=== PATIENT | male | born 1935 | race Caucasian/White ===

== ENCOUNTER → 2017-07-30 12:58 | Outpatient (CLI) | payer MEDICARE, SELFPAY ==
--- NOTE | 2017-07-30 13:00 | CT_ITS ---
STUDY: CT CHEST WITHOUT CONTRAST REASON FOR EXAM: Male, 81 years old. Exertional shortness of breath. RADIATION DOSAGE (If Supplied By Facility): CTDIvol = ( 9.56 ) mGy, DLP = ( 355.56 ) mGycm TECHNIQUE: Transaxial imaging was performed without the administration of intravenous contrast material. Multiplanar coronal and sagittal images were reformatted. Individualized dose optimization techniques were used for this CT. COMPARISON: Prior CT exam of June 19, 2017 FINDINGS: Stable apical pleural-parenchymal scarring of the right lung. Stable area of bronchial retraction and surrounding fibrotic change in the apical portion of the left upper lobe. Stable 5 mm noncalcified nodule of the left upper lobe abutting the oblique fissure, image 31 series 4. Stable flat nodule of the right minor fissure. Image 68 series 4 Calcified granuloma of the right lower lobe, image 69 series 4. Stable linear scarring at the left lung base posteriorly. Normal heart and pericardium. Coronary calcifications and stent artifact. Normal mediastinum. Normal hilar regions. Normal unenhanced pulmonary arteries. There is atherosclerotic calcification of the aortic arch with tortuosity and elongation of the aortic arch and descending thoracic aorta. There are multi-level degenerative changes of the thoracic spine. Status post cholecystectomy. CT/Chest without Contrast IMPRESSION: Stable bilateral apical chronic changes and stable pulmonary nodules. No additional acute findings or changes. Initial recommendation stands: Low risk patient 12 months follow-up. High risk patient 6-12 months then 18-24 months. Electronically Signed: Alicia Coyle MD at 18:14 EST , Service support ,
== END ==
PROVIDERS: Family Provider Family Medicine; PCP Family Medicine; Visit Provider Nurse Practitioner Acute Care
DX: R06.09 Other forms of dyspnea (principal)
CPT/HCPCS: 71250

== ENCOUNTER → 2017-08-15 13:41 | Outpatient (CLI) | payer MEDICARE, SELFPAY | PROVIDERS: Family Provider Family Medicine; PCP Family Medicine; Visit Provider Urology | DX: N39.0 Urinary tract infection, site not specified (principal); R31.0 Gross hematuria | CPT/HCPCS: 87086; 87088 ==

== ENCOUNTER → 2017-11-14 10:44 | Outpatient (CLI) | payer MEDICARE, SELFPAY ==
[2017-11-14 12:30] LABS: Absolute Lymphocyte Count 0.92 X10^3/ul (0.83-4.51); Absolute Neutrophil Count 5.8 X10^3/uL (2.0-7.7); Basophil# 0.02 X10^3/uL; Basophil% 0.2 % (0-1); Eosinophil# 0.27 X10^3/uL; Eosinophils% 3.3 % (0-5); Hematocrit 35.9 % (40-54); Lymphocyte # 0.92 X10^3/ul (4.0); Lymphocyte % 11.4 % (19-41); Mean Corp Hgb Conc 33.4 g/gl (32-36); Mean Corpuscular Hgb 33.9 pg (27.0-32.0); Mean Corpuscular Volume 101.4 fL (80-94); Mean Platelet Vol. 10.7 fl (6.2-12.0); Monocyte# 0.98 X10^3/uL; Monocyte% 12.2 % (0-10); Neutrophil # 5.83 X10^3/uL (2.7-7.7); Neutrophil % 72.4 % (47-70); Platelet Count 309 K/mm3 (150-450); RBC Distribution Width CV 13.1 % (11.6-14.6); RBC Distribution Width SD 48.5 fl (35.1-43.9); Red Blood Count 3.54 M/mm3 (4.6-6.2); White Blood Count 8.1 K/mm3 (4.4-11.0)
[2017-11-14 12:31] LABS: POSITIVE COUNT NO; POSITIVE DIFFERENTIAL NO; POSITIVE MORPHOLOGY NO
[2017-11-14 12:32] LABS: Erythrocyte Sedimentation Rate 9 mm/hr (0-20)
[2017-11-14 12:39] LABS: Anion Gap 9 (5-15); BUN 23 mg/dL (7-18); BUN/Creat Ratio 21.1 RATIO (10-20); CRP < 2.90 mg/L (0.0-3.0); Calcium,Total 8.5 mg/dL (8.5-10.1); Chloride 106 mmol/L (98-107); Creatinine, Serum 1.09 mg/dL (0.70-1.30); EST Glomerular Filtration Rate 69 mL/min (>60); Est Glom Filt Rate - Afr Amer 83 mL/min (>60); Glucose 321 mg/dL (74-106); Potassium 4.2 mmol/L (3.5-5.1); Sodium Level 139 mmol/L (136-145)
== END ==
PROVIDERS: Family Provider Family Medicine; PCP Family Medicine; Visit Provider Family Medicine
DX: R19.7 Diarrhea, unspecified (principal)
CPT/HCPCS: 36415; 80048; 83630; 85025; 85652; 86140; 87177; 87209; 87493; 87506

== ENCOUNTER → 2017-11-17 14:23 | Outpatient (CLI) | payer MEDICARE, SELFPAY | PROVIDERS: Family Provider Family Medicine; PCP Family Medicine; Visit Provider Family Medicine | DX: R19.7 Diarrhea, unspecified (principal) | CPT/HCPCS: 83630; 87177; 87209; 87493; 87506 ==

== ENCOUNTER → 2017-11-26 07:00 | Outpatient (CLI) | payer MEDICARE, SELFPAY ==
--- NOTE | 2017-11-26 09:08 | STRESSREP ---
Stress Test Report Pharmacologic myocardial perfusion stress test. 82-year-old man with a history of progressive shortness of breath. Medications : megestrol pantoprazole magnesium albuterol. Stress protocol: Resting EKG demonstrates normal sinus rhythm with a right bundle branch block rate of 70 bpm is noted resting blood pressure is 154/80 mmHg. 0.4 mg of regadenoson was infused per usual protocol followed by Intravenous saline flush injection continuous EKG monitoring was performed. At rest there were no ST or T-wave changes noted suggest abnormal flow reserve. The maximum heart rate attained was 88 bpm which was 63% maximum predicted heart rate resting blood pressure was 154/80 with a final blood pressure 148/76. Myocardial perfusion protocol. 11.2 mCi of technetium 99m sestamibi was injected at rest. 0.4 mg of regadenoson was infused per usual protocol. At peak infusion 33.6 mCi of technetium 99m sestamibi was injected stress images were obtained stress and rest images were reconstructed and compared in the short axis vertical long and horizontal long axis. Gated images were also obtained. Perfusion SPECT analysis: Review of the images demonstrate normal uptake of tracer noted in all areas of the myocardium. The inferior wall appears to have mildly reduced perfusion on the stress and rest images to a similar extent the above is not suggestive of ischemia and no previous infarct is noted. Gated SPECT analysis. The gated ejection fraction is noted to be 73%. Conclusion: Normal pharmacologic myocardial perfusion stress test. Preserved ejection fraction.
== END ==
PROVIDERS: Family Provider Family Medicine; PCP Family Medicine; Visit Provider Internal Medicine Cardiovascular Disease
DX: R07.9 Chest pain, unspecified (principal); R06.09 Other forms of dyspnea; I45.10 Unspecified right bundle-branch block; I25.10 Atherosclerotic heart disease of native coronary artery without angina pectoris
CPT/HCPCS: 78452; 93017; A9500; A4216; J2785

== ENCOUNTER → 2017-12-02 11:50 | Outpatient (CLI) | payer MEDICARE, SELFPAY ==
[2017-12-03 09:45] LABS: Vitamin B12 1559 pg/mL (211-911); Vitamin D,25 Hydroxy 31.9 ng/mL (29.95-100.01)
[2017-12-04 16:04] LABS: ANTINUCLEAR ANTIBODIES DIRECT Negative (Negative)
== END ==
PROVIDERS: Family Provider Family Medicine; PCP Family Medicine; Visit Provider Family Medicine
DX: R19.7 Diarrhea, unspecified (principal); E11.9 Type 2 diabetes mellitus without complications; E55.9 Vitamin D deficiency, unspecified; R53.83 Other fatigue
CPT/HCPCS: 36415; 82306; 82533; 82607; 86038; 86225; 86235

== ENCOUNTER → 2017-12-09 10:28 | Outpatient (CLI) | payer MEDICARE, SELFPAY ==
[2017-12-09 13:06] LABS: D-Dimer Quantitative (DVT/PE) 0.63 FEU/ug/m (0.27-0.49)
[2017-12-12 16:11] LABS: Testosterone, Free 3.45 ng/dL (5.00-21.00)
[2017-12-14 10:29] LABS: Testosterone, % Free 1.45 % (1.50-4.20); Testosterone, Total 238 ng/dL (264-916)
== END ==
PROVIDERS: Visit Provider Family Medicine
DX: J43.9 Emphysema, unspecified (principal); J45.909 Unspecified asthma, uncomplicated
CPT/HCPCS: 36415; 84402; 84403; 85379

== ENCOUNTER → 2017-12-09 16:58 | Outpatient (CLI) | payer MEDICARE, SELFPAY ==
--- NOTE | 2017-12-09 17:17 | CT_ITS ---
STUDY: CTA CHEST REASON FOR EXAM: Male, 82 years old. Elevated d-dimer RADIATION DOSAGE (If Supplied By Facility): CTDIvol = ( 9.46 ) mGy, DLP = ( 340.93 ) mGycm TECHNIQUE: The examination was performed with the intravenous administration of 100 ml of Isovue 370 contrast material. Post-processing of the angiographic images was performed, with multiplanar reformation and 3D reconstruction. Individualized dose optimization techniques were used for this CT. COMPARISON: None. FINDINGS: Grossly unremarkable thyroid. Normal enhancement of the main pulmonary artery and right and left pulmonary arteries. Normal enhancement of the bilateral peripheral pulmonary arteries. There is no demonstrated pulmonary embolism. There is atherosclerotic tortuosity of the aortic arch and descending thoracic aorta. There is no demonstrated aortic dissection. Normal heart and pericardium. Normal mediastinum. Normal hilar regions. Normal visualized trachea and bronchi. The lungs are hyper expanded, with flattening of the hemidiaphragms. Spiculated groundglass nodule in the left lung apex is noted measuring 2.3 x 1.8 cm. No other pulmonary masses or nodules are identified. Given patient's age, consideration for malignancy is high. No acute airspace disease. Normal pleura. Normal chest wall structures. There are degenerative changes of thoracic spine. Normal visualized upper abdomen. CT/CTA Chest W/WO Contrast IMPRESSION: Negative for pulmonary embolism or thoracic aortic dissection. COPD and lungs are clear. Spiculated left upper lobe pulmonary nodule; malignancy cannot be excluded Electronically Signed: Porfirio Gray DO at 18:04 EDT Tel , Service support ,
== END ==
PROVIDERS: Family Provider Family Medicine; PCP Family Medicine; Visit Provider Family Medicine
DX: R74.8 Abnormal levels of other serum enzymes (principal); J43.9 Emphysema, unspecified; J45.909 Unspecified asthma, uncomplicated
CPT/HCPCS: 36415; 71275; 84402; 84403; 85379; Q9967

== ENCOUNTER → 2017-12-17 11:50 | Outpatient (CLI) | payer MEDICARE, SELFPAY ==
[2017-12-17 16:45] LABS: Prolactin 23.6 ng/mL
[2017-12-24 16:12] LABS: Testosterone, % Free 1.58 % (1.50-4.20); Testosterone, Free 4.42 ng/dL (5.00-21.00)
[2017-12-25 17:12] LABS: Testosterone, Total 280 ng/dL (264-916); Transferrin 250 mg/dL (200-370)
== END ==
PROVIDERS: Family Provider Family Medicine; PCP Family Medicine; Visit Provider Family Medicine
DX: E29.1 Testicular hypofunction (principal)
CPT/HCPCS: 36415; 84146; 84402; 84403; 84443; 84466

== ENCOUNTER 2018-03-16 09:38 | Day surgery (SDC) | payer MEDICARE, SELFPAY ==
--- NOTE | 2018-03-16 | COLBX_PTH ---
PATIENT: ANNETTE VILLANUEVA LOC: EN U#:[id number] AGE/SX: 82/M ROOM: RE03/16/[address]: Dr. Andreas Prather MD : 1935 BED: DIS: 03/16/2018 SPEC #: [id number] RECD: 03/16/18 14:28 STATUS: TOMAS MORE #: [id number] JUSTINA: 03/16/18 00:[address]: Andreas Prather DEPT: SURGICAL PATHOLOGY RECD BY: Zeus Sanchez ENTERED: 03/16/18 14:28 SP TYPE: COLON BX OTHR DR: Dr. Lico Cameron DO Tissues: A - Cecum, NOS B - COLON BIOPSY Procedures: Surgery Specimen Level IV HEADER OPERATION: Colonoscopy (MAC) PRE-OP DIAGNOSIS: Diarrhea TISSUE SUBMITTED: A - Ileocecal valve polyp, B - Random colonic biopsies MICROSCOPIC DIAGNOSIS A. Ileocecal valve polyp, biopsy: Consistent with inflammatory polyp. B. Colon, random biopsy: No pathologic diagnosis. AM:brayden 03/17/18 MICROSCOPIC DESCRIPTION Slides are reviewed. GROSS DESCRIPTION A - Received in fixative is one container labeled with the patient's name and designated ileocecal valve polyp. The specimen consists of one irregular fragment of light musa soft tissue that measures 0.2 x 0.2 x 0.1 cm. The specimen is totally submitted in one cassette. B - Received in fixative is one container labeled with the patient's name and designated random colonic biopsy. The specimen consists of multiple irregular fragments of light musa soft tissue that in aggregate measure 2 x 0.8 x 0.1 cm. The specimen is totally submitted in one cassette. / SJ:brayden 03/16/18 TC:5 CPT: 72611 x2
[2018-03-16 10:20] VITALS: BP 151/68; PULSE 78; RESP 16; TEMP 36.7; O2SAT 100; BMI 22.7
[2018-03-16 10:46] LABS: Bedside Glucose 171 mg/dL (70-110)
[2018-03-16 11:05] VITALS: BP 142/77; BP 151/68; PULSE 70; RESP 16; TEMP 36.3; O2SAT 100
--- NOTE | 2018-03-16 11:05 | OP.ENDO_ITS ---
Patient Name: Jair Fletcher Procedure Date: 03/16/2018 10:35 AM Date of : 1935 Age: 82 Procedure: Colonoscopy Indications: Screening for colorectal malignant neoplasm Providers: Andreas Prather MD Referring MD: Andreas Prather MD Medicines: See the Anesthesia note for documentation of the administered medications Patient Profile: Last Colonoscopy: more than 10 years ago. Complications: No immediate complications. Procedure: Pre-Anesthesia Assessment: - Prior to the procedure, a History and Physical was performed, and patient medications and allergies were reviewed. The patient's tolerance of previous anesthesia was also reviewed. The risks and benefits of the procedure and the sedation options and risks were discussed with the patient. All questions were answered, and informed consent was obtained. Prior Anticoagulants: The patient has taken no previous anticoagulant or antiplatelet agents. ASA Grade Assessment: III - A patient with severe systemic disease. After reviewing the risks and benefits, the patient was deemed in satisfactory condition to undergo the procedure. After I obtained informed consent, the scope was passed under direct vision. Throughout the procedure, the patient's blood pressure, pulse, and oxygen saturations were monitored continuously. The colonoscope was introduced through the anus and advanced to the cecum, identified by appendiceal orifice and ileocecal valve. The colonoscopy was performed without difficulty. The patient tolerated the procedure well. The quality of the bowel preparation was good. Scope In: 10:46:25 AM Scope Withdrawal Time 0 hours 6 minutes 55 seconds Scope Out: 11:00:36 AM Total Procedure Duration Time 0 hours 14 minutes 11 seconds Findings: A 5 mm polyp was found in the ileocecal valve. The polyp was sessile. The polyp was removed with a hot snare. Resection and retrieval were complete. The colon (entire examined portion) appeared normal. Biopsies for histology were taken with a cold forceps from the entire colon for evaluation of microscopic colitis. The exam was otherwise without abnormality. Impression: - One 5 mm polyp at the ileocecal valve, removed with a hot snare. Resected and retrieved. - The entire examined colon is normal. Biopsied. - The examination was otherwise normal. Recommendation: - Discharge patient to home. - Resume previous diet. - Continue present medications. - Await pathology results. - Repeat colonoscopy in 3 years for surveillance. - Return to my office in 1 week. Procedure Code(s): --- Professional --- 84733, Colonoscopy, flexible; with removal of tumor(s), polyp(s), or other lesion(s) by snare technique [id number], 59, Colonoscopy, flexible; with biopsy, single or multiple Diagnosis Code(s): --- Professional --- Z12.11, Encounter for screening for malignant neoplasm of colon D12.0, Benign neoplasm of cecum CPT copyright 2017 [employer]. All rights reserved. The codes documented in this report are preliminary and upon groundwater consultant review may be revised to meet current compliance requirements. MD Andreas Cox MD 03/16/2018 11:04:25 AM This report has been signed electronically. Number of Addenda: 0 Note Initiated On: 03/16/2018 10:35 AM
[2018-03-16 11:10] VITALS: BP 110/83; BP 151/68; PULSE 67; RESP 16; O2SAT 99
[2018-03-16 11:15] VITALS: BP 131/63; BP 151/68; PULSE 72; RESP 16; O2SAT 99
[2018-03-16 11:21] VITALS: BP 136/62; BP 151/68; PULSE 72; RESP 16; TEMP 36.3; O2SAT 96
[2018-03-16 11:48] VITALS: BP 151/68
== END 2018-03-16 11:49 | disposition home or self-care (01) ==
LOC: EN 09:40 → AC 10:00
PROVIDERS: Family Provider Family Medicine; PCP Family Medicine; Referring Provider Surgery; Visit Provider Surgery
PROC: 0DJD8ZZ Inspection of Lower Intestinal Tract, Via Natural or Artificial Opening Endoscopic (ICD-10-PCS; CPT 45378; principal; 2018-03-16 10:40)
DX: Z12.11 Encounter for screening for malignant neoplasm of colon (principal); D12.0 Benign neoplasm of cecum; I45.10 Unspecified right bundle-branch block; E11.9 Type 2 diabetes mellitus without complications; C61 Malignant neoplasm of prostate; R33.9 Retention of urine, unspecified; M19.90 Unspecified osteoarthritis, unspecified site; J45.909 Unspecified asthma, uncomplicated; E55.9 Vitamin D deficiency, unspecified; K21.9 Gastro-esophageal reflux disease without esophagitis; F32.9 Major depressive disorder, single episode, unspecified; Z79.02 Long term (current) use of antithrombotics/antiplatelets; Z79.4 Long term (current) use of insulin; Z79.899 Other long term (current) drug therapy; Z87.891 Personal history of nicotine dependence
CPT/HCPCS: 45380; 45385; 82962; 88305; J7120; J1610

== ENCOUNTER → 2018-04-29 11:58 | Outpatient (CLI) | payer MEDICARE, SELFPAY ==
[2018-04-29 15:58] LABS: Absolute Lymphocyte Count 0.94 X10^3/ul (0.83-4.51); Absolute Neutrophil Count 4.8 X10^3/uL (2.0-7.7); Basophil# 0.01 X10^3/uL; Basophil% 0.1 % (0-1); Eosinophil# 0.22 X10^3/uL; Eosinophils% 3.2 % (0-5); Hematocrit 36.7 % (40-54); Hemoglobin 12.1 g/dl (13.0-16.5); Lymphocyte # 0.94 X10^3/ul (4.0); Lymphocyte % 13.7 % (19-41); Mean Corpuscular Hgb 34.3 pg (27.0-32.0); Mean Platelet Vol. 11.1 fl (6.2-12.0); Monocyte# 0.86 X10^3/uL; Monocyte% 12.5 % (0-10); Neutrophil % 69.8 % (47-70); Platelet Count 269 K/mm3 (150-450); RBC Distribution Width CV 13.4 % (11.6-14.6); RBC Distribution Width SD 49.6 fl (35.1-43.9); Red Blood Count 3.53 M/mm3 (4.6-6.2); White Blood Count 6.9 K/mm3 (4.4-11.0)
[2018-04-29 16:02] LABS: POSITIVE COUNT NO; POSITIVE DIFFERENTIAL NO; POSITIVE MORPHOLOGY NO
[2018-05-02 16:06] LABS: Alternaria tenuis <0.10 kU/L (Class 0); Ash, White <0.10 kU/L (Class 0); Aspergillus fumigatus <0.10 kU/L (Class 0); Bermuda Grass <0.10 kU/L (Class 0); Birch <0.10 kU/L (Class 0); Black Walnut <0.10 kU/L (Class 0); Cat Hair / Dander,Stand 1.04 kU/L (Class II); Cedar, Mountain <0.10 kU/L (Class 0); Cladosporium herbarum <0.10 kU/L (Class 0); Cockroach, American 0.25 kU/L (Class 0/I); Cottonwood <0.10 kU/L (Class 0); D farinae Mite 0.16 kU/L (Class 0/I); D pteronyssinus 0.21 kU/L (Class 0/I); Elm, American White <0.10 kU/L (Class 0); Immunoglobulin E 34 IU/mL (0-100); Maple/Box Elder <0.10 kU/L (Class 0); Mulberry, White <0.10 kU/L (Class 0); Oak, White <0.10 kU/L (Class 0); Pecan <0.10 kU/L (Class 0); Penicillium Notatum <0.10 kU/L (Class 0); Pigweed, Rough <0.10 kU/L (Class 0); Ragweed, Short/Common <0.10 kU/L (Class 0); Russian Thistle <0.10 kU/L (Class 0); Sheep Sorrel <0.10 kU/L (Class 0); Sycamore, American <0.10 kU/L (Class 0); Timothy Grass 7.34 kU/L (Class IV)
[2018-05-02 20:06] LABS: Banana <0.10 kU/L (Class 0); Celery <0.10 kU/L (Class 0); Cheddar Cheese <0.10 kU/L (Class 0); Lettuce <0.10 kU/L (Class 0); Peach <0.10 kU/L (Class 0)
[2018-05-03 08:33] LABS: Lactalbumin, Alpha <0.10 kU/L (Class 0); Turkey <0.10 kU/L (Class 0)
[2018-05-03 08:34] LABS: Mouse Urine <0.10 kU/L (Class 0)
[2018-05-09 03:08] LABS: Almond <0.10 kU/L (Class 0); Barley, Whole Grain <0.10 kU/L (Class 0); Beef <0.10 kU/L (Class 0); Carrot <0.10 kU/L (Class 0); Casein <0.10 kU/L (Class 0); Cashew <0.10 kU/L (Class 0); Chicken <0.10 kU/L (Class 0); Chocolate <0.10 kU/L (Class 0); Clam <0.10 kU/L (Class 0); Codfish <0.10 kU/L (Class 0); Corn <0.10 kU/L (Class 0); Crab 0.12 kU/L (Class 0/I); Egg, White <0.10 kU/L (Class 0); Egg, Whole <0.10 kU/L (Class 0); Egg, Yolk <0.10 kU/L (Class 0); Garlic <0.10 kU/L (Class 0); Gluten <0.10 kU/L (Class 0); Hazelnut/Filbert <0.10 kU/L (Class 0); Lobster 0.21 kU/L (Class 0/I); Milk (Cow) <0.10 kU/L (Class 0); Oat <0.10 kU/L (Class 0); Onion <0.10 kU/L (Class 0); Orange <0.10 kU/L (Class 0); Pea <0.10 kU/L (Class 0); Pecan <0.10 kU/L (Class 0); Pork <0.10 kU/L (Class 0); Potato, White <0.10 kU/L (Class 0); Rice <0.10 kU/L (Class 0); Rye <0.10 kU/L (Class 0); Salmon <0.10 kU/L (Class 0); Shrimp 0.47 kU/L (Class I); Soybean <0.10 kU/L (Class 0); Strawberry <0.10 kU/L (Class 0); Tomato <0.10 kU/L (Class 0); Tuna <0.10 kU/L (Class 0); Walnut, (Food) <0.10 kU/L (Class 0); Wheat <0.10 kU/L (Class 0); Yeast <0.10 kU/L (Class 0)
[2018-05-10 09:52] LABS: Apple <0.10 kU/L (Class 0); Peanut <0.10 kU/L (Class 0)
--- OUTSIDE RECORDS SUMMARY | 2018-06-24 21:21 | XMS RPT_ITS ---
:1935 Author Organization OHIP Support Name Relationship Address Phone VICKIE FLETCHER Unavailable [address] + [address] [place] [address] R Unavailable Unavailable Unavailable VICKIE FLETCHER Unavailable [address] + [address] [place] [address] R Unavailable Unavailable Unavailable VICKIE FLETCHER Unavailable [address] + [address] [place] [address] R Unavailable Unavailable Unavailable VICKIE FLETCHER Unavailable [address] + [address] [place] [address] R Unavailable Unavailable Unavailable VICKIE FLETCHER Unavailable [address] + [address] [place] [address] R Unavailable Unavailable Unavailable VICKIE FLETCHER Unavailable [address] + [address] [place] [address] R Unavailable Unavailable Unavailable VICKIE FLETCHER Unavailable [address] + [address] [place] [address] R Unavailable Unavailable Unavailable VICKIE FLETCHER Unavailable [address] [phone] [place] [address] R Unavailable Unavailable Unavailable VICKIE FLETCHER Unavailable [address] + [address] [place] [address] R Unavailable Unavailable Unavailable VICKIE FLETCHER Unavailable [address] + [address] [place] [address] R Unavailable Unavailable Unavailable VICKIE FLETCHER Unavailable [address] + [address] [place] [address] R Unavailable Unavailable Unavailable VICKIE FLETCHER Unavailable [address] + [address] [place] [address] R Unavailable Unavailable Unavailable VICKIE FLETCHER Unavailable [address] + [address] [place] [address] R Unavailable Unavailable Unavailable VICKIE FLETCHER Unavailable [address] + [address] [place] [address] R Unavailable Unavailable Unavailable VICKIE FLETCHER Unavailable [address] + [address] [place] [address] R Unavailable Unavailable Unavailable VICKIE FLETCHER Unavailable [address] + [address] [place] [address] R Unavailable Unavailable Unavailable VICKIE FLETCHER Unavailable [address] [phone]~330-2 [place] [address] R Unavailable Unavailable Unavailable VICKIE FLETCHER Unavailable [address] [phone]~330-2 [place] [address] R Unavailable Unavailable Unavailable VICKIE FLETCHER Unavailable [address] [phone]~330-2 [place] [address] R Unavailable Unavailable Unavailable VICKIE FLETCHER Unavailable [address] [phone]~330-2 [place] [address] R Unavailable Unavailable Unavailable VICKIE FLETCHER Unavailable [address] [phone]~330-2 [place] [address] R Unavailable Unavailable Unavailable VICKIE FLETCHER Unavailable [address] [phone]~330-2 [place] [address] R Unavailable Unavailable Unavailable VICKIE FLETCHER Unavailable [address] [phone]~330-2 [place] [address] R Unavailable Unavailable Unavailable VICKIE FLETCHER Unavailable [address] [phone]~330-2 [place] [address] R Unavailable Unavailable Unavailable VICKIE FLETCHER Unavailable [address] [phone]~330-2 [place] [address] R Unavailable Unavailable Unavailable VICKIE FLETCHER Unavailable [address] [phone]~330-2 [place] [address] R Unavailable Unavailable Unavailable VICKIE FLETCHER Unavailable [address] [phone]~330-2 [place] [address] R Unavailable Unavailable Unavailable VICKIE FLETCHER Unavailable [address] [phone]~330-2 [place] [address] R Unavailable Unavailable Unavailable VICKIE FLETCHER Unavailable [address] + [place] [address] R Unavailable Unavailable Unavailable VICKIE FLETCHER Unavailable [address] [phone]~330-2 [place] [address] R Unavailable Unavailable Unavailable Care Team Providers Name Role Phone Tina Ayala Attending Unavailable Nisha, Lico Referring Unavailable Nisha, Lico Primary Care Unavailable Mirian Fitzgerald Attending Unavailable Ayala, Tina Attending Unavailable Nisha, Ilco Primary Care Unavailable Ayala, Tina Referring Unavailable SeaSaleem Attending Unavailable Nisha, Lico Primary Care Unavailable Ayala, Tina Attending Unavailable Nisha, Lico Referring Unavailable Tina Ayala Attending Unavailable Ayala, Tina Referring Unavailable Nisha, Lico Primary Care Unavailable Whitney Gillette NP-C Attending Unavailable Nisha, Lico Referring Unavailable Nisha, Lico Primary Care Unavailable Alana Solis Attending Unavailable Tina Ayala Referring Unavailable Sanford Radford D.O. Attending Unavailable Nisha, Lico Referring Unavailable Whitney Gillette Attending Unavailable Nisha, Lico Referring Unavailable SeaSaleem Attending Unavailable Nisha, Lico Primary Care Unavailable Saleem Osei Referring Unavailable Stephy, Juan Antonio Attending Unavailable Nisha, Lico Referring Unavailable Nisha, Lico Primary Care Unavailable Stephy, [place] Attending Unavailable Stephy, Juan Antonio Referring Unavailable Nisha, Lico Primary Care Unavailable AyalaTina Attending Unavailable Nisha, Lico Referring Unavailable Stephy, Juan Antonio Attending Unavailable Nisha, Lico Referring Unavailable Nisha, Lico Attending Unavailable Nisha, Lico Referring Unavailable Nisha, Lico Primary Care Unavailable Nisha, Lico Attending Unavailable Nisha, Lico Referring Unavailable Nisha, Lico Primary Care Unavailable Stephy, [place] Attending Unavailable Stephy, [place] Referring Unavailable Nisha, Lico Primary Care Unavailable Nisha, Lico Attending Unavailable Nisha, Lico Primary Care Unavailable Nisha, Lico Attending Unavailable Nisha, Lico Attending Unavailable Nisha, Lico Referring Unavailable Nisha, Lico Primary Care Unavailable Nisha, Lico Attending Unavailable Nisha, Lico Primary Care Unavailable Stephy, Juan Antonio Attending Unavailable Yamilka, Andreas Attending Unavailable Nisha, Lico Referring Unavailable FitzgeraldMirian oakley Attending Unavailable Dalhart, Andreas Attending Unavailable Yamilka, Andreas Referring Unavailable Nisha, Lico Primary Care Unavailable Yamilka, Andreas Attending Unavailable Nisha, Lico Referring Unavailable Dalhart, Andreas Attending Unavailable Nisha, Lico Attending Unavailable Nisha, Lico Primary Care Unavailable Raymon Gilletteie Dave [employer]-C Attending Unavailable Nisha, Lico Referring Unavailable PROBLEMS PROBLEMS DATE TYPE CONDITION / CODE ATTENDING STATUS SOURCE 04/29/2018 Unknown Z51.81 - Encounter Lico Cameron Active [place] for therapeutic Community drug level Hospital monitoring / Repository Z51.81(ICD-10) 04/01/2018 Unknown Z12.11 - Encounter Andreas Prather Active [place] for screening for Community malignant neoplasm [facility] of colon / Repository Z12.11(ICD-10) 04/01/2018 Unknown 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 / Community D12.0(ICD-10) Hospital Repository 12/09/2017 Unknown J45.909 - Lico Cameron Active [place] Unspecified asthma, Community uncomplicated / Hospital J45.909(ICD-10) Repository 12/09/2017 Unknown J43.9 - Emphysema, Lico Cameron Active [facility] unspecified / Community J43.9(ICD-10) Hospital Repository 11/17/2017 Unknown R19.7 - Diarrhea, Lico Cameron Active [place] unspecified / Community R19.7(ICD-10) Hospital Repository 09/03/2017 Unknown R06.09 - Other Stephy, Juan Antonio Active [place] forms of dyspnea / Community R06.09(ICD-10) Hospital Repository 09/03/2017 Unknown R53.83 - Other Stephy, Juan Antonio Active [place] fatigue / Community R53.83(ICD-10) Hospital Repository 09/03/2017 Unknown R07.9 - Chest pain, Stephy, [place] Active [facility] unspecified / Community R07.9(ICD-10) Hospital Repository 09/03/2017 Unknown R91.1 - Solitary Stephy, [place] Active [place] pulmonary nodule / Community R91.1(ICD-10) Hospital Repository 09/03/2017 Unknown R93.8 - Abnormal Stephy, Juan Anotnio Active [facility] findings on Community diagnostic imaging Hospital of other specified Repository body structures / R93.8(ICD-10) 09/03/2017 Unknown E10.65 - Type 1 Stephy, Juan Antonio Active [facility] diabetes mellitus Community with hyperglycemia Hospital / E10.65(ICD-10) Repository 09/03/2017 Unknown J42 - Unspecified Stephy, [place] Active [facility] chronic bronchitis Community / J42(ICD-10) Hospital Repository 09/03/2017 Unknown I45.10 - Stephy, [place] Active [facility] Unspecified right Community bundle-branch block Hospital / I45.10(ICD-10) Repository 08/14/2017 Unknown E11.9 - Type 2 Whitney Gillette Active [facility] diabetes mellitus [facility] Community without Hospital complications / Repository E11.9(ICD-10) 06/19/2017 Unknown R06.00 - Dyspnea, Ayala, Active [facility] unspecified / Tina [facility] R06.00(ICD-10) Hospital Repository 09/25/2017 Unknown R06.02 - Shortness Will, Alana Active [place] of breath / Community R06.02(ICD-10) Hospital Repository 07/02/2017 Unknown J41.0 - Simple Ayala, Active [facility] chronic bronchitis Tina [facility] / J41.0(ICD-10) Hospital Repository PROCEDURES PROCEDURES No Procedure Records FoundRESULTS RESULTS ENDOCRINOLOGY VISIT Observed: 05/06/2018 Status: F Source: [facility] REPORT 3:27 PM [facility] REPOSITORY [facility] [address] [place] [address] [address] [place] [address] OFFICE VISIT Date of Service: 05/06/18 MR#: [id number] Acct: [id number] Name: ANNETTE FLETCHER Rep #: [id number] : 1935 Provider: Whitney Gillette NP Age/Sex: 82/M [place] [facility] [place]: Signed HPI History of present illness Annette Fletcehr is an 82 year old male who presents for follow up of diabetes type 2. Patient thinks his diabetes was changed to diagnosis of type 1 at some point. Currently he takes toujeo 21 units twice daily. . He also takes meal insulin base of 10 units and sliding scale of 1 per 25 points. Pt denies difficulty with injections or self monitoring of BG. Denies any signs of infection or irritation at site of injections. Reports taking insulin as directed A1c done at office of PCP. Patient not sure of his level. Reports he checks his BG after he pre meal andis taking insulin before he eats. At time of visit: -Pt denies symptoms of hypertensive emergency (CP,SOB,WAITE, or blurred vision) and hypotension(dizziness or lightheadedness) -Pt denies symptoms of hypoglycemia ( sweaty, confusion, anxiety, tremor, hunger, palpitations) and hyperglycemia ( polydipsia, polyuria) -Pt denies potential medication adverse effect. Hypoglycemia Aware of hypoglycemia: When awake Able to self treat low BG: Yes Frequent low Blood sugar: No Has supply of glucagon: Yes Diet Breakfast varies from eggs and hash browns to pancakes, to cereal, to only a glass of milk Lunch soup/sandwich Dinner meat and vegetables SMBG after breakfast 200-300 Lunch post meal 200-300's after dinner 300 range Exam Const General: comfortable, no acute distress Nutritional Appearance: well nourished Orientation: oriented x3 HENMT Head: normal to inspection, atraumatic Ears: other (sl hard of hearing) Nose: external nose normal Mouth: oral mucosae normal, moist mucous membranes abnormal Teeth and gingiva: dentition normal Eyes General: appearance normal, both eyes and all related structures Conjunctivae: conjunctivae normal Sclera: sclerae normal Pupils: PERRL Resp Effort AND Inspection: normal respiratory effort, able to speak in complete sentences, symmetric chest movement Auscultation: Bilateral: Clear to Auscultation Cardio Rate: regular rate Rhythm: regular rhythm Heart Sounds: S1 normal, S2 normal GI Inspection: normal to inspection Auscultation: normal bowel sounds Palpation: soft, no guarding Skin General: no rashes or lesions noted Wounds: no wounds Diabetic Foot Pulses: L dorsalis pedis pulse: normal, R dorsalis pedis pulse: diminished Monofilament test: Left foot: abnormal, Right foot: abnormal Neuro General: gait normal, moves all extremities Cognition: normal cognition Speech: speech normal Gait: normal gait Extrem General: normal to inspection, pedal edema Psych Appearance: well kempt Mental Status: mental status grossly normal Mood: congruent mood Affect: normal affect Speech and Movement: speech and movement normal Attitude: cooperative Thought Process: normal Thought Content: normal Judgment: judgment good Type: type 1, insulin-requiring Glucose control symptoms: Reports high fasting glucose, high post-meal glucose and nocturnal hypoglycemia Weight and fatigue symptoms: Denies snoring Cardiopulmonary symptoms: Reports lightheadedness; denies chest pain at rest, dyspnea on exertion or myalgias GI symptoms: Denies constipation, diarrhea, nausea/dyspepsia or vomiting Skin and extremity symptoms: Denies erectile dysfunction Other symptoms: Denies blurry vision or change in vision Pertinent visit history: Denies recent visit to ER or recent 911 calls Self monitoring: Yes Dietary compliance: Diabetes: other Diabetes education in past year: Yes Glucose testing: demonstrates correct use of meter, understands testing schedule Sick day education - understands ketone testing: Yes Physical activity: sedentary lifestyle Intake Vital Signs05/06/18 Body Mass Index (BMI) 22.7 Intake Visit Reasons: Diabetes follow-up Bag Hanger Required: No Accompanied by: Family / Other Allergies latex Allergy (Verified 05/06/18 13:16) Rash Medications megestrol 20 mg tablet 20 mg PO ONCE 06/05/17 [History Confirmed 05/06/18] blood sugar diagnostic strips See Dose Instructions .ROUTE .MEDSUPPLY #20 ea 07/28/17 [History Confirmed 05/06/18] pen needle, diabetic 32 gauge x 32 See Dose Instructions .ROUTE .MEDSUPPLY #10 ea 08/13/17 [History Confirmed 05/06/18] albuterol sulfate HFA 90 mcg/actuation aerosol inhaler 2 puff INHALATION Q4H PRN #18 g 08/21/17 [Rx Confirmed 05/06/18] pantoprazole 40 mg tablet,delayed release 40 mg PO QDAY 09/03/17 [History Confirmed 05/06/18] insulin lispro (U- 100) 100 unit/mL subcutaneous solution See Rx Instructions SC TID #20 ml 09/22/17 [Rx Confirmed 05/06/18] cholecalciferol (vitamin D3) 2,000 unit capsule 2,000 unit PO DAILY 03/05/18 [History Confirmed 05/06/18] dutasteride 0.5 mg capsule 0.5 mg PO DAILY 03/05/18 [History Confirmed 05/06/18] gabapentin 300 mg capsule 300 mg PO DAILY 03/05/18 [History Confirmed 05/06/18] insulin glargine (U-300) conc. 300 unit/mL (1.5 mL) subcutaneous pen 21 unit SC BID ml 03/05/18 [History Confirmed 05/06/18] polyethylene glycol 3350 17 gram/dose oral powder 17 g PO QDAY 03/05/18 [History Confirmed 05/06/18] testosterone cypionate 100 mg/mL intramuscular oil 300 mg IM ONCE ml 03/05/18 [History Confirmed 05/06/18] vitamin B complex tablet 1 tab PO DAILY 03/05/18 [History Confirmed 05/06/18] Blood Sugar Diagnostic [Easy Touch Test Strip] 0 ea .ROUTE .MEDSUPPLY 03/13/18 [History Confirmed 05/06/18] insulin syringe-needle U-100 0.5 mL 31 gauge x 10/15 See Dose Instructions .ROUTE .MEDSUPPLY #100 ea 05/04/18 [Rx Confirmed 05/06/18] Nurse's Note: blood sugars : low : 90 high :[facility] Medical History Right bundle branch block (Chronic) Chest pain (Resolved) Urinary retention (Resolved) Leg cramps (Acute) Lightheadedness (Acute) Vision problems (Acute) Arthritis (Chronic) CROW (dyspnea on exertion) (Chronic) GERD (gastroesophageal reflux disease) (Chronic) Hyperglycemia (Chronic) Prostate cancer (Chronic) Type 2 diabetes mellitus (Chronic) Vitamin D deficiency (Chronic) Anemia (Resolved) Bronchitis (Resolved) Shingles (Resolved) ulcers (Resolved) Surgical History History of prostate surgery (Acute) History of cholecystectomy (Resolved) History of pancreatic surgery (Resolved) Family History Mother Cancer Father Diabetes Social History Smoking Status: Former smoker quit date: 06/02/01 pack-years: 48 alcohol intake: current alcohol intake frequency: 0-2 drinks per day substance use type: does not use ROS Const Constitutional: No anorexia, body ache, chills, fatigue, fever(s), frequent falls, decreased energy, malaise, night sweats, weakness, weight change, sleep problems, abnormal sleep pattern, change in appetite, other, headache(s), snoring or excessive sweating Eyes Eyes: No blurry vision, change in vision, double vision, discharge, dry eyes, bulging eyes, floaters, visual disturbances, eye pain, light sensitivity, spots in vision, tunnel vision or other ENT ENT: No abnormal hearing, ear pain, ear discharge, ear pressure, hearing loss, tinnitus, dizziness/vertigo, balance problems, nosebleed/epistaxis, nasal congestion, nasal obstruction, nose pain, sinus pressure, sinus pain, nasal discharge, post nasal drip, headache(s), facial pain, dental pain, dry mouth, bad breath, hoarseness, lip swelling, mouth lesions, mouth pain, sore throat, tongue swelling, throat swelling, other, difficulty swallowing or neck pain Resp Respiratory: Positive for shortness of breath; no cough, change in phlegm color, chest congestion, excessive phlegm production, hemoptysis, pain on inspiration, pain with cough, snoring, stridor, wheezing or other Cardio Cardiology: Positive for generalized swelling and lightheadedness; no chest pain at rest, chest pain with exertion, leg pain with exertion, excessive sweating, shortness of breath, dyspnea on exertion, irregular heart rhythm, orthopnea, radiating jaw, neck or arm pain, fast heart rate, slow heart rate, palpitations or other Gastro GI: No abdominal pain, belching, bloating, change in bowel habits, change in stool character, coffee ground emesis, constipation, cramping, diarrhea, heartburn, difficulty swallowing, feeling full early, excessive flatus, incontinent of stools, Vomiting blood/hematemesis, blood in stool, loose stools, Black,tarry stools, nausea/dyspepsia, pain with swallowing, vomiting or other Genitourinary Male: Positive for urinary hesitancy; no difficulty urinating, burning urination, painful urination, urinary incontinence, urinary frequency, urinary urgency, urinary retention, blood in urine, Frequent nighttime urination/ nocturia, post void dribbling, suprapubic fullness, side pain, sexual problems, genital lesions, genital itching, erectile dysfunction, penile discharge, difficulty with ejaculations, blood in semen, scrotal swelling, testicle lump, testicle pain or other Musc Musculoskeletal: No abnormal walking, joint pain, back pain, deformity, joint swelling, limited range of motion, loss of height, muscle cramps, muscle weakness, decreased muscle mass, body aches, neck pain, numbness, radiating pain into limb, stiffness, tingling or other Skin Skin: No acne, hair loss, change in hair, nail changes, boil, change in skin color, dry skin, redness, excessive hair growth, yellowing of the skin, lesions, itching, rash, skin pain, skin ulcer, sores, skin swelling, wounds or other Breast Breast: No other Neuro Neurology: No frequent falls, weakness, visual disturbances, abnormal hearing, headache(s), abnormal walking, numbness or tingling Psych Psychiatric: No abnormal sleep pattern, No change in appetite Endo Endocrine: No fatigue, other or excessive sweating Aller/Imm Allergy/Immunologic: No lip swelling, tongue swelling, throat swelling, wheezing or itchy eyes Assessment AND Plan 1. Uncontrolled type 1 diabetes mellitus with hyperglycemia E10.65 Plan BG readings note pattern of becoming higher as day progresses. Will ask patient to increase his am long acting insulin by 1 unit increments (max of 4 additional units) to improve BG readings. Will then look at meal coverage and make some adjustment if indicated No recent labs sent from PCP. No statin or use makenzie inhibitor currently. No allergies noted. No recent labs for cmp or lipids noted. Orders Orders: Plan Detail Additional Comments 1. Please schedule follow up in 3 months. 2. Lab work one week before appointment. 3. Discussed importance of regular exercise and recommend starting or continuing a regular exercise program for good health. 4. The patient was encouraged to lose weight for good health 5. The importance of monitoring blood sugar regularly was reviewed. 6. The importance of monitoring the HBA1c level regularly was reviewed. 7. The importance of prper foot care and regularly checking feet to prevent sores and loss of limbs was reviewed. 8. The importance of keeping BP at or below 130/80 to prevent stroke, heart attacks, kidney failure, blindness was reviewed. Spent approximately 30 minutes with patient with over 50% of time spent in discussion and counseling regarding medication adjustment, symptoms and treatment of hypoglycemia, diet adherence, and checking BG before driving. Coding Level of Care Code Off vis,est,level 4 Diagnoses Uncontrolled type 1 diabetes mellitus with hyperglycemia E10.65 Glycemic state: with hyperglycemia 05/06/18 1527 <Electronically signed by Whitney LIGHT> Date Whitney Gillette [employer]-C Cosigner Signature: Date (if applicable) CC: CBC W/DIFF, AUTOMATED Collected: 04/29/2018 Status: F Source: [place] 12:[place] [facility] [place] CODE TESTS RESULT OUT OF RANGE REFERENCE UNITS LAB L100.1000 4.4-11.0 K/mm3 Normal WBC 6.9 LAB L100.1200 4.6-6.2 M/mm3 Low RBC 3.53 LAB L100.1300 13.0-16.5 g/dl Low HGB 12.1 LAB L100.1400 40-54 % Low HCT 36.7 LAB L100.1500 80-94 fL High MCV 104.0 LAB L100.1600 27.0-32.0 pg High MCH 34.3 LAB L100.1700 32-36 g/gl Normal MCHC 33.0 LAB L100.1810 11.6-14.6 % Normal RDW CV 13.4 LAB L100.1820 35.1-43.9 fl High RDW SD 49.6 LAB L100.1900 150-450 K/mm3 Normal PLT 269 LAB L100.2000 6.2-12.0 fl Normal MPV 11.1 LAB L100.2100 47-70 % Normal NEUT% 69.8 LAB L100.2200 19-41 % Low LY% 13.7 LAB L100.2300 0-10 % High MONO% 12.5 LAB L100.2400 0-5 % Normal EO% 3.2 LAB L100.2500 0-1 % Normal BASO% 0.1 LAB L100.2550 0.0-0.9 % Normal IM GRAN % 0.700 Result Comment: IG% - Immature Granulocytes (promyelocytes, myelocytes and metamyelocytes) > 1% indicates that a LEFT SHIFT is Present. LAB L100.2620 2.0-7.7 X10 3/uL Normal Absolute Neut 4.8 LAB L100.2720 0.83-4.51 X10 3/ul Normal Absolute Lymph 0.94 Performed By: #### L100.0100 #### [facility] [place], [address] BANANA Collected: 04/29/2018 Status: F Source: [place] 12:00 PM [facility] [place] TYPE CODE TESTS RESULT OUT OF RANGE REFERENCE UNITS LAB L5530.0090 Class 0 kU/L Normal BANANA <0.10 Performed By: #### L5530.0089 #### [facility] (refer to report for specific site) refer to report for address and phone number CELERY Collected: 04/29/2018 Status: F Source: [place] 12:00 PM [facility] [place] TYPE CODE TESTS RESULT OUT OF RANGE REFERENCE UNITS LAB L5530.0320 Class 0 kU/L Normal CELERY <0.10 Performed By: #### L5530.0319 #### [facility] (refer to report for specific site) refer to report for address and phone number CHEDDAR CHEESE Collected: 04/29/2018 Status: F Source: [facility] 12:00 [facility] REPOSITORY TYPE CODE TESTS RESULT OUT OF RANGE REFERENCE UNITS LAB L5530.0340 Class 0 kU/L Normal CHEDDAR <0.10 CHEESE Performed By: #### L5530.0339 #### [facility] (refer to report for specific site) refer to report for address and phone number LACTALBUMIN ALPHA Collected: 04/29/2018 Status: F Source: [facility] 12:00 [facility] REPOSITORY TYPE CODE TESTS RESULT OUT OF RANGE REFERENCE UNITS LAB L5530.0790 Class 0 kU/L Normal <0.10 LACTALBUMIN, ALP Result Comment: Levels of Specific IgE Class Description of Class ----- < 0.10 0 Negative 0.10 - 0.31 0/I Equivocal/Low 0.32 - 0.55 I Low 0.56 - 1.40 II Moderate 1.41 - 3.90 III High 3.91 - 19.00 IV Very High 19.01 - 100.00 V Very High >100.00 Very High Performed By: #### L5530.0789 #### [facility] (refer to report for specific site) refer to report for address and phone number LETTUCE Collected: 04/29/2018 Status: F Source: [place] 12:00 PM [facility] [place] TYPE CODE TESTS RESULT OUT OF RANGE REFERENCE UNITS LAB L5530.0840 Class 0 kU/L Normal LETTUCE <0.10 Performed By: #### L5530.0839 #### [facility] (refer to report for specific site) refer to report for address and phone number PEACH Collected: 04/29/2018 Status: F Source: [place] 12:00 PM [facility] [place] TYPE CODE TESTS RESULT OUT OF RANGE REFERENCE UNITS LAB L5530.1160 Class 0 kU/L Normal PEACH <0.10 Performed By: #### L5530.1159 #### [facility] (refer to report for specific site) refer to report for address and phone number TURKEY Collected: 04/29/2018 Status: F Source: [place] 12:00 PM [facility] [place] CODE TESTS RESULT OUT OF RANGE REFERENCE UNITS LAB L5530.1620 Class 0 kU/L Normal TURKEY 20610 <0.10 Result Comment: Performed at: - [facility] [id number] Software Configuration Manager: Sima Dick MD, Phone: [phone] Performed By: #### L5530.1619 #### [facility] (refer to report for specific site) refer to report for address and phone number ALLERGEN RESP. AREA 5 Collected: 04/29/2018 Status: F Source: [place]LL[place] 12:00 PM [facility] [place] CODE TESTS RESULT OUT OF RANGE REFERENCE UNITS LAB L5500.8000 0-100 IU/mL Normal TOTAL igE 34 LAB L5500.9900 . Normal RAST COMMENT Comment Result Comment: Levels of Specific IgE Class Description of Class ----- < 0.10 0 Negative 0.10 - 0.31 0/I Equivocal/Low 0.32 - 0.55 I Low 0.56 - 1.40 II Moderate 1.41 - 3.90 III High 3.91 - 19.00 IV Very High 19.01 - 100.00 V Very High >100.00 Very High LAB L5510.0040 Class II kU/L High CAT HAIR/DANDER 1.04 LAB L5510.0070 Class 0/I kU/L High DOG EPITHELIA 0.10 LAB L5520.0020 Class 0/I kU/L High D FARINAE MITE 0.16 LAB L5520.0030 Class 0/I kU/L High D PTERONYSSINUS 0.21 LAB L5540.0020 Class 0 kU/L BERMUDA GRASS Normal <0.10 LAB L5540.0190 Class IV kU/L High NOEMY GRASS 7.34 LAB L5550.0020 Class 0 kU/L ALTERNARIA TEN Normal <0.10 LAB L5550.0040 Class 0 kU/L ASPERGILLUS FUM Normal <0.10 LAB L5550.0140 Class 0 kU/L CLADOSPOR HERB Normal <0.10 LAB L5550.0340 Class 0 kU/L PEN Notatum Normal <0.10 LAB L5555.0380 Class 0/I kU/L High COCKROACH,AMER 0.25 LAB L5555.0410 Class 0 kU/L Mouse Urine Normal <0.10 Result Comment: Performed at: [address] [id number] Software Configuration Manager: Sima Dick MD, Phone: [phone] LAB L5560.0050 Class 0 kU/L BOYD, Normal WHITE <0.10 LAB L5560.0100 Class 0 kU/L BIRCH Normal <0.10 LAB L5560.0110 Class 0 kU/L CEDAR, Normal MOUNTAIN <0.10 LAB L5560.0140 Class 0 kU/L Normal COTTONWOOD <0.10 LAB L5560.0170 Class 0 kU/L ELM,AMER Normal WHITE <0.10 LAB L5560.0310 Class 0 kU/L Normal MAPLE/BOX ELDER <0.10 LAB L5560.0371 Class 0 kU/L Normal MULBERRY, WHITE <0.10 LAB L5560.0400 Class 0 kU/L OAK, Normal WHITE <0.10 LAB L5560.0440 Class 0 kU/L PECAN Normal <0.10 LAB L5560.0550 Class 0 kU/L Normal SYCAMORE, AMER <0.10 LAB L5560.0570 Class 0 kU/L BLACK Normal WALNUT <0.10 LAB L5580.0210 Class 0 kU/L PIGWEED, Normal ROUGH <0.10 LAB L5580.0260 Class 0 kU/L RAGWEED Normal SH/COM <0.10 LAB L5580.0320 Class 0 kU/L SHEEP Normal SORREL <0.10 LAB L5580.0360 Class 0 kU/L KUWAITI Normal THISTLE <0.10 Performed By: #### L5500.0700 #### [facility] (refer to report for specific site) refer to report for address and phone number ALMOND Collected: 04/29/2018 Status: F Source: [place]LLIN 12:00 PM [facility] [place] CODE TESTS RESULT OUT OF RANGE REFERENCE UNITS LAB L5530.0010 Class 0 kU/L Normal ALMOND <0.10 Performed By: #### L5530.0009 #### [facility] (refer to report for specific site) refer to report for address and phone number APPLE Collected: 04/29/2018 Status: F Source: [place] 12:00 PM [facility] [place] CODE TESTS RESULT OUT OF RANGE REFERENCE UNITS LAB L5530.0040 Class 0 kU/L Normal APPLE <0.10 Result Comment: Performed at: - [facility] [id number] Software Configuration Manager: Sima Dick MD, Phone: [phone] Performed By: #### L5530.0039 #### [facility] (refer to report for specific site) refer to report for address and phone number BARLEY, WHOLE GRAIN Collected: 04/29/2018 Status: F Source: [place] 12:00 PM [facility] [place] CODE TESTS RESULT OUT OF RANGE REFERENCE UNITS LAB L5530.0100 Class 0 kU/L Normal <0.10 BARLEY,WHOLE GR Performed By: #### L5530.0099 #### [facility] (refer to report for specific site) refer to report for address and phone number BEEF Collected: 04/29/2018 Status: F Source: [place] 12:00 PM [facility] [place] CODE TESTS RESULT OUT OF RANGE REFERENCE UNITS LAB L5530.0170 Class 0 kU/L Normal BEEF <0.10 Performed By: #### L5530.0169 #### [facility] (refer to report for specific site) refer to report for address and phone number CARROT Collected: 04/29/2018 Status: F Source: [place] 12:00 PM [facility] [place] CODE TESTS RESULT OUT OF RANGE REFERENCE UNITS LAB L5530.0280 Class 0 kU/L Normal CARROT <0.10 Performed By: #### L5530.0279 #### [facility] (refer to report for specific site) refer to report for address and phone number CASEIN Collected: 04/29/2018 Status: F Source: [place] 12:00 PM [facility] [place] CODE TESTS RESULT OUT OF RANGE REFERENCE UNITS LAB L5530.0290 Class 0 kU/L Normal CASEIN <0.10 Performed By: #### L5530.0289 #### [facility] (refer to report for specific site) refer to report for address and phone number CASHEW Collected: 04/29/2018 Status: F Source: [place] 12:00 PM [facility] [place] CODE TESTS RESULT OUT OF RANGE REFERENCE UNITS LAB L5530.0300 Class 0 kU/L Normal CASHEW <0.10 Performed By: #### L5530.0299 #### [facility] (refer to report for specific site) refer to report for address and phone number CHICKEN Collected: 04/29/2018 Status: F Source: [place] 12:00 PM [facility] [place] CODE TESTS RESULT OUT OF RANGE REFERENCE UNITS LAB L5530.0400 Class 0 kU/L Normal CHICKEN <0.10 Performed By: #### L5530.0399 #### [facility] (refer to report for specific site) refer to report for address and phone number CHOCOLATE Collected: 04/29/2018 Status: F Source: [place] 12:00 PM [facility] [place] CODE TESTS RESULT OUT OF RANGE REFERENCE UNITS LAB L5530.0410 Class 0 kU/L Normal CHOCOLATE <0.10 Performed By: #### L5530.0409 #### [facility] (refer to report for specific site) refer to report for address and phone number CLAM Collected: 04/29/2018 Status: F Source: [place] 12:00 PM [facility] [place] CODE TESTS RESULT OUT OF RANGE REFERENCE UNITS LAB L5530.0430 Class 0 kU/L Normal CLAM <0.10 Performed By: #### L5530.0429 #### [facility] (refer to report for specific site) refer to report for address and phone number CODFISH Collected: 04/29/2018 Status: F Source: [place] 12:00 PM [facility] [place] CODE TESTS RESULT OUT OF RANGE REFERENCE UNITS LAB L5530.0460 Class 0 kU/L Normal CODFISH <0.10 Performed By: #### L5530.0459 #### [facility] (refer to report for specific site) refer to report for address and phone number CORN Collected: 04/29/2018 Status: F Source: [place] 12:00 PM [facility] [place] CODE TESTS RESULT OUT OF RANGE REFERENCE UNITS LAB L5530.0480 Class 0 kU/L Normal CORN <0.10 Performed By: #### L5530.0479 #### [facility] (refer to report for specific site) refer to report for address and phone number CRAB Collected: 04/29/2018 Status: F Source: [place] 12:00 PM [facility] [place] CODE TESTS RESULT OUT OF RANGE REFERENCE UNITS LAB L5530.0500 Class 0/I kU/L High CRAB 0.12 Performed By: #### L5530.0499 #### [facility] (refer to report for specific site) refer to report for address and phone number EGG, WHITE Collected: 04/29/2018 Status: F Source: [place]LL[place] 12:00 PM [facility] [place] CODE TESTS RESULT OUT OF RANGE REFERENCE UNITS LAB L5530.0570 Class 0 kU/L Normal EGG,WHITE <0.10 Performed By: #### L5530.0569 #### [facility] (refer to report for specific site) refer to report for address and phone number EGG, YOLK Collected: 04/29/2018 Status: F Source: [place]LL[place] 12:00 PM [facility] [place] CODE TESTS RESULT OUT OF RANGE REFERENCE UNITS LAB L5530.0580 Class 0 kU/L Normal EGG, YOLK <0.10 Performed By: #### L5530.0579 #### [facility] (refer to report for specific site) refer to report for address and phone number EGG, WHOLE Collected: 04/29/2018 Status: F Source: [place]LLIN 12:00 PM [facility] [place] TYPE CODE TESTS RESULT OUT OF RANGE REFERENCE UNITS LAB L5530.0590 Class 0 kU/L Normal EGG,WHOLE <0.10 Performed By: #### L5530.0589 #### [facility] (refer to report for specific site) refer to report for address and phone number GARLIC Collected: 04/29/2018 Status: F Source: [place]LL[place] 12:00 PM [facility] [place] TYPE CODE TESTS RESULT OUT OF RANGE REFERENCE UNITS LAB L5530.0630 Class 0 kU/L Normal GARLIC <0.10 Performed By: #### L5530.0629 #### [facility] (refer to report for specific site) refer to report for address and phone number GLUTEN Collected: 04/29/2018 Status: F Source: [place]LL[place] 12:00 PM [facility] [place] TYPE CODE TESTS RESULT OUT OF RANGE REFERENCE UNITS LAB L5530.0650 Class 0 kU/L Normal GLUTEN <0.10 Performed By: #### L5530.0649 #### [facility] (refer to report for specific site) refer to report for address and phone number HAZELNUT/FILBERT Collected: 04/29/2018 Status: F Source: [place]LL[place] 12:00 PM [facility] [place] CODE TESTS RESULT OUT OF RANGE REFERENCE UNITS LAB L5530.0730 Class 0 kU/L Normal <0.10 Hazelnut/Carl tova Performed By: #### L5530.0729 #### [facility] (refer to report for specific site) refer to report for address and phone number LOBSTER Collected: 04/29/2018 Status: F Source: [place]LL[place] 12:00 PM [facility] [place] CODE TESTS RESULT OUT OF REFERENCE UNITS RANGE LAB L5530.0880 Class 0/I kU/L High LOBSTER 0.21 Performed By: #### L5530.0879 #### [facility] (refer to report for specific site) refer to report for address and phone number MILK, (COW) Collected: 04/29/2018 Status: F Source: [place]LL[place] 12:00 PM [facility] [place] CODE TESTS RESULT OUT OF RANGE REFERENCE UNITS LAB L5530.0930 Class 0 kU/L Normal MILK <0.10 (COW) Performed By: #### L5530.0929 #### [facility] (refer to report for specific site) refer to report for address and phone number OAT Collected: 04/29/2018 Status: F Source: [place]LL[place] 12:00 PM [facility] [place] TYPE CODE TESTS RESULT OUT OF RANGE REFERENCE UNITS LAB L5530.1010 Class 0 kU/L Normal OAT <0.10 Performed By: #### L5530.1009 #### [facility] (refer to report for specific site) refer to report for address and phone number ONION Collected: 04/29/2018 Status: F Source: [place] 12:00 PM [facility] [place] TYPE CODE TESTS RESULT OUT OF RANGE REFERENCE UNITS LAB L5530.1040 Class 0 kU/L Normal ONION <0.10 Performed By: #### L5530.1039 #### [facility] (refer to report for specific site) refer to report for address and phone number ORANGE Collected: 04/29/2018 Status: F Source: [place]LL[place] 12:00 PM [facility] [place] TYPE CODE TESTS RESULT OUT OF RANGE REFERENCE UNITS LAB L5530.1050 Class 0 kU/L Normal ORANGE <0.10 Performed By: #### L5530.1049 #### [facility] (refer to report for specific site) refer to report for address and phone number PEA Collected: 04/29/2018 Status: F Source: [place]LL[place] 12:00 PM [facility] [place] TYPE CODE TESTS RESULT OUT OF RANGE REFERENCE UNITS LAB L5530.1150 Class 0 kU/L Normal PEA <0.10 Performed By: #### L5530.1149 #### [facility] (refer to report for specific site) refer to report for address and phone number PEANUT Collected: 04/29/2018 Status: F Source: [place]LL[place] 12:00 PM [facility] [place] TYPE CODE TESTS RESULT OUT OF RANGE REFERENCE UNITS LAB L5530.1170 Class 0 kU/L Normal PEANUT <0.10 Result Comment: Levels of Specific IgE Class Description of Class ----- < 0.10 0 Negative 0.10 - 0.31 0/I Equivocal/Low 0.32 - 0.55 I Low 0.56 - 1.40 II Moderate 1.41 - 3.90 III High 3.91 - 19.00 IV Very High 19.01 - 100.00 V Very High >100.00 Very High Performed By: #### L5530.1169 #### [facility] (refer to report for specific site) refer to report for address and phone number PECAN Collected: 04/29/2018 Status: F Source: [place]LL[place] 12:00 PM [facility] [place] CODE TESTS RESULT OUT OF RANGE REFERENCE UNITS LAB L5530.1190 Class 0 kU/L Normal PECAN <0.10 Performed By: #### L5530.1189 #### [facility] (refer to report for specific site) refer to report for address and phone number PORK Collected: 04/29/2018 Status: F Source: [place]LL[place] 12:00 PM [facility] [place] CODE TESTS RESULT OUT OF RANGE REFERENCE UNITS LAB L5530.1320 Class 0 kU/L Normal PORK <0.10 Performed By: #### L5530.1319 #### [facility] (refer to report for specific site) refer to report for address and phone number POTATO, WHITE Collected: 04/29/2018 Status: F Source: [place]LLIN 12:00 PM [facility] [place] CODE TESTS RESULT OUT OF RANGE REFERENCE UNITS LAB L5530.1340 Class 0 kU/L Normal <0.10 POTATO,WHITE Performed By: #### L5530.1339 #### [facility] (refer to report for specific site) refer to report for address and phone number RICE Collected: 04/29/2018 Status: F Source: COLLIN 12:00 PM [facility] [place] TYPE CODE TESTS RESULT OUT OF RANGE REFERENCE UNITS LAB L5530.1390 Class 0 kU/L Normal RICE <0.10 Performed By: #### L5530.1389 #### [facility] (refer to report for specific site) refer to report for address and phone number RYE Collected: 04/29/2018 Status: F Source: [place]LLIN 12:00 PM [facility] [place] TYPE CODE TESTS RESULT OUT OF RANGE REFERENCE UNITS LAB L5530.1400 Class 0 kU/L Normal RYE <0.10 Performed By: #### L5530.1399 #### [facility] (refer to report for specific site) refer to report for address and phone number SALMON Collected: 04/29/2018 Status: F Source: [place]LL[place] 12:00 PM [facility] [place] TYPE CODE TESTS RESULT OUT OF RANGE REFERENCE UNITS LAB L5530.1420 Class 0 kU/L Normal SALMON <0.10 Performed By: #### L5530.1419 #### [facility] (refer to report for specific site) refer to report for address and phone number SHRIMP Collected: 04/29/2018 Status: F Source: [place]LL[place] 12:00 PM [facility] [place] TYPE CODE TESTS RESULT OUT OF REFERENCE UNITS RANGE LAB L5530.1450 Class I kU/L High SHRIMP 0.47 Performed By: #### L5530.1449 #### [facility] (refer to report for specific site) refer to report for address and phone number SOYBEAN Collected: 04/29/2018 Status: F Source: [place]LL[place] 12:00 PM [facility] [place] TYPE CODE TESTS RESULT OUT OF RANGE REFERENCE UNITS LAB L5530.1480 Class 0 kU/L Normal SOYBEAN <0.10 Performed By: #### L5530.1479 #### [facility] (refer to report for specific site) refer to report for address and phone number STRAWBERRY Collected: 04/29/2018 Status: F Source: [place] 12:00 PM [facility] [place] TYPE CODE TESTS RESULT OUT OF RANGE REFERENCE UNITS LAB L5530.1510 Class 0 kU/L Normal STRAWBERRY <0.10 Performed By: #### L5530.1509 #### [facility] (refer to report for specific site) refer to report for address and phone number TOMATO Collected: 04/29/2018 Status: F Source: [place]LL[place] 12:00 PM [facility] [place] TYPE CODE TESTS RESULT OUT OF RANGE REFERENCE UNITS LAB L5530.1590 Class 0 kU/L Normal TOMATO <0.10 Performed By: #### L5530.1589 #### [facility] (refer to report for specific site) refer to report for address and phone number TUNA Collected: 04/29/2018 Status: F Source: [place] 12:00 PM [facility] [place] TYPE CODE TESTS RESULT OUT OF RANGE REFERENCE UNITS LAB L5530.1610 Class 0 kU/L Normal TUNA <0.10 Performed By: #### L5530.1609 #### [facility] (refer to report for specific site) refer to report for address and phone number WALNUT, (FOOD) Collected: 04/29/2018 Status: F Source: [place] 12:00 PM [facility] [place] TYPE CODE TESTS RESULT OUT OF RANGE REFERENCE UNITS LAB L5530.1650 Class 0 kU/L Normal WALNUT <0.10 Performed By: #### L5530.1649 #### [facility] (refer to report for specific site) refer to report for address and phone number WHEAT Collected: 04/29/2018 Status: F Source: [place]LL[place] 12:00 PM [facility] [place] TYPE CODE TESTS RESULT OUT OF RANGE REFERENCE UNITS LAB L5530.1670 Class 0 kU/L Normal WHEAT <0.10 [id number] Performed By: #### L5530.1669 #### [facility] (refer to report for specific site) refer to report for address and phone number YEAST Collected: 04/29/2018 Status: F Source: [place] 12:00 PM [facility] [place] TYPE CODE TESTS RESULT OUT OF RANGE REFERENCE UNITS LAB L5530.1720 Class 0 kU/L Normal YEAST <0.10 Performed By: #### L5530.1719 #### [facility] (refer to report for specific site) refer to report for address and phone number SURGERY VISIT REPORT Observed: 03/24/2018 Status: F Source: COLLIN 8:33 AM [facility] [place] [facility] [address] [place], [place] [address] OFFICE VISIT Date of Service: 03/23/18 MR#: [id number] Acct: [id number] Name: ANNETTE FLETCHER Rep #: [id number] : 1935 Provider: Andreas Prather MD Age/Sex: 82/M Location: [facility] Status: Signed Intake Intake Visit Reasons: C-Scope 03/16 Chief Complaint: Initial visit. Bag Hanger Required: No Is patient in pain?: No Allergies latex Allergy (Verified 03/23/18 14:05) Rash Medications megestrol 20 mg tablet 20 mg PO ONCE 06/05/17 [History Confirmed 03/23/18] blood sugar diagnostic strips See Dose Instructions .ROUTE .MEDSUPPLY #20 ea 07/28/17 [History Confirmed 03/23/18] pen needle, diabetic 32 gauge x See Dose Instructions .ROUTE .MEDSUPPLY #10 ea 08/13/17 [History Confirmed 03/23/18] albuterol sulfate HFA 90 mcg/actuation aerosol inhaler 2 puff INHALATION Q4H PRN #18 g 08/21/17 [Rx Confirmed 03/23/18] pantoprazole 40 mg tablet,delayed release 40 mg PO QDAY 09/03/17 [History Confirmed 03/23/18] insulin lispro (U- 100) 100 unit/mL subcutaneous solution See Rx Instructions SC TID #20 ml 09/22/17 [Rx Confirmed 03/23/18] insulin syringe-needle U-100 0.5 mL 31 gauge x 10/15 See Dose Instructions .ROUTE .MEDSUPPLY #100 ea 12/17/17 [Rx Confirmed 03/23/18] cholecalciferol (vitamin D3) 2,000 unit capsule 2,000 unit PO DAILY 03/05/18 [History Confirmed 03/23/18] dutasteride 0.5 mg capsule 0.5 mg PO DAILY 03/05/18 [History Confirmed 03/23/18] gabapentin 300 mg capsule 300 mg PO DAILY 03/05/18 [History Confirmed 03/23/18] insulin glargine (U-300) conc. 300 unit/mL (1.5 mL) subcutaneous pen 21 unit SC BID ml 03/05/18 [History Confirmed 03/23/18] polyethylene glycol 3350 17 gram/dose oral powder 17 g PO QDAY 03/05/18 [History Confirmed 03/23/18] testosterone cypionate 100 mg/mL intramuscular oil 300 mg IM ONCE ml 03/05/18 [History Confirmed 03/23/18] vitamin B complex tablet 1 tab PO DAILY 03/05/18 [History Confirmed 03/23/18] Blood Sugar Diagnostic [Easy Touch Test Strip] 0 ea .ROUTE .MEDSUPPLY 03/13/18 [History Confirmed 03/23/18] Subjective Details: Patient is status post a colonoscopy completed on 03/16/2018. Patient was noted to have an inflammatory polyp at the ileocecal valve. In addition he also underwent random colon biopsies which were all negative. The mucosa throughout his colon looked all normal and there was no signs of any abnormalities. Objective Details: Abdomen is soft and nontender Assessment AND Plan Problems 1. Diarrhea R19.7 Plan The patient does not microscopic colitis. I have encouraged him to get back to his patient assistant to see if he can get his sugars under better control. In addition I have instructed him that he is going to have to get back to his primary care physician's see if there are any other medications that he can eliminate from his diet. Finally the patient assistant may need to make recommendations with regards to him taking pancreatic enzymes given the fact that he has had previous pancreatic surgery in the past. Coding Level of Care Code Off vis,est,level 2 Diagnoses Diarrhea R19.7 03/24/18 0833 <Electronically signed by Andreas Prather MD> Date Andreas Prather MD Cosigner Signature: Date (if applicable) CC: Whitney Gillette CORRECTION WARDEN; Lico Cameron DO OPERATIVE REPORT - Observed: 03/16/2018 Status: F Source: [facility] ENDOSCOPY 11:05 AM [facility] [place] [facility] Medical Records Department [address] [place] [address] Operative Report - Endoscopy MR#: [id number] Acct: [id number] Name: ANNETTE FLETCHER Rep #: [id number] : 1935 82 From: Andreas Prather MD PCP: Lico Cameron DO Status: [place] [facility] [place] Patient Name: Annette Fletcher Procedure Date: 03/16/2018 10:35 AM Date of : 1935 Age: 82 Procedure: Colonoscopy Indications: Screening for colorectal malignant neoplasm Providers: Andreas Prather MD Referring MD: Andreas Prather MD Medicines: See the Anesthesia note for documentation of the administered medications Patient Profile: Last Colonoscopy: more than 10 years ago. Complications: No immediate complications. Procedure: Pre-Anesthesia Assessment: - Prior to the procedure, a History and Physical was performed, and patient medications and allergies were reviewed. The patient's tolerance of previous anesthesia was also reviewed. The risks and benefits of the procedure and the sedation options and risks were discussed with the patient. All questions were answered, and informed consent was obtained. Prior Anticoagulants: The patient has taken no previous anticoagulant or antiplatelet agents. ASA Grade Assessment: III - A patient with severe systemic disease. After reviewing the risks and benefits, the patient was deemed in satisfactory condition to undergo the procedure. After I obtained informed consent, the scope was passed under direct vision. Throughout the procedure, the patient's blood pressure, pulse, and oxygen saturations were monitored continuously. The colonoscope was introduced through the anus and advanced to the cecum, identified by appendiceal orifice and ileocecal valve. The colonoscopy was performed without difficulty. The patient tolerated the procedure well. The quality of the bowel preparation was good. Scope In: 10:46:25 AM Scope Withdrawal Time 0 hours 6 minutes 55 seconds Scope Out: 11:00:36 AM Total Procedure Duration Time 0 hours 14 minutes 11 seconds Findings: A 5 mm polyp was found in the ileocecal valve. The polyp was sessile. The polyp was removed with a hot snare. Resection and retrieval were complete. The colon (entire examined portion) appeared normal. Biopsies for histology were taken with a cold forceps from the entire colon for evaluation of microscopic colitis. The exam was otherwise without abnormality. Impression: - One 5 mm polyp at the ileocecal valve, removed with a hot snare. Resected and retrieved. - The entire examined colon is normal. Biopsied. - The examination was otherwise normal. Recommendation: - Discharge patient to home. - Resume previous diet. - Continue present medications. - Await pathology results. - Repeat colonoscopy in 3 years for surveillance. - Return to my office in 1 week. Procedure Code(s): --- Professional --- 71506, Colonoscopy, flexible; with removal of tumor(s), polyp(s), or other lesion(s) by snare technique 96493, 59, Colonoscopy, flexible; with biopsy, single or multiple Diagnosis Code(s): --- Professional --- Z12.11, Encounter for screening for malignant neoplasm of colon D12.0, Benign neoplasm of cecum CPT copyright 2017 [employer]. All rights reserved. The codes documented in this report are preliminary and upon coal sampler review may be revised to meet current compliance requirements. MD Andreas Cox MD 03/16/2018 11:04:25 AM This report has been signed electronically. Number of Addenda: 0 Note Initiated On: 03/16/2018 10:35 AM 03/16/18 1104 Date [facility] Signature: Date (if indicated) CC: Andreas Prather MD; Lico Cameron DO Date Dictated: 03/16/18 1035 Date Transcribed: Outside Energy Sales Representatives: DP Signed BEDSIDE GLUCOSE Collected: 03/16/2018 Status: F Source: [facility] 10:25 AM [facility] [place] TYPE CODE TESTS RESULT OUT OF REFERENCE UNITS RANGE LAB L501.080 70-110 mg/dL High BEDSIDE GLU 171 Result Comment: MANAGEMENT OF PATIENT CARE PER NURSING PROTOCOL Performed By: #### L501.080 #### [facility] Point of Care [address] [place] [address] COLON BIOPSY (CHOOSE Observed: 03/16/2018 Status: F Source: CEMENT SITE) 12:00 AM [facility] [place] Patient: ANNETTE FLETCHER : 1935 (82/M) Acct Num: [id number] Phys: Andreas Prather MD Unit Num: [id number] Loc: EN Specimen: [id number] Received: 03/16/18 - 1428 Spec Type: COLON BX TISSUES 1 TISSUES: A. Cecum, NOS B. COLON BIOPSY GROSS DESCRIPTION A - Received in fixative is one container labeled with the patient's name and designated ileocecal valve polyp. The specimen consists of one irregular fragment of light musa soft tissue that measures 0.2 x 0.2 x 0.1 cm. The specimen is totally submitted in one cassette. B - Received in fixative is one container labeled with the patient's name and designated random colonic biopsy. The specimen consists of multiple irregular fragments of light musa soft tissue that in aggregate measure 2 x 0.8 x 0.1 cm. The specimen is totally submitted in one cassette. / SJ:brayden 03/16/18 TC:5 CPT: 31495 x2 HEADER OPERATION: Colonoscopy (MAC) PRE-OP DIAGNOSIS: Diarrhea TISSUE SUBMITTED: A - Ileocecal valve polyp, B - Random colonic biopsies MICROSCOPIC DESCRIPTION Slides are reviewed. MICROSCOPIC DIAGNOSIS A. Ileocecal valve polyp, biopsy: Consistent with inflammatory polyp. B. Colon, random biopsy: No pathologic diagnosis. AM:rg 03/17/18 Signed Zeke Georgette 03/17/18 <signature on file> Performed By: #### PCOLBX #### [facility] [address] [place], [place], [address] SURGERY VISIT REPORT Observed: 03/12/2018 Status: F Source: CEMENT 11:30 AM [facility] [place] [facility] [address] [place] [address] OFFICE VISIT Date of Service: 03/04/18 MR#: [id number] Acct: [id number] Name: ANNETTE FLETCHER Rep #: [id number] : 1935 Provider: Andreas Prather MD Age/Sex: 82/M Location: [facility] Status: Signed Intake Vital Signs03/04/18 Height 6 ft 1 in 03/04/18 Weight: 180 lb 03/04/18 Body Mass Index (BMI) 23.7 Intake Visit Reasons: diarrhea, requesting cscope, Chief Complaint: Initial visit. Bag Hanger Required: No Is patient in pain?: No Allergies latex Allergy (Verified 03/04/18 15:01) Rash Medications megestrol 20 mg tablet 20 mg PO ONCE 06/05/17 [History Confirmed 03/05/18] blood sugar diagnostic strips See Dose Instructions .ROUTE .MEDSUPPLY #20 ea 07/28/17 [History Confirmed 03/05/18] pen needle, diabetic 32 gauge x See Dose Instructions .ROUTE .MEDSUPPLY #10 ea 08/13/17 [History Confirmed 03/05/18] albuterol sulfate HFA 90 mcg/actuation aerosol inhaler 2 puff INHALATION Q4H PRN #18 g 08/21/17 [Rx Confirmed 03/05/18] pantoprazole 40 mg tablet,delayed release 40 mg PO QDAY 09/03/17 [History Confirmed 03/05/18] insulin lispro (U- 100) 100 unit/mL subcutaneous solution See Rx Instructions SC TID #20 ml 09/22/17 [Rx Confirmed 03/05/18] insulin syringe-needle U-100 0.5 mL 31 gauge x 10/15 See Dose Instructions .ROUTE .MEDSUPPLY #100 ea 12/17/17 [Rx Confirmed 03/05/18] Easy Touch Test Strip See Dose Instructions .ROUTE .MEDSUPPLY #150 ea NS 01/07/18 [Rx Confirmed 03/05/18] cholecalciferol (vitamin D3) 2,000 unit capsule 2,000 unit PO DAILY 03/05/18 [History Confirmed 03/05/18] dutasteride 0.5 mg capsule 0.5 mg PO DAILY 03/05/18 [History Confirmed 03/05/18] gabapentin 300 mg capsule 300 mg PO DAILY 03/05/18 [History Confirmed 03/05/18] insulin glargine (U-300) conc. 300 unit/mL (1.5 mL) subcutaneous pen 21 unit SC BID ml 03/05/18 [History Confirmed 03/05/18] polyethylene glycol 3350 17 gram/dose oral powder 17 g PO QDAY 03/05/18 [History Confirmed 03/05/18] testosterone cypionate 100 mg/mL intramuscular oil 300 mg IM ONCE ml 03/05/18 [History Confirmed 03/05/18] vitamin B complex tablet 1 tab PO DAILY 03/05/18 [History Confirmed 03/05/18] [facility] Medical History Right bundle branch block (Chronic) Chest pain (Resolved) Urinary retention (Resolved) Leg cramps (Acute) Lightheadedness (Acute) Vision problems (Acute) Arthritis (Chronic) CROW (dyspnea on exertion) (Chronic) GERD (gastroesophageal reflux disease) (Chronic) Hyperglycemia (Chronic) Prostate cancer (Chronic) Type 2 diabetes mellitus (Chronic) Vitamin D deficiency (Chronic) Anemia (Resolved) Bronchitis (Resolved) Shingles (Resolved) ulcers (Resolved) Surgical History History of cholecystectomy (Resolved) History of pancreatic surgery (Resolved) Family History Mother Cancer Father Diabetes Social History Smoking Status: Former smoker quit date: 06/02/01 pack-years: 48 alcohol intake: current alcohol intake frequency: 0-2 drinks per day substance use type: does not use HPI HPI HPI: ANNETTE FLETCHER, is a 82 M who presents to the office today for evaluation of diarrhea. Patient states that he has had diarrhea over the last 2-3 months. He has not no any obvious rectal bleeding. And is been at least 20 years since his last colonoscopy. Sees Dr. Keyes for right bundle branch blocks. Patient states he will have between 6 and 7 bowel movements a day ROS General General: Yes weight change and fatigue; no appetite, colon cancer, breast cancer or weakness HEENT HEENT: No difficulty swallowing, eye injury, eye surgery, swollen glands or hoarseness Endo Endocrine: Yes diabetes mellitus; no thyroid disease, thyroid cancer, Hair loss, heat intolerance or cold intolerance Skin Skin: No rash or changing moles Breast Breast: No left breast lump, right breast lump, nipple discharge, breast pain, abnormal mammogram, abnormal US or breast enlargement Musc Musculoskeletal: No back problems, arthritis, rheumatoid arthritis, gout or joint pain Cardio Cardiovascular: No murmur, pacemaker, heart disease, atrial fibrillation, high blood pressure, heart attack, heart stent, palpitations, shortness of breat with exertion or chest pain Psych Psychiatric: No depression, anxiety or hearing voices Resp Respiratory: Yes shortness of breath, No sleep apnea, No cough, No COPD, No asthma, No emphysema, No wheezing Gastro Gastrointestinal: Yes diarrhea, Yes acid reflux, No abdominal pain, No nausea or vomiting, No constipation, No blood in stool, No hemorrhoids, No ulcers, No gallbladder problem, No black,tarry stools Rah Hematologic: No blood thinners, No blood disorders, No bleeding, No anemia, No blood clots Neuro Neurologic: No system reviewed and no additional complaints, except as docu, No as per HPI, No abnormal walking, No abnormal hearing, No abnormal movements, No abnormal speech, No behavioral changes, No burning sensations, No confusion, No seizure-like activity, No unsteadiness, No dizziness, No localized weakness, No frequent falls, No headache(s), No lack of coordination, No loss of vision, No memory loss, No numbness, No other visual disturbances, No radiating pain, No restless legs, No sensory deficit, No fainting, No tingling, No tremor(s), No weakness, No other Exam Const General: well developed, no acute distress, well hydrated Orientation: oriented to person, oriented to place, oriented to time [facility] Head: normocephalic, atraumatic Ears: external ears normal Mouth: moist mucous membranes Eyes Sclera: sclerae normal Pupils: normal by confrontation Neck Neck: no lymphadenopathy noted Neck mass: No Thyroid: symmetrical, thyroid normal Chest Chest palpation AND inspection: normal inspection of the chest Breast Palpation: No nipple discharge Resp Effort AND Inspection: normal respiratory effort Auscultation: clear to auscultation bilaterally Percussion: percussion normal Cardio Rate: regular rate Rhythm: regular rhythm Heart Sounds: no murmurs GI Palpation: soft, no masses, no hepatosplenomegaly, nontender Rectal Exam: other Other: Rectal exam deferred. Extrem General: no clubbing, cyanosis or edema, normal to inspection Assessment AND Plan Problems 1. Encounter for screening colonoscopy Z12.11 Plan I have discussed the above with the patient. I have offered the patient colonoscopy for evaluation. I have explained the risks/benefits of the procedure and described the procedure. I have discussed the risks with the patient, including but not limited to: infection, bleeding, perforation of the GI tract requiring emergency surgery, inability to complete the procedure, injury to any internal organs, complications of anesthesia, etc. - the patient understands and agrees to proceed. I have answered all the patient's questions to the patient's satisfaction and the patient has no further questions. The patient has been given instructions for the colon cleansing preparation. Coding Level of Care Code Off vis,new,level 3 Diagnoses Encounter for screening colonoscopy Z12.11 03/12/18 1130 <Electronically signed by Andreas Prather MD> Date Andreas Prather MD Cosigner Signature: Date (if applicable) CC: Lico Cameron DO CARDIOLOGY VISIT Observed: 01/02/2018 Status: F Source: [place] REPORT 6:41 AM [facility] [place] [facility] [address] [place] [address] OFFICE VISIT Date of Service: 01/01/18 MR#: [id number] Acct: [id number] Name: ANNETTE FLETCHER Rep #: [id number] : 1935 Provider: Juan Antonio Keyes MD Age/Sex: 82/M Location: [facility] Status: Signed HPI HPI Details: ANNETTE FLETCHER, is a 82 M who presents to the office today for Intake Intake Visit Reasons: 4 M FU Allergies doxazosin Allergy (Unknown, Verified 09/03/17 13:45) Unknown enalapril Allergy (Unknown, Verified 09/03/17 13:45) Unknown propranolol Allergy (Unknown, Verified 09/03/17 13:45) Unknown tamsulosin [From Flomax] Allergy (Unknown, Verified 09/03/17 13:45) Unknown latex Allergy (Verified 09/03/17 13:45) Rash Medications megestrol 20 mg tablet 20 mg PO ONCE 06/05/17 [History Confirmed 09/03/17] blood sugar diagnostic strips See Dose Instructions .ROUTE .MEDSUPPLY #20 ea 07/28/17 [History Confirmed 09/03/17] insulin glargine See Label Instructions SC .q hs 07/28/17 [History Confirmed 09/03/17] magnesium oxide 250 mg tablet 250 mg PO QDAY tab 07/28/17 [History Confirmed 09/03/17] pen needle, diabetic 32 gauge x See Dose Instructions .ROUTE .MEDSUPPLY #10 ea 08/13/17 [History Confirmed 08/13/17] polyethylene glycol 3350 17 gram/dose oral powder 17 g PO QDAY PRN 08/13/17 [History Confirmed 08/13/17] promethazine 6.25 mg-codeine 10 mg/5 mL syrup 5 ml PO Q6H 08/13/17 [History Confirmed 09/03/17] propylhexedrine nasal inhaler 2 inh INTRANASAL QHS ea 08/13/17 [History Confirmed 08/13/17] albuterol sulfate HFA 90 mcg/actuation aerosol inhaler 2 puff INHALATION Q4H PRN #18 g 08/21/17 [Rx Confirmed 09/03/17] cyanocobalamin (vit B-12) ER 1,000 mcg tablet,extended release 1,000 mcg PO QDAY 09/03/17 [History Confirmed 09/03/17] pantoprazole 40 mg tablet,delayed release 40 mg PO QDAY 09/03/17 [History Confirmed 09/03/17] insulin lispro (U-100) 100 unit/mL subcutaneous solution See Label Instructions SC TID #20 ml 09/22/17 [Rx] insulin syringe-needle U-100 0.5 mL 31 gauge x 10/15 See Dose Instructions .ROUTE .MEDSUPPLY #100 ea 12/17/17 [Rx] PFSH Medical History Right bundle branch block (Chronic) Chest pain (Resolved) Urinary retention (Resolved) Leg cramps (Acute) Lightheadedness (Acute) Shingles (Acute) Vision problems (Acute) ulcers (Acute) Anemia (Chronic) Arthritis (Chronic) Bronchitis (Chronic) COPD (chronic obstructive pulmonary disease) (Chronic) CROW (dyspnea on exertion) (Chronic) GERD (gastroesophageal reflux disease) (Chronic) Hyperglycemia (Chronic) Prostate cancer (Chronic) Type 2 diabetes mellitus (Chronic) Vitamin D deficiency (Chronic) Surgical History History of cholecystectomy (Resolved) Family History Mother Cancer Father Diabetes Social History Smoking Status: Former smoker quit date: 06/02/01 pack-years: 48 alcohol intake: never substance use type: does not use ROS Const Const: Negative for fatigue, weakness, night sweats, excessive sweating, frequent falls, headache(s) or daytime sleepiness Eyes Eyes: Negative for loss of peripheral vision, transient loss of vision, blind spots, double vision or blurry vision ENT ENT: Negative for headache(s), dizziness, balance problems, Nosebleed/epistaxis, tongue swelling or lip swelling Cardio Chest Pain: No Palpitations: No Edema: None Muscle aches with walking: None Resp Respiratory: Negative for SOB at rest, SOB orthopnea\SOB lying down, Cough, paroxysmal nocturnal dyspnea or SOB with activity GI GI: Negative nausea, vomiting, heartburn, black,tarry stools or bright, red blood in stools : Negative for hematuria Musc Musc: Negative for balance problems, muscle aches/ myalgia, muscle weakness or joint pain Skin Skin: Negative non-healing lesions, unusual bruising or rash Neuro Neuro: Negative for weakness, frequent falls, headache(s), double vision, dizziness, lightheadedness, orthostatic symptoms, blurry vision or lack of coordination Rah Hematologic/Lymphatic: Negative for easy bruising or easy bleeding Endo Endo: Negative for fatigue, excessive sweating, cold intolerance, heat intolerance, increased thirst/drinking or hair loss Psych Psych: Negative for anxiety or depression Allergy Allergy/Immunology: Negative for throat swelling, Negative for tongue swelling, Negative for hives, Negative for rash, Negative for lip swelling Assessment AND Plan Medications Discontinued: albuterol sulfate HFA 90 mcg/actuatio2 puffs Inhalation Q4H PRN espinoza bradford administer with spacer Discon of breath or wheezing tinued Reason: Order Changed Coding Level of Care Code No Charge Coding Level of Care Code No Charge 01/02/18 0641 <Electronically signed by Juan Antonio Keyes MD> Date Juan Antonio Keyes MD Cosigner Signature: Date (if applicable) CC: Lico Cameron DO THYROID STIM HORMONE Collected: 12/17/2017 Status: F Source: [place] (TSH) 11:52 AM [facility] [place] TYPE CODE TESTS RESULT OUT OF RANGE REFERENCE UNITS LAB L501.9520 0.358-3.74 uIU/mL Normal TSH 2.00 Performed By: #### L501.9520, L3100.5420 #### [facility] [address] [place], [address] PROLACTIN Collected: 12/17/2017 Status: F Source: [place] 11:52 AM [facility] [place] [facility] TYPE CODE TESTS RESULT OUT OF RANGE REFERENCE UNITS LAB L3100.5420 ng/mL Normal PROLACTIN 23.6 Result Comment: NORMAL REFERENCE RANGES FEMALE NON- 2.2 - 30.3 ng/mL 8.1 - 347.6 ng/mL POST-MENOPAUSAL 0.7 - 31.5 ng/mL MALE 2.5 - 17.4 ng/mL NEW TEST METHOD AND REFERENCE RANGES OCTOBER 21, 2011 Performed By: #### L501.9520, L3100.5420 #### [facility] [address] [place], [address] TESTOSTERONE, TOTAL / Collected: 12/17/2017 Status: F Source: [place]LL[place] FREE 11:52 AM [facility] [place] [facility] Order Comment: Has Patient had X-rays with Contrast this admission? N TYPE CODE TESTS RESULT OUT OF RANGE REFERENCE UNITS LAB L3100.5320 264-916 ng/dL Normal 280 TESTOSTER,TO ADONAY Result Comment: Adult male reference interval is based on a population of healthy nonobese males (BMI <30) between 19 and 39 years old. Cheryl et.al. JCEM 2017,102;0957-0310. PMID: [id number]. LAB L3100.5340 5.00-21.00 ng/dL Low TESTOSTER,FREE 4.42 LAB L3100.5360 1.50-4.20 % TESTOSTER %FREE Normal 1.58 Performed By: #### L3100.5310, L3400.3800 #### [facility] (refer to report for specific site) refer to report for address and phone number TRANSFERRIN Collected: 12/17/2017 Status: F Source: [place] 11:52 AM [facility] [place] [facility] Order Comment: Has Patient had X-rays with Contrast this admission? N TYPE CODE TESTS RESULT OUT OF RANGE REFERENCE UNITS LAB L3400.3800 200-370 mg/dL Normal TRANSFERRN 2012 250 Result Comment: Performed at: - [facility] [id number] Software Configuration Manager: Sabas Cheatham PhD, Phone: [phone] Performed at: - [facility] [address] [id number] Software Configuration Manager: Anirudh Rodas MD, Phone: [phone] Performed By: #### L3100.5310, L3400.3800 #### [facility] (refer to report for specific site) refer to report for address and phone number CTA CHEST W/WO Observed: 12/09/2017 Status: F Source: [place]LL[place] CONTRAST 5:18 PM [facility] [place] [facility] [address] [place] [address] CTA Chest W/WO Contrast MR#: [id number] Acct: [id number] Name: ANNETTE FLETCHER Rep #: [id number] : 1935 M 82 From: Porfirio Gray DO PCP: Lico Cameron DO Status: REG CLI Study: CTA Chest W/WO Contrast Date of Exam: 12/09/17 Exam# [id number] Ordering Dr: Lico Cameron DO STUDY: CTA CHEST REASON FOR EXAM: Male, 82 years old. Elevated d-dimer RADIATION DOSAGE (If Supplied By Facility): CTDIvol = ( 9.46 ) mGy, DLP = ( 340.93 ) mGycm TECHNIQUE: The examination was performed with the intravenous administration of 100 ml of Isovue 370 contrast material. Post-processing of the angiographic images was performed, with multiplanar reformation and 3D reconstruction. Individualized dose optimization techniques were used for this CT. COMPARISON: None. FINDINGS: Grossly unremarkable thyroid. Normal enhancement of the main pulmonary artery and right and left pulmonary arteries. Normal enhancement of the bilateral peripheral pulmonary arteries. There is no demonstrated pulmonary embolism. There is atherosclerotic tortuosity of the aortic arch and descending thoracic aorta. There is no demonstrated aortic dissection. Normal heart and pericardium. Normal mediastinum. Normal hilar regions. Normal visualized trachea and bronchi. The lungs are hyper expanded, with flattening of the hemidiaphragms. Spiculated groundglass nodule in the left lung apex is noted measuring 2.3 x 1.8 cm. No other pulmonary masses or nodules are identified. Given patient's age, consideration for malignancy is high. No acute airspace disease. Normal pleura. Normal chest wall structures. There are degenerative changes of thoracic spine. Normal visualized upper abdomen. CT/CTA Chest W/WO Contrast IMPRESSION: Negative for pulmonary embolism or thoracic aortic dissection. COPD and lungs are clear. Spiculated left upper lobe pulmonary nodule; malignancy cannot be excluded Electronically Signed: Porfirio Gray DO at 18:04 EDT Tel , Service support , CC: Lico Cameron DO [employer] Sales Representatives: Signed D-DIMER QUANTITATIVE Collected: 12/09/2017 Status: F Source: [place]LL[place] (DVT/PE) 10:36 AM [facility] [place] [facility] Order Comment: CRITICAL VALUE VERIFIED. CALLED TO JABIER 12/09/17 1306 Latrice Moran. RESULTS READ BACK BY NORBERTO . TYPE CODE TESTS RESULT OUT OF RANGE REFERENCE UNITS LAB L300.8000 0.27-0.49 FEU/ug/m High alert D-DIMER 0.63 QUANT Result Comment: D-Dimer ELEVATED (>0.49): Additional studies and clinical assessments are indicated to conclude diagnosis of: Deep Vein Thrombosis (DVT) or Pulmonary Embolism (PE) Performed By: #### L300.8000 #### [facility] [address] [place], [address] TESTOSTERONE, TOTAL / Collected: 12/09/2017 Status: F Source: [place]LL[place] FREE 10:36 AM [facility] [place] [facility] Order Comment: Has Patient had X-rays with Contrast this admission? N TYPE CODE TESTS RESULT OUT OF RANGE REFERENCE UNITS LAB L3100.5320 264-916 ng/dL Low 238 TESTOSTER,TO ADONAY Result Comment: Adult male reference interval is based on a population of healthy nonobese males (BMI <30) between 19 and 39 years old. Cheryl, et.al. JCEM 2017,102;6378-6750. PMID: [id number]. LAB L3100.5340 5.00-21.00 ng/dL TESTOSTER,FREE Low 3.45 LAB L3100.5360 1.50-4.20 % TESTOSTER %FREE Low 1.45 Result Comment: Performed at: [facility] [id number] Software Configuration Manager: Sabas Cheatham PhD, Phone: [phone] Performed at: - [facility] [address] [id number] Software Configuration Manager: Anirudh Rodas MD, Phone: [phone] Performed By: #### L3100.5310 #### [facility] (refer to report for specific site) refer to report for address and phone number VITAMIN B12 Collected: 12/02/2017 Status: F Source: [place] 11:52 AM [facility] [place] [facility] TYPE CODE TESTS RESULT OUT OF REFERENCE UNITS RANGE LAB L503.0105 211-911 pg/mL High Vitamin B12 1559 Performed By: #### L503.0105, L506.1000, L509.6000 #### [facility] [address] [place], [place], [address] VITAMIN D,25 HYDROXY Collected: 12/02/2017 Status: F Source: [place]LLIN 11:52 AM [facility] [place] [facility] TYPE CODE TESTS RESULT OUT OF RANGE REFERENCE UNITS LAB L506.1000 29.95-100.01 ng/mL Normal Vitamin D 31.9 25-OH Result Comment: Vitamin D 25(OH) Status Range Deficiency <20 ng/mL (50nmol/L) Insuffciency 20 - 30 ng/mL (50 - 75 nmol/L) Sufficiency 30 - 100 ng/mL (75 - 250 nmol/L) Toxicity >100 ng/mL (>250 nmol/L) Performed By: #### L503.0105, L506.1000, L509.6000 #### [facility] [address] [place], [place], [address] CORTISOL SERUM Collected: 12/02/2017 Status: F Source: [place] 11:52 AM [facility] [place] [facility] TYPE CODE TESTS RESULT OUT OF RANGE REFERENCE UNITS LAB L509.6000 3.09-22.40 ug/dL Normal CORTISOL 12.60 Result Comment: Adult (AM) 4.30 - 22.40 ug/dL Adult (PM) 3.09 - 16.66 ug/dL Performed By: #### L503.0105, L506.1000, L509.6000 #### [facility] [address] [place], [address] SAMI W/ REFLEX MULT Collected: 12/02/2017 Status: F Source: [place] CONFIRM 11:52 AM [facility] [place] [facility] TYPE CODE TESTS RESULT OUT OF RANGE REFERENCE UNITS LAB L3100.5475 Negative Normal Negative SAMI-DIRECT Result Comment: Performed at: - [facility] [address] [id number] Software Configuration Manager: Sabas Cheatham PhD, Phone: [phone] Performed By: #### L3100.5450 #### [facility] (refer to report for specific site) refer to report for address and phone number STRESS REPORT Observed: 11/28/2017 Status: F Source: [place] 4:13 PM [facility] [facility] [address] [place] [address] MR#: [id number] Acct: [id number] Name: ANNETTE FLETCHER Rep #: [id number] : 1935 82 From: Juan Antonio Keyes MD Primary Care: Lico Cameron DO Status: REG CLI Ordering Dr: Lawson: Jayden Spence Stress Test Report Pharmacologic myocardial perfusion stress test. 82-year-old man with a history of progressive shortness of breath. Medications : megestrol pantoprazole magnesium albuterol. Stress protocol: Resting EKG demonstrates normal sinus rhythm with a right bundle branch block rate of 70 bpm is noted resting blood pressure is 154/80 mmHg. 0.4 mg of regadenoson was infused per usual protocol followed by Intravenous saline flush injection continuous EKG monitoring was performed. At rest there were no ST or T-wave changes noted suggest abnormal flow reserve. The maximum heart rate attained was 88 bpm which was 63% maximum predicted heart rate resting blood pressure was 154/80 with a final blood pressure 148/76. Myocardial perfusion protocol. 11.2 mCi of technetium 99m sestamibi was injected at rest. 0.4 mg of regadenoson was infused per usual protocol. At peak infusion 33.6 mCi of technetium 99m sestamibi was injected stress images were obtained stress and rest images were reconstructed and compared in the short axis vertical long and horizontal long axis. Gated images were also obtained. Perfusion SPECT analysis: Review of the images demonstrate normal uptake of tracer noted in all areas of the myocardium. The inferior wall appears to have mildly reduced perfusion on the stress and rest images to a similar extent the above is not suggestive of ischemia and no previous infarct is noted. Gated SPECT analysis. The gated ejection fraction is noted to be 73%. Conclusion: Normal pharmacologic myocardial perfusion stress test. Preserved ejection fraction. 11/28/17 1613 <Electronically signed by Juan Antonio Keyes MD> Date Juan Antonio Keyes MD CC: Juan Antonio Keyes MD; Lico Cameron DO Date Dictated: 11/26/17907 Date Transcribed: 11/26/17907 [employer] Representatives: [place] Signed STOOL Observed: 11/17/2017 Status: F Source: COLLIN LACTOFERRIN/WBC 12:00 [facility] REPOSITORY Stool Lacto/WBC Normal Reference Range = Negative Fecal WBC Lactoferrin Negative: No Fecal WBC Lactoferrin present Performed By: #### M100.0605, M100.6796, M100.637 #### [facility] [address], [place], [address] Observed: 11/17/2017 Status: F Source: COLLIN CDIFF (MOLECULAR) 12:00 [facility] REPOSITORY Cdiff-Molecular Normal Reference Range = Negative C. Diff DNA Negative- No toxigenic C. Diff DNA Detected NAAT METHOD Testing was performed using nucleic acid amplification Performed By: #### M100.0605, M100.6796, M100.637 #### [facility] [address] [place], [address] Observed: 11/17/2017 Status: F Source: CEMENT ENTERIC PATHOGEN 12:00 PM [facility] [place] [facility] PANEL STOOL Normal Reference Range = Not Detected Not detected for Campylobacter group, Salmonella species, Shigella species, Vibrio Group, Yersinia enterocolitica, EHEC (Shiga Toxin 1, Shiga Toxin 2), Norovirus Gl/Gll, and Rotavirus A. Other common stool pathogens are not detected on this panel include: Aeromonas/Plesiomonas or parasites. Order testing for these organisms separately if suspected. This is an amplified DNA test which makes it both specific and sensitive. CAMPYLOBACTER Not Detected Salmonella Not Detected Shigella sp. Not Detected Shiga Toxin Not Detected Yersinia Not Detected VIBRIO Not Detected Norovirus Not Detected Rotavirus Not Detected Performed By: #### M100.0605, M100.6796, M100.637 #### [facility] [address] [place], [address] Observed: 11/17/2017 Status: F Source: CEMENT OVA AND PARASITES 12:00 PM [facility] [place] O + P OVA AND PARASITES EXAM, ROUTINE These results were obtained using wet preparation(s) and trichrome stained smear. This test does not include testing for Crytosporidium parvum, Cyclospora, or Microsporidia. TESTING PERFORMED AT [facility]. ORIGINAL REPORT ON FILE IN LAB CONTAINS ADDITIONAL TEST SITE INFORMATION. Ova/Parasite Exam NO OVA, CYSTS, OR PARASITES FOUND. Performed By: #### M600.5000 #### [facility] [address] [facility] [place], [address] CBC W/DIFF, AUTOMATED Collected: 11/14/2017 Status: F Source: COLLIN 10:49 AM [facility] [place] TYPE CODE TESTS RESULT OUT OF RANGE REFERENCE UNITS LAB L100.1000 4.4-11.0 K/mm3 Normal WBC 8.1 LAB L100.1200 4.6-6.2 M/mm3 Low RBC 3.54 LAB L100.1300 13.0-16.5 g/dl Low HGB 12.0 LAB L100.1400 40-54 % Low HCT 35.9 LAB L100.1500 80-94 fL High MCV 101.4 LAB L100.1600 27.0-32.0 pg High MCH 33.9 LAB L100.1700 32-36 g/gl Normal MCHC 33.4 LAB L100.1810 11.6-14.6 % Normal RDW CV 13.1 LAB L100.1820 35.1-43.9 fl High RDW SD 48.5 LAB L100.1900 150-450 K/mm3 Normal PLT 309 LAB L100.2000 6.2-12.0 fl Normal MPV 10.7 LAB L100.2100 47-70 % High NEUT% 72.4 LAB L100.2200 19-41 % Low LY% 11.4 LAB L100.2300 0-10 % High MONO% 12.2 LAB L100.2400 0-5 % Normal EO% 3.3 LAB L100.2500 0-1 % Normal BASO% 0.2 LAB L100.2550 0.0-0.9 % Normal IM GRAN % 0.500 Result Comment: IG% - Immature Granulocytes (promyelocytes, myelocytes and metamyelocytes) > 1% indicates that a LEFT SHIFT is Present. LAB L100.2620 2.0-7.7 X10 3/uL Normal Absolute Neut 5.8 LAB L100.2720 0.83-4.51 X10 3/ul Normal Absolute Lymph 0.92 Performed By: #### L100.0100, L101.9900 #### [facility] [address] [place], [place], [address] ERYTHROCYTE SED RATE Collected: 11/14/2017 Status: F Source: CEMENT 10:49 AM [facility] [place] TYPE CODE TESTS RESULT OUT OF RANGE REFERENCE UNITS LAB L102.0000 0-20 mm/hr Normal SED RATE 9 Performed By: #### L100.0100, L101.9900 #### [facility] [address], [place], [address] BASIC METABOLIC Collected: 11/14/2017 Status: F Source: COLLIN PROFILE (BMP) 10:49 AM [facility] [place] TYPE CODE TESTS RESULT OUT OF RANGE REFERENCE UNITS LAB L501.0100 74-106 mg/dL High GLU 321 Result Comment: Glucose result greater than or equal to 200 mg/dL suggests DIABETES MELLITUS per A.D.A. criteria. Please note revised GLUCOSE reference range effective 2017. LAB L501.1000 7-18 mg/dL High BUN 23 LAB L501.1100 0.70-1.30 mg/dL Normal CREAT,SERUM 1.09 Result Comment: The validity of the calculated GFR AND GFRAA in patients over 70 years has not been determined. Clinical correlation is essential. LAB L501.1110 >60 mL/min Normal EST GFR 69 Result Comment: Non- GFR Calc LAB L501.1115 >60 mL/min Normal EST GFR - AA 83 Result Comment: GFR Calc LAB L501.1300 10-20 RATIO High BUN/CRE 21.1 LAB L501.2200 8.5-10.1 mg/dL CA Normal 8.5 LAB L501.5300 136-145 mmol/L NA Normal 139 LAB L501.5600 3.5-5.1 mmol/L K Normal 4.2 LAB L501.5900 98-107 mmol/L CL Normal 106 LAB L501.6100 21.0-32.0 mmol/L Normal CO2 24.0 LAB L501.6200 5-15 Normal GAP 9 Performed By: #### L500.2500, L501.6710 #### [facility] [address] [place], [address] CRP Collected: 11/14/2017 Status: F Source: COLLIN 10:49 AM [facility] [place] TYPE CODE TESTS RESULT OUT OF RANGE REFERENCE UNITS LAB L501.6710 0.0-3.0 mg/L Normal < 2.90 C-REACTIVE PROT Result Comment: C-Reactive Protein (CRP) provides useful information for the diagnosis, therapy and monitoring of inflammatory processes and associated diseases. For the evaluation of Relative Risk for Cardiovascular Disease, a High Sensitivity CRP (HSCRP) should be ordered. Performed By: #### L500.2500, L501.6710 #### [facility] [address] [place], [address] CARDIOLOGY VISIT Observed: 09/03/2017 Status: F Source: COLLIN REPORT 2:28 PM [facility] [place] [facility] [address] [place] [address] OFFICE VISIT Date of Service: 09/03/17 MR#: [id number] Acct: [id number] Name: ANNETTE FLETCHER Rep #: [id number] : 1935 Provider: Juan Antonio Keyes MD Age/Sex: 82/M Location: [facility] Status: Signed HPI HPI Chief Complaint: Initial visit. Details: ANNETTE FLETCHER, is a 82 M who presents to the office today for an initial visit for shortness of breath. He says that this has been going on for a few years it does not appear to be getting any worse however he has not been given any definitive diagnosis for the above. He once had a stress test approximately 2 years ago but it was suboptimal at 3.1 metabolic equivalents. He also had an EKG done which demonstrated right bundle branch block. An echocardiogram performed in June of this year demonstrated preserved ejection fraction of 65% with stage I diastolic dysfunction. He has had no neck arm or jaw discomfort suggest angina no dizziness or diaphoresis no near syncope or syncope. He has been compliant with his medications but he has not been on any cardiac medications. His physical exam today demonstrates clear lung rosa regular rate and rhythm no pedal edema his electrocardiogram demonstrates sinus rhythm with rate of 92 bpm and incomplete right bundle branch block and rightward axis. Intake Vital Signs09/03/17 Height 6 ft 1 in 09/03/17 Weight: 180 lb 09/03/17 Body Mass Index (BMI) 23.7 09/03/17 Blood Pressure 112/62 09/03/17 Respiratory Rate 18 09/03/17 Pulse Rate 80 Intake Visit Reasons: Ref'd by Dr Radford pulmonary Allergies doxazosin Allergy (Unknown, Verified 09/03/17 13:45) Unknown enalapril Allergy (Unknown, Verified 09/03/17 13:45) Unknown propranolol Allergy (Unknown, Verified 09/03/17 13:45) Unknown tamsulosin [From Flomax] Allergy (Unknown, Verified 09/03/17 13:45) Unknown latex Allergy (Verified 09/03/17 13:45) Rash Medications megestrol 20 mg tablet 20 mg PO ONCE 06/05/17 [History Confirmed 09/03/17] blood sugar diagnostic strips See Dose Instructions .ROUTE .MEDSUPPLY #20 ea 07/28/17 [History Confirmed 09/03/17] insulin glargine See Label Instructions SC .q hs 07/28/17 [History Confirmed 09/03/17] magnesium oxide 250 mg tablet 250 mg PO QDAY tab 07/28/17 [History Confirmed 09/03/17] insulin lispro (U-100) 100 unit/mL subcutaneous solution See Label Instructions SC TID ml 08/13/17 [History Confirmed 09/03/17] pen needle, diabetic 32 gauge x See Dose Instructions .ROUTE .MEDSUPPLY #10 ea 08/13/17 [History Confirmed 08/13/17] polyethylene glycol 3350 17 gram/dose oral powder 17 g PO QDAY PRN 08/13/17 [History Confirmed 08/13/17] promethazine 6.25 mg-codeine 10 mg/5 mL syrup 5 ml PO Q6H 08/13/17 [History Confirmed 09/03/17] propylhexedrine nasal inhaler 2 inh INTRANASAL QHS ea 08/13/17 [History Confirmed 08/13/17] insulin syringe-needle U-100 0.5 mL 31 gauge x 10/15 See Dose Instructions .ROUTE .MEDSUPPLY #90 ea 08/14/17 [Rx Confirmed 09/03/17] albuterol sulfate HFA 90 mcg/actuation aerosol inhaler 2 puff INHALATION Q4H PRN #18 g 08/21/17 [Rx Confirmed 09/03/17] cyanocobalamin (vit B-12) ER 1,000 mcg tablet,extended release 1,000 mcg PO QDAY 09/03/17 [History Confirmed 09/03/17] pantoprazole 40 mg tablet,delayed release 40 mg PO QDAY 09/03/17 [History Confirmed 09/03/17] PFSH Medical History Right bundle branch block (Chronic) Urinary retention (Acute) Leg cramps (Acute) Lightheadedness (Acute) Shingles (Acute) Vision problems (Acute) ulcers (Acute) Anemia (Chronic) Arthritis (Chronic) Bronchitis (Chronic) COPD (chronic obstructive pulmonary disease) (Chronic) CROW (dyspnea on exertion) (Chronic) GERD (gastroesophageal reflux disease) (Chronic) Hyperglycemia (Chronic) Prostate cancer (Chronic) Type 2 diabetes mellitus (Chronic) Vitamin D deficiency (Chronic) Surgical History History of cholecystectomy (Resolved) Family History Mother Cancer Father Diabetes Social History Smoking Status: Former smoker quit date: 06/02/01 pack-years: 48 alcohol intake: never substance use type: does not use ROS Const Const: Positive for fatigue and weakness; negative for difficulty sleeping, frequent falls, headache(s) or excessive sweating Eyes Eyes: Negative for loss of peripheral vision, transient loss of vision, blurry vision or double vision ENT ENT: Negative for headache(s), dizziness, Nosebleed/epistaxis or balance problems Cardio Chest Pain: Yes Edema: None Muscle aches with walking: None Resp Respiratory: Positive for SOB with activity (Increase in episodes of CROW. Has SOB with ADL's); negative for SOB at rest, SOB orthopnea\SOB lying down or paroxysmal nocturnal dyspnea Additional Details: Patient has been fatigued and SOB for several years. Now has SOB with little activity. C/O SOB when showering along with bilateral shoulder pain and some lightheadedness GI GI: Negative nausea or heartburn : Negative for hematuria Musc Musc: Negative for muscle aches/ myalgia, muscle weakness, joint pain or balance problems Skin Skin: Negative non-healing lesions, unusual bruising or rash Neuro Neuro: Positive for weakness and lightheadedness; negative for frequent falls, blurry vision, headache(s), dizziness, orthostatic symptoms or double vision Rah Hematologic/Lymphatic: Negative for easy bruising Endo Endo: Positive for fatigue; negative for excessive sweating or increased thirst/drinking Psych Psych: Negative for anxiety or depression Allergy Allergy/Immunology: Negative for hives, Negative for rash Cardiology Exam Const Appearance: cooperative, healthy appearing, well developed, well groomed and no acute distress Nutritional Appearance: well nourished and average body habitus Orientation: alert, awake and oriented x3 Head Head: normal to inspection, normocephalic and atraumatic Ears: hearing grossly normal bilaterally and external ears normal Nose: external nose normal, nasal mucous membranes and turbinates normal, nares normal, septum normal, no nasal discharge Face and Sinus: face symmetric Mouth: oral mucosae normal, tongue normal, oropharynx normal and moist mucous membranes Teeth and gingiva: dentition normal Throat: posterior oropharynx normal, tonsils normal and uvula midline Eyes General: appearance normal, both eyes and all related structures Eyelids: eyelids normal Conjunctivae: conjunctivae normal Pupils: PERRL, normal by confrontation and accommodation normal EOM: EOM intact bilaterally Neck Neck: normal visual inspection, trachea midline and no JVD JVD: +5 Carotids: normal carotid upstroke and bounding pulses Chest Chest inspection: normal inspection of the chest, symmetric chest movement and normal respiratory effort Auscultation: Bilateral: Clear to Auscultation Cardio Palpation: normal PMI Rate: regular rate Rhythm: regular rhythm Heart sounds: S1 normal, S2 normal and normal, physiologic split S2; negative rub, gallop or murmur GI GI: normal to inspection, soft, no hepatosplenomegaly and bowel sounds present Neuro General: alert, awake, oriented x3, no focal sensory deficit, gait normal and moves all extremities Skin Skin: no rashes or lesions noted Extremities Pulses: Normal: Right Femoral Pulse, Left Femoral Pulse, Right Dorsalis Pedis Pulse, Left Dorsalis Pedis Pulse, Right Posterior Tibial Pulse, Left Posterior Tibial Pulse, Right Radial Pulse, Left Radial Pulse Lower Extremity Edema: None: Bilateral Musculoskel Musculoskeletal: No joint tenderness Psych Psychological: normal affect Assessment AND Plan 1. CROW (dyspnea on exertion) R06.09 Plan Shortness of breath appears to be worse with exertion. There is a possibility that they could be an anginal equivalent and I will like us to obtain a pharmacologic myocardial perfusion stress test to investigate this. In addition I will like to suggest that we obtain a natruretic peptide level as well depending on the findings further recommendations will then be made. His echocardiogram is reassuring and his blood pressure appears to be normal. Orders Orders: 2. Right bundle branch block I45.10 Plan He does have a history of right bundle branch block which does not appear to be new. His echocardiogram demonstrated preserved ejection fraction. This will be monitored at his next visit. Thank you for allowing me to participate in the care of your patient. Please don't hesitate to call if any issues arise Orders Orders: Plan Detail Other Orders Orders: Follow Up 4 Months (research subject) Coding Level of Care Code Off vis,new,level 4 Diagnoses CROW (dyspnea on exertion) R06.09 Right bundle branch block I45.10 Coding Level of Care Code Off vis,new,level 4 Diagnoses CROW (dyspnea on exertion) R06.09 Right bundle branch block I45.10 09/03/17 1428 <Electronically signed by Juan Antonio Keyes MD> Date Juan Antonio Keyes MD Cosigner Signature: Date (if applicable) CC: Lico Cameron DO 12 LEAD EKG PERFORMED Observed: 09/03/2017 Status: F Source: COLLIN BY [facility] 2:07 PM [facility] [place] [place] [facility] [address] [place] [address] 12 Lead EKG performed by [facility] 09/03/171405 MR#: [id number] Acct: [id number] Name: ANNETTE FLETCHER Rep #: [id number] : 1935 82 From: Juan Antonio Keyes MD Attending Dr: Juan Antonio Keyes MD Status: DEP AMB Ordering Dr: Juan Antonio Keyes MD Date: 09/03/17 [place] [facility] [place]: M C Admitted: BMS/12 Lead EKG performed by [facility] ECG Report Interpretation Sinus Rhythm -Incomplete right bundle branch block and right axis -possible right ventricular hypertrophy. ABNORMAL Electronically signed on 09/06/2017 at 18:38 by Juan Antonio Keyes 09/06/17 1840 Date Juan Antonio Keyes MD CC: Lico Cameron DO Date Dictated: 09/03/171405 Date Transcribed: 09/03/171405 [employer] Representatives: [place] Signed ENDOCRINOLOGY VISIT Observed: 08/18/2017 Status: F Source: COLLIN REPORT 8:35 AM [facility] [place] [facility] [address] [place] [address] OFFICE VISIT Date of Service: 08/13/17 MR#: [id number] Acct: [id number] Name: ANNETTE FLETCHER Rep #: [id number] : 1935 Provider: Whitney Gillette NP Age/Sex: 82/M Location: [facility] Status: Signed HPI History of present illness Annette Fletcher is an 81 year old male who presents for follow up of diabetes type 2. Patient thinks his diabetes was changed to diagnosis of type 1 at some point. Currently he takes toujeo U-300 42 units daily. He also takes meal insulin base of 10 units and sliding scale of 1 per 25 points. Pt denies difficulty with injections or self monitoring of BG. Denies any signs of infection or irritation at site of injections. Reports taking insulin as directed Reports most recent A1c 9.6 Historically was 7-8 range Reports he checks his BG after he eats meals and takes correction. Does not take insulin premeal At time of visit: -Pt denies symptoms of hypertensive emergency (CP,SOB,WAITE, or blurred vision) and hypotension(dizziness or lightheadedness) -Pt denies symptoms of hypoglycemia ( sweaty, confusion, anxiety, tremor, hunger, palpitations) and hyperglycemia ( polydipsia, polyuria) -Pt denies potential medication adverse effect. Hypoglycemia Aware of hypoglycemia: When awake Able to self treat low BG: Yes Frequent low Blood sugar: No Has supply of glucagon: Yes Diet Breakfast varies from eggs and hash browns to pancakes, to cereal, to only a glass of milk Lunch soup/sandwich Dinner meat and vegetables SMBG after breakfast 200-300 Lunch post meal 200-300's after dinner 300 range Type: type 1 Glucose control symptoms: Reports high post-meal glucose and high fasting glucose Weight and fatigue symptoms: Denies snoring Cardiopulmonary symptoms: Reports chest pain at rest and lightheadedness; denies dyspnea on exertion or myalgias GI symptoms: Denies constipation, diarrhea, nausea/dyspepsia or vomiting Skin and extremity symptoms: Denies erectile dysfunction Other symptoms: Denies blurry vision or change in vision Self monitoring: Yes Diabetes education in past year: Yes Glucose testing: demonstrates correct use of meter, understands testing schedule Sick day education - understands ketone testing: Yes Physical activity: regular Exam Const General: comfortable, no acute distress Nutritional Appearance: well nourished Orientation: oriented x3 HENMT Head: normal to inspection, atraumatic Ears: other (sl hard of hearing) Nose: external nose normal Mouth: oral mucosae normal, moist mucous membranes abnormal Teeth and gingiva: dentition normal Eyes General: appearance normal, both eyes and all related structures Conjunctivae: conjunctivae normal Sclera: sclerae normal Pupils: PERRL Resp Effort AND Inspection: normal respiratory effort, able to speak in complete sentences, symmetric chest movement Auscultation: Bilateral: Clear to Auscultation Cardio Rate: regular rate Rhythm: regular rhythm Heart Sounds: S1 normal, S2 normal GI Inspection: normal to inspection Auscultation: normal bowel sounds Palpation: soft, no guarding Skin General: no rashes or lesions noted Wounds: no wounds Diabetic Foot Pulses: L dorsalis pedis pulse: normal, R dorsalis pedis pulse: diminished Monofilament test: Left foot: abnormal, Right foot: abnormal Neuro General: gait normal, moves all extremities Cognition: normal cognition Speech: speech normal Gait: normal gait Extrem General: normal to inspection, pedal edema Psych Appearance: well kempt Mental Status: mental status grossly normal Mood: congruent mood Affect: normal affect Speech and Movement: speech and movement normal Attitude: cooperative Thought Process: normal Thought Content: normal Judgment: judgment good Intake Vital Signs08/13/17 Height 6 ft 1 in 08/13/17 Weight: 178 lb 08/13/17 Body Mass Index (BMI) 23.5 08/13/17 Blood Pressure 117/76 08/13/17 Blood Pressure Location Lt popliteal 08/13/17 Blood Pressure Position Sitting Intake Visit Reasons: follow up Bag Hanger Required: No Accompanied by: Self Is patient in pain?: No Allergies doxazosin Allergy (Unknown, Verified 08/13/17 16:34) Unknown enalapril Allergy (Unknown, Verified 08/13/17 16:34) Unknown propranolol Allergy (Unknown, Verified 08/13/17 16:34) Unknown tamsulosin [From Flomax] Allergy (Unknown, Verified 08/13/17 16:34) Unknown latex Allergy (Verified 08/13/17 16:34) Rash Medications megestrol 20 mg tablet 20 mg PO ONCE 06/05/17 [History Confirmed 08/13/17] blood sugar diagnostic strips See Dose Instructions .ROUTE .MEDSUPPLY #20 ea 07/28/17 [History Confirmed 08/13/17] insulin glargine See Label Instructions SC .q hs 07/28/17 [History Confirmed 08/13/17] magnesium oxide 250 mg tablet 250 mg PO QDAY tab 07/28/17 [History Confirmed 08/13/17] albuterol sulfate HFA 90 mcg/actuation aerosol inhaler 2 puff INHALATION Q4H PRN #1 device 08/06/17 [Rx Confirmed 08/13/17] insulin lispro (U-100) 100 unit/mL subcutaneous solution See Label Instructions SC TID ml 08/13/17 [History Confirmed 08/13/17] mecobalamin (vitamin B12) 1,000 mcg disintegrating tablet,sublingual 1,000 mcg SUBLINGUAL QDAY 08/13/17 [History Confirmed 08/13/17] pen needle, diabetic 32 gauge x See Dose Instructions .ROUTE .MEDSUPPLY #10 ea 08/13/17 [History Confirmed 08/13/17] polyethylene glycol 3350 17 gram/dose oral powder 17 g PO QDAY PRN 08/13/17 [History Confirmed 08/13/17] promethazine 6.25 mg-codeine 10 mg/5 mL syrup 5 ml PO Q6H 08/13/17 [History Confirmed 08/13/17] propylhexedrine nasal inhaler 2 inh INTRANASAL QHS ea 08/13/17 [History Confirmed 08/13/17] insulin syringe-needle U-100 0.5 mL 31 gauge x 10/15 See Dose Instructions .ROUTE .MEDSUPPLY #90 ea 08/14/17 [Rx] Nurse's Note: blood sugars : low : 216 high : 424 PFSH Medical History Urinary retention (Acute) Leg cramps (Acute) Lightheadedness (Acute) Shingles (Acute) Vision problems (Acute) ulcers (Acute) Anemia (Chronic) Arthritis (Chronic) Bronchitis (Chronic) COPD (chronic obstructive pulmonary disease) (Chronic) CROW (dyspnea on exertion) (Chronic) GERD (gastroesophageal reflux disease) (Chronic) Hyperglycemia (Chronic) Prostate cancer (Chronic) Type 2 diabetes mellitus (Chronic) Vitamin D deficiency (Chronic) Surgical History History of cholecystectomy (Resolved) Family History Mother Cancer Father Diabetes Social History Smoking Status: Former smoker quit date: 06/02/01 pack-years: 48 alcohol intake: never substance use type: does not use ROS Const Constitutional: No anorexia, body ache, chills, fatigue, fever(s), frequent falls, decreased energy, malaise, night sweats, weakness, weight change, sleep problems, abnormal sleep pattern, change in appetite, other, headache(s), snoring or excessive sweating Eyes Eyes: No blurry vision, change in vision, double vision, discharge, dry eyes, bulging eyes, floaters, visual disturbances, eye pain, light sensitivity, spots in vision, tunnel vision or other ENT ENT: No abnormal hearing, ear pain, ear discharge, ear pressure, hearing loss, tinnitus, dizziness/vertigo, balance problems, nosebleed/epistaxis, nasal congestion, nasal obstruction, nose pain, sinus pressure, sinus pain, nasal discharge, post nasal drip, headache(s), facial pain, dental pain, dry mouth, bad breath, hoarseness, lip swelling, mouth lesions, mouth pain, sore throat, tongue swelling, throat swelling, other, difficulty swallowing or neck pain Resp Respiratory: Positive for shortness of breath; no cough, change in phlegm color, chest congestion, excessive phlegm production, hemoptysis, pain on inspiration, pain with cough, snoring, stridor, wheezing or other Cardio Cardiology: Positive for chest pain at rest, chest pain with exertion and lightheadedness; no leg pain with exertion, excessive sweating, shortness of breath, dyspnea on exertion, generalized swelling, irregular heart rhythm, orthopnea, radiating jaw, neck or arm pain, fast heart rate, slow heart rate, palpitations or other Gastro GI: No abdominal pain, belching, bloating, change in bowel habits, change in stool character, coffee ground emesis, constipation, cramping, diarrhea, heartburn, difficulty swallowing, feeling full early, excessive flatus, incontinent of stools, Vomiting blood/hematemesis, blood in stool, loose stools, Black,tarry stools, nausea/dyspepsia, pain with swallowing, vomiting or other Genitourinary Male: No difficulty urinating, burning urination, painful urination, urinary incontinence, urinary frequency, urinary urgency, urinary hesitancy, urinary retention, blood in urine, Frequent nighttime urination/ nocturia, post void dribbling, suprapubic fullness, side pain, sexual problems, genital lesions, genital itching, erectile dysfunction, penile discharge, difficulty with ejaculations, blood in semen, scrotal swelling, testicle lump, testicle pain or other Musc Musculoskeletal: No abnormal walking, joint pain, back pain, deformity, joint swelling, limited range of motion, loss of height, muscle cramps, muscle weakness, decreased muscle mass, body aches, neck pain, numbness, radiating pain into limb, stiffness, tingling or other Neuro Neurology: No frequent falls, weakness, visual disturbances, abnormal hearing, headache(s), abnormal walking, numbness or tingling Psych Psychiatric: No abnormal sleep pattern, No change in appetite Endo Endocrine: No fatigue, other or excessive sweating Aller/Imm Allergy/Immunologic: No lip swelling, tongue swelling, throat swelling or wheezing Assessment AND Plan Problems 1. 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 Discussed ind etail, insulin is to be given before his meal and based on the BG taken before eating. He states he has been checking 20 minutes after eating and giving insulin for quite awhile as he is worried about low BG. Did have 911 calls in past due to being hypoglycemic unaware. Enc to begin taking insulin before meals. Is counting his carb content of meal and trying for consistentcy. On makenzie inhibitor. BP in range. Labs up to date. Reviewed with patient Eye exam up to date. Medications Discontinued: pen needle, diabetic (BD Insulin Pen Needle UF Short) DiscontinuAs directed E10.65 ed Reason: Order Changed Plan Detail Additional Comments 1. Please schedule follow up in 1 month 2. Lab work one week before appointment. 3. Discussed importance of regular exercise and recommend starting or continuing a regular exercise program for good health. 4. The patient was encouraged to lose weight for good health 5. The importance of monitoring blood sugar regularly was reviewed. 6. The importance of monitoring the HBA1c level regularly was reviewed. 7. The importance of prper foot care and regularly checking feet to prevent sores and loss of limbs was reviewed. 8. The importance of keeping BP at or below 130/80 to prevent stroke, heart attacks, kidney failure, blindness was reviewed. Spent approximately 30 minutes with patient with over 50% of time spent in discussion and counseling regarding medication adjustment, symptoms and treatment of hypoglycemia, diet adherence, and checking BG before driving. 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 Submit a new specimen if indicated. Performed By: #### M100.0650 #### [facility] [place], [place], [address] PULMONARY VISIT REPORT Observed: 08/07/2017 Status: F Source: COLLIN 6:16 AM [facility] [place] [facility] [address] [place] [address] OFFICE VISIT Date of Service: 08/06/17 MR#: [id number] Acct: [id number] Name: ANNETTE FLETCHER Rep #: [id number] : 1935 Provider: Sanford Radford D.O. Age/Sex: 82/M Location: [facility].PMW Status: Signed Assessment AND Plan 1. CROW (dyspnea on exertion) R06.09 Plan The patient's exertional dyspnea may be multifactorial in etiology. He does have a known mild underlying obstructive ventilatory impairment with overlapping symptoms of asthma. In addition, generalized deconditioning and possible underlying cardiac manifestations may be contributing. Despite the patient being on combined maintenance inhalers previously and noting little to no response to their use, he does report subjective improvement with the use of albuterol MDI. However, he has not been utilizing his albuterol for his shortness of breath complaints. He stated that he only utilize the medication for asthma symptoms. He has been instructed to begin utilizing albuterol every 4 hours as needed for shortness of breath. A new prescription has been prescribed, as his current inhaler is approximately 4 years old. He will follow-up in short time. With her nurse practitioner to assess his symptom response to the use of the short acting beta agonist and to determine how frequently he is having to rely on it. Initiation of a maintenance inhaler regimen may be indicated upon follow-up. In addition, I did ask the patient to give consideration to evaluation by cardiology, given his previous stress test results in 2016. 2. Pulmonary nodule R91.1 Plan Patient does have a subcentimeter pulmonary nodule noted on his most recent CT chest. Based upon recommendations from the Fleischner Society, I would recommend repeating a noncontrasted chest CT in 12 months. Fleishner society recommendations: *nonsolid, ground glass, or partially solid nodules may require longer follow up to exclude indolent adenocarcinoma. Low Risk: (minimal or absent smoking): < 4 mm: No follow up needed >4-6 mm: CT at 12 months, if no change then no further follow up needed >6-8 mm: Initial CT at 6-12 months, then 18-24 months if no change >8 mm: CT at 3, 9, and 24 months, consider dynamic contrast CT, PET, or bx High Risk: < 4 mm: CT at 12 months, if no change then no follow up needed >4-6 mm: initial CT at 6-12 months, then 18-24 months if no change >6-8 mm: CT at 3-6 months, then at 9-12 months, then at 24 months if no change >8 mm: CT at 3, 9, and 24 months, consider dynamic contrast CT, PET, or bx Plan Detail Other Medications New: albuterol sulfate HFA 90 mcg/actuation adm2 puffs Inhalation Q4H PRN shortness of margarita inister with spacer th or wheezing Follow Up 1 Month ([facility]) HPI HPI Comments Details: The patient is an 82-year-old male who presents to the clinic today for a routine scheduled follow-up office visit due to underlying shortness of breath. His is present at today's office visit. If you recall, the patient was initially referred to me for evaluation of COPD. He has a smoking history of 1 pack per day from 1952 through approximately 2004. The patient did serve previously in the [employer]. He was previously employed in private [employer] work. The patient previously admitted to having been diagnosed with asthma in childhood. Pulmonary function testing completed in May 2017 revealed evidence of a mild reversible obstructive ventilatory impairment. The patient also completed a 6 minute walk test at that time which did not reveal any exertional hypoxemia. However, it did reveal significant tachycardia, concerning for a cardiac limitation to exercise tolerance. Additionally, the patient underwent a cardiac stress test through [facility] in 2015 which was terminated due to general fatigue. There was an abnormal chronotropic response index, poor functional capacity for age and gender, but a normal blood pressure response to stress and normal ST segment response to stress. 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 CT chest dated July 2017 revealed bilateral upper lobe scarring and a 5 mm noncalcified nodule of the left upper lobe. There was also a calcified granuloma noted in the right lower lobe. Surface echocardiogram completed in June 2017 revealed evidence of diastolic dysfunction with preserved ejection fraction. Today, the patient reports continued exertional shortness of breath and fatigue. He notes that he is unable to get through his daily shower without becoming short of breath. The patient has been previously prescribed both Symbicort and Anoro. Despite this, the patient reports no symptom response to the aforementioned medications. Nevertheless, he does report subjective improvement in his shortness of breath with the use of albuterol. Intake Vital Signs08/06/17 Height 6 ft 1 in 08/06/17 Weight: 181 lb 6 oz Intake Visit Reasons: 2 M FU Accompanied by: Allergies doxazosin Allergy (Unknown, Verified 08/06/17 12:45) Unknown enalapril Allergy (Unknown, Verified 08/06/17 12:45) Unknown propranolol Allergy (Unknown, Verified 08/06/17 12:45) Unknown tamsulosin [From Flomax] Allergy (Unknown, Verified 08/06/17 12:45) Unknown latex Allergy (Verified 08/06/17 12:45) Rash Medications Glucosamine HCl/Chondr Manriquez A Na [Sv Glucosamine-Chondroitin Tab] 1 ea PO DAILY 11/21/14 [History Confirmed 08/06/17] Pantoprazole Sodium [Protonix] 40 mg PO QHS 11/21/14 [History Confirmed 08/06/17] Dutasteride [Avodart] 0.5 mg PO DAILY #30 cap 11/28/14 [Rx Confirmed 08/06/17] albuterol sulfate HFA 90 mcg/actuation aerosol inhaler 2 puff INHALATION Q4H PRN g 06/05/17 [History Confirmed 08/06/17] budesonide-formoterol HFA 160 mcg-4.5 mcg/actuation aerosol inhaler 2 inh INHALATION Q12H 06/05/17 [History Confirmed 08/06/17] megestrol 20 mg tablet 20 mg PO ONCE 06/05/17 [History Confirmed 08/06/17] trospium 20 mg tablet 20 mg PO QDAY 06/05/17 [History Confirmed 08/06/17] blood sugar diagnostic strips See Dose Instructions .ROUTE .MEDSUPPLY #20 ea 07/28/17 [History Confirmed 08/06/17] ceramides 1,3,6-11 topical cream applic TOPICAL 07/28/17 [History Confirmed 08/06/17] gabapentin 100 mg capsule 100 mg PO QHS 07/28/17 [History Confirmed 08/06/17] insulin aspart See Label Instructions SC .COMPLEX 07/28/17 [History Confirmed 08/06/17] insulin glargine See Label Instructions SC .q hs 07/28/17 [History Confirmed 08/06/17] magnesium oxide 250 mg tablet 250 mg PO QDAY tab 07/28/17 [History Confirmed 08/06/17] multivitamin tablet 1 tab PO QDAY 07/28/17 [History Confirmed 08/06/17] pen needle, diabetic 31 gauge x 5/16 See Dose Instructions .ROUTE .MEDSUPPLY #30 ea 07/28/17 [History Confirmed 08/06/17] potassium chloride ER 20 mEq tablet,extended release 20 meq PO QDAY 07/28/17 [History Confirmed 08/06/17] triamcinolone acetonide 0.147 mg/gram topical aerosol 1 spray TOPICAL QDAY 07/28/17 [History Confirmed 08/06/17] albuterol sulfate HFA 90 mcg/actuation aerosol inhaler 2 puff INHALATION Q4H PRN #1 device 08/06/17 [Rx Confirmed 08/06/17] PFS Medical History Urinary retention (Acute) Leg cramps (Acute) Lightheadedness (Acute) Shingles (Acute) Vision problems (Acute) ulcers (Acute) Anemia (Chronic) Arthritis (Chronic) Bronchitis (Chronic) COPD (chronic obstructive pulmonary disease) (Chronic) CROW (dyspnea on exertion) (Chronic) GERD (gastroesophageal reflux disease) (Chronic) Hyperglycemia (Chronic) Prostate cancer (Chronic) Type 2 diabetes mellitus (Chronic) Vitamin D deficiency (Chronic) Surgical History History of cholecystectomy (Resolved) Family History Mother Cancer Father Diabetes Social History Smoking Status: Former smoker quit date: 06/02/01 pack-years: 48 alcohol intake: never substance use type: does not use Review of Systems Const CONSTITUTIONAL: Positive fatigue; negative anorexia, body ache, chills, daytime sleepiness, fever(s), night sweats, oral thrush, stops breathing during sleep, weight loss, sleeping in chair, weight loss, weight gain, frequent colds, seasonal allergies, other, headache(s) or orthopnea EETM Ear Nose Throat Mouth: Positive hard of hearing; negative hearing normal, hoarseness, dry mouth in morning, change in vision, itchy eyes, eye pain, swallowing Difficulty, ear pain, nose bleed, headache(s), mouth pain, nasal congestion, nasal discharge, post nasal drip, sinus pain, sinus pressure, sore throat or other Cardio Cardiovascular: Negative chest pain, chest pain at rest, chest pain with activity, irregular heart rhythm, edema, shortness of breath when lying down, palpitations, murmur or other Resp Respiratory: Positive as per HPI, shortness of breath shortness of breath: Positive with activity and worsening and cough cough: Positive non-productive; negative pain with cough, wheezing, chest congestion, chest tightness, pain on inspiration, inhalers, increase use of rescue inhalers, snoring, apnea or other Gastro Gastrointestional: Negative bloody stools, change in appetite, difficulty swallowing, reflux, hematemesis, melena stool, loose stool, constipation or other Genitourinary: Negative blood in urine, nocturia, pain with urination or other Musc Musculoskeletal: Negative body pain, back pain, neck pain or other Skin/Breast Skin/Breast: Negative dry skin, itching, rash, unusual bruising, breast lump or other Neuro Neurological: Negative restless legs, confusion, weakness or other Psych Psychocological: Negative abnormal sleep pattern, anxiety, thoughts of hurting self/others, hopelessness or other Lymph Lymphatic: Negative easy bleeding, easy bruising, swollen lymph nodes or other Exam Const Constitutional: Positive conversant, cooperative, in no acute respiratory distress, well developed, well nourished and good hygiene Head Head: Positive normocephalic and atraumatic; negative cyanosis of lips/distal nose Eyes Eye: Positive clear conjunctiva; negative nystagmus or scleral abnormality Ears Ear: Positive hard of hearing and external ears normal; negative hearing normal Nose Nose: Positive external nose normal; negative epistaxis Mouth Mouth: Positive oral mucosae normal, no lesions and posterior oropharynx is adequate; negative post nasal drip Mallampati Score: II: Mallampati Score Neck Neck: Positive normal visual inspection and trachea midline; negative lymphadenopathy Chest Wall Chest: Positive symmetric chest movement Normal AP diameter. Resp lung sounds: Positive clear to auscultation and good air exchange; negative wheezes, rhonchi or rales Cardio Cardiac: Positive regular rate, regular rhythm, S1 normal and S2 normal; negative murmur, rub or gallop GI GI: Positive normal bowel sounds Soft without distention Genitourinary: Positive deferred Musc Musculoskeletal: Positive steady gait Skin Pulmonary Skin Exam: Positive intact; negative rash, lesion or ulcers Pulses Pulse: Yes Pedal pulses present: Extremities Extremities: No clubbing, No cyanosis, No edema Neuro Neurologic: Yes conversant, Yes no focal neuro deficits, Yes cooperative, Yes understands questions Lymph Lymphatic: No lymphadenopathy Psych Appearance: Positive grossly normal Mental Status: Positive mental status grossly normal Mood: Positive congruent mood Affect: Positive normal affect Coding Level of Care Code Off vis,est,level 3 Diagnoses CROW (dyspnea on exertion) R06.09 Pulmonary nodule R91.1 08/07/17 0616 <Electronically signed by Sanford Radford DO> Date Sanford Radford DO Cosigner Signature: Date (if applicable) CC: Lico Cameron DO CHEST WITHOUT Observed: 07/30/2017 Status: F Source: CEMENT CONTRAST 12:00 AM [facility] [place] [address] [place] [address] Chest without Contrast MR#: [id number] Acct: [id number] Name: ANNETTE FLETCHER Rep #: [id number] : 1935 M 81 From: Alicia Coyle MD PCP: Lico Cameron DO Status: REG CLI Study: Chest without Contrast Date of Exam: 07/30/17 Exam# [id number] Ordering Dr: Tina Ayala CORRECTION WARDEN-C STUDY: CT CHEST WITHOUT CONTRAST REASON FOR EXAM: Male, 81 years old. Exertional shortness of breath. RADIATION DOSAGE (If Supplied By Facility): CTDIvol = ( 9.56 ) mGy, DLP = ( 355.56 ) mGycm TECHNIQUE: Transaxial imaging was performed without the administration of intravenous contrast material. Multiplanar coronal and sagittal images were reformatted. Individualized dose optimization techniques were used for this CT. COMPARISON: Prior CT exam of June 19, 2017 FINDINGS: Stable apical pleural-parenchymal scarring of the right lung. Stable area of bronchial retraction and surrounding fibrotic change in the apical portion of the left upper lobe. Stable 5 mm noncalcified nodule of the left upper lobe abutting the oblique fissure, image 31 series 4. Stable flat nodule of the right minor fissure. Image 68 series 4 Calcified granuloma of the right lower lobe, image 69 series 4. Stable linear scarring at the left lung base posteriorly. Normal heart and pericardium. Coronary calcifications and stent artifact. Normal mediastinum. Normal hilar regions. Normal unenhanced pulmonary arteries. There is atherosclerotic calcification of the aortic arch with tortuosity and elongation of the aortic arch and descending thoracic aorta. There are multi-level degenerative changes of the thoracic spine. Status post cholecystectomy. CT/Chest without Contrast IMPRESSION: Stable bilateral apical chronic changes and stable pulmonary nodules. No additional acute findings or changes. Initial recommendation stands: Low risk patient 12 months follow-up. High risk patient 6- 12 months then 18-24 months. Electronically Signed: Alicia Coyle MD at 18:14 EST , Service support , CC: Tina Ayala; Lico Cameron DO [employer]: Signed ENDOCRINOLOGY VISIT Observed: 07/28/2017 Status: F Source: CEMENT REPORT 8:40 PM [facility] [address] [place] [address]. [address] [place] [address] OFFICE VISIT Date of Service: 07/28/17 MR#: [id number] Acct: [id number] Name: ANNETTE FLETCHER Rep #: [id number] : 1935 Provider: Whitney Gillette NP Age/Sex: 81/M [place] [facility] [place]: Signed HPI History of present illness Annette Fletcher is an 81 year old male who presents for follow up of diabetes type 2. Patient thinks his diabetes was changed to diagnosis of type 1 at some point. Currently he takes toujeo U-300 42 units daily. He also takes meal insulin base of 10 units and sliding scale of 1 per 25 points. Pt denies difficulty with injections or self monitoring of BG. Denies any signs of infection or irritation at site of injections. Reports taking insulin as directed Reports most recent A1c 9.6 Historically was 7-8 range Reports he checks his BG after he eats meals and takes correction. Does not take insulin premeal At time of visit: -Pt denies symptoms of hypertensive emergency (CP,SOB,WAITE, or blurred vision) and hypotension(dizziness or lightheadedness) -Pt denies symptoms of hypoglycemia ( sweaty, confusion, anxiety, tremor, hunger, palpitations) and hyperglycemia ( polydipsia, polyuria) -Pt denies potential medication adverse effect. Hypoglycemia Aware of hypoglycemia: When awake Able to self treat low BG: Yes Frequent low Blood sugar: No Has supply of glucagon: Yes Diet Breakfast varies from eggs and hash browns to pancakes, to cereal, to only a glass of milk Lunch soup/sandwich Dinner meat and vegetables SMBG after breakfast 200-300 Lunch post meal 200-300's after dinner 300 range Glucose control symptoms: Reports high fasting glucose and high post-meal glucose Weight and fatigue symptoms: Reports weight loss; denies snoring Cardiopulmonary symptoms: Reports lightheadedness; denies chest pain at rest, dyspnea on exertion or myalgias GI symptoms: Denies constipation, diarrhea, nausea/dyspepsia or vomiting Skin and extremity symptoms: Reports tingling/numbness/burning; denies erectile dysfunction Other symptoms: Denies blurry vision or change in vision Self monitoring: Yes Glucometer type: generic meter Dietary compliance: Diabetes: good Diabetes education in past year: Yes Glucose testing: demonstrates correct use of meter Sick day education - understands ketone testing: Yes Exam Const General: comfortable, well groomed Nutritional Appearance: average body habitus Orientation: oriented x3 HENMT Head: normal to inspection, normocephalic Ears: hearing grossly normal bilaterally Mouth: oral mucosae normal, moist mucous membranes Teeth and gingiva: dentition normal Eyes General: appearance normal, both eyes and all related structures Eyelids: eyelids normal Conjunctivae: conjunctivae normal Sclera: sclerae normal Pupils: PERRL Neck Neck: normal visual inspection Neck mass: No Chest Chest palpation AND inspection: deferred Resp Effort AND Inspection: able to speak in complete sentences, symmetric chest movement, other (pursed lips expiratory phase) Cardio Rate: regular rate Rhythm: regular rhythm Heart Sounds: S1 normal, S2 normal GI Inspection: normal to inspection Auscultation: normal bowel sounds Palpation: soft General: deferred Skin General: no rashes or lesions noted Wounds: no wounds Diabetic Foot Pulses: L dorsalis pedis pulse: normal, R dorsalis pedis pulse: normal Monofilament test: Left foot: abnormal, Right foot: abnormal Neuro General: moves all extremities Cognition: normal cognition Speech: speech normal Gait: normal gait Extrem General: no pedal edema, normal to inspection Psych Appearance: well kempt Mental Status: mental status grossly normal Mood: congruent mood Affect: normal affect Speech and Movement: speech and movement normal Attitude: cooperative Thought Process: normal Thought Content: normal Judgment: judgment good Intake Vital Signs07/28/17 Height 6 ft 1 in 07/28/17 Weight: 180 lb 8 oz 07/28/17 Body Mass Index (BMI) 23.8 07/28/17 Blood Pressure 156/73 07/28/17 Blood Pressure Location Lt popliteal 07/28/17 Blood Pressure Position Sitting Intake Visit Reasons: diabetes Bag Hanger Required: No Accompanied by: Self Is patient in pain?: No Allergies doxazosin Allergy (Unknown, Verified 07/28/17 14:29) Unknown enalapril Allergy (Unknown, Verified 07/28/17 14:29) Unknown propranolol Allergy (Unknown, Verified 07/28/17 14:29) Unknown tamsulosin [From Flomax] Allergy (Unknown, Verified 07/28/17 14:29) Unknown latex Allergy (Verified 07/28/17 14:29) Rash Medications Glucosamine HCl/Chondr Manriquez A Na [Sv Glucosamine-Chondroitin Tab] 1 ea PO DAILY 11/21/14 [History Confirmed 07/28/17] Pantoprazole Sodium [Protonix] 40 mg PO QHS 11/21/14 [History Confirmed 07/28/17] Dutasteride [Avodart] 0.5 mg PO DAILY #30 cap 11/28/14 [Rx Confirmed 07/28/17] albuterol sulfate HFA 90 mcg/actuation aerosol inhaler 2 puff INHALATION Q4H PRN g 06/05/17 [History Confirmed 07/28/17] budesonide-formoterol HFA 160 mcg-4.5 mcg/actuation aerosol inhaler 2 inh INHALATION Q12H 06/05/17 [History Confirmed 07/28/17] megestrol 20 mg tablet 20 mg PO ONCE 06/05/17 [History Confirmed 07/28/17] trospium 20 mg tablet 20 mg PO QDAY 06/05/17 [History Confirmed 07/28/17] blood sugar diagnostic strips See Dose Instructions .ROUTE .MEDSUPPLY #20 ea 07/28/17 [History Confirmed 07/28/17] ceramides 1,3,6-11 topical cream applic TOPICAL 07/28/17 [History Confirmed 07/28/17] gabapentin 100 mg capsule 100 mg PO QHS 07/28/17 [History Confirmed 07/28/17] insulin aspart See Label Instructions SC .COMPLEX 07/28/17 [History Confirmed 07/28/17] insulin glargine See Label Instructions SC .q hs 07/28/17 [History Confirmed 07/28/17] magnesium oxide 250 mg tablet 250 mg PO QDAY tab 07/28/17 [History Confirmed 07/28/17] multivitamin tablet 1 tab PO QDAY 07/28/17 [History Confirmed 07/28/17] pen needle, diabetic 31 gauge x 10/15 See Dose Instructions .ROUTE .MEDSUPPLY #30 ea 07/28/17 [History Confirmed 07/28/17] potassium chloride ER 20 mEq tablet,extended release 20 meq PO QDAY 07/28/17 [History Confirmed 07/28/17] triamcinolone acetonide 0.147 mg/gram topical aerosol 1 spray TOPICAL QDAY 07/28/17 [History Confirmed 07/28/17] PFSH Medical History Urinary retention (Acute) Leg cramps (Acute) Lightheadedness (Acute) Shingles (Acute) Vision problems (Acute) ulcers (Acute) Anemia (Chronic) Arthritis (Chronic) Bronchitis (Chronic) COPD (chronic obstructive pulmonary disease) (Chronic) CROW (dyspnea on exertion) (Chronic) GERD (gastroesophageal reflux disease) (Chronic) Hyperglycemia (Chronic) Prostate cancer (Chronic) Type 2 diabetes mellitus (Chronic) Vitamin D deficiency (Chronic) Surgical History History of cholecystectomy (Resolved) Family History Mother Cancer Father Diabetes Social History Smoking Status: Former smoker quit date: 06/02/01 pack-years: 48 alcohol intake: never substance use type: does not use ROS Const Constitutional: No anorexia, body ache, chills, fatigue, fever(s), frequent falls, decreased energy, malaise, night sweats, weakness, weight change, sleep problems, abnormal sleep pattern, change in appetite, other, headache(s), snoring or excessive sweating Eyes Eyes: No blurry vision, change in vision, double vision, discharge, dry eyes, bulging eyes, floaters, visual disturbances, eye pain, light sensitivity, spots in vision, tunnel vision or other ENT ENT: No abnormal hearing, ear pain, ear discharge, ear pressure, hearing loss, tinnitus, dizziness/vertigo, balance problems, nosebleed/epistaxis, nasal congestion, nasal obstruction, nose pain, sinus pressure, sinus pain, nasal discharge, post nasal drip, headache(s), facial pain, dental pain, dry mouth, bad breath, hoarseness, lip swelling, mouth lesions, mouth pain, sore throat, tongue swelling, throat swelling, other, difficulty swallowing or neck pain Resp Respiratory: Positive for shortness of breath; no cough, change in phlegm color, chest congestion, excessive phlegm production, hemoptysis, pain on inspiration, pain with cough, snoring, stridor, wheezing or other Cardio Cardiology: Positive for lightheadedness; no chest pain at rest, chest pain with exertion, leg pain with exertion, excessive sweating, shortness of breath, dyspnea on exertion, generalized swelling, irregular heart rhythm, orthopnea, radiating jaw, neck or arm pain, fast heart rate, slow heart rate, palpitations or other Gastro GI: No abdominal pain, belching, bloating, change in bowel habits, change in stool character, coffee ground emesis, constipation, cramping, diarrhea, heartburn, difficulty swallowing, feeling full early, excessive flatus, incontinent of stools, Vomiting blood/hematemesis, blood in stool, loose stools, Black,tarry stools, nausea/dyspepsia, pain with swallowing, vomiting or other Genitourinary Male: No difficulty urinating, burning urination, painful urination, urinary incontinence, urinary frequency, urinary urgency, urinary hesitancy, urinary retention, blood in urine, Frequent nighttime urination/ nocturia, post void dribbling, suprapubic fullness, side pain, sexual problems, genital lesions, genital itching, erectile dysfunction, penile discharge, difficulty with ejaculations, blood in semen, scrotal swelling, testicle lump, testicle pain or other Musc Musculoskeletal: Positive for other (no eye exam x 2 years); no abnormal walking, joint pain, back pain, deformity, joint swelling, limited range of motion, loss of height, muscle cramps, muscle weakness, decreased muscle mass, body aches, neck pain, numbness, radiating pain into limb, stiffness or tingling Neuro Neurology: No frequent falls, weakness, visual disturbances, abnormal hearing, headache(s), abnormal walking, numbness or tingling Psych Psychiatric: No abnormal sleep pattern, No change in appetite Endo Endocrine: No fatigue, other or excessive sweating Aller/Imm Allergy/Immunologic: No lip swelling, tongue swelling, throat swelling or wheezing Assessment AND Plan Problems 1. 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 He believes he is a type 1 diabetic. Will send for records. Patient is taking his insulin 2 hours post meal. Not appropriate if type 1 and not ideal regardless. He is ask to check BG in pairs with diet log over the next two weeks at which time I can evaluate the status of his control. He agrees to plan. Check Bg in pairs, before you eat and 2 hours after you eat Will obtain your medical records to determine if type 1 or type 2. Enc diet monitoring as well as activity as tolerated. Is not on statin nor is he taking ARB. BP elevated at todays visit. He is worried regarding results of lung studies. Reports eye exam up to date. Reports labs up to date. Plan Detail Additional Comments 1. Please schedule follow up in 2 weeks 2. Lab work one week before appointment. 3. Discussed importance of regular exercise and recommend starting or continuing a regular exercise program for good health. 4. The patient was encouraged to lose weight for good health 5. The importance of monitoring blood sugar regularly was reviewed. 6. The importance of monitoring the HBA1c level regularly was reviewed. 7. The importance of prper foot care and regularly checking feet to prevent sores and loss of limbs was reviewed. 8. The importance of keeping BP at or below 130/80 to prevent stroke, heart attacks, kidney failure, blindness was reviewed. Spent approximately 45 minutes with patient with over 50% of time spent in discussion and counseling regarding medication adjustment, symptoms and treatment of hypoglycemia, diet adherence, and checking BG before driving. 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 [place] [address] OFFICE VISIT Date of Service: 06/23/17 MR#: [id number] Acct: [id number] Name: ANNETTE FLETCHER Rep #: [id number] : 1935 Provider: Tina Ayala Age/Sex: 81/M Location: [facility] Status: Signed Assessment AND Plan 1. Dyspnea on exertion R06.09 Status Chronic Plan Lengthy discussion with the patient regarding plan at this time. I would like to refer the patient to cardiology for further workup, he has declined at this time. He reports that he is something I can live with. Discussed with the patient that he may be at risk for coronary artery disease and potentially a myocardial infarction. He continues to decline the cardiology referral at this time. He has been advised that if he should change his mind at any point I will refer him to cardiology with just a phone call. Workup for a pulmonary etiology as the source of his dyspnea has been nondiagnostic. It is possible that the stage I diastolic dysfunction could be causing his shortness of breath, he has had a pulmonary stress test which shows that he does not require supplemental oxygen at this time. Continue to monitor a pulmonary stress test at least annually. Follow-up with Dr. Radford in 2 months after a repeat CT of the chest. The patient can further discuss the possibility of a cardiology referral at that time. Patient has been advised to report to the emergency department if he develops any sudden onset of crushing chest pain or other symptoms of a heart attack. Orders Orders: 2. Simple chronic bronchitis J41.0 Plan Patient has been doing well with simply using albuterol rescue inhaler as needed. Plan on annual pulmonary function testing. Follow-up with Dr. Radford in 2 months after obtaining repeat CT of the chest. No additional testing at this time. He does not appear to be in exacerbation of his COPD, does not require antibiotics or prednisone at this time. 3. Abnormal CT scan, chest R93.8 Status Acute Plan Patient's recent CT shows groundglass opacities. The patient has never had a CT of the chest previously, unable to compare. Plan to follow-up with a CT of the chest [address] Discussed the case with Dr. Radford, who also agrees that we should repeat the CT imaging and have a follow-up appointment. Impression of the CT suggested possible pneumonia, the patient has not displayed any symptoms of pneumonia in the past several months. He reports the last time he had pneumonia was 40 years ago. He has not had any illnesses, has not been treated with antibiotics. Follow-up with Dr. Radford in [address] to discuss results and develop a plan. Plan Detail Follow Up 2 Months (DMB) HPI 1 M FU: Chief Complaint: shortness of breath HPI Comments Details: This is a 81 year old pleasant m, currently under the care of Lico Cameron DO, here today to review test results. I personally reviewed the tests/images/tracings which showed: I personally reviewed the images of the CT of the chest completed on June 19, 2017 and showed a 2.6 cm area of scarring in the left upper lobe with surrounding groundglass type infiltration. According to the impression this might represent active pneumonia or, less likely, neoplasm. There was also noted a 5 mm noncalcified left upper lobe lung nodule. The patient was also shown images of the CT scan. Echocardiogram completed on June 19, 2017 shows an EF of 65% and also documented stage I diastolic dysfunction. The patient continues to experience shortness of breath on exertion. He reports that his ability to get things done prior to coming short of breath has decreased significantly over the past 18 months. For example, he tells me of the situation in which to 1 years ago he was able to use the snowblower in his entire driveway, and just recently he was only able to do less than 25% of the driveway before requiring a 30 minute rest break. He also has occasional chest tightness discomfort with the shortness of breath. 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 He denies any cough, wheezing, fever or chills. He denies any palpitations. He denies any difficulty with lower extremity edema. He has not tried any medications to relieve the shortness of breath, reports that the albuterol is sometimes helpful but that it does not last very long. He denies any unintentional weight loss. He denies easy bruising. He denies any bleeding problems. See complete review of systems. He is not currently on any maintenance medications. He did not tolerate Symbicort. He has not been on any antibiotics or prednisone since his last office visit. He has not been seen in the ED urgent care for any respiratory illnesses since his last office visit. The patient does report that he was exposed to asbestos when he was in the [employer]. 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 Intake Vital Signs06/23/17 Height 6 ft 1 in 06/23/17 Weight: 181 lb Intake Visit Reasons: 1 M FU Bag Hanger Required: No Accompanied by: Self Is patient in pain?: No Allergies doxazosin Allergy (Unknown, Verified 06/23/17 09:29) Unknown enalapril Allergy (Unknown, Verified 06/23/17 09:29) Unknown propranolol Allergy (Unknown, Verified 06/23/17 09:29) Unknown tamsulosin [From Flomax] Allergy (Unknown, Verified 06/23/17 09:29) Unknown latex Allergy (Verified 06/23/17 09:29) Rash Medications Cholecalciferol (VIT D3) [Vitamin D] 2,000 unit PO DAILY 11/21/14 [History Confirmed 06/23/17] Glucosamine HCl/Chondr Manriquez A Na [Sv Glucosamine-Chondroitin Tab] 1 ea PO DAILY 11/21/14 [History Confirmed 06/23/17] Pantoprazole Sodium [Protonix] 40 mg PO QHS 11/21/14 [History Confirmed 06/23/17] Polyethylene Glycol 3350 [Miralax] 17 gm PO DAILY PRN PRN 11/21/14 [History Confirmed 06/23/17] Trazodone HCl [Desyrel] 100 mg PO QHS 11/21/14 [History Confirmed 06/23/17] Dutasteride [Avodart] 0.5 mg PO DAILY #30 cap 11/28/14 [Rx Confirmed 06/23/17] albuterol sulfate HFA 90 mcg/actuation aerosol inhaler 2 puff INHALATION Q4H PRN g 06/05/17 [History Confirmed 06/23/17] budesonide-formoterol HFA 160 mcg-4.5 mcg/actuation aerosol inhaler 2 inh INHALATION Q12H 06/05/17 [History Confirmed 06/23/17] insulin aspart SC 06/05/17 [History Confirmed 06/23/17] insulin glargine SC 06/05/17 [History Confirmed 06/23/17] megestrol 20 mg tablet 20 mg PO ONCE 06/05/17 [History Confirmed 06/23/17] trospium 20 mg tablet 20 mg PO QDAY 06/05/17 [History Confirmed 06/23/17] [facility] Medical History Urinary retention (Acute) Leg cramps (Acute) Lightheadedness (Acute) Shingles (Acute) Vision problems (Acute) ulcers (Acute) Anemia (Chronic) Arthritis (Chronic) Bronchitis (Chronic) COPD (chronic obstructive pulmonary disease) (Chronic) CROW (dyspnea on exertion) (Chronic) GERD (gastroesophageal reflux disease) (Chronic) Hyperglycemia (Chronic) Prostate cancer (Chronic) Type 2 diabetes mellitus (Chronic) Vitamin D deficiency (Chronic) Surgical History History of cholecystectomy (Resolved) Social History Smoking Status: Former smoker quit date: 06/02/01 pack-years: 48 alcohol intake: never substance use type: does not use Review of Systems Const CONSTITUTIONAL: Positive daytime sleepiness; negative anorexia, body ache, chills, fever(s), night sweats, oral thrush, stops breathing during sleep, weight loss, sleeping in chair, fatigue, weight loss, weight gain, frequent colds, seasonal allergies, other, headache(s) or orthopnea EETM Ear Nose Throat Mouth: Positive hearing normal; negative hard of hearing, hoarseness, dry mouth in morning, change in vision, itchy eyes, eye pain, swallowing Difficulty, ear pain, nose bleed, headache(s), mouth pain, nasal congestion, nasal discharge, post nasal drip, sinus pain, sinus pressure, sore throat or other Cardio Cardiovascular: Negative chest pain, chest pain at rest, chest pain with activity, irregular heart rhythm, edema, shortness of breath when lying down, palpitations, murmur or other Resp Respiratory: Positive as per HPI, shortness of breath and inhalers; negative pain with cough, wheezing, chest congestion, cough, chest tightness, pain on inspiration, increase use of rescue inhalers, snoring, apnea or other Gastro Gastrointestional: Negative bloody stools, change in appetite, difficulty swallowing, reflux, hematemesis, melena stool, loose stool, constipation or other Genitourinary: Negative blood in urine, nocturia, pain with urination or other Musc Musculoskeletal: Negative body pain, back pain, neck pain or other Skin/Breast Skin/Breast: Positive dry skin and rash; negative itching, unusual bruising, breast lump or other Neuro Neurological: Positive weakness; negative restless legs, confusion or other Psych Psychocological: Negative abnormal sleep pattern, anxiety, thoughts of hurting self/others, hopelessness or other Lymph Lymphatic: Negative easy bleeding, easy bruising, swollen lymph nodes or other Exam Const Constitutional: Positive conversant, cooperative, in no acute respiratory distress, healthy appearing, well developed, well nourished and good hygiene; negative obese Head Head: Positive normocephalic and atraumatic; negative cyanosis of lips/distal nose Eyes Eye: Positive clear conjunctiva and nystagmus; negative scleral abnormality Ears Ear: Positive hearing normal and external ears normal; negative hard of hearing Nose Nose: Positive external nose normal; negative epistaxis, nasal polyp, septum normal or no nasal discharge Mouth Mouth: Positive oral mucosae normal, no lesions, good dentition and posterior oropharynx is adequate; negative post nasal drip, malodorous breath or oral thrush present Mallampati Score: I: Mallampati Score Neck Neck: Positive normal visual inspection, full ROM and trachea midline; negative lymphadenopathy, JVD or tender Chest Wall Chest: Positive normal inspection of the chest and symmetric chest movement; negative increased A/P diameter Resp lung sounds: Positive clear to auscultation, good air exchange, normal expiratory time and normal respiratory effort; negative diminished, wheezes, rhonchi, rales, dullness to percussion or wheeze present on forced exhalation Cardio Cardiac: Positive regular rate, regular rhythm, S1 normal and S2 normal; negative murmur GI GI: Positive normal to inspection and normal bowel sounds; negative distended or obese Genitourinary: Positive deferred Musc Musculoskeletal: Positive steady gait and ROM normal; negative kyphosis or scoliosis Skin Pulmonary Skin Exam: Positive rash, intact and Eczema; negative lesion, ulcers, erythema, scaly or dermal atrophy Pulses Pulse: Yes pulses normal x4 extremities Extremities Extremities: Yes capillary refill normal, No clubbing, No cyanosis, No edema, No stasis dermatitis Neuro Neurologic: Yes conversant, Yes no focal neuro deficits, Yes cooperative, Yes normal cognition, Yes normal coordination, Yes understands questions, Yes normal concentration Lymph Lymphatic: No lymphadenopathy, No tenderness, No cervical adenopathy, No axillary adenopathy Psych Appearance: Positive grossly normal, eye contact and well kempt Mental Status: Positive mental status grossly normal Mood: Positive congruent mood Affect: Positive normal affect Coding Level of Care Code Off vis,est,level 4 Diagnoses Dyspnea on exertion R06.09 Simple chronic bronchitis J41.0 Chronic bronchitis type: simple Abnormal CT scan, chest R93.8 06/25/17 0846 <Electronically signed by Tina ORTIZC> Date Tina LIGHT Cosigner Signature: Date (if applicable) CC: Lico Cameron DO ECHO, COMPLETE W/ Observed: 06/19/2017 Status: F Source: [place] CONTRAST 3:15 PM [facility] [address] [place] [address] Echo Complete W/ Contrast 06/19/17 1404 MR#: [id number] Acct: [id number] Name: ANNETTE FLETCHER Rep #: [id number] : 1935 81 From: Alana Solis MD Attending Dr: Tina Ayala CORRECTION WARDEN Status: REG CLI Ordering Dr: Tina Ayala Date: 06/19/17 Location: [facility] Sex: M C Admitted: Reason For Study: Dyspnea/SOB Procedure This was a 2D Doppler, Color Flow transthoracic echocardiogram. The study was technically difficult. Exam performed in department. Left Ventricle Normal size and thickness. The estimated ejection fraction is 65 %. Stage I diastolic dysfunction. Right Ventricle Normal right ventricle. Atria Normal left atrium. Normal right atrium. Mitral Valve The mitral valve is structurally normal. No prolapse or stenosis seen. Tricuspid Valve The tricuspid valve is not well visualized. Aortic Valve Normal aortic valve. Pulmonic Valve The pulmonic valve is not well visualized. Great Vessels Normal aortic root. Pericardium/Pleural No pericardial effusion. Medication 22 gauge I.V. with prn adaptor inserted into right arm. Diluted definity 2ml given slow IV push to enhance endocardial definition. MMode/2D Measurements AND Calculations LVIDd: 3.6 cm IVSd: 1.4 cm Ao root diam: 3.5 cm LVIDs: 2.4 cm LVPWd: 1.5 cm FS: 34.7 % LAV(MOD-sp2): 46.8 ml Time Measurements MV dec time: 0.35 sec Doppler Measurements AND Calculations MV E max mark: 71.9 cm/sec Lat Peak E' Mark: 6.7 cm/sec Med Peak E' Mark: 10.1 cm/sec MV A max mark: 101.5 cm/sec E/E' lat: 10.8 E/E' med: 7.1 MV E/A: 0.71 MV V2 max: 120.0 cm/sec MV P1/2t max mark: 85.3 cm/sec Ao V2 max: 135.6 cm/sec MV max P.8 mmHg MV P1/2t: 96.3 msec Ao max P.4 mmHg MV V2 mean: 62.2 cm/sec MV dec slope: 259.5 cm/sec2 Ao V2 mean: 94.3 cm/sec MV mean P.8 mmHg MVA(P1/2t): 2.3 cm2 Ao mean P.0 mmHg MV V2 VTI: 32.6 cm Ao V2 VTI: 26.8 cm LV V1 max: 106.3 cm/sec PA V2 max: 137.7 cm/sec LV V1 max P.5 mmHg LV V1 mean P.1 mmHg LV V1 mean: 65.5 cm/sec LV V1 VTI: 22.3 cm Interpretation Summary The estimated ejection fraction is 65 %. Stage I diastolic dysfunction. Ordering Physician: Tina Ayala Referring Physician: Tina Ayala Performed By: Justen Matias RCS 06/19/17 6254 Date Alana Solis MD CC: Tina Ayala; Lico Cameron DO Date Dictated: 06/19/17 1404 Date Transcribed: 06/19/17 1514 [employer] Representatives: Signed CHEST WITHOUT Observed: 06/19/2017 Status: F Source: [place] CONTRAST 2:02 PM [facility] Imaging Services [address] [place] [address] Chest without Contrast MR#: [id number] Acct: [id number] Name: ANNETTE FLETCHER Rep #: [id number] : 1935 M 81 From: Greg Gonzalez MD PCP: Lico Cameron DO Status: REG CLI Study: Chest without Contrast Date of Exam: 06/19/17 Exam# [id number] Ordering Dr: Tina Ayala CORRECTION WARDEN-Jordy STUDY: CT CHEST WITHOUT CONTRAST REASON FOR EXAM: Male, 81 years old. Cough. COPD. Chronic bronchitis. Former smoker. History of prostate cancer and diabetes. RADIATION DOSAGE (If Supplied By Facility): CTDIvol = ( 12.07 ) mGy, DLP = ( 509.71 ) mGycm TECHNIQUE: Transaxial imaging was performed without the administration of intravenous contrast material. Individualized dose optimization techniques were used for this CT. COMPARISON: None. FINDINGS: There is an area of groundglass type infiltration in the left upper lobe, surrounding an irregular 2.6 x 2.5 x 1.3 cm density. This density contains air bronchograms, including foci of bronchiectasis and probably represents an area of fibrosis. Active pneumonia or scar neoplasm cannot be excluded entirely. As seen on axial images 30-31, there is a 5.5 x 4.4 mm noncalcified left upper lobe lung nodule (average diameter 5 mm) densities. There is mild fibrosis or atelectasis in the posterior lower lung rosa, left greater than right. There is a calcified pulmonary granuloma in the right lower lobe. As seen on axial image 68, there is a 5.1 x 2.7 mm nodular density in the right horizontal fissure, which probably represents a pleural nodule rather than a lung nodule. There is no demonstrated pleural effusion. Normal heart and pericardium. There are coronary artery calcifications. Normal mediastinum. Normal hilar regions. Normal unenhanced pulmonary arteries. There are atherosclerotic calcifications of the thoracic aorta and great vessels. There are multi-level degenerative changes of the thoracic spine. The patient is status post cholecystectomy. CT/Chest without Contrast IMPRESSION: 2.6 cm area of scarring in the left upper lobe with surrounding groundglass type infiltration. The finding might represent active pneumonia or, less likely, neoplasm. Would suggest 3 month follow-up evaluation. 5 mm noncalcified left upper lobe lung nodule. Based on Fleischner Society Guidelines, suggested follow-up for a 4-6 mm lung nodule is as follows: Low risk patients: Follow-up CT Chest at 12 months. If no change, no further imaging needed. High risk patients: Initial follow-up CT Chest at 6 -12 months and then at 18 - 24 months if no change. Atherosclerosis. Additional findings, as above. Electronically Signed: Greg Gonzalez MD at 5:39 EST , Service support , CC: Tina Ayala; Lico Cameron DO [employer] Representatives: Signed BASIC METABOLIC Collected: 06/16/2017 Status: F Source: [place] PROFILE (BMP) 1:39 PM [facility] TYPE CODE TESTS RESULT OUT OF RANGE REFERENCE UNITS LAB L501.0100 70-110 mg/dL High GLU 337 Result Comment: Glucose result greater than or equal to 200 mg/dL suggests DIABETES MELLITUS per A.D.A. criteria. LAB L501.1000 7-18 mg/dL High BUN 27 LAB L501.1100 0.70-1.30 mg/dL Normal CREAT,SERUM 1.13 Result Comment: The validity of the calculated GFR AND GFRAA in patients over 70 years has not been determined. Clinical correlation is essential. LAB L501.1110 >60 mL/min Normal EST GFR 66 Result Comment: Non- GFR Calc LAB L501.1115 >60 mL/min Normal EST GFR - AA 80 Result Comment: GFR Calc LAB L501.1300 10-20 RATIO High BUN/CRE 23.9 LAB L501.2200 8.5-10.1 mg/dL CA Normal 8.7 LAB L501.5300 136-145 mmol/L NA Normal 137 LAB L501.5600 3.5-5.1 mmol/L K Normal 4.1 LAB L501.5900 98-107 mmol/L CL Normal 103 LAB L501.6100 21.0-32.0 mmol/L Normal CO2 21.0 LAB L501.6200 5-15 Normal GAP 13 Performed By: #### L500.2500 #### [facility] [address] [place], [address] PULMONARY VISIT REPORT Observed: 06/10/2017 Status: F Source: CEMENT 3:18 PM [facility] [address] [place] [address] OFFICE VISIT Date of Service: 06/05/17 MR#: [id number] Acct: [id number] Name: ANNETTE FLETCHER Rep #: [id number] : 1935 Provider: Tina Ayala Age/Sex: 81/M Location: [facility] Status: Signed Assessment AND Plan Problems 1. CROW (dyspnea on exertion) R06.09 Status Chronic 2. Simple chronic bronchitis J41.0; J41.0; J41.0; J41.0 Status Chronic Plan - NADEGE Martinez Dyspnea on exertion: This patient describes dyspnea that had a very sudden onset and was also accompanied by sharp shoulder blade pain. He has not been evaluated for possible blood clot, which at this point would not be acute. Am sending him for CTA of the chest to evaluate for a blood clot, he is not currently on oral anticoagulation. Considered ordering a perfusion scan. A VQ scan may be helpful as well. Will obtain an echocardiogram, the patient believes he has never had an echocardiogram, to evaluate for possible diastolic dysfunction and or right-sided elevated heart pressures consistent with possible pulmonary hypertension. Possible pulmonary hypertension may or may not be related to potential pulmonary embolism. The patient is agreeable to this line of testing, we will follow-up in 1 month to discuss test results and continue to develop our plan. BMP is to be obtained to assure adequate kidney function prior to the CT of the chest, given that it requires IV contrast. Previous BMP showed normal kidney function. Chronic bronchitis: Recent pulmonary function tests show that the patient has chronic bronchitis, not COPD. The Anoro will be stopped. The patient does not need Symbicort. No indication for antibiotics or prednisone today. Continue to monitor with annual PFTs. Follow-up with myself in 1 month, plan for follow-up with Dr. Radford thereafter. Medications Discontinued: HPI 6 wk FU: Chief Complaint: Shortness of breath HPI Comments Details: Patient presents to the office today to review recent test results and to discuss his ongoing dyspnea. The patient is ambulatory, currently on room air and accompanied by his . He completed a complete pulmonary function test on May 16, 2017 which was interpreted as showing mild large airway obstruction that is consistent with chronic bronchitis, given that it had a preserved diffusing capacity. FVC was 113, FEV1 82, FEV1/FVC ratio 52, TLC 108, RV 85 and DLCO 82. The patient reports that he is concerned about this ongoing shortness of breath. He states that it came on very suddenly 1-1/2 years ago. He can remember very specifically that he had sudden onset of shortness of breath accompanied with sharp pain to his shoulder blades. He reports that using the Anoro he believes slightly decreased to shortness of breath on exertion. He notices that his shortness of breath is more persistent when he is under stress. The only way that the shortness of breath is alleviated is after 30 minutes of rest. He also feels as though he had side effects from the Anoro and the Symbicort which include a rash on his back and an elevation in his blood glucose levels. He was stopped on the Symbicort when he was transitioned to the Anoro. He has currently been compliant with Anoro once daily. He also had a pulmonary stress test on May 14, 2017 in which he was able to ambulate 973 feet over the course of 6 minutes. He did not become hypoxic, however he did have tachycardia with a noted high heart rate of 126 bpm. Currently, he denies any cough, wheezing, hemoptysis. He denies any fever or chills. He denies any lower extremity edema. See complete review of systems. Intake Vital Signs06/05/17 Height 6 ft 1 in 06/05/17 Weight: 174 lb 06/05/17 Body Mass Index (BMI) 22.9 Intake Visit Reasons: 6 wk FU Accompanied by: Spouse Allergies doxazosin Allergy (Unknown, Verified 06/05/17 09:47) Unknown enalapril Allergy (Unknown, Verified 06/05/17 09:47) Unknown propranolol Allergy (Unknown, Verified 06/05/17 09:47) Unknown tamsulosin [From Flomax] Allergy (Unknown, Verified 06/05/17 09:47) Unknown latex Allergy (Verified 06/05/17 09:41) Rash Medications Cholecalciferol (VIT D3) [Vitamin D] 2,000 unit PO DAILY 11/21/14 [History Confirmed 06/05/17] Glucosamine HCl/Chondr Manriquez A Na [Sv Glucosamine-Chondroitin Tab] 1 ea PO DAILY 11/21/14 [History Confirmed 06/05/17] Pantoprazole Sodium [Protonix] 40 mg PO QHS 11/21/14 [History Confirmed 06/05/17] Polyethylene Glycol 3350 [Miralax] 17 gm PO DAILY PRN PRN 11/21/14 [History Confirmed 06/05/17] Trazodone HCl [Desyrel] 100 mg PO QHS 11/21/14 [History Confirmed 06/05/17] Dutasteride [Avodart] 0.5 mg PO DAILY #30 cap 11/28/14 [Rx Confirmed 06/05/17] albuterol sulfate HFA 90 mcg/actuation aerosol inhaler 2 puff INHALATION Q4H PRN g 06/05/17 [History Confirmed 06/05/17] budesonide-formoterol HFA 160 mcg-4.5 mcg/actuation aerosol inhaler 2 inh INHALATION Q12H 06/05/17 [History Confirmed 06/05/17] insulin aspart SC 06/05/17 [History Confirmed 06/05/17] insulin glargine SC 06/05/17 [History Confirmed 06/05/17] megestrol 20 mg tablet 20 mg PO ONCE 06/05/17 [History Confirmed 06/05/17] trospium 20 mg tablet 20 mg PO QDAY 06/05/17 [History Confirmed 06/05/17] Review of Systems Const CONSTITUTIONAL: Negative anorexia, body ache, chills, daytime sleepiness, fever(s), night sweats, oral thrush, stops breathing during sleep, weight loss, sleeping in chair, fatigue, weight loss, weight gain, frequent colds, seasonal allergies, other, headache(s) or orthopnea EETM Ear Nose Throat Mouth: Positive hearing normal and dry mouth in morning (at all times); negative hard of hearing, hoarseness, change in vision, itchy eyes, eye pain, swallowing Difficulty, ear pain, nose bleed, headache(s), mouth pain, nasal congestion, nasal discharge, post nasal drip, sinus pain, sinus pressure, sore throat or other Cardio Cardiovascular: Negative chest pain, chest pain at rest, chest pain with activity, irregular heart rhythm, edema, shortness of breath when lying down, palpitations, murmur or other Resp Respiratory: Positive as per HPI, shortness of breath shortness of breath: Positive with activity and cough cough: Positive non-productive; negative pain with cough, wheezing, chest congestion, chest tightness, pain on inspiration, inhalers, increase use of rescue inhalers, snoring, apnea or other Gastro Gastrointestional: Negative bloody stools, change in appetite, difficulty swallowing, reflux, hematemesis, melena stool, loose stool, constipation or other Genitourinary: Negative blood in urine, nocturia, pain with urination or other Musc Musculoskeletal: Negative body pain, back pain, neck pain or other Skin/Breast Skin/Breast: Negative dry skin, itching, rash, unusual bruising, breast lump or other Neuro Neurological: Negative restless legs, confusion, weakness or other Psych Psychocological: Negative abnormal sleep pattern, anxiety, thoughts of hurting self/others, hopelessness or other Lymph Lymphatic: Negative easy bleeding, easy bruising, swollen lymph nodes or other Exam Const Constitutional: Positive conversant, cooperative, in no acute respiratory distress, healthy appearing, well developed, well nourished and good hygiene Head Head: Positive normocephalic and atraumatic; negative cyanosis of lips/distal nose Eyes Eye: Positive clear conjunctiva and nystagmus; negative scleral abnormality Ears Ear: Positive hearing normal and external ears normal; negative hard of hearing Nose Nose: Positive external nose normal and no nasal discharge; negative epistaxis Mouth Mouth: Positive oral mucosae normal, no lesions, good dentition and posterior oropharynx is adequate; negative post nasal drip, malodorous breath or oral thrush present Mallampati Score: II: Mallampati Score Neck Neck: Positive normal visual inspection, full ROM and trachea midline; negative lymphadenopathy, JVD or tender Chest Wall Chest: Positive normal inspection of the chest and symmetric chest movement; negative increased A/P diameter Resp lung sounds: Positive diminished, clear to auscultation, wheeze present on forced exhalation, normal expiratory time and normal respiratory effort; negative rhonchi, rales, wheezes, dullness to percussion or use of accessory muscles Cardio Cardiac: Positive regular rate, regular rhythm, S1 normal and S2 normal; negative murmur GI GI: Positive normal to inspection and normal bowel sounds; negative distended Genitourinary: Positive deferred Musc Musculoskeletal: Positive steady gait and ROM normal; negative kyphosis or scoliosis Skin Pulmonary Skin Exam: Positive intact; negative rash, lesion, ulcers or erythema Pulses Pulse: Positive pulses normal x4 extremities Extremities Extremities: Negative edema Neuro Neurologic: Positive conversant, no focal neuro deficits, cooperative, normal cognition, normal coordination, normal concentration and understands questions; negative tremor Lymph Lymphatic: Negative lymphadenopathy, tenderness, cervical adenopathy or axillary adenopathy Psych Appearance: Positive grossly normal, eye contact and well kempt Mental Status: Positive mental status grossly normal Mood: Positive congruent mood Affect: Positive normal affect [facility] Medical History (Reviewed 06/05/17 @ 4:44 pm by NADEGE Martinez) Urinary retention (Acute) Leg cramps (Acute) Lightheadedness (Acute) Shingles (Acute) Vision problems (Acute) ulcers (Acute) Anemia (Chronic) Arthritis (Chronic) Bronchitis (Chronic) COPD (chronic obstructive pulmonary disease) (Chronic) CROW (dyspnea on exertion) (Chronic) GERD (gastroesophageal reflux disease) (Chronic) Hyperglycemia (Chronic) Prostate cancer (Chronic) Type 2 diabetes mellitus (Chronic) Vitamin D deficiency (Chronic) UTI (lower urinary tract infection) (Inactive) Surgical History (Reviewed 06/05/17 @ 4:44 pm by NADEGE Martinez) History of cholecystectomy (Resolved) Social History Smoking Status: Former smoker quit date: 06/02/01 pack-years: 48 alcohol intake: never substance use type: does not use 06/05/17 399 <Electronically signed by Tina LIGHT> Date Tina Ayala CORRECTION WARDEN-C 06/10/17 1518<Electronically signed by Zohreh Falcon > Cosigner Signature: Date (if applicable) Zohreh Falcon CC: Lico Cameron DO ALLERGIES ALLERGIES DATE TYPE / CODE NAME / CODE REACTION SEVERITY SOURCE 05/06/2018 Drug latex/U93038 Rash Unknown [facility] Allergy/4160 8921(RXNORM) Hospital 29362(SNOMED Repository CT) 03/04/2018 Drug doxazosin/F0 Unknown Unknown [facility] Allergy/4160 44022183(RX Hospital 57276(SNOMED ORM) Repository CT) 03/04/2018 Drug enalapril/F0 Unknown Unknown [facility] Allergy/4160 50972361(RX Hospital 05063(SNOMED ORM) Repository CT) 03/04/2018 Drug propranolol/ Unknown Unknown [facility] Allergy/4160 [id number](R Hospital 08006(SNOMED XNORM) Repository CT) 03/04/2018 Drug tamsulosin/F Unknown Unknown [facility] Allergy/4160 242645504(RX Hospital 82953(SNOMED NORM) Repository CT) ENCOUNTERS ENCOUNTERS ADMIT/DISCHARGE ACCOUNT ADMITTING ENCOUNTER LOCATION SOURCE NUMBER CLASS 05/06/2018/ [id number] Ambulatory BMSBuilding:B [facility] 8 0 [place] Repository 04/29/2018 [id number] Ambulatory [place] 3 [facility] ing:BFHLAB Repository 03/23/2018/ [id number] Ambulatory BMSBuilding:B [place] 8 3 [place] Repository 03/16/2018/ [id number] Ambulatory [place] 8 2 [facility] ing:ENRoom: Repository AC14 03/16/2018/ [id number] Ambulatory BMSBuilding:B [place] 8 2 [place].[facility] Repository 03/05/2018 [id number] Ambulatory BMSBuilding:B [place] 5 [place] Repository 03/04/2018/ [id number] Ambulatory BMSBuilding:B [place] 8 3 [facility] Hospital Repository 01/01/2018 [id number] Ambulatory BMSBuilding:B [place] 5 [facility] Repository 12/17/2017 [id number] Ambulatory [place] 4 [facility] Hospital ing:LAB.FUTUR Repository E 12/09/2017 [id number] Ambulatory [place] 0 [facility] HospitalBuild Hospital ing:CT Repository 12/09/2017 [id number] Ambulatory [place] 7 [facility] Hospital ing:BFHLAB Repository 12/02/2017 [id number] Ambulatory [place] 5 [facility] Hospital ing:LAB.FUTUR Repository E 11/26/2017 [id number] Ambulatory [place] 2 [facility] Hospital ing:CVS Repository 11/26/2017 [id number] Ambulatory BMSBuilding:W [place] 9 [facility] Repository 11/17/2017 [id number] Ambulatory [place] 0 [facility] HospitalBuild Hospital ing:LABSPEC Repository 11/14/2017 [id number] Ambulatory [place] 2 [facility] Hospital ing:MTLAB Repository 10/02/2017 [id number] Ambulatory BMSBuilding:B [place] 2 [place] Repository 09/29/2017 [id number] Ambulatory [place] 6 [facility] Hospital ing:CVS Repository 09/03/2017/ [id number] Ambulatory BMSBuilding:B [place] 8 5 [place].[facility] Repository 08/15/2017 [id number] Ambulatory [place] 9 [facility] Hospital[facility] Hospital ing:LAB.FUTUR Repository E 08/13/2017/ [id number] Ambulatory BMSBuilding:B [place] 8 2 [facility] Repository 08/06/2017/ [id number] Ambulatory BMSBuilding:B [place] 8 2 [facility] Repository 07/30/2017 [id number] Ambulatory [place] 3 [facility] Hospital ing:CT Repository 07/28/2017/ [id number] Ambulatory BMSBuilding:B [place] 8 6 [place] Repository 06/25/2017 [id number] Ambulatory [place] 9 [facility] Hospital ing:SDC Repository 06/23/2017/ [id number] Ambulatory BMSBuilding:B [place] 8 [address] [facility] Repository 06/19/2017 [id number] Ambulatory [place] 2 [facility] ing:CVS Repository 06/19/2017 [id number] Ambulatory BMSBuilding:W [place] 6 [facility] Repository 06/05/2017 [id number] Ambulatory BMSBuilding:B [place] 4 [facility] Repository 06/05/2017/ [id number] Ambulatory BMSBuilding:B [place] 8 [address] [facility] Repository PAYERS PAYERS ENCOUNTER GUARANTOR PAYER SUBSCRIBER SOURCE 05/06/2018 ANNETTE [place] Primary Insurance:MMO ANNETTE [place]ence [place] [id number] MEDICAREPolicy MOOREDOB: [facility] RDAPT Number: [id number] [id number] Repository 12971Xmn: (330) Date:4875-00-80AF [phone] () [address] [address]CB: 05/06/2018 Secondary NOT GIVENUNK [place] Insurance:SELF PAY [facility] Number: Effective Repository Date:2018-05-06 04/29/2018 ANNETTE Spence Primary Insurance:MMO ANNETTE Spence [place] [id number] MEDICAREPolicy MOOREDOB: [facility] RDAPT Number: [id number] [id number] Repository 887[address]Sxi: (330) Date:5687-63-05YS [phone] () [address] [address]DV: 04/29/2018 Secondary NOT GIVENUNK [place] Insurance:SELF PAY [facility] Number: Effective Repository Date:2018-04-29 03/23/2018 ANNETTE Spence Primary Insurance:MMO ANNETTE Spence [place] [id number] MEDICAREPolicy MOOREDOB: [facility] RDAPT Number: [id number] [id number] Repository 345[address]Nsb: (330) Date:2428-05-13AF [phone] (HP) [address] [address]KR: 03/23/2018 Secondary NOT GIVENUNK [place] Insurance:SELF PAY [facility] Number: Effective Repository Date:2018-03-23 03/16/2018 ANNETTE C Primary Insurance:MMO ANNETTE Spence [place] [id number] MEDICAREPolicy MOOREDOB: [facility] RDAPT Number: [id number] [id number] Repository 65[address]Vef: (330) Date:6561-19-74QT [phone] (HP) [address] [address]MC: 03/16/2018 Secondary NOT GIVENUNK [place] Insurance:SELF PAY [facility] Number: Effective Repository Date:2018-03-04 03/16/2018 ANNETTE C Primary Insurance:MMO ANNETTE Spence [place] [id number] MEDICAREPolicy MOOREDOB: [facility] RDAPT Number: [id number] [id number] Repository [address]Vxs: (330) Date:1575-33-83VX [phone] (HP) [address] [address]BT: 03/16/2018 Secondary NOT GIVENUNK [place] Insurance:SELF PAY [facility] Number: Effective Repository Date:2018-03-16 03/05/2018 ANNETTE C Primary Insurance:MMO ANNETTE Spence [place] [id number] MEDICAREPolicy MOOREDOB: [facility] RDAPT Number: [id number] [id number] Repository 15406Ygo: (330) Date:7522-77-01MS [address] (HP) [address] [address]LD: 03/05/2018 Secondary NOT GIVENUNK [place] Insurance:SELF PAY [facility] Number: Effective Repository Date:2018-03-05 03/04/2018 ANNETTE C Primary Insurance:MMO ANNETTE Spence [place] [id number] MEDICAREPolicy MOOREDOB: [facility] RDAPT Number: [id number] [id number] Repository 527[address]Fxt: (330) Date:1716-18-70EH [phone] (HP) [address] [address]EW: 03/04/2018 Secondary NOT GIVENUNK [place] Insurance:SELF PAY [facility] Number: Effective Repository Date:2018-03-04 01/01/2018 ANNETTE C Primary Insurance:MMO ANNETTE Spence [place] [id number] MEDICAREPolicy MOOREDOB: [facility] Number: [id number] [id number] Repository 380[address]Tin: (330) Date:2464-03-31XV [phone] () [address] [address]VT: 01/01/2018 Secondary NOT GIVENUNK [place] Insurance:SELF PAY [facility] Number: Effective Repository Date:2017-09-04 12/17/2017 ANNETTE Spence Primary Insurance:MMO ANNETTE Spence [place] [id number] MEDICAREPolicy MOOREDOB: [facility] RDUNIT Number: [id number] [id number] Repository [address]Pep: (330) Date:1633-56-38CF [phone] (HP) [address] [address]JJ: 12/17/2017 Secondary NOT GIVENUNK [place] Insurance:SELF PAY [facility] Number: Effective Repository Date:2017-12-15 12/09/2017 ANNETTE C Primary Insurance:MMO ANNETTE Spence [place] [id number] MEDICAREPolicy MOOREDOB: [facility] RDUNIT Number: [id number] [id number] Repository 265[address]Cbb: (330) Date:4623-30-31JV [phone] (HP) [address] [address]AU: 12/09/2017 Secondary NOT GIVENUNK [place] Insurance:SELF PAY [facility] Number: Effective Repository Date:2017-12-09 12/09/2017 ANNETTE C Primary Insurance:MMO ANNETTE Spence [place] [id number] MEDICAREPolicy MOOREDOB: [facility] RDUNIT Number: [id number] [id number] Repository 15371Uta: (330) Date:1275-28-02MV [phone] (HP) [address] [address]BY: 12/09/2017 Secondary NOT GIVENUNK [place] Insurance:SELF PAY [facility] Number: Effective Repository Date:2017-12-09 12/02/2017 ANNETTE C Primary Insurance:MMO ANNETTE C [place] [id number] MEDICAREPolicy MOOREDOB: [facility] RDUNIT Number: [id number] [id number] Repository 17659Nan: (330) Date:2123-83-35GS [phone] () [address] [address]TA: 12/02/2017 Secondary NOT GIVENUNK [place] Insurance:SELF PAY [facility] Number: Effective Repository Date:2017-12-02 11/26/2017 ANNETTE C Primary Insurance:MMO ANNETTE C [place] [id number] MEDICAREPolicy MOOREDOB: [facility] RDUNIT Number: [id number] [id number] Repository 72442Zvt: (330) Date:1133-10-98AU [phone] () [address] [address]JD: 11/26/2017 Secondary NOT GIVENUNK [place] Insurance:SELF PAY [facility] Number: Effective Repository Date:2017-10-20 11/26/2017 ANNETTE C Primary Insurance:MMO ANNETTE C [place] [id number] MEDICAREPolicy MOOREDOB: [facility] RDUNIT Number: [id number] [id number] Repository 627[address]Prv: (330) Date:6194-11-50FB [phone] (HP) [address] [place] [address]QJ: 11/26/2017 Secondary NOT GIVENUNK [place] Insurance:SELF PAY [facility] Number: Effective Repository Date:2017-11-26 11/17/2017 ANNETTE C Primary Insurance:MMO ANNETTE Spence [place] [id number] MEDICAREPolicy MOOREDOB: [facility] RDAPT Number: [id number] [id number] Repository [address]Tfq: (330) Date:5102-75-65TE [phone] (HP) [address] [place] [address]RX: 11/17/2017 Secondary NOT GIVENUNK [place] Insurance:SELF PAY [facility] Number: Effective Repository Date:2017-11-17 11/14/2017 ANNETTE C Primary Insurance:MMO ANNETTE Spence [place] [id number] MEDICAREPolicy MOOREDOB: [facility] RDAPT Number: [id number] [id number] Repository 87738Keg: (330) Date:4475-42-41SJ [phone] (HP) [address] [place] [address]HD: 11/14/2017 Secondary NOT GIVENUNK [place] Insurance:SELF PAY [facility] Number: Effective Repository Date:2017-11-14 10/02/2017 ANNETTE C Primary Insurance:MMO ANNETTE Spence [place] [id number] HMO NOT MOOREDOB: [facility] CONTRACTEDPolicy [id number] Number: Repository [id number]: 330 [id number] [phone] (HP) Date:4729-88-00BJ [address] [place] [address]TQ: 10/02/2017 Secondary NOT GIVENUNK [place] Insurance:SELF PAY [facility] Number: Effective Repository Date:2017-08-06 09/29/2017 ANNETTE C Primary Insurance:MMO ANNETTE C [place] [id number] MEDICAREPolicy MOOREDOB: [facility] [place] Number: [id number], [place] [id number] Repository [address]Rkj: (330) Date:5331-02-80KQ [phone] () [address] [address]FU: 09/29/2017 Secondary NOT GIVENUNK [place] Insurance:SELF PAY [facility] Number: Effective Repository Date:2017-09-24 09/03/2017 ANNETTE C Primary Insurance:MMO ANNETTE C [place] [id number] MEDICAREPolicy MOOREDOB: [facility] [place] Number: [id number], [place] [id number] Repository [address]Ikh: (330) Date:3579-47-43CF [phone] () [address] [address]NP: 09/03/2017 Secondary NOT GIVENUNK [place] Insurance:SELF PAY [facility] Number: Effective Repository Date:2017-09-03 08/15/2017 ANNETTE C Primary Insurance:MMO ANNETTE Spence [place] [id number] MEDICAREPolicy MOOREDOB: [facility] [place] Number: [id number], [place] [id number] Repository [address]Dvm: (330) Date:9043-88-03SZ [phone] () [address] [address]HZ: 08/15/2017 Secondary NOT GIVENUNK [place] Insurance:SELF PAY [facility] Number: Effective Repository Date:2017-08-15 08/13/2017 ANNETTE C Primary Insurance:MMO ANNETTE Spence [place] [id number] HMO NOT MOOREDOB: [facility] [place] CONTRACTEDPolicy [id number], [place] Number: Repository [address]Dmz: ([phone] [phone] (HP) Date:6399-05-67MP [address] [place] [address]TY: 08/13/2017 Secondary NOT GIVENUNK [place] Insurance:SELF PAY [facility] Number: Effective Repository Date:2017-07-28 08/06/2017 ANNETTE C Primary Insurance:MMO ANNETTE C [place] [id number] HMO NOT MOOREDOB: [facility] [place] CONTRACTEDPolicy [id number], [place] Number: Repository [address]Mam: [phone] [phone] (HP) Date:3506-84-69AL [address] [place] [phone]: 08/06/2017 Secondary NOT GIVENUNK [place] Insurance:SELF PAY [facility] Number: Effective Repository Date:2017-06-23 07/30/2017 ANNETTE C Primary Insurance:MMO ANNETTE C [place] [id number] MEDICAREPolicy MOOREDOB: [place] Number: [id number], [place] [id number] Repository 19842Kax: [phone]) Date:5186-08-31HH [phone] () [address] [place] [phone]: 07/30/2017 Secondary NOT GIVENUNK [place] Insurance:SELF PAY [facility] Number: Effective Repository Date:2017-06-23 07/28/2017 ANNETTE C Primary Insurance:MMO ANNETTE C [place] [id number] MEDICAREPolicy MOOREDOB: [place] Number: [id number], [place] [id number] Repository [address]Ofu: [phone]) Date:2755-78-45PJ [phone] () [address] [place] [phone]: 07/28/2017 Secondary NOT GIVENUNK [place] Insurance:SELF PAY [facility] Number: Effective Repository Date:2017-06-23 06/25/2017 ANNETTE C Primary Insurance:MMO ANNETTE Sp[place] [id number] MEDICAREPolicy [place]OREDOB: [place] Number: [id number], [place] [id number] Repository 10[address]Lhl: ([phone]) Date:1911-53-83GI [phone] (HP) [address] [phone]: 06/25/2017 Secondary NOT GIVENUNK [place] Insurance:SELF PAY [facility] Number: Effective Repository Date:2017-05-19 06/23/2017 ANNETTE C Primary Insurance:MMO ANNETTE C [place] [id number] HMO NOT MOOREDOB: [place] CONTRACTEDPolicy [id number] Number: Repository [id number]: [phone] [phone] () Date:5709-37-15GY [address] [place] [phone]: 06/23/2017 Secondary NOT GIVENUNK [place] Insurance:SELF PAY [facility] Number: Effective Repository Date:2017-06-18 06/19/2017 ANNETTE C Primary Insurance:MMO ANNETTE Spence [place] [id number] HMO NOT MOOREDOB: [place] CONTRACTEDPolicy [id number] Number: Repository [id number]: 330 [id number] [phone] () Date:6816-06-50DH [address] [place] [phone]: 06/19/2017 Secondary NOT GIVENUNK [place] Insurance:SELF PAY [facility] Number: Effective Repository Date:2017-06-05 06/19/2017 ANNETTE C Primary Insurance:MMO ANNETTE Spence [place] [id number] HMO NOT MOOREDOB: [place] CONTRACTEDPolicy [id number] Number: Repository [id number]: [phone] [phone] (HP) Date:3694-54-38VZ [address] [address]VD: 06/19/2017 Secondary NOT GIVENUNK [place] Insurance:SELF PAY [facility] Number: Effective Repository Date:2017-06-19 06/05/2017 ANNETTE [place] Primary NOT GIVENUNK [place] [id number] Insurance:SELF [place]Y [place] Number: Effective Repository [id number]: 330) Date:2017-06-05 [phone] () 06/05/2017 ANNETTE [place]ence Primary Insurance:MMO ANNETTE Spence [place] [id number] MEDICAREPoly MOOREDOB: [facility] Number: Effective [id number] Date:5664-69-66FW BOX Repository [address]Qux: [phone], [place] [phone] () [phone]: 06/05/2017 Secondary NOT GIVENUNK [place] Insurance:SELF PAY [facility] Number: Effective Repository Date:2017-06-05
== END ==
PROVIDERS: Family Provider Family Medicine; PCP Family Medicine; Visit Provider Family Medicine
DX: J45.909 Unspecified asthma, uncomplicated (principal); Z51.81 Encounter for therapeutic drug level monitoring
CPT/HCPCS: 36415; 82785; 85025; 86003

== ENCOUNTER → 2018-07-21 13:04 | Outpatient (CLI) | payer MEDICARE, SELFPAY ==
[2018-05-06 13:21] VITALS: BMI 22.7
== END ==
PROVIDERS: Family Provider Family Medicine; PCP Family Medicine; Visit Provider Family Medicine
DX: Z12.5 Encounter for screening for malignant neoplasm of prostate (principal)
CPT/HCPCS: 36415; 84153; G0103

== ENCOUNTER → 2018-08-11 11:56 | Outpatient (CLI) | payer MEDICARE, SELFPAY ==
[2018-08-03 13:42] VITALS: BMI 22.7
[2018-08-11 14:08] LABS: Hemoglobin A1c 8.5 % (4.2-6.3)
[2018-08-11 14:16] LABS: AST(SGOT) 13 U/L (15-37); Alanine Aminotransfer ALT/SGPT 21 U/L (16-61); Albumin, Serum 3.4 g/dL (3.2-5.0); Alkaline Phosphatase 82 U/L (45-117); Anion Gap 8 (5-15); BUN 23 mg/dL (7-18); BUN/Creat Ratio 27.5 RATIO (10-20); Calcium,Total 8.3 mg/dL (8.5-10.1); Chloride 107 mmol/L (98-107); Cholesterol 113 mg/dL (200); Creatinine, Serum 0.84 mg/dL (0.70-1.30); EST Glomerular Filtration Rate 93 mL/min (>60); Est Glom Filt Rate - Afr Amer 113 mL/min (>60); Globulin 3.4 g/dL (2.2-4.2); Glucose 148 mg/dL (74-106); High Density Lipoprotein 54 mg/dL; Potassium 4.1 mmol/L (3.5-5.1); Protein, Total 6.8 g/dL (6.4-8.2); Sodium Level 143 mmol/L (136-145); Triglycerides 70 mg/dL; Very Low Density Lipoprotein 14 mg/dL (5-40)
[2018-08-11 17:59] LABS: Microalbumin,Random Urine 46.9 mg/L (NO RANGE EST.); Microalbumin:Creatinine Ratio 32.1 mg/g CRE (<30 mg/g CRE)
== END ==
PROVIDERS: Family Provider Family Medicine; PCP Family Medicine; Referring Provider Nurse Practitioner; Visit Provider Nurse Practitioner
DX: E10.65 Type 1 diabetes mellitus with hyperglycemia (principal)
CPT/HCPCS: 36415; 80053; 80061; 82043; 82570; 83036

== ENCOUNTER → 2018-08-26 09:18 | Outpatient (CLI) | payer MEDICARE, SELFPAY ==
[2018-08-03 13:42] VITALS: BMI 22.7
[2018-08-26 12:44] LABS: Absolute Neutrophil Count 3.1 X10^3/uL (2.0-7.7); Basophil# 0.01 X10^3/uL; Basophil% 0.2 % (0-1); Eosinophil# 0.32 X10^3/uL; Eosinophils% 6.2 % (0-5); Hematocrit 41.8 % (40-54); Hemoglobin 13.2 g/dl (13.0-16.5); Lymphocyte % 19.4 % (19-41); Mean Corp Hgb Conc 31.6 g/gl (32-36); Mean Corpuscular Hgb 32.8 pg (27.0-32.0); Mean Corpuscular Volume 103.7 fL (80-94); Mean Platelet Vol. 11.8 fl (6.2-12.0); Monocyte# 0.71 X10^3/uL; Monocyte% 13.8 % (0-10); Neutrophil # 3.06 X10^3/uL (2.7-7.7); Neutrophil % 59.2 % (47-70); Platelet Count 212 K/mm3 (150-450); RBC Distribution Width CV 13.1 % (11.6-14.6); RBC Distribution Width SD 48.4 fl (35.1-43.9); Red Blood Count 4.03 M/mm3 (4.6-6.2); White Blood Count 5.2 K/mm3 (4.4-11.0)
[2018-08-26 12:46] LABS: POSITIVE COUNT NO; POSITIVE DIFFERENTIAL NO; POSITIVE MORPHOLOGY NO
[2018-08-26 13:44] LABS: AST(SGOT) 21 U/L (15-37); Alanine Aminotransfer ALT/SGPT 29 U/L (16-61); Albumin, Serum 3.4 g/dL (3.2-5.0); Alkaline Phosphatase 79 U/L (45-117); Anion Gap 9 (5-15); BUN 24 mg/dL (7-18); BUN/Creat Ratio 26.6 RATIO (10-20); CRP < 2.90 mg/L (0.0-3.0); Calcium,Total 8.2 mg/dL (8.5-10.1); Chloride 104 mmol/L (98-107); EST Glomerular Filtration Rate 86 mL/min (>60); Est Glom Filt Rate - Afr Amer 104 mL/min (>60); Globulin 3.3 g/dL (2.2-4.2); Glucose 210 mg/dL (74-106); Lipase 91 U/L (73-393); Protein, Total 6.7 g/dL (6.4-8.2); Sodium Level 141 mmol/L (136-145)
== END ==
PROVIDERS: Family Provider Family Medicine; PCP Family Medicine; Visit Provider Family Medicine
DX: R63.4 Abnormal weight loss (principal); I10 Essential (primary) hypertension
CPT/HCPCS: 36415; 80053; 83690; 85025; 86140

== ENCOUNTER → 2018-10-14 12:53 | Outpatient (CLI) | payer MEDICARE, SELFPAY ==
[2018-08-03 13:42] VITALS: BMI 22.7
--- NOTE | 2018-10-14 12:55 | VDLE_ITS ---
Reason For Study: R/O Underlying DVT RIGHT LEFT CFV is compressible, spontaneous, phasic, GSV is normal. competent and demonstrates normal CFV is compressible, spontaneous, phasic, augmentation. competent, and demonstrates normal Procedure augmentation. Exam performed in department. FV is compressible, spontaneous, phasic, A preliminary report was called and/or faxed competent and demonstrates normal to Nisha. augmentation. POP V is compressible, spontaneous, phasic, competent and demonstrates normal augmentation. T/P Trunk is compressible. PTV is compressible. LT PerV is compressible. Interpretation Summary Deep veins of the left lower extremity are patent and compressible segmentally. There is no evidence of left lower extremity deep vein thrombosis. Valvular competence appears intact within the proximal deep venous system on the left . The left greater saphenous vein appears patent and compressible segmentally. Ordering Physician: Lico Cameron Referring Physician: Lico Cameron Performed By: Sol Crow RVT
== END ==
PROVIDERS: Family Provider Family Medicine; PCP Family Medicine; Referring Provider Family Medicine; Visit Provider Family Medicine
DX: M79.662 Pain in left lower leg (principal)
CPT/HCPCS: 93971

== ENCOUNTER → 2019-02-04 11:28 | Outpatient (CLI) | payer MEDICARE, SELFPAY ==
[2018-08-03 13:42] VITALS: BMI 22.7
[2019-02-04 15:50] LABS: Absolute Lymphocyte Count 0.94 X10^3/uL (0.83-4.51); Absolute Neutrophil Count 5.8 X10^3/uL (2.0-7.7); Basophil# 0.05 X10^3/uL; Basophil% 0.6 % (0-1); Eosinophil# 0.25 X10^3/uL; Eosinophils% 3.1 % (0-5); Hematocrit 39.8 % (40-54); Hemoglobin 12.7 g/dL (13.0-16.5); Lymphocyte # 0.94 X10^3/ul (4.0); Lymphocyte % 11.7 % (19-41); Mean Corp Hgb Conc 31.9 g/dL (32-36); Mean Corpuscular Hgb 33.2 pg (27.0-32.0); Mean Corpuscular Volume 103.9 fL (80-94); Mean Platelet Vol. 11.1 fl (6.2-12.0); Monocyte# 0.89 X10^3/uL; Monocyte% 11.1 % (0-10); NRBC Flagged by Analyzer 0.2 % (0-5); Neutrophil # 5.81 X10^3/uL (2.7-7.7); Neutrophil % 72.5 % (47-70); Platelet Count 241 K/mm3 (150-450); RBC Distribution Width CV 13.9 % (11.6-14.6); RBC Distribution Width SD 52.8 fl (35.1-43.9); Red Blood Count 3.83 M/mm3 (4.6-6.2)
[2019-02-04 16:09] LABS: ALB/GLOB Ratio 1.1 RATIO (0.9-2.4); AST(SGOT) 18 U/L (15-37); Alanine Aminotransfer ALT/SGPT 24 U/L (16-61); Albumin, Serum 3.8 g/dL (3.2-5.0); Alkaline Phosphatase 72 U/L (45-117); Anion Gap 8 (5-15); BUN 22 mg/dL (7-18); BUN/Creat Ratio 22.2 RATIO (10-20); Calcium,Total 8.5 mg/dL (8.5-10.1); Chloride 105 mmol/L (98-107); Cholesterol 126 mg/dL (200); Creatinine, Serum 0.99 mg/dL (0.70-1.30); EST Glomerular Filtration Rate 77 mL/min (>60); Est Glom Filt Rate - Afr Amer 93 mL/min (>60); Globulin 3.4 g/dL (2.2-4.2); Glucose 244 mg/dL (74-106); High Density Lipoprotein 62 mg/dL; Potassium 4.5 mmol/L (3.5-5.1); Protein, Total 7.2 g/dL (6.4-8.2); Sodium Level 140 mmol/L (136-145); Triglycerides 82 mg/dL; Very Low Density Lipoprotein 16 mg/dL (5-40)
[2019-02-04 17:16] LABS: Hemoglobin A1c 8.4 % (4.2-6.3)
[2019-02-05 16:14] LABS: Microalbumin,Random Urine 62.1 mg/L (NO RANGE EST.); Microalbumin:Creatinine Ratio 54.5 mg/g CRE (<30 mg/g CRE)
[2019-02-08 09:07] LABS: Testosterone, Free 13.88 ng/dL (5.00-21.00)
[2019-02-08 11:35] LABS: Testosterone, % Free 1.86 % (1.50-4.20); Testosterone, Total 746 ng/dL (264-916)
== END ==
PROVIDERS: Family Provider Family Medicine; PCP Family Medicine; Visit Provider Family Medicine
DX: E11.9 Type 2 diabetes mellitus without complications (principal); E29.1 Testicular hypofunction; D64.9 Anemia, unspecified; Z51.81 Encounter for therapeutic drug level monitoring
CPT/HCPCS: 36415; 80053; 80061; 82043; 82570; 83036; 84402; 84403; 85025

== ENCOUNTER → 2019-08-12 15:22 | Outpatient (CLI) | payer MEDICARE, SELFPAY ==
[2019-06-18 16:11] VITALS: BMI 24.5
[2019-08-12 17:52] LABS: ALB/GLOB Ratio 1.2 RATIO (0.9-2.4); AST(SGOT) 15 U/L (15-37); Alanine Aminotransfer ALT/SGPT 26 U/L (16-61); Albumin, Serum 3.8 g/dL (3.2-5.0); Alkaline Phosphatase 66 U/L (45-117); Anion Gap 5 (5-15); BUN 26 mg/dL (7-18); BUN/Creat Ratio 21.1 RATIO (10-20); Chloride 106 mmol/L (98-107); Creatinine, Serum 1.23 mg/dL (0.70-1.30); EST Glomerular Filtration Rate 60 mL/min (>60); Est Glom Filt Rate - Afr Amer 72 mL/min (>60); Globulin 3.3 g/dL (2.2-4.2); Glucose 256 mg/dL (74-106); PSA,Total - Annual Screen 0.61 ng/mL (0.00-4.00); Potassium 4.4 mmol/L (3.5-5.1); Protein, Total 7.1 g/dL (6.4-8.2); Sodium Level 139 mmol/L (136-145); Thyroid Stim Hormone (TSH) 2.33 uIU/mL (0.358-3.74)
[2019-08-12 17:53] LABS: Vitamin B12 1648 pg/mL (211-911)
== END ==
PROVIDERS: PCP Family Medicine; Visit Provider Family Medicine
DX: Z12.5 Encounter for screening for malignant neoplasm of prostate (principal); G62.9 Polyneuropathy, unspecified; E11.40 Type 2 diabetes mellitus with diabetic neuropathy, unspecified
CPT/HCPCS: 36415; 80053; 82607; 84153; 84443; G0103

== ENCOUNTER → 2019-11-12 14:59 | Outpatient (CLI) | payer MEDICARE, SELFPAY ==
[2019-11-04 17:29] VITALS: BMI 24.5
[2019-11-12 15:55] LABS: Absolute Neutrophil Count 6.8 X10^3/uL (2.0-7.7); Basophil# 0.08 X10^3/uL; Basophil% 0.8 % (0-1); Eosinophil# 0.37 X10^3/uL; Eosinophils% 3.8 % (0-5); Hematocrit 40.6 % (40-54); Hemoglobin 13.1 g/dL (13.0-16.5); Lymphocyte % 13.5 % (19-41); Mean Corp Hgb Conc 32.3 g/dL (32-36); Mean Corpuscular Hgb 33.7 pg (27.0-32.0); Mean Corpuscular Volume 104.4 fL (80-94); Mean Platelet Vol. 11.6 fl (6.2-12.0); Monocyte# 1.05 X10^3/uL; Monocyte% 10.9 % (0-10); NRBC Flagged by Analyzer 0 % (0-5); Neutrophil # 6.75 X10^3/uL (2.7-7.7); Neutrophil % 70.2 % (47-70); Platelet Count 299 K/mm3 (150-450); RBC Distribution Width CV 13.4 % (11.6-14.6); RBC Distribution Width SD 51.1 fl (35.1-43.9); Red Blood Count 3.89 M/mm3 (4.6-6.2); White Blood Count 9.6 K/mm3 (4.4-11.0)
[2019-11-12 16:49] LABS: Vitamin B12 1605 pg/mL (211-911); Vitamin D,25 Hydroxy 50.7 ng/mL
[2019-11-12 16:58] LABS: ALB/GLOB Ratio 1.1 RATIO (0.9-2.4); AST(SGOT) 17 U/L (15-37); Alanine Aminotransfer ALT/SGPT 25 U/L (16-61); Albumin, Serum 3.9 g/dL (3.2-5.0); Alkaline Phosphatase 72 U/L (45-117); Anion Gap 6 (5-15); BUN 23 mg/dL (7-18); BUN/Creat Ratio 21.1 RATIO (10-20); Calcium,Total 9.1 mg/dL (8.5-10.1); Chloride 101 mmol/L (98-107); Creatinine, Serum 1.09 mg/dL (0.70-1.30); EST Glomerular Filtration Rate 69 mL/min (>60); Est Glom Filt Rate - Afr Amer 83 mL/min (>60); Globulin 3.7 g/dL (2.2-4.2); Glucose 353 mg/dL (74-106); Potassium 4.2 mmol/L (3.5-5.1); Protein, Total 7.6 g/dL (6.4-8.2); Sodium Level 136 mmol/L (136-145); Thyroid Stim Hormone (TSH) 2.16 uIU/mL (0.358-3.74)
[2019-11-12 17:17] LABS: D-Dimer Quantitative (DVT/PE) 0.86 FEU/ug/m (0.27-0.49)
== END ==
PROVIDERS: PCP Family Medicine; Visit Provider Family Medicine
DX: R53.83 Other fatigue (principal); E55.9 Vitamin D deficiency, unspecified; R06.00 Dyspnea, unspecified
CPT/HCPCS: 36415; 80053; 82306; 82607; 84443; 85025; 85379

== ENCOUNTER → 2019-11-24 16:02 | Outpatient (CLI) | payer MEDICARE, SELFPAY ==
[2019-11-04 17:29] VITALS: BMI 24.5
--- NOTE | 2019-11-24 16:05 | CT_ITS ---
We are attempting to reach an attending provider to discuss findings. An addendum with communication details will be sent when the communication is complete. STUDY: CTA CHEST REASON FOR EXAM: Male, 84 years old. DYSPNEA X 5 YRS. WORSE IN LAST 4 MONTHS, ELEVATED D-DIMER RADIATION DOSAGE (If Supplied By Facility): CTDIvol = ( 8.11 ) mGy, DLP = ( 339.70 ) mGycm TECHNIQUE: The examination was performed with the intravenous administration of 100 CC ISOVUE 370. Post-processing of the angiographic images was performed, with multiplanar reformation and 3D reconstruction. Individualized dose optimization techniques were used for this CT. COMPARISON: December 09, 2017. FINDINGS: Normal enhancement of the main pulmonary artery and right and left pulmonary arteries. Normal enhancement of the bilateral peripheral pulmonary arteries. There are intraluminal filling defects within 2 subsegmental branches to the right lower lobe consistent with pulmonary embolus Normal thoracic aorta and visualized great vessels. There is no demonstrated aortic dissection. The heart is normal size. There is minor coronary artery calcification Normal mediastinum. Normal hilar regions. Normal visualized trachea and bronchi. The lungs are well expanded. There is very mild interstitial thickening and thickening of the liu of the bronchi. There is tiny calcified granuloma in the right lower lobe There is a soft tissue spiculated nodule in the left apex pleural extension possibly neoplastic. There is pleural parenchymal scarring in both pulmonary apices. Normal chest wall structures. Dorsal spine demonstrates degenerative change. Normal visualized upper abdomen. CT/CTA Chest W/WO Contrast IMPRESSION: Chronic interstitial changes and ASHD. Pulmonary emboli in the subsegmental branches of the right lower lobe Electronically Signed: Andreas Iverson MD at 17:36 EDT , Service support ,
== END ==
PROVIDERS: PCP Family Medicine; Referring Provider Family Medicine; Visit Provider Family Medicine
DX: R06.00 Dyspnea, unspecified (principal); Z78.9 Other specified health status
CPT/HCPCS: 71275; Q9967

== ENCOUNTER → 2020-02-02 10:54 | Outpatient (CLI) | payer MEDICARE, SELFPAY ==
[2019-12-03 14:15] VITALS: BMI 24.5
== END ==
PROVIDERS: PCP Family Medicine; Referring Provider Family Medicine; Visit Provider Family Medicine
DX: R42 Dizziness and giddiness (principal); R53.83 Other fatigue
CPT/HCPCS: 93225; 93226

== ENCOUNTER 2020-05-08 13:59 | Outpatient (RCR) | payer MEDICARE, SELFPAY ==
[2020-03-17 11:19] VITALS: BMI 24.3
== END 2020-06-01 23:59 ==
LOC: DC 13:59
PROVIDERS: PCP Family Medicine; Visit Provider Family Medicine
DX: Z71.3 Dietary counseling and surveillance (principal); E11.40 Type 2 diabetes mellitus with diabetic neuropathy, unspecified; E11.21 Type 2 diabetes mellitus with diabetic nephropathy; E11.3299 Type 2 diabetes mellitus with mild nonproliferative diabetic retinopathy without macular edema, unspecified eye
CPT/HCPCS: 97802

== ENCOUNTER 2020-06-29 09:35 | Outpatient (RCR) | payer MEDICARE, SELFPAY ==
[2020-03-17 11:19] VITALS: BMI 24.3
== END 2020-06-29 23:59 ==
LOC: IMMUN 09:35
PROVIDERS: PCP Family Medicine; Visit Provider Family Medicine
DX: Z23 Encounter for immunization (principal)
CPT/HCPCS: 0011A; 0012A; 91301

== ENCOUNTER → 2020-08-03 11:10 | Outpatient (CLI) | payer MEDICARE, SELFPAY ==
[2020-03-17 11:19] VITALS: BMI 24.3
[2020-08-03 12:25] LABS: PSA,Total- Diagnostic 1.45 ng/mL (0.0-4.0)
== END ==
PROVIDERS: PCP Family Medicine; Referring Provider Radiology Radiation Oncology; Visit Provider Radiology Radiation Oncology
DX: Z85.46 Personal history of malignant neoplasm of prostate (principal)
CPT/HCPCS: 36415; 84153

== ENCOUNTER → 2020-08-29 10:53 | Outpatient (CLI) | payer MEDICARE, SELFPAY ==
[2020-03-17 11:19] VITALS: BMI 24.3
[2020-08-29 12:25] LABS: Anion Gap 4 (5-15); BUN 24 mg/dL (7-18); BUN/Creat Ratio 26.3 RATIO (10-20); Calcium,Total 8.5 mg/dL (8.5-10.1); Chloride 108 mmol/L (98-107); Creatinine, Serum 0.91 mg/dL (0.70-1.30); EST Glomerular Filtration Rate 84 mL/min (>60); Est Glom Filt Rate - Afr Amer 101 mL/min (>60); Glucose 179 mg/dL (74-106); Potassium 4.1 mmol/L (3.5-5.1); Sodium Level 139 mmol/L (136-145)
[2020-08-29 15:38] LABS: Color, Urine Yellow (Yellow); Glucose, Dipstick 250 mg/dl (Normal); Ketone-Dipstick Negative (Negative); Leukocyte Esterase-Dipstick 500 /ul (Negative); Nitrite-Dipstick Negative (Negative); Occult Blood-Urine 10 /ul (Negative); Protein-Dipstick 15 mg/dl (Negative); Specific Gravity, Urine 1.025 (1.002-1.030); Urine Bilirubin Dipstick Negative (Negative); Urine Clarity Sl. Cloudy (Clear); Urine Urobilinogen Normal (Normal)
[2020-08-29 15:57] LABS: Microalbumin:Creatinine Ratio 60.9 mg/g CRE (<30 mg/g CRE)
== END ==
PROVIDERS: PCP Family Medicine; Referring Provider Family Medicine; Visit Provider Family Medicine
DX: I10 Essential (primary) hypertension (principal)
CPT/HCPCS: 36415; 80048; 81002; 82043; 82570

== ENCOUNTER → 2021-02-27 | Outpatient (CLI) | payer MEDICARE, SELFPAY | END | disposition home or self-care (01) | LOC: LABSPEC 10:42 | PROVIDERS: PCP Family Medicine; Referring Provider Family Medicine; Visit Provider Family Medicine | DX: U07.1 COVID-19 (principal) | CPT/HCPCS: 87635; U0005; U0003 ==

== ENCOUNTER 2021-03-03 11:58 | Outpatient (CLI) | payer MEDICARE, SELFPAY ==
[2021-03-03] MEDS: 0.9% Saline Lock 10 ML Syringe IV (12:31)
[2021-03-03 12:33] VITALS: BP 135/49; PULSE 83; RESP 18; TEMP 36.9; O2SAT 97; BMI 25.0
[2021-03-03 13:11] VITALS: BP 141/48; PULSE 61; RESP 16; TEMP 36.5; O2SAT 100
[2021-03-03 14:11] VITALS: BP 143/55; PULSE 69; RESP 18; TEMP 36.7; O2SAT 100
== END 2021-03-03 14:15 | disposition home or self-care (01) ==
LOC: MS2OUT 11:59 → MS3 12:00
PROVIDERS: PCP Family Medicine; Visit Provider Nurse Practitioner Adult Health
DX: Z23 Encounter for immunization (principal); U07.1 COVID-19
CPT/HCPCS: J7050; M0243; A4216; Q0244

== ENCOUNTER → 2021-04-11 15:59 | Outpatient (CLI) | payer MEDICARE, SELFPAY ==
--- NOTE | 2021-04-11 16:25 | MRI_ITS ---
STUDY: MRA NECK WITHOUT CONTRAST REASON FOR EXAM: Male, 85 years old. TIA, BALANCE PROBLEM TECHNIQUE: Source images were obtained, MIPs were performed. The study was performed unenhanced. COMPARISON: MRA head and MRI brain 04/11/2021 FINDINGS: There is motion artifact at the level of the carotid bulbs. Aortic arch and origin of the carotid and vertebral arteries are not included in [id number]. RIGHT CAROTID ARTERIES: Normal right common carotid artery (CCA). Right carotid bulb very limited assessment due to motion artifact. Normal visualized cervical portion of the right internal carotid artery. Normal origin of the right external carotid artery (ECA). LEFT CAROTID ARTERIES: Normal left common carotid artery (CCA). Left carotid bulb region with very limited assessment due to motion artifact. Normal visualized cervical portion of the left internal carotid artery. Normal origin of the left external carotid artery (ECA). VERTEBRAL ARTERIES: Normal smooth luminal contour is without stenosis bilateral vertebral arteries. MRI/MRA Neck without Contrast IMPRESSION: No abnormality within limits of the exam. Electronically Signed: Chele Julian DO at 23:10 EST Tel , Service support ,
--- NOTE | 2021-04-11 16:25 | MRI_ITS ---
STUDY: MRA OF THE HEAD WITHOUT CONTRAST REASON FOR EXAM: Male, 85 years old. TIA TECHNIQUE: 3-D jufb-[id number] (TOF) imaging was performed with MIPs. The study was performed unenhanced. COMPARISON: None. FINDINGS: Normal bilateral petrous carotid arteries. Normal right cavernous carotid artery with a normal supraclinoid bifurcation. Normal left cavernous carotid artery with a normal supraclinoid bifurcation. Diffusely narrowed right A1 segments of the anterior cerebral artery possibly due to normal variant. Normal left A1 segments of the anterior cerebral artery. Normal intact anterior communicating artery (ACOM). Normal bilateral A2 segments of the anterior cerebral arteries. Normal right M1 and M2 segments of the middle cerebral arteries, with a normal M1 bifurcation. Normal left M1 and M2 segments of the middle cerebral arteries, with a normal M1 bifurcation. Posterior communicating arteries not visualized consistent with normal variant. Normal bilateral vertebral arteries. Normal basilar artery with a normal basilar bifurcation. The visualized bilateral superior cerebellar (SCA) arteries are normal. Normal bilateral P1, P2 and visualized P3 segments of the posterior cerebral arteries. There is no demonstrated aneurysm of the stebbins of Panda. There is no major vessel occlusion or hemodynamically significant stenosis. . MRI/MRA Head ONLY without Contrast IMPRESSION: Normal MRA of the head Electronically Signed: Andreas Iverson MD at 18:07 EST , Service support ,
--- NOTE | 2021-04-11 16:25 | MRI_ITS ---
STUDY: MRI BRAIN WITHOUT CONTRAST REASON FOR EXAM: Male, 85 years old. TIA TECHNIQUE: Standardized multiplanar fat and water weighted pulse sequences were obtained. COMPARISON: None FINDINGS: Moderate atrophy and mild periventricular white matter ischemic changes without mass effect or restricted diffusion.. Normal bilateral basal ganglia. Normal thalami. There is no extra-axial fluid accumulation. Normal flow voids within the major intracranial circulation suggesting patency by spin echo criteria. Normal sella turcica, pituitary gland, infundibular stalk, optic chiasm and hypothalamus. Normal tectal plate and pineal gland. Normal midbrain, katalina and medulla. Normal cerebellum. Normal basal cisterns. Normal bilateral temporal bones. Normal bilateral internal auditory canals. Postsurgical changes of the orbits.. There is mucosal thickening of left maxillary sinus and minor mucosal thickening of the ethmoid air cells. Normal calvarium and skull base. Normal visualized soft tissue structures. Normal visualized upper cervical spine. MRI/Brain without Contrast IMPRESSION: Atrophy and minor periventricular white matter ischemic changes without evidence for acute infarct Electronically Signed: Andreas Iverson MD at 18:05 EST , Service support ,
== END ==
PROVIDERS: PCP Family Medicine
DX: G45.9 Transient cerebral ischemic attack, unspecified (principal)
CPT/HCPCS: 70544; 70547; 70551

== ENCOUNTER 2021-06-13 15:37 | Observation (INO) | payer MEDICARE, SELFPAY ==
[2021-06-13] VITALS (11 sets, daily range): BP systolic 108–177; BP diastolic 3–108; PULSE 52–72; RESP 15–20; TEMP 36.2–37.2; O2SAT 95–99; BMI 23.3; BMI 23.0
--- NOTE | 2021-06-13 15:57 | RAD_ITS ---
STUDY: X-RAY CHEST REASON FOR EXAM: Male, 85 years old. chest pain TECHNIQUE: AP COMPARISON: None. FINDINGS: EKG leads project over the chest. The lungs are clear and expanded. There is no demonstrated pleural abnormality. Normal size heart. Normal mediastinum and ti. Normal visualized pulmonary arteries. There is atherosclerotic calcification of the aortic arch with tortuosity. Normal visualized thoracic spine. Normal visualized ribs, clavicles, and shoulders. There is no demonstrated abnormality of the visualized soft tissue structures of the upper abdomen. RAD/Chest 1 View (Portable) IMPRESSION: Nonacute portable x-ray examination of the chest. Electronically Signed: Shai Keenan MD ([place]) at 16:22 EST , Service support ,
--- NOTE | 2021-06-13 15:57 | EKG12_ITS ---
Test Reason : CP Blood Pressure : / mmHG Vent. Rate : 056 BPM Atrial Rate : 056 BPM P-R Int : 192 ms QRS Dur : 136 ms QT Int : 454 ms P-R-T Axes : 080 036 060 degrees QTc Int : 438 ms Wandering Atrial Pacemaker Right bundle branch block Abnormal ECG Confirmed by JOAQUIM GILLIS, DEISI ([id number]), school photograph editor LORIE BECKWITH ([id number]) on 06/14/2021 1:28:16 PM Referred By: PL Confirmed By:ANN MARCH MD
--- NOTE | 2021-06-13 15:58 | ED.VIS.CHEST ---
HPI History of Present Illness Chief Complaint: Chest Pain Narrative Narrative: Patient with past medical history of diabetes, diabetic neuropathy presents with chest pain and tightness, and left arm pain that began at 230, approximately an hour and a half ago. He denies any nausea or vomiting. No shortness of breath or diaphoresis. He states that he has a heart like a horse. He denies any exacerbating or alleviating factors. No exertional component to his chest tightness and left arm pain. [facility] Medical History (Updated 06/13/21 @ 19:[address] Sher Trent MD) Anemia Arthritis Bronchitis Chest pain Diabetes Diabetic polyneuropathy associated with type 1 diabetes mellitus CROW (dyspnea on exertion) GERD (gastroesophageal reflux disease) HTN (hypertension) Hyperglycemia Leg cramps Lightheadedness Long-term insulin use Macrocytic anemia Prostate cancer Right bundle branch block Shingles Type 2 diabetes mellitus ulcers Unstable angina pectoris Urinary retention Vision problems Vitamin D deficiency Home Medications pen needle, diabetic 32 gauge x #10 ea 08/13/17 [History Last Taken Unknown] pantoprazole 40 mg tablet,delayed release 40 mg PO BID 09/03/17 [History Last Taken 06/13/21] cholecalciferol (vitamin D3) 50 mcg (2,000 unit) capsule 2,000 unit PO DAILY 03/05/18 [History Last Taken 06/13/21] blood sugar diagnostic #100 ea 03/20/20 [Rx Last Taken Unknown] blood-glucose meter #1 ea 03/23/20 [Rx Last Taken Unknown] insulin syringe-needle U-100 0.5 mL 31 gauge x 10/15 #100 ea 08/15/20 [Rx Last Taken Unknown] insulin glargine U-300 conc [Toujeo SoloStar U-300 Insulin] 28 unit SC QHS 03/03/21 [History Last Taken 06/12/21] blood sugar diagnostic #100 ea 05/10/21 [Rx Last Taken Unknown] cyanocobalamin (vitamin B-12) 1,000 mcg PO DAILY 06/13/21 [History Last Taken 06/13/21] gabapentin 400 mg PO QHS 06/13/21 [History Last Taken 06/12/21] hydrochlorothiazide 12.5 mg PO DAILY 06/13/21 [History Last Taken 06/13/21] ibuprofen 400 mg PO QHS 06/13/21 [History Last Taken 06/12/21] insulin aspart U-100 [Novolog U-100 Insulin aspart] 11 unit SC TIDCM 06/13/21 [History Last Taken 06/13/21] losartan 50 mg PO DAILY 06/13/21 [History Last Taken 06/13/21] oxybutynin chloride 5 mg PO DAILY 06/13/21 [History Last Taken Unknown] Allergy/AdvReac Type Severity Reaction Status Date / Time No Known Allergies Allergy Verified 06/13/21 15:39 Family History Mother Cancer Father Diabetes Other Heart disease Hypertension Surgical History History of cholecystectomy History of pancreatic surgery History of prostate surgery Social History Smoking Status: Former smoker quit date: 06/02/01 pack-years: 48 Tobacco: How many years used: 48 alcohol intake: current alcohol intake frequency: 0-2 drinks per day substance use type: does not use ROS ROS ED ROS Narrative Constitutional: No fever, no chills. HEENT: No sore throat. No neck pain. No loss of vision. No rhinorrhea. Cardiovascular: Midsternal chest tightness/chest pain. No palpitations. Minimal pedal edema. Respiratory: No cough, no shortness of breath. Abdominal: No abdominal pain. No nausea. No vomiting. Genitourinary: No dysuria. No hematuria. Musculoskeletal: No myalgias. No arthralgias. Neurologic: No headaches. No dizziness. Mild lightheadedness. Skin: No rash. No change in color. Psychiatric: No depression. No anxiety. EXAM Physical Exam Narrative Exam Narrative: Afebrile. Vital signs noted. HEENT: Normocephalic. Atraumatic. PERRL, EOMI. Neck soft and supple. No point tenderness or step off. Cardiovascular: Regular rate and rhythm with intermittent bradycardia. No murmurs, rubs, or gallops appreciated. Respiratory: No tachypnea. Lungs clear to auscultation bilaterally. Gastrointestinal: Abdomen soft, nontender, with normoactive bowel sounds. No rebound or guarding. Neurological: Awake. Alert. Nonfocal, nonlateralizing. Skin: No rash. Normal color. No pallor. Musculoskeletal: No pedal edema. Full range of motion extremities. Const Vital Signs: 06/13/21 15:38 06/13/21 15:56 06/13/21 15:58 Temperature 97.6 F L Temperature Source Temporal Pulse Rate 72 58 L Respiratory Rate 18 16 Blood Pressure 157/108 H 175/71 H Blood Pressure Mean 124 105 Pulse Ox 97 99 Oxygen Delivery Method Room Air Room Air Room Air 06/13/21 16:09 06/13/21 16:28 06/13/21 17:04 Temperature Temperature Source Pulse Rate 66 59 L 52 L Respiratory Rate 18 20 H Blood Pressure 143/54 H 108/48 L 110/3 L Blood Pressure Mean 68 38 Pulse Ox 97 98 Oxygen Delivery Method Room Air Room Air Heart Score History: Highly Suspicious ECG: Normal Age: >/= 65 years Risk Factors: 1 or 2 Risk Factors Troponin: </= Normal Limit Score: 5 MDM MDM MDM Narrative Medical decision making narrative: Chest pain work-up was pursued. His blood pressure is elevated at 175/71. He will be given nitroglycerin. He was also administered aspirin. His EKG demonstrates sinus bradycardia with P ACEs and right bundle branch block, but no significant change from previous. Chest x-ray shows no acute process. CBC is grossly normal with a stable hemoglobin of 12.2, normal platelet count. His electrolyte panel is grossly unremarkable except for glucose elevated at 208 consistent with his diabetes. Creatinine 1.05. High-sensitivity troponin is less than 15. Patient states that he has being worked up for his dizziness by neurology. He states he supposed to wear a heart monitor. Of note, he had bradycardia into the 40s even at rest for a brief period while I was speaking with him. I do feel that given his heart score of 5 for highly suspicious chest pain with his bradycardia and initially elevated blood pressure that improved after nitroglycerin that he should be observed. Patient will be discussed with the hospitalist for observation. He is in stable condition. He was discussed with Dr. Nissa Muir who will admit the patient I will also mention that the patient states that he has a glass of bourbon, 1-1/2 ounces nightly. Disposition is observation in the PCU. He is in stable condition. Lab Data Labs: Laboratory Results - last 24 hr 06/13/21 06/13/21 15:50 15:50 WBC 7.6 RBC 3.59 L Hgb 12.2 L Hct 36.8 L MCV 102.5 H MCH 34.0 H MCHC 33.2 RDW Std Deviation 48.5 H RDW Coeff of Abdullahi 12.9 Plt Count 304 MPV 10.8 Immature Gran % (Auto) 0.400 Neut % (Auto) 66.7 Lymph % (Auto) 17.7 L [place] % (Auto) 11.1 H Eos % (Auto) 3.2 Baso % (Auto) 0.9 Absolute Neuts (auto) 5.1 Absolute Lymphs (auto) 1.34 Nucleated RBC % 0 Sodium 136 Potassium 3.9 Chloride 102 Carbon Dioxide 29.0 Anion Gap 5 BUN 28 H Creatinine 1.05 Estim Creat Clear Calc 56.46 Est GFR (MDRD) Af Amer 86 Est GFR (MDRD) Non-Af 71 BUN/Creatinine Ratio 26.7 H Glucose 208 H Calcium 9.5 Troponin I High Sens 15 Radiography Diagnostic Testing: Clinical Impression(s) from Imaging Studies Chest X-Ray 06/13/21 15:57 IMPRESSION: Nonacute portable x-ray examination of the chest. Electronically Signed: Shai Keenan MD ([place]) at 16:22 EST , Service support , Discharge Plan Dx/Rx/DC Orders Clinical Impression: Chest pain, Bradycardia Disposition Disposition: Acute Care Hospital [facility] Discharge Date/Time: 06/13/21 18:10
--- NOTE | 2021-06-13 16:00 | EKG12_ITS ---
Test Reason : AM EKG Blood Pressure : / mmHG Vent. Rate : 074 BPM Atrial Rate : 074 BPM P-R Int : 188 ms QRS Dur : 130 ms QT Int : 424 ms P-R-T Axes : 071 -81 067 degrees QTc Int : 470 ms Normal sinus rhythm Right bundle branch block Left anterior fascicular block Bifascicular block Abnormal ECG Confirmed by SYLVESTER GILLIS, LEONOR ([id number]), web editor LORIE BECKWITH ([id number]) on 06/18/2021 11:34:19 AM Referred By: DR RODRIGUEZ Confirmed By:LEONOR PHAN MD
[2021-06-13] MEDS: Aspirin 81 MG TAB.CHEW 324 MG PO (16:03)
[2021-06-13] MEDS: Nitroglycerin SL (ED/IMG/CATH) 0.4 MG TABLET SL (16:09)
[2021-06-13 16:48] LABS: Absolute Lymphocyte Count 1.34 X10^3/uL (0.83-4.51); Absolute Neutrophil Count 5.1 X10^3/uL (2.0-7.7); Basophil# 0.07 X10^3/uL; Basophil% 0.9 % (0-1); Eosinophil# 0.24 X10^3/uL; Eosinophils% 3.2 % (0-5); Hematocrit 36.8 % (40-54); Hemoglobin 12.2 g/dL (13.0-16.5); Lymphocyte # 1.34 X10^3/ul (0.83-4.51); Lymphocyte % 17.7 % (19-41); Mean Corp Hgb Conc 33.2 g/dL (32-36); Mean Corpuscular Volume 102.5 fL (80-94); Mean Platelet Vol. 10.8 fl (6.2-12.0); Monocyte# 0.84 X10^3/uL; Monocyte% 11.1 % (0-10); NRBC Flagged by Analyzer 0 % (0-5); Neutrophil # 5.05 X10^3/uL (2.7-7.7); Neutrophil % 66.7 % (47-70); Platelet Count 304 K/mm3 (150-450); RBC Distribution Width CV 12.9 % (11.6-14.6); RBC Distribution Width SD 48.5 fl (35.1-43.9); Red Blood Count 3.59 M/mm3 (4.6-6.2); White Blood Count 7.6 K/mm3 (4.4-11.0)
[2021-06-13 16:55] LABS: Anion Gap 5 (5-15); BUN 28 mg/dL (7-18); BUN/Creat Ratio 26.7 RATIO (10-20); Calcium,Total 9.5 mg/dL (8.5-10.1); Chloride 102 mmol/L (98-107); Creatinine, Serum 1.05 mg/dL (0.70-1.30); EST Glomerular Filtration Rate 71 mL/min (>60); Est Glom Filt Rate - Afr Amer 86 mL/min (>60); Estimated Creatinine Clearance 56.46 ml/min; Glucose 208 mg/dL (74-106); Potassium 3.9 mmol/L (3.5-5.1); Sodium Level 136 mmol/L (136-145); Troponin-I HS 15 pg/mL (3.0-78.0)
--- NOTE | 2021-06-13 17:25 | NURSING ---
DR JENNIFER NUNEZ
--- NOTE | 2021-06-13 17:33 | PCM.HP.STD ---
HPI - General General Date of Admission: 06/13/21 Date of Service: 06/13/21 Chief Complaint: Chest pain HPI Narrative ANNETTE VILLANUEVA, is a 85 M who presented to the emergency department at [facility] on 06/13/2021 complaining of chest pain that started approximately 230 this afternoon. He states that it started in his right jaw and central chest area and eventually radiated to his left arm. He states there was some associated shortness of breath but no diaphoresis or nausea vomiting. He was given nitroglycerin in the emergency department as symptoms did subside. He states he also has been being seen by a neurologist for what he describes as dizziness but it sounds more like lightheadedness without vertiginous symptoms and that they have recently ordered a heart monitor. He states he is currently fairly symptom-free at this time. He states the pain was predominantly pressure related and squeezing in nature. He states he has noted some increased fatigue over the last 1 to 2 months and had some intermittent shortness of breath but felt that this was likely related to his recent COVID infection. He has never had chest pain previously. His vital signs on presentation were overall unremarkable however he was fairly consistently bradycardic with heart rates in the upper 40s to the 50s. His blood pressure was stable and his oxygen saturation was 95 to 98% on room air. His CBC is overall unremarkable other than a very mild anemia with a hemoglobin of 12.2. This appears to be a chronic macrocytic anemia. His BMP is unremarkable other than a mildly elevated glucose at 208. His initial troponin was 15. Chest x-ray was performed and is unremarkable for any acute pathological findings. His EKG shows right bundle branch block which appears to be chronic. His EKG shows a chronic right bundle branch block with no change from previous EKG reviewed from 2018 and no changes consistent with acute ischemia. In the emergency department he was treated with a full dose aspirin and given 1 dose of sublingual nitroglycerin. As noted above his chest pain did resolve with nitroglycerin dosing. Request for admission was made given his markedly elevated heart score at 6-7, his symptom resolution with nitroglycerin and his presenting story I will have cardiology see him and decide whether or not to take him to the [facility] versus doing on stress test. [facility] Medical History Anemia Arthritis Bronchitis Chest pain Diabetes Diabetic polyneuropathy associated with type 1 diabetes mellitus CROW (dyspnea on exertion) GERD (gastroesophageal reflux disease) Hyperglycemia Leg cramps Lightheadedness Long-term insulin use Macrocytic anemia Prostate cancer Right bundle branch block Shingles Type 2 diabetes mellitus ulcers Urinary retention Vision problems Vitamin D deficiency Home Medications pen needle, diabetic 32 gauge x 5/32 #10 ea 08/13/17 [History Last Taken Unknown] pantoprazole 40 mg tablet,delayed release 40 mg PO BID 09/03/17 [History Last Taken Unknown] cholecalciferol (vitamin D3) 50 mcg (2,000 unit) capsule 2,000 unit PO DAILY 03/05/18 [History Last Taken Unknown] blood sugar diagnostic #100 ea 03/20/20 [Rx Last Taken Unknown] blood-glucose meter #1 ea 03/23/20 [Rx Last Taken Unknown] insulin syringe-needle U-100 0.5 mL 31 gauge x 516 #100 ea 08/15/20 [Rx Last Taken Unknown] insulin glargine U-300 conc [Toujeo SoloStar U-300 Insulin] 28 unit SC QHS 03/03/21 [History Last Taken Unknown] blood sugar diagnostic #100 ea 05/10/21 [Rx Last Taken Unknown] cyanocobalamin (vitamin B-12) 1,000 mcg PO DAILY 06/13/21 [History Last Taken 06/13/21] gabapentin 400 mg PO QHS 06/13/21 [History Last Taken 06/12/21] hydrochlorothiazide 12.5 mg PO DAILY 06/13/21 [History Last Taken Unknown] ibuprofen 400 mg PO QHS 06/13/21 [History Last Taken 06/12/21] insulin aspart U-100 [Novolog U-100 Insulin aspart] 11 unit SC TIDCM 06/13/21 [History Last Taken 06/13/21] losartan 50 mg PO DAILY 06/13/21 [History Last Taken 06/13/21] oxybutynin chloride 5 mg PO DAILY 06/13/21 [History Last Taken Unknown] Allergy/AdvReac Type Severity Reaction Status Date / Time No Known Allergies Allergy Verified 06/13/21 15:39 Family History Mother Cancer Father Diabetes Other Heart disease Hypertension Surgical History History of cholecystectomy History of pancreatic surgery History of prostate surgery Social History Smoking Status: Former smoker quit date: 06/02/01 pack-years: 48 Tobacco: How many years used: 48 alcohol intake: current alcohol intake frequency: 0-2 drinks per day substance use type: does not use ROS Constitutional Constitutional: Reports fatigue; Denies anorexia, change in weight, chills, fever(s), malaise, night sweats, weakness or other Eyes Eyes: Denies blurry vision, change in eye color, change in vision, discharge from eye(s), double vision, erythema, eye pain, loss of vision or other ENT HEENT: Denies abnormal hearing, dysphagia, ear pain, epistaxis, headache(s), hearing loss, nasal congestion, nasal discharge, post nasal drip, sinus pressure, sore throat or other Cardiovascular Cardiovascular: Reports chest pain Respiratory/Chest Respiratory/Chest: Reports shortness of breath with exertion; Denies cough, dyspnea, excessive phlegm production, hemoptysis, productive cough, shortness of breath at rest, wheezing or other Gastrointestinal Gastrointestinal: Denies abdominal pain, coffee ground emesis, constipation, diarrhea, dyspepsia, hematemesis, hematochezia, loose stools, melena, nausea, vomiting or other Genitourinary Genitourinary: Denies burning urination, difficulty urinating, dysuria, hematuria, nocturia, urinary frequency, urinary hesitancy, urinary incontinence, urinary urgency or other Musculoskeletal Musculoskeletal: Denies arthralgias, back pain, joint pain, joint stiffness, joint swelling, myalgias, neck pain or other Neurologic Neurologic: Denies abnormal gait, abnormal speech, confusion, disequilibrium, dizziness, focal weakness, headache(s), numbness, paresthesias, seizure-like activity, seizures, syncope, tingling, tremor(s) or other Psychiatric Psychiatric: Denies anxiety, depression, homicidal ideation, suicidal ideation or other Endocrine Endocrinology: Denies change in body appearance, cold intolerance, excessive sweating, heat intolerance, polydipsia, polyuria or other Hematologic/Lymphatic Hematologic/Lymphatic: Denies anemia, easy bleeding, easy bruising, lymphadenopathy or other Allergic/Immunologic Allergic/Immunologic: Denies rhinitis, hives, eczemia, asthma or other Vital Signs Vital Signs Vital Signs: 06/13/21 15:38 06/13/21 15:56 06/13/21 15:58 Temperature 97.6 F L Temperature Source Temporal Pulse Rate 72 58 L Respiratory Rate 18 16 Blood Pressure 157/108 H 175/71 H Blood Pressure Mean 124 105 Pulse Ox 97 99 Oxygen Delivery Method Room Air Room Air Room Air 06/13/21 16:09 06/13/21 16:28 06/13/21 17:04 Temperature Temperature Source Pulse Rate 66 59 L 52 L Respiratory Rate 18 20 H Blood Pressure 143/54 H 108/48 L 110/3 L Blood Pressure Mean 68 38 Pulse Ox 97 98 Oxygen Delivery Method Room Air Room Air 06/13/21 17:32 Temperature 98 F Temperature Source Temporal Pulse Rate 55 L Respiratory Rate 19 H Blood Pressure 140/65 H Blood Pressure Mean 90 Pulse Ox 98 Oxygen Delivery Method Room Air Weight Weight: 78.018 kg Body Mass Index (BMI) 23.3 Physical Exam Const alert, oriented x3, no apparent distress, average body habitus, healthy appearing and well nourished Constitutional Narrative: Very pleasant elderly white male sitting up in bed, appears comfortable, nontoxic General Appearance: cooperative HEENT normocephalic, head/scalp atraumatic, hearing grossly normal bilaterally and moist oral mucous membranes HEENT Narrative: Mallampati 2, no thrush Eyes PERRL, EOMs intact bilaterally and conjunctivae normal Eyes Narrative: No scleral icterus Neck no lymphadenopathy, supple, no JVD and no carotid bruits Neck Narrative: Trachea midline, no signs of thyroid enlargement or nodules on palpation Resp normal respiratory effort, no retractions, no use of accessory muscles and clear to auscultation bilaterally Resp Narrative: Diffusely diminished but clear Auscultation: Negative for crackles, rales, rhonchi or wheezes Cardio regular rhythm, S1 normal heart sound, S2 normal heart sound, no murmurs, no rub, no gallops, no clicks and no JVD Cardio Narrative: Bradycardic with few ectopic beats GI normal to inspection, nondistended, normoactive bowel sounds, soft to palpation, non-tender and non-distended; Negative for hepatosplenomegaly Extremity no clubbing, cyanosis or edema Extremity Narrative: Arthritic changes Peripheral Pulses: Yes pulses 2+ throughout Skin no wounds, skin turgor normal, no jaundice, no petechiae and no mottling Skin Narrative: Skin changes consistent with previous sun exposure, scattered seborrheic keratoses Neuro oriented x3, CN's II-XII intact bilaterally, moves all extremities and no focal motor deficits Sensorium / Orientation: awake and alert Speech: speech normal Motor Exam: strength 5/5 throughout Psych affect normal Results Lab / Micro Data Attestation: I reviewed the patient's lab results. Result Diagrams: 06/13/21 15:50 06/13/21 15:50 Labs: Laboratory Results - last 24 hr 06/13/21 15:50: WBC 7.6, RBC 3.59 L, Hgb 12.2 L, Hct 36.8 L, MCV 102.5 H, MCH 34.0 H, MCHC 33.2, RDW Std Deviation 48.5 H, RDW Coeff of Abdullahi 12.9, Plt Count 304, MPV 10.8, Immature Gran % (Auto) 0.400, Neut % (Auto) 66.7, Lymph % (Auto) 17.7 L, Mcduffie % (Auto) 11.1 H, Eos % (Auto) 3.2, Baso % (Auto) 0.9, Absolute Neuts (auto) 5.1, Absolute Lymphs (auto) 1.34, Nucleated RBC % 0 06/13/21 15:50: Sodium 136, Potassium 3.9, Chloride 102, Carbon Dioxide 29.0, Anion Gap 5, BUN 28 H, Creatinine 1.05, Estim Creat Clear Calc 56.46, Est GFR (MDRD) Af Amer 86, Est GFR (MDRD) Non-Af 71, BUN/Creatinine Ratio 26.7 H, Glucose 208 H, Calcium 9.5, Troponin I High Sens 15 Radiology Impression Chest X-Ray 06/13/21 15:57 IMPRESSION: Nonacute portable x-ray examination of the chest. Electronically Signed: Shai Keenan MD ([place]) at 16:22 EST , Service support , Assessment & Plan Assessment/Plan (1) Chest pain: (2) Bradycardia: (3) Lightheadedness: PLAN: Chest pain -Heart score 6 -Personal history of tobacco abuse until he was 60 years old which gives him a [id number] history, DM-2, hypertension, significant family history of coronary disease -No EKG changes consistent with acute ischemia -His initial troponin was negative at 15 -Given his impressive story and other comorbidities I am inclined at this time to cycle his cardiac enzymes and consult cardiology to elect whether or not to take him to the lab or to obtain a stress test -Cardiology consult was placed -Start Lipitor 80 daily -High-dose aspirin given the emergency department and will then dose 81 mg daily -Hold on beta-ebony at this time as patient is bradycardic -Cycle cardiac enzymes -As needed nitroglycerin -Continue home antihypertensives -Check lipids/hemoglobin A1c Bradycardia -Patient has been undergoing work-up by neurology for ongoing lightheadedness -He complains of dizziness however he states that this is not vertiginous in sounds more like lightheadedness last presyncope -This most often occurs with positional changes and he states if he gets up slow its not a problem -I am concerned that his symptoms are most likely related to his intermittent bradycardia as he did have heart rates in the upper 40s at times but was predominantly in the 50s does explain why he might be worse with exertion but not have symptoms at rest -We will monitor on telemetry -Check TSH -Cardiology is consulted [id number] -Most recent hemoglobin A1c was 8.4 on 02/04/2019 -Check A1c -Continue home basal insulin dose -Continue prandial dosing -SSI -Accu-Cheks Hypertension -Continue hydrochlorothiazide 12.5 mg daily -Continue losartan 50 mg daily GERD -Continue Protonix 40 mg p.o. Neuropathy -Continue home gabapentin nightly Vitamin D deficiency -Hold cholecalciferol until discharged Overactive bladder -Continue oxybutynin DVT prophylaxis -Lovenox 40 mg daily CODE STATUS -DNR CCA okay for short-term intubation per discussion with the patient in the emergency department on admission Charges/Coding Visit Charges Inpatient E&M: 45898 Init Hosp L3
--- NOTE | 2021-06-13 17:34 | NURSING ---
PCU OBS JENNIFER HOLLIS
[2021-06-13 18:01] LABS: Bedside Glucose 204 mg/dL (70-110)
[2021-06-13 18:28] LABS: Troponin-I HS 16 pg/mL (3.0-78.0)
--- NOTE | 2021-06-13 18:55 | NURSING ---
pandemic protocol charting
--- NOTE | 2021-06-13 19:26 | PCM.CONS.C ---
Assessment & Plan Assessment/Plan (1) Unstable angina pectoris: PLAN: The patient presents with symptoms concerning for unstable angina pectoris. He states his symptoms are different from his gastrointestinal related symptoms. He did appear to respond to nitroglycerin sublingual with respect to improvement/resolution of his symptoms. His initial troponin I levels were negative. He does have an abnormal ECG demonstrating a right bundle branch block pattern. He has undergone previous noninvasive studies in the past as noted. Based upon his nonexertional symptoms being different from his previous gastrointestinal related symptoms, his abnormal ECG, and what was reported as a HEART Score of 6, superimposed upon cardiovascular risk factors such as hypertension and diabetes mellitus, there is concern of underlying CAD and myocardial ischemia. Thus, it may not be unreasonable to consider further definitive evaluation with diagnostic cardiac catheterization. The procedure and risk were discussed with him. He was agreeable to this approach. In the interim he will continue to be monitored and he will continue medical therapy as deemed appropriate. (2) Bradycardia: PLAN: It appears he has a longstanding history of sinus bradycardia. It is unclear at this time as to whether this is truly related to his longstanding history of dizziness/lightheadedness especially without ongoing hypotension. At the moment he will continue to be monitored. Rate limiting medications will be avoided if possible. 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 (3) Right bundle branch block: PLAN: He does have an abnormal ECG with a right bundle branch block pattern. He will continue evaluation care as noted above. (4) HTN (hypertension): PLAN: His blood pressure was elevated. It is unclear whether this is a contributing factor to his symptoms or being brought out by an underlying condition such as CAD and myocardial ischemia. At the moment his blood pressure will be followed and his medications can be adjusted accordingly taking into consideration his heart rate. (5) Diabetes: QUALIFIERS: Diabetes mellitus complication status: with hyperglycemia Diabetes mellitus type: type 1 Qualified Code(s): E10.65 - Type 1 diabetes mellitus with hyperglycemia PLAN: He will continue evaluation care per internal medicine. Addt'l Comments The patient's case was discussed and reviewed with Dr. Muir This note was generated using a voice recognition system and there may be incorrect words, spelling or punctuation that were not noted when reviewing the office note prior to saving. HPI Consult Data Date of Consult: 06/13/21 HPI Narrative HPI Narrative: ANNETTE VILLANUEVA, is a 85 year old white male who presents for cardiovascular consultation based upon concerns of symptoms compatible with unstable angina pectoris, and abnormal ECG, and abnormal HEART Score, sinus bradycardia, superimposed upon a history of hypertension, diabetes mellitus, remote thromboembolic event with pulmonary emboli, and remote COVID-19. He states at home today, in a nonexertional state, he developed right jaw discomfort followed by centralized chest discomfort which radiated to both the right and left precordial area, followed by left upper extremity numbness . He does not recall any acute nausea, emesis, or diaphoresis. He does not recall any acute dyspnea. He was subsequently brought to the emergency department for evaluation. There he was noted to have evidence of his sinus bradycardia as well as hypertension. He was treated with nitroglycerin sublingual and noted improvement and resolution of his symptoms. He underwent cardiac enzyme analysis which was negative. His ECG demonstrated sinus bradycardia with a right bundle branch block pattern. A portable chest x-ray which was performed which demonstrated no acute findings per radiology. He has denied any orthopnea or PND or ongoing peripheral pitting edema. There is been no near-syncope or syncope. Of note, he states he has had indigestion in the past. He states the symptoms he had today were different from his indigestion symptoms. He also notes that he did experience COVID-19 in the past. He states since that time he has noted feeling somewhat more tired and fatigued. He has undergone previous transthoracic echocardiogram and stress testing in 2018. The results of those studies are noted below. He states he is being evaluated by [facility] neurology for concerns of chronic lightheadedness and dizziness which have been in place for approximately 7 years. He states he was asked by neurology to wear an outpatient heart monitor . He states he has yet to receive this. He was subsequently transferred to the PCU for further evaluation and care. A cardiovascular consultation was placed based upon the patient's clinical scenario and objective findings for consideration for diagnostic cardiac catheterization. [facility] Medical History (Updated 06/13/21 @ 19:[address] Sher Trent MD) Anemia Arthritis Bronchitis Chest pain Diabetes Diabetic polyneuropathy associated with type 1 diabetes mellitus CROW (dyspnea on exertion) GERD (gastroesophageal reflux disease) HTN (hypertension) Hyperglycemia Leg cramps Lightheadedness Long-term insulin use Macrocytic anemia Prostate cancer Right bundle branch block Shingles Type 2 diabetes mellitus ulcers Unstable angina pectoris Urinary retention Vision problems Vitamin D deficiency Home Medications pen needle, diabetic 32 gauge x 5 #10 ea 08/13/17 [History Last Taken Unknown] pantoprazole 40 mg tablet,delayed release 40 mg PO BID 09/03/17 [History Last Taken 06/13/21] cholecalciferol (vitamin D3) 50 mcg (2,000 unit) capsule 2,000 unit PO DAILY 03/05/18 [History Last Taken 06/13/21] blood sugar diagnostic #100 ea 03/20/20 [Rx Last Taken Unknown] blood-glucose meter #1 ea 03/23/20 [Rx Last Taken Unknown] insulin syringe-needle U-100 0.5 mL 31 gauge x 10/15 #100 ea 08/15/20 [Rx Last Taken Unknown] insulin glargine U-300 conc [Toujeo SoloStar U-300 Insulin] 28 unit SC QHS 03/03/21 [History Last Taken 06/12/21] blood sugar diagnostic #100 ea 05/10/21 [Rx Last Taken Unknown] cyanocobalamin (vitamin B-12) 1,000 mcg PO DAILY 06/13/21 [History Last Taken 06/13/21] gabapentin 400 mg PO QHS 06/13/21 [History Last Taken 06/12/21] hydrochlorothiazide 12.5 mg PO DAILY 06/13/21 [History Last Taken 06/13/21] ibuprofen 400 mg PO QHS 06/13/21 [History Last Taken 06/12/21] insulin aspart U-100 [Novolog U-100 Insulin aspart] 11 unit SC TIDCM 06/13/21 [History Last Taken 06/13/21] losartan 50 mg PO DAILY 06/13/21 [History Last Taken 06/13/21] oxybutynin chloride 5 mg PO DAILY 06/13/21 [History Last Taken Unknown] Allergy/AdvReac Type Severity Reaction Status Date / Time No Known Allergies Allergy Verified 06/13/21 15:39 Family History Mother Cancer Father Diabetes Other Heart disease Hypertension Surgical History History of cholecystectomy History of pancreatic surgery History of prostate surgery Social History Smoking Status: Former smoker quit date: 06/02/01 pack-years: 48 Tobacco: How many years used: 48 alcohol intake: current alcohol intake frequency: 0-2 drinks per day substance use type: does not use ROS Constitutional Constitutional: Reports as per HPI and fatigue Eyes Eyes: Reports as per HPI ENT HEENT: Reports as per HPI Cardiovascular Cardiovascular: Reports chest pain at rest, dizziness, fatigue and lightheadedness Respiratory/Chest Respiratory/Chest: Reports as per HPI Gastrointestinal Gastrointestinal: Reports as per HPI Genitourinary Genitourinary: Reports as per HPI Musculoskeletal Musculoskeletal: Reports as per HPI Integumentary Integumentary: Reports as per HPI Neurologic Neurologic: Reports disequilibrium Physical Exam Const alert, oriented x3, no apparent distress and healthy appearing Orientation / Consciousness: awake HEENT normocephalic, head/scalp atraumatic and hearing grossly normal bilaterally Eyes PERRL, EOMs intact bilaterally and conjunctivae normal Neck full ROM, supple and no JVD Resp clear to auscultation bilaterally Cardio regular rate, regular rhythm, S1 normal heart sound and S2 normal heart sound GI normal to inspection, nondistended, normoactive bowel sounds Extremity no pedal edema Neuro oriented x3, moves all extremities, no focal motor deficits and no sensory deficits noted Psych mental status grossly normal Risk Stratification Risk Stratification Applicable: Yes Age >/= 65: Yes >/= 3 CAD Risk Factors (HTN, HLD, DM, family hx of CAD, or current smoker): Yes Aspirin Use in the Past 7 Days: No Severe Angina (>/= episodes in 24 hours): Yes EKG ST Changes >/= 0.5mm: No Positive Cardiac Marker: No KATYA Risk Stratification Score: 3 KATYA % Risk: 13% Risk Procedure Criteria Type of Procedure Procedure Type: Elective Elective Risks - COVID COVID Risk Discussion: The surgeon/proceduralist and patient have discussed in detail the risk of exposure to and/or potential harm posed by the COVID-19 virus with having a surgery/procedure at this time versus the risk of delaying the surgery/procedure. It is not possible to know either the risk of delaying the surgery or procedure or chance of getting an infection with perfect accuracy, but a joint decision was made between the patient and the surgeon/proceduralist to proceed at this time with the scheduled surgery/procedure as indicated on the consent form. Objective Data Vital Signs: Vital Signs Temp Pulse Resp BP Pulse Ox 98.9 F 65 16 177/62 H 99 06/13/21 18:41 06/13/21 18:55 06/13/21 18:41 06/13/21 18:41 06/13/21 18:41 Oxygen Delivery Method Room Air Weight: 169 lb 12.095 oz Body Mass Index (BMI) 23.0 Lab / Micro Data Result Diagrams: 06/13/21 15:50 06/13/21 15:50 Labs: Laboratory Results - last 24 hr 06/13/21 15:50: WBC 7.6, RBC 3.59 L, Hgb 12.2 L, Hct 36.8 L, MCV 102.5 H, MCH 34.0 H, MCHC 33.2, RDW Std Deviation 48.5 H, RDW Coeff of Abdullahi 12.9, Plt Count 304, MPV 10.8, Immature Gran % (Auto) 0.400, Neut % (Auto) 66.7, Lymph % (Auto) 17.7 L, Park % (Auto) 11.1 H, Eos % (Auto) 3.2, Baso % (Auto) 0.9, Absolute Neuts (auto) 5.1, Absolute Lymphs (auto) 1.34, Nucleated RBC % 0 06/13/21 15:50: Sodium 136, Potassium 3.9, Chloride 102, Carbon Dioxide 29.0, Anion Gap 5, BUN 28 H, Creatinine 1.05, Estim Creat Clear Calc 56.46, Est GFR (MDRD) Af Amer 86, Est GFR (MDRD) Non-Af 71, BUN/Creatinine Ratio 26.7 H, Glucose 208 H, Calcium 9.5, Troponin I High Sens 15 06/13/21 17:53: Troponin I High Sens 16 06/13/21 17:56: POC Glucose 204 H Micro: Microbiology 06/13/21 17:35 Nasal Secretion SARS-CoV-2 Antigen (Rapid) - Final Cardiology Labs/Tests 06/13/21 15:50: WBC 7.6, RBC 3.59 L, Hgb 12.2 L, Hct 36.8 L, MCV 102.5 H, MCH 34.0 H, MCHC 33.2, Plt Count 304, MPV 10.8, Immature Gran % (Auto) 0.400, Neut % (Auto) 66.7, Lymph % (Auto) 17.7 L, Park % (Auto) 11.1 H, Eos % (Auto) 3.2, Baso % (Auto) 0.9, Absolute Neuts (auto) 5.1, Nucleated RBC % 0 06/13/21 15:50: Sodium 136, Potassium 3.9, Chloride 102, Carbon Dioxide 29.0, Anion Gap 5, BUN 28 H, Creatinine 1.05, Est GFR (MDRD) Af Amer 86, Est GFR (MDRD) Non-Af 71, BUN/Creatinine Ratio 26.7 H, Glucose 208 H, Calcium 9.5 Rhythm: Sinus rhythm EKG: Sinus bradycardia; right bundle branch block ECHO: 06-19-2017 Interpretation Summary The estimated ejection fraction is 65 %. Stage I diastolic dysfunction. Stress Test: 11-26-2017 Stress Test Report Pharmacologic myocardial perfusion stress test. 82-year-old man with a history of progressive shortness of breath. Medications : megestrol pantoprazole magnesium albuterol. Stress protocol: Resting EKG demonstrates normal sinus rhythm with a right bundle branch block rate of 70 bpm is noted resting blood pressure is 154/80 mmHg. 0.4 mg of regadenoson was infused per usual protocol followed by Intravenous saline flush injection continuous EKG monitoring was performed. At rest there were no ST or T-wave changes noted suggest abnormal flow reserve. The maximum heart rate attained was 88 bpm which was 63% maximum predicted heart rate resting blood pressure was 154/80 with a final blood pressure 148/76. Myocardial perfusion protocol. 11.2 mCi of technetium 99m sestamibi was injected at rest. 0.4 mg of regadenoson was infused per usual protocol. At peak infusion 33.6 mCi of technetium 99m sestamibi was injected stress images were obtained stress and rest images were reconstructed and compared in the short axis vertical long and horizontal long axis. Gated images were also obtained. Perfusion SPECT analysis: Review of the images demonstrate normal uptake of tracer noted in all areas of the myocardium. The inferior wall appears to have mildly reduced perfusion on the stress and rest images to a similar extent the above is not suggestive of ischemia and no previous infarct is noted. Gated SPECT analysis. The gated ejection fraction is noted to be 73%. Conclusion: Normal pharmacologic myocardial perfusion stress test. Preserved ejection fraction. Chest CT Scan: 11-24-2019 FINDINGS: Normal enhancement of the main pulmonary artery and right and left pulmonary arteries. Normal enhancement of the bilateral peripheral pulmonary arteries. There are intraluminal filling defects within 2 subsegmental branches to the right lower lobe consistent with pulmonary embolus Normal thoracic aorta and visualized great vessels. There is no demonstrated aortic dissection. The heart is normal size. There is minor coronary artery calcification Normal mediastinum. Normal hilar regions. Normal visualized trachea and bronchi. The lungs are well expanded. There is very mild interstitial thickening and thickening of the liu of the bronchi. There is tiny calcified granuloma in the right lower lobe There is a soft tissue spiculated nodule in the left apex pleural extension possibly neoplastic. There is pleural parenchymal scarring in both pulmonary apices. Normal chest wall structures. Dorsal spine demonstrates degenerative change. Normal visualized upper abdomen. Radiography Diagnostic Testing: Radiology Impression Chest X-Ray 06/13/21 15:57 IMPRESSION: Nonacute portable x-ray examination of the chest. Electronically Signed: Shai Keenan MD (Brooks) at 16:22 EST , Service support ,
[2021-06-13] MEDS: Atorvastatin Calcium 80 MG Tablet PO (20:28)
[2021-06-13] MEDS: Gabapentin 400 MG Capsule PO (20:28)
[2021-06-13] MEDS: Pantoprazole Sodium 40 MG Tablet PO (20:29)
[2021-06-13 23:27] LABS: Troponin-I HS 16 pg/mL (3.0-78.0)
[2021-06-14] VITALS (10 sets, daily range): BP systolic 115–149; BP diastolic 56–82; PULSE 55–76; RESP 16; TEMP 36.4–37.1; O2SAT 96–100
--- NOTE | 2021-06-14 00:02 | EKG12_ITS ---
Test Reason : CP Blood Pressure : / mmHG Vent. Rate : 051 BPM Atrial Rate : 051 BPM P-R Int : 206 ms QRS Dur : 132 ms QT Int : 468 ms P-R-T Axes : 073 059 048 degrees QTc Int : 431 ms Sinus bradycardia with marked sinus arrhythmia Right bundle branch block Abnormal ECG Confirmed by SYLVESTER GILLIS, LEONOR ([id number]), assignment editor LORIE BECKWITH ([id number]) on 06/18/2021 11:35:56 AM Referred By: JENNIFER Confirmed By:LEONOR PHAN MD
[2021-06-14 01:56] LABS: Bedside Glucose 286 mg/dL (70-110)
--- NOTE | 2021-06-14 05:30 | EKG12_ITS ---
Test Reason : PCI Blood Pressure : / mmHG Vent. Rate : 060 BPM Atrial Rate : 060 BPM P-R Int : 206 ms QRS Dur : 140 ms QT Int : 468 ms P-R-T Axes : 078 047 058 degrees QTc Int : 468 ms Sinus rhythm with Premature atrial complexes in a pattern of bigeminy Right bundle branch block Abnormal ECG Confirmed by SYLVESTER GILLIS, LEONOR ([id number]), legal editor LORIE BECKWITH ([id number]) on 06/18/2021 11:36:08 AM Referred By: Confirmed By:LEONOR PHAN MD
[2021-06-14] MEDS: Losartan Potassium 50 MG Tablet PO (06:04)
[2021-06-14] MEDS: Aspirin E.C. 81 MG Tablet PO (06:04)
[2021-06-14 06:05] LABS: Absolute Lymphocyte Count 1.02 X10^3/uL (0.83-4.51); Absolute Neutrophil Count 3.6 X10^3/uL (2.0-7.7); Basophil# 0.05 X10^3/uL; Basophil% 0.9 % (0-1); Eosinophil# 0.28 X10^3/uL; Hematocrit 34.5 % (40-54); Hemoglobin 11.4 g/dL (13.0-16.5); Lymphocyte # 1.02 X10^3/ul (0.83-4.51); Lymphocyte % 18.3 % (19-41); Mean Corpuscular Hgb 33.3 pg (27.0-32.0); Mean Corpuscular Volume 100.9 fL (80-94); Mean Platelet Vol. 10.8 fl (6.2-12.0); Monocyte# 0.65 X10^3/uL; Monocyte% 11.6 % (0-10); NRBC Flagged by Analyzer 0 % (0-5); Neutrophil # 3.55 X10^3/uL (2.7-7.7); Neutrophil % 63.7 % (47-70); Platelet Count 265 K/mm3 (150-450); RBC Distribution Width CV 12.8 % (11.6-14.6); RBC Distribution Width SD 47.7 fl (35.1-43.9); Red Blood Count 3.42 M/mm3 (4.6-6.2); White Blood Count 5.6 K/mm3 (4.4-11.0)
[2021-06-14 06:46] LABS: Bedside Glucose 240 mg/dL (70-110)
[2021-06-14] MEDS: Nitroglycerin (INPATIENT USE) 0.4 MG TAB.SUBL SL (06:50)
[2021-06-14 06:55] LABS: AST(SGOT) 13 U/L (15-37); Alanine Aminotransfer ALT/SGPT 21 U/L (16-61); Albumin, Serum 3.2 g/dL (3.2-5.0); Alkaline Phosphatase 59 U/L (45-117); Anion Gap 5 (5-15); BUN 24 mg/dL (7-18); BUN/Creat Ratio 26.7 RATIO (10-20); Calcium,Total 8.9 mg/dL (8.5-10.1); Chloride 105 mmol/L (98-107); Cholesterol 121 mg/dL (200); EST Glomerular Filtration Rate 85 mL/min (>60); Est Glom Filt Rate - Afr Amer 103 mL/min (>60); Estimated Creatinine Clearance 65.35 ml/min; Globulin 3.2 g/dL (2.2-4.2); Glucose 227 mg/dL (74-106); High Density Lipoprotein 64 mg/dL; Phosphorus 3.8 mg/dL (2.5-4.9); Potassium 3.7 mmol/L (3.5-5.1); Protein, Total 6.4 g/dL (6.4-8.2); Sodium Level 137 mmol/L (136-145); Thyroid Stim Hormone (TSH) 3.77 uIU/mL (0.358-3.74); Triglycerides 73 mg/dL; Very Low Density Lipoprotein 15 mg/dL (5-40)
--- NOTE | 2021-06-14 07:36 | NURSING ---
Report called to Chuck in Guest Service Supervisor at 1643.
[2021-06-14 08:23] LABS: Hemoglobin A1c 8.7 % (3.8-5.6)
--- NOTE | 2021-06-14 08:44 | CL.D_ITS ---
Patient Name: ANNETTE VILLANUEVA Study Date: 06/14/2021 Performing: Sher Trent MD Ht: 72.04 inches 183 cm : 1935 Wt: 169.76 lbs 77 kg Age: 85 Gender: male BSA: 1.99 PROCEDURE(S) PERFORMED DC01-(00776)LHC/COR/LV CLINICAL PROFILE AND INDICATIONS Indications: Worsening Angina Heart Failure: None Stress/Imaging Stress/Image Study Performed: No Angina Classification Anginal Classification w/in 2 Weeks: CCS IV CAD Presentations: Unstable angina. CONCLUSIONS Elevated Left Ventricular End Diastolic Pressure Normal LV size, wall motion,and systolic function LVEF: by LV gram 65 % [place] Multivessel CAD RECOMMENDATIONS Risk factor modification Medical therapy Referred for immediate PCI DESCRIPTION OF PROCEDURE The patient arrived to the procedure lab. The risks and benefits of the procedure as well as a full d escription of our services here and current unavailability of surgical backup were fully explained to the patient and/or their significant other prior to the catheterization. The Timeout was completed, verifying the correct patient and procedure. The patient's procedural site was prepped and draped in the usual fashion. Local anesthetic was given subcutaneously to right radial region with Lidocaine 2% . Using a modified Seldinger technique, arterial access was obtained via the right radial artery, a 6 Fr sheath was inserted. Left Coronary Artery selective angiography was performed in multiple views u sing a 5 Fr. 4.0 [place] catheter. Right Coronary Artery selective angiography was then performed in mu ltiple views using a 5 Fr. 4.0 [place] catheter. Left Ventriculography was performed in TRACY projection using a 5 Fr. Pigtail catheter. LV to AO pullback pressures were then recorded. CORONARY ANGIOGRAPHY DOMINANCE: Right Dominant LEFT HEART ASSESSMENT Left Ventricular Ejection Fraction: by LV Gram 65 % Normal LV wall motion Elevated Left Ventricular End Diastolic Pressure LVEDP: 21 mmHg LEFT MAIN: Angiographically normal LEFT ANTERIOR DESCENDING ARTERY: PROX LAD: Mild calcification, Mild luminal irregularities MID LAD: Mild calcification CIRCUMFLEX ARTERY: MID CIRC: eccentric: 95 % Stenosis DISTAL CIRC: eccentric: 95 % Stenosis RAMUS: Angiographically normal RIGHT CORONARY ARTERY: PROX RCA: Mild calcification, Mild luminal irregularities MID RCA: Mild calcification, Mild luminal irregularities AORTIC ROOT: Angiographically normal COMPLICATIONS PROCEDURE MEDICATIONS Versed 1 mg IV Fentanyl 50 mcg IV Oxygen: 2 L/min via nasal cannula Brilinta 180 mg PO @ 06/14/2021 08:29:37 Heparin given IA 06/14/2021 08:09:41 Verapamil 2.5mg, Ntg 100mcgs, 3000 units of Heparin given IA 06/14/2021 08:09:41 SUMMARY OF HEMODYNAMIC DATA Time AIR REST ECG 07:53:56 AO 126/46 (79) SA 08:12:21 LV 153/-11, 22 08:20:57 LV 156/-13, 21 08:21:03 LV 144/-7, 20 08:21:51 LV 143/-8, 20 08:21:57 LVp 148/-12, 21 08:22:02 AOp 142/43 (80) 08:22:08 Signed By Sher Trent MD On 06/14/2021 08:42:49 Sher Trent MD
--- NOTE | 2021-06-14 08:53 | CASEMGMT ---
PIA RINCON NOTE: Insurance review for hospitals In-network with [facility] Insurance if transfer is recommended is as follows: [facility], [place], [facility], [facility], [facility] ([facility]), and . Prashant HERNÁNDEZ RN CM
--- NOTE | 2021-06-14 10:32 | CL.I_ITS ---
Patient Name: ANNETTE VILLANUEVA Study Date: 06/14/2021 Performing: Neeru Gonzalez MD Ht: 72.04 inches 183 cm : 1935 Wt: 169.76 lbs 77 kg Age: 85 Gender: male BSA: 1.99 PROCEDURE(S) PERFORMED IC01-([id number])PTCA, SINGLE CORONARY ARTERY CLINICAL PROFILE AND CO-MORBIDITIES Indications: Worsening Angina Heart Failure: None Stress/Imaging Stress/Image Study Performed: No Angina Classification Anginal Classification w/in 2 Weeks: CCS IV CAD Presentations: Unstable angina. CONCLUSIONS Successful PTCA alone to mid circumflex. RECOMMENDATIONS DESCRIPTION OF PROCEDURE The patient arrived to the procedure lab. The risks and benefits of the procedure as well as a full d escription of our services here and current unavailability of surgical backup were fully explained to the patient and/or their significant other prior to the catheterization. The Timeout was completed, verifying the correct patient and procedure. The patient's procedural site was prepped and draped in the usual fashion. Local anesthetic was given subcutaneously to right radial region with Lidocaine 2% Using a modified Seldinger technique,arterial access was obtained via the right radial artery, a 6Fr sheath was inserted. Left Coronary Artery selective angiography was performed in multiple views usin g a 5 Fr. 4.0 [place] catheter. Right Coronary Artery selective angiography was then performed in multi ple views using a 5 Fr. 4.0 [place] catheter. Left Ventriculography was performed in TRACY projection usi ng a 5 Fr. Pigtail catheter. LV to AO pullback pressures were then recorded.The images were reviewed and options discussed. A decision was then made to proceed with an Intervention, IVUS o r other adjunct procedure. XB 3.0 Guide catheter was inserted and engaged into the LCA. BMW Guide wire was advanced to the C ircumflex. Emerge 2.00x20 Balloon catheter was inserted. PTCA balloon inflated at 8 atms for 12 secs. PTCA balloon inflated at 8 atms for 18 secs. PTCA balloon inflated at 8 atms for 11 secs. PTCA ballo on inflated at 8 atms for 20 secs. Angiogram performed post balloon dilatation. Emerge 2.00x20 Balloo n catheter was inserted. PTCA balloon inflated at 6 atms for 30 secs. PTCA balloon inflated at 8 atms for 34 secs. PTCA balloon inflated at 6 atms for 9 secs. PTCA balloon inflated at 8 atms for 10 secs . Angiogram performed post balloon dilatation. The arterial sheath was pulled and a TR Band was alex lied for hemostasis w/12ml air INTERVENTION INFORMATION LESION SITE: Circumflex (Mid) Lesion Complexity: High/C, chronic total occlusion: No, lesion at bifurcation: No, thrombus present: No, lesion length: 28 mm, culprit lesion: Yes, Previously treated lesion: No Pre Stenosis: 95 % Pre intervention KATYA flow: 3 PROCEDURE: Balloon Angioplasty The vessel was about 1.75 - 2mm in diameter in the distal part of the lesion. We felt that a 2.25 mm stent would be too big for this vessel and would risk perforation. We had a very good balloon angio plasty result and felt that it would be reasonable to do PTCA alone at this location. Post Stenosis: 25 % Post intervention KATYA flow: 3 Lesion Devices: Dempsey .014 BMW [place] Straight 190cm Cardinal 6 Fr XB3.0 100cm Guide Catheter Mark Sci EMERGE MR 2.00x20 BALLOON COMPLICATIONS No Complications PROCEDURE MEDICATIONS Versed 1 mg IV Fentanyl 50 mcg IV Oxygen: 2 L/min via nasal cannula Brilinta 180 mg PO @ 06/14/2021 08:29:37 Heparin given IA 06/14/2021 08:09:41 Heparin 4000 unit(s) IV 06/14/2021 08:56:08 Nitro 200 mcg IC 06/14/2021 09:11:11 Nitro 200 mcg IC 06/14/2021 09:11:11 Verapamil 2.5mg, Ntg 100mcgs, 3000 units of Heparin given IA 06/14/2021 08:09:41 SUMMARY OF HEMODYNAMIC DATA Time AIR REST ECG 07:53:56 AO 126/46 (79) SA 08:12:21 LV 153/-11, 22 08:20:57 LV 156/-13, 21 08:21:03 LV 144/-7, 20 08:21:51 LV 143/-8, 20 08:21:57 LVp 148/-12, 21 08:22:02 AOp 142/43 (80) 08:22:08 RM AIR REST 08:43:01 Signed By Neeru Gonzalez MD On 06/14/2021 10:32:22 AM Neeru Gonzalez MD
--- NOTE | 2021-06-14 10:52 | CRPHASE1_ITS ---
Patient Communication PHII Cardiac Rehab Discussed with Patient:: Yes Guide to Cardiac Rehab Given to Patient:: Yes Cardiac Rehab Facility Choice List Given to Patient:: Yes Choice Program [facility] CR PHII:: Communication Given to CR Choice Program Other:: Communication Given to CR Housing Development Specialist:: Olaf Gonzalez Refer Phase II Cardiac Rehab:: Yes Sessions:: 36 sessions - 3 days/wk, 12 weeks Cardiac Rehabilitation Info Cardiac Rehabilitation Program Information: Cardiac Rehabilitation is important for patients like you who are recovering from a heart problem. Cardiac rehabilitation programs are recognized as integral to the continued care of the patient with coronary heart disease. The cardiac rehabilitation program is designed to optimize a patient's physical, psychological, and social functioning. Health healthcare consultant work in cardiac rehabilitation programs and assist you with getting the treatments you need to get stronger and healthier - like exercise, healthy eating habits, and medications. Cardiac rehabilitation has been show to help people with heart problems live longer and have better life enjoyment than people who do not go to cardiac rehabilitation. Please contact the Cardiac Rehabilitation Program at [facility] at in two weeks if you have not heard from them.
--- NOTE | 2021-06-14 10:53 | CRPH1.INSTRU ---
General Education CAD and cardiac anatomy and function:: Patient communicates acknowledgment Explanation of diagnoses and procedures:: Patient communicates acknowledgment Sign/Symptoms of [place]:: Patient communicates acknowledgment Antiplatelet therapy: Patient communicates acknowledgment Smoking Patient Nicotine/Smoking Risk Factors Are:: Non-smoker Recommendations Include:: Previous smoker; encourage continued cessation Nicotine/Smoking Response Code:: Patient communicates acknowledgment Dyslipidemia Patient Dyslipidemia Risk Factors Are:: Total Cholesterol, Triglycerides, HDL, LDL Recommendations Include:: Lipid profile provided, Reviewed NCEP/ATP guidelines, Therapeutic Lifestyle Change dietary guidelines Dyslipidemia Response Code:: Patient communicates acknowledgment Overweight/Obesity Patient Overweight/Obesity Risk Factors Are:: BMI Normal [24-29 & > 65 years old] Recommendations Include:: Weight loss of 5-10%, Reduced calorie diet, Exercise 5-7 times/week Overweight/Obesity:: Patient communicates acknowledgment Hypertension Patient Hypertension Risk Factors Are:: No documented hx of HTN Diabetes Patient Diabetes Risk Factors Are:: Elevated blood sugars Recommendations Include:: Maintain fasting blood sugars 70-110 md/dL, Maintain HgbA1c of 6% or less, Monitor blood sugar as prescribed, Diabetic dietary guidelines, Decrease/maintain body weight Diabetes:: Patient communicates acknowledgment Sedentary Patient Sedentary Risk Factors Are:: Lack of regular exercise Recommendations Include:: Aerobic exercise 5-7 times/week for 20-30 minutes continuously, Benefits of regular exercise, Discussed home walking program, Monitored Outpatient Cardiac Rehab Sedentary Response Code:: Patient communicates acknowledgment Stress Patient Stress Risk Factors Are:: Patient denies stress as a risk factor
--- NOTE | 2021-06-14 12:06 | PN.HOSP_ITS ---
Documented by User: NADEGE Lujan 06/14/21 12:22 Subjective Subjective Patient seen and examined. Patient lying in bed no distress noted. Patient seen postcardiac catheterization. Objective Data Objective Data Vital Signs: Vital Signs Temp Pulse Resp BP Pulse Ox 97.5 F L 58 L 16 141/59 H 97 06/14/21 06:17 06/14/21 07:23 06/14/21 06:17 06/14/21 06:50 06/14/21 06:17 Oxygen Delivery Method Room Air Weight: 169 lb 12.095 oz Body Mass Index (BMI) 23.0 Lab / Micro Data Result Diagrams: 06/14/21 05:28 06/14/21 05:28 Labs: Laboratory Results - last 24 hr 06/13/21 15:50: WBC 7.6, RBC 3.59 L, Hgb 12.2 L, Hct 36.8 L, MCV 102.5 H, MCH 34.0 H, MCHC 33.2, RDW Std Deviation 48.5 H, RDW Coeff of Abdullahi 12.9, Plt Count 304, MPV 10.8, Immature Gran % (Auto) 0.400, Neut % (Auto) 66.7, Lymph % (Auto) 17.7 L, Patrick % (Auto) 11.1 H, Eos % (Auto) 3.2, Baso % (Auto) 0.9, Absolute Neuts (auto) 5.1, Absolute Lymphs (auto) 1.34, Nucleated RBC % 0 06/13/21 15:50: Sodium 136, Potassium 3.9, Chloride 102, Carbon Dioxide 29.0, Anion Gap 5, BUN 28 H, Creatinine 1.05, Estim Creat Clear Calc 56.46, Est GFR (MDRD) Af Amer 86, Est GFR (MDRD) Non-Af 71, BUN/Creatinine Ratio 26.7 H, Glucose 208 H, Calcium 9.5, Troponin I High Sens 15 06/13/21 17:53: Troponin I High Sens 06/13/21 17:56: POC Glucose 204 H 06/13/21 20:08: POC Glucose 286 H 06/13/21 22:30: Troponin I High Sens 16 06/14/21 05:28: Hemoglobin A1c 8.7 H 06/14/21 05:28: WBC 5.6, RBC 3.42 L, Hgb 11.4 L, Hct 34.5 L, MCV 100.9 H, MCH 33.3 H, MCHC 33.0, RDW Std Deviation 47.7 H, RDW Coeff of Abdullahi 12.8, Plt Count 265, MPV 10.8, Immature Gran % (Auto) 0.500, Neut % (Auto) 63.7, Lymph % (Auto) 18.3 L, Patrick % (Auto) 11.6 H, Eos % (Auto) 5.0, Baso % (Auto) 0.9, Absolute Neuts (auto) 3.6, Absolute Lymphs (auto) 1.02, Nucleated RBC % 0 06/14/21 05:28: Sodium 137, Potassium 3.7, Chloride 105, Carbon Dioxide 27.0, Anion Gap 5, BUN 24 H, Creatinine 0.90, Estim Creat Clear Calc 65.35, Est GFR (MDRD) Af Amer 103, Est GFR (MDRD) Non-Af 85, BUN/Creatinine Ratio 26.7 H, Glucose 227 H, Calcium 8.9, Phosphorus 3.8, Magnesium 2.0, Total Bilirubin 0.40, AST 13 L, ALT 21, Alkaline Phosphatase 59, Total Protein 6.4, Albumin 3.2, Globulin 3.2, Albumin/Globulin Ratio 1.0, Triglycerides 73, Cholesterol 121, LDL Cholesterol 42, VLDL Cholesterol 15, HDL Cholesterol 64, TSH 3.77 H 06/14/21 06:07: POC Glucose 240 H Micro: Microbiology 06/13/21 17:35 Nasal Secretion SARS-CoV-2 Antigen (Rapid) - Final Radiography Diagnostic Testing: Radiology Impression Chest X-Ray 06/13/21 15:57 IMPRESSION: Nonacute portable x-ray examination of the chest. Electronically Signed: Shai Keenan MD (Brooks) at 16:22 EST , Service support , Physical Exam Const alert, oriented x3 and no apparent distress HEENT head/scalp atraumatic and moist oral mucous membranes Head and Scalp: normocephalic Eyes conjunctivae normal and no scleral icterus Neck supple General: normal visual inspection and trachea midline Resp normal respiratory effort, normal air movement and clear to auscultation bilaterally Effort and Inspection: able to speak in complete sentences and symmetric chest movement Cardio regular rate, regular rhythm, S1 normal heart sound and S2 normal heart sound GI normal to inspection, nondistended, normoactive bowel sounds, soft to palpation and non-tender Extremity normal to inspection, full ROM and no clubbing, cyanosis or edema Peripheral Pulses: Yes pulses 2+ throughout Skin no rashes or lesions noted and skin turgor normal Neuro oriented x3, moves all extremities, no focal motor deficits and no sensory deficits noted Sensorium / Orientation: awake and alert Psych affect normal Assessment & Plan Assessment/Plan (1) Chest pain: QUALIFIERS: Chest pain type: unspecified Qualified Code(s): R07.9 - Chest pain, unspecified (2) HTN (hypertension): QUALIFIERS: Hypertension type: primary hypertension Qualified Code(s): I10 - Essential (primary) hypertension PLAN: 1. Chest pain -Patient underwent cardiac catheterization today, balloon angioplasty completed to circumflex -Continue aspirin, atorvastatin, losartan, Brilinta -Vital signs stable -Cardiology following 2. Bradycardia -Will avoid rate control medications at this time -Sinus bradycardia on telemetry -Patient following with neurology outpatient as to correlation with lightheadedness and heart rate 3. Diabetes mellitus type 2 -Continue ACHS blood sugars with sliding scale insulin -Hemoglobin A1c 8.7 slightly up from previous of 8.4 DVT prophylaxis-subcu Lovenox This patient was seen by DIANA LujanC under the supervision of Dr. Barry. 8 minutes spent in clinical coordination of patient's plan of care. Documented by User: Dr. Guevara Barry MD 06/14/21 13:18 Objective Data Lab / Micro Data Result Diagrams: 06/14/21 05:28 06/14/21 05:28 Assessment & Plan Assessment/Plan (1) Unstable angina: Addt'l Comments This patient was seen in conjunction with NADEGE Lujan . I have independently interviewed and examined the patient and reviewed pertinent historical, laboratory, and other data. Please refer to NADEGE Lujan note for details of this patient's presentation, findings, and recommendations. I have reviewed NADEGE Lujan note and concur with documented findings. In brief, patient is a 85-year-old gentleman who presented with chest pain. An assessment of unstable angina made admitted to monitored bed with consultation placed to cardiology. Patient underwent left heart catheterization found to hill ve a 95% mid circumflex and 95% distal circumflex lesions for which patient underwent PCI Physical Examination: GENERAL: cooperative HEENT: Atraumatic; EYES; Anicteric, Normal Conjunctiva NECK; supple, normal thyroid, RESPIRATORY: Diminished to auscultation CARDIOVASCULAR: Regular S1 S2, GI: soft, normoactive bowel sounds, : No Renal angle tenderness; EXTREMITIES: No edema, no clubbing, MUSCULOSKELETAL: no muscle waisting NEURO: Awake; no lateralizing signs. SKIN: No Rash PSYCH; Flat affect Assessment: 1. Unstable angina 2. Coronary artery disease status post PCI to mid and distal circumflex lesions 3. Essential hypertension 4. Diabetes mellitus type 2 5. GERD 6. DVT prophylaxis Recommendations: 1. I have discussed the results of my overview and impressions with the patient 2. Options for management were reviewed Total time spent with patient's evaluation assessment and discussion with other providers involved in patient's care 25 minutes Charges/Coding Visit Charges OBSV E&M: 98191 Subsequent observation care L3 Hospital Course Consultations Consultations: Consultations 06/13/21 19:11 Consult: Cardiology Routine Consulting Provider: Sher Trent Reason for Consult: Chest Pain EMERGENT Consult: No MD Notified: Yes Date Notified: 06/13/21 Time Notified: 18:17 Method of Notification: Verbal
[2021-06-14] MEDS: Insulin Lispro 100 UNIT/ML INSULN.PEN SC ×2 (12:46→16:55)
[2021-06-14] MEDS: Insulin Lispro 100 UNIT/ML INSULN.PEN 11 UNIT SC ×2 (12:47→16:55)
[2021-06-14] MEDS: Tolterodine Tartrate 2 MG CAP.SA PO (12:48)
[2021-06-14] MEDS: Pantoprazole Sodium 40 MG Tablet PO ×2 (12:48→21:00)
[2021-06-14] MEDS: hydroCHLOROthiazide 12.5mg 12.5 MG PO (12:48)
[2021-06-14 12:51] LABS: Bedside Glucose 304 mg/dL (70-110)
[2021-06-14] MEDS: 0.9% Normal Saline 1,000 ML 60 ML IV (13:00)
--- NOTE | 2021-06-14 13:24 | PN.CARD_ITS ---
Subjective Subjective The patient underwent evaluation earlier this day with diagnostic cardiac catheterization. This led to the diagnosis of LCx disease. He subsequently underwent LCx PTCA (no stent). Since that time there is been no acute cardiovascular symptoms reported. Objective Data Vital Signs: Vital Signs Temp Pulse Resp BP Pulse Ox 97.9 F 55 L 16 148/82 H 100 06/14/21 12:38 06/14/21 12:38 06/14/21 12:38 06/14/21 12:38 06/14/21 12:38 Oxygen Delivery Method Room Air Weight: 169 lb 12.095 oz Body Mass Index (BMI) 23.0 Lab / Micro Data Result Diagrams: 06/14/21 05:28 06/14/21 05:28 Labs: Laboratory Results - last 24 hr 06/13/21 15:50: WBC 7.6, RBC 3.59 L, Hgb 12.2 L, Hct 36.8 L, MCV 102.5 H, MCH 34.0 H, MCHC 33.2, RDW Std Deviation 48.5 H, RDW Coeff of Abdullahi 12.9, Plt Count 304, MPV 10.8, Immature Gran % (Auto) 0.400, Neut % (Auto) 66.7, Lymph % (Auto) 17.7 L, [place] % (Auto) 11.1 H, Eos % (Auto) 3.2, Baso % (Auto) 0.9, Absolute Neuts (auto) 5.1, Absolute Lymphs (auto) 1.34, Nucleated RBC % 0 06/13/21 15:50: Sodium 136, Potassium 3.9, Chloride 102, Carbon Dioxide 29.0, Anion Gap 5, BUN 28 H, Creatinine 1.05, Estim Creat Clear Calc 56.46, Est GFR (MDRD) Af Amer 86, Est GFR (MDRD) Non-Af 71, BUN/Creatinine Ratio 26.7 H, Glucose 208 H, Calcium 9.5, Troponin I High Sens 06/13/21 17:53: Troponin I High Sens 06/13/21 17:56: POC Glucose 204 H 06/13/21 20:08: POC Glucose 286 H 06/13/21 22:30: Troponin I High Sens 06/14/21 05:28: Hemoglobin A1c 8.7 H 06/14/21 05:28: WBC 5.6, RBC 3.42 L, Hgb 11.4 L, Hct 34.5 L, MCV 100.9 H, MCH 33.3 H, MCHC 33.0, RDW Std Deviation 47.7 H, RDW Coeff of Abdullahi 12.8, Plt Count 265, MPV 10.8, Immature Gran % (Auto) 0.500, Neut % (Auto) 63.7, Lymph % (Auto) 18.3 L, [place] % (Auto) 11.6 H, Eos % (Auto) 5.0, Baso % (Auto) 0.9, Absolute Neuts (auto) 3.6, Absolute Lymphs (auto) 1.02, Nucleated RBC % 0 06/14/21 05:28: Sodium 137, Potassium 3.7, Chloride 105, Carbon Dioxide 27.0, Anion Gap 5, BUN 24 H, Creatinine 0.90, Estim Creat Clear Calc 65.35, Est GFR (MDRD) Af Amer 103, Est GFR (MDRD) Non-Af 85, BUN/Creatinine Ratio 26.7 H, Glucose 227 H, Calcium 8.9, Phosphorus 3.8, Magnesium 2.0, Total Bilirubin 0.40, AST 13 L, ALT 21, Alkaline Phosphatase 59, Total Protein 6.4, Albumin 3.2, Globulin 3.2, Albumin/Globulin Ratio 1.0, Triglycerides 73, Cholesterol 121, LDL Cholesterol 42, VLDL Cholesterol 15, HDL Cholesterol 64, TSH 3.77 H 06/14/21 06:07: POC Glucose 240 H 06/14/21 12:43: POC Glucose 304 H Micro: Microbiology 06/13/21 17:35 Nasal Secretion SARS-CoV-2 Antigen (Rapid) - Final Cardiology Labs/Tests 06/13/21 15:50: WBC 7.6, RBC 3.59 L, Hgb 12.2 L, Hct 36.8 L, MCV 102.5 H, MCH 34.0 H, MCHC 33.2, Plt Count 304, MPV 10.8, Immature Gran % (Auto) 0.400, Neut % (Auto) 66.7, Lymph % (Auto) 17.7 L, [place] % (Auto) 11.1 H, Eos % (Auto) 3.2, Baso % (Auto) 0.9, Absolute Neuts (auto) 5.1, Nucleated RBC % 0 06/13/21 15:50: Sodium 136, Potassium 3.9, Chloride 102, Carbon Dioxide 29.0, Anion Gap 5, BUN 28 H, Creatinine 1.05, Est GFR (MDRD) Af Amer 86, Est GFR (MDRD) Non-Af 71, BUN/Creatinine Ratio 26.7 H, Glucose 208 H, Calcium 9.5 06/14/21 05:28: Hemoglobin A1c 8.7 H 06/14/21 05:28: WBC 5.6, RBC 3.42 L, Hgb 11.4 L, Hct 34.5 L, MCV 100.9 H, MCH 33.3 H, MCHC 33.0, Plt Count 265, MPV 10.8, Immature Gran % (Auto) 0.500, Neut % (Auto) 63.7, Lymph % (Auto) 18.3 L, [place] % (Auto) 11.6 H, Eos % (Auto) 5.0, Baso % (Auto) 0.9, Absolute Neuts (auto) 3.6, Nucleated RBC % 0 06/14/21 05:28: Sodium 137, Potassium 3.7, Chloride 105, Carbon Dioxide 27.0, Anion Gap 5, BUN 24 H, Creatinine 0.90, Est GFR (MDRD) Af Amer 103, Est GFR (MDRD) Non-Af 85, BUN/Creatinine Ratio 26.7 H, Glucose 227 H, Calcium 8.9, Phosphorus 3.8, Magnesium 2.0, Total Bilirubin 0.40, Triglycerides 73, Cholesterol 121, LDL Cholesterol 42, VLDL Cholesterol 15, HDL Cholesterol 64 Rhythm: Sinus rhythm EKG: Sinus rhythm; right bundle branch block Cardiac Cath: CONCLUSIONS Elevated Left Ventricular End Diastolic Pressure Normal LV size, wall motion,and systolic function LVEF: by LV gram 65 % [place] Multivessel CAD RECOMMENDATIONS Risk factor modification Medical therapy Referred for immediate PCI DESCRIPTION OF PROCEDURE The patient arrived to the procedure lab. The risks and benefits of the procedure as well as a full description of our services here and current unavailability of surgical backup were fully explained to the patient and/or their significant other prior to the catheterization. The Timeout was completed, verifying the correct patient and procedure. The patient's procedural site was prepped and draped in the usual fashion. Local anesthetic was given subcutaneously to right radial region with Lidocaine 2%. Using a modified Seldinger technique, arterial access was obtained via the right radial artery, a 6Fr sheath was inserted. Left Coronary Artery selective angiography was performed in multiple views using a 5 Fr. 4.0 [place] catheter. Right Coronary Artery selective angiography was then performed in multiple views using a 5 Fr. 4.0 [place] catheter. Left Ventriculography was performed in TRACY projection using a 5 Fr. Pigtail catheter. LV to AO pullback pressures were then recorded. CORONARY ANGIOGRAPHY DOMINANCE: Right Dominant LEFT HEART ASSESSMENT Left Ventricular Ejection Fraction: by LV Gram 65 % Normal LV wall motion Elevated Left Ventricular End Diastolic Pressure LVEDP: 21 mmHg LEFT MAIN: Angiographically normal LEFT ANTERIOR DESCENDING ARTERY: PROX LAD: Mild calcification, Mild luminal irregularities MID LAD: Mild calcification CIRCUMFLEX ARTERY: MID CIRC: eccentric: 95 % Stenosis DISTAL CIRC: eccentric: 95 % Stenosis RAMUS: Angiographically normal RIGHT CORONARY ARTERY: PROX RCA: Mild calcification, Mild luminal irregularities MID RCA: Mild calcification, Mild luminal irregularities AORTIC ROOT: Angiographically normal PCI: LCx PTCA (no stent) Radiography Diagnostic Testing: Radiology Impression Chest X-Ray 06/13/21 15:57 IMPRESSION: Nonacute portable x-ray examination of the chest. Electronically Signed: Shai Keenan MD (Brooks) at 16:22 EST , Service support , Physical Exam Const alert, oriented x3, no apparent distress and healthy appearing Orientation / Consciousness: awake HEENT normocephalic, head/scalp atraumatic and hearing grossly normal bilaterally Eyes PERRL, EOMs intact bilaterally and conjunctivae normal Neck full ROM, supple and no JVD Resp clear to auscultation bilaterally Cardio regular rate, regular rhythm, S1 normal heart sound and S2 normal heart sound GI normal to inspection, nondistended, normoactive bowel sounds Extremity no pedal edema Peripheral Pulses: Yes radial pulses present right (No bruit: No hematoma) 2+ Skin no rashes or lesions noted Neuro oriented x3, moves all extremities, no focal motor deficits and no sensory deficits noted Psych mental status grossly normal Assessment & Plan Assessment/Plan (1) Unstable angina pectoris: PLAN: The patient presents with symptoms concerning for unstable angina pectoris. He has undergone further evaluation with diagnostic cardiac catheterization. He was found to have LCx disease. He subsequently underwent LCx PTCA (no stent). He will continue medical therapy as deemed appropriate. (2) CAD (coronary artery disease): PLAN: The patient has been diagnosed with CAD. He will need to continue risk factor modification and medical therapy as deemed appropriate. (3) S/P PTCA (percutaneous transluminal coronary angioplasty): PLAN: The patient underwent LCx PTCA (no stent). He will need to continue aspirin/antiplatelet therapy along with his other medical therapy. (4) Right bundle branch block: PLAN: He does have an abnormal ECG with a right bundle branch block pattern. He will continue evaluation care as noted above. (5) Bradycardia: PLAN: It appears he has a longstanding history of sinus bradycardia. It is unclear at this time as to whether this is truly related to his longstanding history of dizziness/lightheadedness especially without ongoing hypotension. At the moment he will continue to be monitored. Rate limiting medications will be avoided if possible. It appears he is being evaluated by [facility] neurology who requested an outpatient ambulatory clinical research monitor which he states he has yet to receive to try and correlate his symptoms with his underlying rate and rhythm. (6) HTN (hypertension): QUALIFIERS: Hypertension type: primary hypertension Qualified Code(s): I10 - Essential (primary) hypertension PLAN: His blood pressure was elevated. It is unclear whether this is a c ontributing factor to his symptoms or being brought out by an underlying condition such as CAD and myocardial ischemia. At the moment his blood pressure will be followed and his medications can be ad justed accordingly taking into consideration his heart rate. (7) Diabetes: QUALIFIERS: Diabetes mellitus complication status: with hyperglycemia Diabetes mellitus type: type 1 Qualified Code(s): E10.65 - Type 1 diabetes mellitus with hyperglycemia PLAN: He will continue evaluation care per internal medicine. Addt'l Comments The patient's case has been previously discussed and reviewed with Dr. Barry and Dr. Gonzalez. This note was generated using a voice recognition system and there may be incorrect words, spelling or punctuation that were not noted when reviewing the office note prior to saving.
--- NOTE | 2021-06-14 16:18 | PCS.PANDOC ---
PANDEMIC DOCUMENTATION INITIATED: Date: 01/15/2021 Time: 190
[2021-06-14 16:21] LABS: Bedside Glucose 176 mg/dL (70-110)
--- NOTE | 2021-06-14 17:18 | CASEMGMT ---
PIA RINCON NOTE: Intro role of CM to patient and [facility]TIS form explained re: Observation status for treatment of chest pain. Explained hospitalization will be paid per his insurance policy for Outpatient billing and condition will continue to be evaluated for Inpt necessity. Also let pt know that [facility] sends paper in the billing packet with their phone number if questions arise. Discussed Pharmacy section of [facility]TIS form and self administered medication guideline. Pt verbalizes understanding and does not have further questions. Form signed, copy made and placed in chart, and original given to pt. Pt will be discharging home on Brilinta. Brilinta 30-day savings card given to pt and instructed on use. 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 He voices understanding. Prashant HERNÁNDEZ RN, CM
[2021-06-14] MEDS: Gabapentin 400 MG Capsule PO (21:00)
[2021-06-14] MEDS: Atorvastatin Calcium 80 MG Tablet PO (21:00)
[2021-06-14] MEDS: TICAGRELOR 90 MG TABLET PO (21:00)
[2021-06-14 21:11] LABS: Bedside Glucose 157 mg/dL (70-110)
[2021-06-15 00:10] VITALS: PULSE 65
[2021-06-15 03:44] VITALS: BP 155/63; PULSE 69; RESP 16; TEMP 36.6; O2SAT 95
[2021-06-15 04:02] VITALS: PULSE 69
[2021-06-15 04:59] LABS: Absolute Lymphocyte Count 1.06 X10^3/uL (0.83-4.51); Absolute Neutrophil Count 7.1 X10^3/uL (2.0-7.7); Basophil# 0.04 X10^3/uL; Basophil% 0.4 % (0-1); Eosinophil# 0.26 X10^3/uL; Eosinophils% 2.7 % (0-5); Hematocrit 36.4 % (40-54); Lymphocyte # 1.06 X10^3/ul (0.83-4.51); Lymphocyte % 11.2 % (19-41); Mean Corpuscular Hgb 33.3 pg (27.0-32.0); Mean Corpuscular Volume 101.1 fL (80-94); Mean Platelet Vol. 10.9 fl (6.2-12.0); Monocyte% 10.6 % (0-10); NRBC Flagged by Analyzer 0 % (0-5); Neutrophil # 7.07 X10^3/uL (2.7-7.7); Neutrophil % 74.8 % (47-70); Platelet Count 267 K/mm3 (150-450); RBC Distribution Width CV 12.8 % (11.6-14.6); RBC Distribution Width SD 47.7 fl (35.1-43.9); White Blood Count 9.5 K/mm3 (4.4-11.0)
[2021-06-15 05:51] LABS: AST(SGOT) 15 U/L (15-37); Alanine Aminotransfer ALT/SGPT 24 U/L (16-61); Albumin, Serum 3.3 g/dL (3.2-5.0); Alkaline Phosphatase 62 U/L (45-117); Anion Gap 6 (5-15); BUN 26 mg/dL (7-18); BUN/Creat Ratio 28.5 RATIO (10-20); Calcium,Total 8.8 mg/dL (8.5-10.1); Chloride 104 mmol/L (98-107); Creatinine, Serum 0.91 mg/dL (0.70-1.30); EST Glomerular Filtration Rate 84 mL/min (>60); Est Glom Filt Rate - Afr Amer 101 mL/min (>60); Estimated Creatinine Clearance 64.64 ml/min; Globulin 3.3 g/dL (2.2-4.2); Glucose 269 mg/dL (74-106); Protein, Total 6.6 g/dL (6.4-8.2); Sodium Level 137 mmol/L (136-145)
[2021-06-15 06:54] VITALS: PULSE 67
[2021-06-15] MEDS: Insulin Lispro 100 UNIT/ML INSULN.PEN SC (07:43)
[2021-06-15] MEDS: Insulin Lispro 100 UNIT/ML INSULN.PEN 11 UNIT SC (07:43)
[2021-06-15] MEDS: Aspirin E.C. 81 MG Tablet PO (07:44)
[2021-06-15 07:51] LABS: Bedside Glucose 294 mg/dL (70-110)
[2021-06-15 08:17] VITALS: O2SAT 94
[2021-06-15] MEDS: Pantoprazole Sodium 40 MG Tablet PO (09:01)
[2021-06-15] MEDS: Tolterodine Tartrate 2 MG CAP.SA PO (09:01)
[2021-06-15] MEDS: TICAGRELOR 90 MG TABLET PO (09:01)
[2021-06-15] MEDS: hydroCHLOROthiazide 12.5mg 12.5 MG PO (09:02)
[2021-06-15] MEDS: Losartan Potassium 50 MG Tablet PO (09:02)
[2021-06-15 09:05] VITALS: BP 112/65; PULSE 90; RESP 12; TEMP 36.9; O2SAT 95
--- NOTE | 2021-06-15 09:06 | PCM.DC ---
Discharge Instructions Diet Discharge Diet: Low fat / Low cholesterol and 1800 Calorie Control Diet Activity Discharge Activity: Return to Normal Activity Dressing / Incision Call your doctor if your incision/area has: Sudden Increased Bleeding, Increased Pain/ Swelling and Swelling at the incision site Call your doctor if you observe: Shortness of breath, Swelling in the ankles, Chest pain and Increased palpitations (irregular heartbeat) Suture Line Care: Avoid Pulling/Pushing Remove Dressing in: 1 day Follow Up Care Test Results: Test results from this visit will be discussed in further detail at your follow-up appointment, if applicable. Discharge Plan Admission Admit Date/Time: 06/13/21 17:27 Primary Reason for Your Visit: Chest Pain Attending Provider: Guevara Barry Primary Care Provider: Lico Cameron Consulting Providers: Sher Trent Discharge Orders/Prescriptions Prescriptions: New atorvastatin 80 mg Tablet 80 mg PO QHS 30 Days Qty: 30 RF: 0 aspirin 81 mg Tablet,Delayed Release (Dr/Ec) 81 mg PO BREAKFAST Qty: 0 RF: 0 insulin lispro [Humalog KwikPen Insulin] 100 unit/mL Insulin Pen 11 unit subcut TIDCM Qty: 0 RF: 0 Brilinta 90 mg Tablet 90 mg PO BID 30 Days Qty: 60 RF: 0 Continued pantoprazole [Protonix] 40 mg tablet,delayed release (DR/EC) 40 mg PO BID RF: 0 cholecalciferol (vitamin D3) 2,000 unit capsule 2,000 unit PO DAILY RF: 0 Toujeo SoloStar U-300 Insulin 300 unit/mL (1.5 mL) insulin pen 28 unit SC QHS RF: 0 hydrochlorothiazide 12.5 mg tablet 12.5 mg PO DAILY RF: 0 losartan 50 mg tablet 50 mg PO DAILY RF: 0 gabapentin 400 mg capsule 400 mg PO QHS RF: 0 ibuprofen 200 mg Tablet 400 mg PO QHS RF: 0 oxybutynin chloride 5 mg tablet extended release 24hr 5 mg PO DAILY RF: 0 cyanocobalamin (vitamin B-12) 1,000 mcg Capsule 1,000 mcg PO DAILY RF: 0 insulin aspart U-100 [Novolog U-100 Insulin aspart] 100 unit/mL solution 11 unit SC TIDCM RF: 0 No Action (DME) pen needle, diabetic [BD Ultra-Fine [place] Pen Needle] 32 gauge x 5/32 needle See Dose Instructions ea .ROUTE .MEDSUPPLY Qty: 10 RF: 0 (DME) HealthPro Test Strips Strip See Rx Instructions .ROUTE .MEDSUPPLY Qty: 100 RF: 12 (DME) blood-glucose meter [FreeStyle Lite Meter] Kit See Rx Instructions .ROUTE .MEDSUPPLY Qty: 1 RF: 0 (DME) insulin syringe-needle U-100 0.5 mL 31 gauge x 5/16 syringe See Dose Instructions .ROUTE .MEDSUPPLY Qty: 100 RF: 11 (DME) FreeStyle Lite Strips Strip See Rx Instructions .ROUTE .MEDSUPPLY Qty: 100 RF: 12 Referrals / Follow Up: Lico Cameron DO [Primary Care Provider] - Sher Trent MD [STAFF PHYSICIAN] - Within 2 Weeks Disposition Disposition (needs filled in before D/C Order can be placed): Home, Self Care
--- NOTE | 2021-06-15 09:16 | PCM.DC.SUM ---
Documented by User: NADEGE Lujan 06/15/21 09:24 Providers Date of Admission: 06/13/21 Primary Care Physician: Dr. Lico Cameron DO Consultations 06/13/21 19:11 Consult: Cardiology Routine Consulting Provider: Sher Trent Reason for Consult: Chest Pain EMERGENT Consult: No MD Notified: Yes Date Notified: 06/13/21 Time Notified: 18:17 Method of Notification: Verbal Reason For Visit: chest pain Diagnosis Discharge Diagnosis (1) Unstable angina pectoris: Status: Deleted Code(s): I20.0 - Unstable angina (2) CAD (coronary artery disease): Status: Deleted Code(s): I25.10 - Atherosclerotic heart disease of [place] coronary artery without angina pectoris (3) S/P PTCA (percutaneous transluminal coronary angioplasty): Status: Deleted Code(s): Z98.61 - Coronary angioplasty status (4) Right bundle branch block: Status: Chronic Code(s): I45.10 - Unspecified right bundle-branch block (5) Bradycardia: Status: Acute Code(s): R00.1 - Bradycardia, unspecified (6) HTN (hypertension): Status: Deleted Code(s): I10 - Essential (primary) hypertension Qualifiers: Hypertension type: primary hypertension Qualified Code(s): I10 - Essential (primary) hypertension (7) Diabetes: Status: Chronic Code(s): E11.9 - Type 2 diabetes mellitus without complications Qualifiers: Diabetes mellitus complication status: with hyperglycemia Diabetes mellitus type: type 1 Qualified Code(s): E10.65 - Type 1 diabetes mellitus with hyperglycemia Medications at Discharge Home Medications pen needle, diabetic 32 gauge x #10 ea 08/13/17 pantoprazole 40 mg tablet,delayed release 40 mg PO BID 09/03/17 cholecalciferol (vitamin D3) 50 mcg (2,000 unit) capsule 2,000 unit PO DAILY 03/05/18 blood sugar diagnostic #100 ea 03/20/20 blood-glucose meter #1 ea 03/23/20 insulin syringe-needle U-100 0.5 mL 31 gauge x 10/15 #100 ea 08/15/20 [place] SoloStar U-300 Insulin 28 unit SC QHS 03/03/21 blood sugar diagnostic #100 ea 05/10/21 cyanocobalamin (vitamin B-12) 1,000 mcg PO DAILY 06/13/21 gabapentin 400 mg PO QHS 06/13/21 hydrochlorothiazide 12.5 mg PO DAILY 06/13/21 ibuprofen 400 mg PO QHS 06/13/21 insulin aspart U-100 [Novolog U-100 Insulin aspart] 11 unit SC TIDCM 06/13/21 losartan 50 mg PO DAILY 06/13/21 oxybutynin chloride 5 mg PO DAILY 06/13/21 aspirin 81 mg PO BREAKFAST #0 tab 06/15/21 atorvastatin 80 mg PO QHS 30 Days #30 tab 06/15/21 insulin lispro [Humalog KwikPen Insulin] 11 unit SUBCUT TIDCM #0 ml 06/15/21 ticagrelor [Brilinta] 90 mg PO BID 30 Days #60 tab 06/15/21 Hospital Course Operations None Procedures 2-D Echocardiogram and Cardiac catheterization Summary of Care Provided Hospital Course: Patient is an 85-year-old male initially presented to the ER with complaints of chest pain that radiated to his right jaw and central chest area and eventually to his left arm. Patient states that there was shortness of breath concurrent with the chest pain but no diaphoresis or nausea or vomiting. Patient was evaluated by cardiology and a cardiac catheterization was done where patient received PTCA to the left circumflex but no stent was placed. Patient will be discharged home with Brilinta and atorvastatin and aspirin. Patient has been undergoing outpatient evaluation for his continuous bradycardia. Patient was initially hypertensive but vital signs have been stable and patient is now normotensive. Patient will be discharged home on his home medication regimen with the above medications in addition. Physical Exam Const alert, oriented x3, no apparent distress, average body habitus and healthy appearing General Appearance: cooperative HEENT normocephalic, head/scalp atraumatic and moist oral mucous membranes Eyes conjunctivae normal and no scleral icterus Neck no lymphadenopathy, supple and no JVD General: normal visual inspection and trachea midline Resp normal respiratory effort, normal air movement and clear to auscultation bilaterally Effort and Inspection: able to speak in complete sentences and symmetric chest movement Cardio regular rate, regular rhythm, S1 normal heart sound, S2 normal heart sound, no clicks and no JVD GI normal to inspection, nondistended, normoactive bowel sounds, soft to palpation and non-tender; Negative for hepatosplenomegaly Extremity normal to inspection, full ROM and no clubbing, cyanosis or edema Skin no rashes or lesions noted and skin turgor normal Neuro oriented x3, CN's II-XII intact bilaterally, moves all extremities, no focal motor deficits and no sensory deficits noted Sensorium / Orientation: awake and alert Speech: speech normal Motor Exam: strength 5/5 throughout Psych affect normal Weight / BMI Weight Weight: 169 lb 12.095 oz Body Mass Index (BMI) 23.0 ABG / Lab / Microbiology Data Result Diagrams: 06/15/21 04:32 06/15/21 04:32 Laboratory: Laboratory Results - last 24 hr 06/14/21 12:43: POC Glucose 304 H 06/14/21 16:14: POC Glucose 176 H 06/14/21 20:59: POC Glucose 157 H 06/15/21 04:32: WBC 9.5, RBC 3.60 L, Hgb 12.0 L, Hct 36.4 L, MCV 101.1 H, MCH 33.3 H, MCHC 33.0, RDW Std Deviation 47.7 H, RDW Coeff of Abdullahi 12.8, Plt Count 267, MPV 10.9, Immature Gran % (Auto) 0.300, Neut % (Auto) 74.8 H, Lymph % (Auto) 11.2 L, [place] % (Auto) 10.6 H, Eos % (Auto) 2.7, Baso % (Auto) 0.4, Absolute Neuts (auto) 7.1, Absolute Lymphs (auto) 1.06, Nucleated RBC % 0 06/15/21 04:32: Sodium 137, Potassium 4.0, Chloride 104, Carbon Dioxide 27.0, Anion Gap 6, BUN 26 H, Creatinine 0.91, Estim Creat Clear Calc 64.64, Est GFR (MDRD) Af Amer 101, Est GFR (MDRD) Non-Af 84, BUN/Creatinine Ratio 28.5 H, Glucose 269 H, Calcium 8.8, Total Bilirubin 0.60, AST 15, ALT 24, Alkaline Phosphatase 62, Total Protein 6.6, Albumin 3.3, Globulin 3.3, Albumin/Globulin Ratio 1.0 06/15/21 07:42: POC Glucose 294 H Microbiology: Microbiology 06/13/21 17:35 Nasal Secretion SARS-CoV-2 Antigen (Rapid) - Final D/C Instructions Discharge Diet: Low fat / Low cholesterol and 1800 Calorie Control Diet Call your doctor if your incision/area has: Sudden Increased Bleeding, Increased Pain/ Swelling and Swelling at the incision site Call your doctor if you observe: Shortness of breath, Swelling in the ankles, Chest pain and Increased palpitations (irregular heartbeat) Suture Line Care: Avoid Pulling/Pushing Meaningful Use Info Meaningful Use Diagnoses (Choose all that apply): None applicable Discharge Plan Admission Admit Date/Time: 06/13/21 17:27 Primary Reason for Your Visit: Chest Pain Attending Provider: Guevara Barry Primary Care Provider: Lico Cameron Consulting Providers: Sher Trent Discharge Orders/Prescriptions Prescriptions: New atorvastatin 80 mg Tablet 80 mg PO QHS 30 Days Qty: 30 RF: 0 aspirin 81 mg Tablet,Delayed Release (Dr/Ec) 81 mg PO BREAKFAST Qty: 0 RF: 0 insulin lispro [Humalog KwikPen Insulin] 100 unit/mL Insulin Pen 11 unit subcut TIDCM Qty: 0 RF: 0 Brilinta 90 mg Tablet 90 mg PO BID 30 Days Qty: 60 RF: 0 Continued pantoprazole [Protonix] 40 mg tablet,delayed release (DR/EC) 40 mg PO BID RF: 0 cholecalciferol (vitamin D3) 2,000 unit capsule 2,000 unit PO DAILY RF: 0 [place] SoloStar U-300 Insulin 300 unit/mL (1.5 mL) insulin pen 28 unit SC QHS RF: 0 hydrochlorothiazide 12.5 mg tablet 12.5 mg PO DAILY RF: 0 losartan 50 mg tablet 50 mg PO DAILY RF: 0 gabapentin 400 mg capsule 400 mg PO QHS RF: 0 ibuprofen 200 mg Tablet 400 mg PO QHS RF: 0 oxybutynin chloride 5 mg tablet extended release 24hr 5 mg PO DAILY RF: 0 cyanocobalamin (vitamin B-12) 1,000 mcg Capsule 1,000 mcg PO DAILY RF: 0 insulin aspart U-100 [Novolog U-100 Insulin aspart] 100 unit/mL solution 11 unit SC TIDCM RF: 0 No Action (DME) pen needle, diabetic [BD Ultra-Fine [place] Pen Needle] 32 gauge x 5/32 needle See Dose Instructions ea .ROUTE .MEDSUPPLY Qty: 10 RF: 0 (DME) HealthPro Test Strips Strip See Rx Instructions .ROUTE .MEDSUPPLY Qty: 100 RF: 12 (DME) blood-glucose meter [FreeStyle Lite Meter] Kit See Rx Instructions .ROUTE .MEDSUPPLY Qty: 1 RF: 0 (DME) insulin syringe-needle U-100 0.5 mL 31 gauge x 5/16 syringe See Dose Instructions .ROUTE .MEDSUPPLY Qty: 100 RF: 11 (DME) FreeStyle Lite Strips Strip See Rx Instructions .ROUTE .MEDSUPPLY Qty: 100 RF: 12 Referrals / Follow Up: Lico Cameron DO [Primary Care Provider] - Sher Trent MD [STAFF PHYSICIAN] - Within 2 Weeks Disposition Disposition (needs filled in before D/C Order can be placed): Home, Self Care Documented by User: Dr. Guevara Barry MD 06/15/21 10:41 Providers Date of Admission: 06/13/21 Reason For Visit: chest pain Medications at Discharge Home Medications pen needle, diabetic 32 gauge x #10 ea 08/13/17 pantoprazole 40 mg tablet,delayed release 40 mg PO BID 09/03/17 cholecalciferol (vitamin D3) 50 mcg (2,000 unit) capsule 2,000 unit PO DAILY 03/05/18 blood sugar diagnostic #100 ea 03/20/20 blood-glucose meter #1 ea 03/23/20 insulin syringe-needle U-100 0.5 mL 31 gauge x 516 #100 ea 08/15/20 [place] SoloStar U-300 Insulin 28 unit SC QHS 03/03/21 blood sugar diagnostic #100 ea 05/10/21 cyanocobalamin (vitamin B-12) 1,000 mcg PO DAILY 06/13/21 gabapentin 400 mg PO QHS 06/13/21 hydrochlorothiazide 12.5 mg PO DAILY 06/13/21 ibuprofen 400 mg PO QHS 06/13/21 insulin aspart U-100 [Novolog U-100 Insulin aspart] 11 unit SC TIDCM 06/13/21 losartan 50 mg PO DAILY 06/13/21 oxybutynin chloride 5 mg PO DAILY 06/13/21 aspirin 81 mg PO BREAKFAST #0 tab 06/15/21 atorvastatin 80 mg PO QHS 30 Days #30 tab 06/15/21 insulin lispro [Humalog KwikPen Insulin] 11 unit SUBCUT TIDCM #0 ml 06/15/21 ticagrelor [Brilinta] 90 mg PO BID 30 Days #60 tab 06/15/21 Hospital Course Procedures Cardiac catheterization Summary of Care Provided Minutes Spent on Discharge: 35 Hospital Course: This patient was seen in conjunction with NADEGE Lujan . I have independently interviewed and examined the patient and reviewed pertinent historical, laboratory, and other data. Please refer to NADEGE Lujan note for details of this patient's presentation, findings, and recommendations. I have reviewed NADEGE Lujan note and concur with documented findings. In brief, patient is a 85-year-old gentleman who presented with chest pain. An assessment of unstable angina made admitted to monitored bed with consultation placed to cardiology. Patient underwent left heart catheterization found to have a 95% mid circumflex and 95% distal circumflex lesions for which patient underwent PCI (PTCA (no stent)) Physical Examination: GENERAL: cooperative HEENT: Atraumatic; EYES; Anicteric, Normal Conjunctiva NECK; supple, normal thyroid, RESPIRATORY: Diminished to auscultation CARDIOVASCULAR: Regular S1 S2, GI: soft, normoactive bowel sounds, : No Renal angle tenderness; EXTREMITIES: No edema, no clubbing, MUSCULOSKELETAL: no muscle waisting NEURO: Awake; no lateralizing signs. SKIN: No Rash PSYCH; Flat affect Assessment: 1. Unstable angina 2. Coronary artery disease status post PCI (PTCA (no stent)) to mid and distal circumflex lesions 3. Essential hypertension 4. Diabetes mellitus type 2 5. GERD 6. DVT prophylaxis Hospital course; as documented above Total time spent with patient's evaluation assessment and discussion with other providers involved in patient's care 35-minute 25 of which was spent by myself ABG / Lab / Microbiology Data Result Diagrams: 06/15/21 04:32 06/15/21 04:32 Discharge Plan Admission Admit Date/Time: 06/13/21 17:27 Primary Reason for Your Visit: Chest Pain Attending Provider: Guevara Barry Primary Care Provider: Lico Cameron Consulting Providers: Sher Trent Discharge Orders/Prescriptions Prescriptions: New atorvastatin 80 mg Tablet 80 mg PO QHS 30 Days Qty: 30 RF: 0 aspirin 81 mg Tablet,Delayed Release (Dr/Ec) 81 mg PO BREAKFAST Qty: 0 RF: 0 insulin lispro [Humalog KwikPen Insulin] 100 unit/mL Insulin Pen 11 unit subcut TIDCM Qty: 0 RF: 0 Brilinta 90 mg Tablet 90 mg PO BID 30 Days Qty: 60 RF: 0 Continued pantoprazole [Protonix] 40 mg tablet,delayed release (DR/EC) 40 mg PO BID RF: 0 cholecalciferol (vitamin D3) 2,000 unit capsule 2,000 unit PO DAILY RF: 0 [place] SoloStar U-300 Insulin 300 unit/mL (1.5 mL) insulin pen 28 unit SC QHS RF: 0 hydrochlorothiazide 12.5 mg tablet 12.5 mg PO DAILY RF: 0 losartan 50 mg tablet 50 mg PO DAILY RF: 0 gabapentin 400 mg capsule 400 mg PO QHS RF: 0 ibuprofen 200 mg Tablet 400 mg PO QHS RF: 0 oxybutynin chloride 5 mg tablet extended release 24hr 5 mg PO DAILY RF: 0 cyanocobalamin (vitamin B-12) 1,000 mcg Capsule 1,000 mcg PO DAILY RF: 0 insulin aspart U-100 [Novolog U-100 Insulin aspart] 100 unit/mL solution 11 unit SC TIDCM RF: 0 No Action (DME) pen needle, diabetic [BD Ultra-Fine [place] Pen Needle] 32 gauge x 5/32 needle See Dose Instructions ea .ROUTE .MEDSUPPLY Qty: 10 RF: 0 (DME) HealthPro Test Strips Strip See Rx Instructions .ROUTE .MEDSUPPLY Qty: 100 RF: 12 (DME) blood-glucose meter [FreeStyle Lite Meter] Kit See Rx Instructions .ROUTE .MEDSUPPLY Qty: 1 RF: 0 (DME) insulin syringe-needle U-100 0.5 mL 31 gauge x 5/16 syringe See Dose Instructions .ROUTE .MEDSUPPLY Qty: 100 RF: 11 (DME) FreeStyle Lite Strips Strip See Rx Instructions .ROUTE .MEDSUPPLY Qty: 100 RF: 12 Referrals / Follow Up: Lico Cameron DO [Primary Care Provider] - Sher Trent MD [STAFF PHYSICIAN] - Within 2 Weeks Disposition Disposition (needs filled in before D/C Order can be placed): Home, Self Care Charges/Coding Visit Charges OBSV E&M: 62504 Observation care discharge Hospital Course Consultations Consultations: Consultations 06/13/21 19:11 Consult: Cardiology Routine Consulting Provider: Sher Trent Reason for Consult: Chest Pain EMERGENT Consult: No MD Notified: Yes Date Notified: 06/13/21 Time Notified: 18:17 Method of Notification: Verbal Procedures Procedures: Cardiac catheterization
--- NOTE | 2021-06-15 09:20 | PCM.PN.CARD ---
Subjective Subjective The patient is awake and alert. He denies any ongoing concerns of jaw discomfort chest discomfort or left upper extremity discomfort and he has not had to receive additional nitroglycerin sublingual. Objective Data Vital Signs: Vital Signs Temp Pulse Resp BP Pulse Ox 98.5 F 90 12 112/65 95 06/15/21 09:05 06/15/21 09:05 06/15/21 09:05 06/15/21 09:05 06/15/21 09:05 Oxygen Delivery Method Room Air Weight: 169 lb 12.095 oz Body Mass Index (BMI) 23.0 Intake & Output: Intake and Output for Last 24 Hours 06/13/21 06/14/21 06/15/21 23:59 23:59 23:59 Intake Total 790 / 790 120 / 120 Balance 790 / 790 120 / 120 Lab / Micro Data Result Diagrams: 06/15/21 04:32 06/15/21 04:32 Labs: Laboratory Results - last 24 hr 06/14/21 12:43: POC Glucose 304 H 06/14/21 16:14: POC Glucose 176 H 06/14/21 20:59: POC Glucose 157 H 06/15/21 04:32: WBC 9.5, RBC 3.60 L, Hgb 12.0 L, Hct 36.4 L, MCV 101.1 H, MCH 33.3 H, MCHC 33.0, RDW Std Deviation 47.7 H, RDW Coeff of Abdullahi 12.8, Plt Count 267, MPV 10.9, Immature Gran % (Auto) 0.300, Neut % (Auto) 74.8 H, Lymph % (Auto) 11.2 L, [place] % (Auto) 10.6 H, Eos % (Auto) 2.7, Baso % (Auto) 0.4, Absolute Neuts (auto) 7.1, Absolute Lymphs (auto) 1.06, Nucleated RBC % 0 06/15/21 04:32: Sodium 137, Potassium 4.0, Chloride 104, Carbon Dioxide 27.0, Anion Gap 6, BUN 26 H, Creatinine 0.91, Estim Creat Clear Calc 64.64, Est GFR (MDRD) Af Amer 101, Est GFR (MDRD) Non-Af 84, BUN/Creatinine Ratio 28.5 H, Glucose 269 H, Calcium 8.8, Total Bilirubin 0.60, AST 15, ALT 24, Alkaline Phosphatase 62, Total Protein 6.6, Albumin 3.3, Globulin 3.3, Albumin/Globulin Ratio 1.0 06/15/21 07:42: POC Glucose 294 H Cardiology Labs/Tests 06/15/21 04:32: WBC 9.5, RBC 3.60 L, Hgb 12.0 L, Hct 36.4 L, MCV 101.1 H, MCH 33.3 H, MCHC 33.0, Plt Count 267, MPV 10.9, Immature Gran % (Auto) 0.300, Neut % (Auto) 74.8 H, Lymph % (Auto) 11.2 L, [place] % (Auto) 10.6 H, Eos % (Auto) 2.7, Baso % (Auto) 0.4, Absolute Neuts (auto) 7.1, Nucleated RBC % 0 06/15/21 04:32: Sodium 137, Potassium 4.0, Chloride 104, Carbon Dioxide 27.0, Anion Gap 6, BUN 26 H, Creatinine 0.91, Est GFR (MDRD) Af Amer 101, Est GFR (MDRD) Non-Af 84, BUN/Creatinine Ratio 28.5 H, Glucose 269 H, Calcium 8.8, Total Bilirubin 0.60 Rhythm: Sinus rhythm Physical Exam Const alert, oriented x3, no apparent distress and healthy appearing Orientation / Consciousness: awake HEENT normocephalic, head/scalp atraumatic and hearing grossly normal bilaterally Eyes PERRL, EOMs intact bilaterally and conjunctivae normal Neck full ROM, supple and no JVD Resp clear to auscultation bilaterally Cardio regular rate, regular rhythm, S1 normal heart sound and S2 normal heart sound GI normal to inspection, nondistended, normoactive bowel sounds Extremity no pedal edema Peripheral Pulses: Yes radial pulses present right (No bruits: No hematoma) 2+ Skin no rashes or lesions noted Neuro oriented x3, moves all extremities, no focal motor deficits and no sensory deficits noted Psych mental status grossly normal Assessment & Plan Assessment/Plan (1) Unstable angina pectoris: PLAN: The patient presents with symptoms concerning for unstable angina pectoris. He has undergone further evaluation with diagnostic cardiac catheterization. He was found to have LCx disease. He subsequently underwent LCx PTCA (no stent). He will continue medical therapy as deemed appropriate. (2) CAD (coronary artery disease): PLAN: The patient has been diagnosed with CAD. He will need to continue risk factor modification and medical therapy as deemed appropriate. (3) S/P PTCA (percutaneous transluminal coronary angioplasty): PLAN: The patient underwent LCx PTCA (no stent). He will need to continue aspirin/antiplatelet therapy along with his other medical therapy. (4) Right bundle branch block: PLAN: He does have an abnormal ECG with a right bundle branch block pattern. He will continue evaluation care as noted above. (5) Bradycardia: PLAN: It appears he has a longstanding history of sinus bradycardia. It is unclear at this time as to whether this is truly related to his longstanding history of dizziness/lightheadedness especially without ongoing hypotension. At the moment he will continue to be monitored. Rate limiting medications will be avoided if possible. It appears he is being evaluated by [facility] neurology who requested an outpatient ambulatory cardiac sonographer which he states he has yet to receive to try and correlate his symptoms with his underlying rate and rhythm. (6) HTN (hypertension): QUALIFIERS: Hypertension type: primary hypertension Qualified Code(s): I10 - Essential (primary) hypertension PLAN: His blood pressure was elevated. It is unclear whether this is a contributing factor to his symptoms or being brought out by an underlying condition such as CAD and myocardial ischemia. At the moment his blood pressure will be followed and his medications can be adjusted accordingly taking into consideration his heart rate. (7) Diabetes: QUALIFIERS: Diabetes mellitus complication status: with hyperglycemia Diabetes mellitus type: type 1 Qualified Code(s): E10.65 - Type 1 diabetes mellitus with hyperglycemia PLAN: He will continue evaluation care per internal medicine. Addt'l Comments Overall, at the present time, the patient will continue medical management. He will be asked to have future outpatient cardiovascular follow-up. This note was generated using a voice recognition system and there may be incorrect words, spelling or punctuation that were not noted when reviewing the office note prior to saving.
== END 2021-06-15 09:13 | disposition home or self-care (01) ==
LOC: ED 17:33 → PCU 17:52
PROVIDERS: Internal Medicine Cardiovascular Disease; Admitting Provider Internal Medicine; Emergency Provider Emergency Medicine; PCP Family Medicine; Visit Provider Internal Medicine
DX: I25.110 Atherosclerotic heart disease of native coronary artery with unstable angina pectoris (principal); E10.42 Type 1 diabetes mellitus with diabetic polyneuropathy; E10.65 Type 1 diabetes mellitus with hyperglycemia; Z79.4 Long term (current) use of insulin; I45.10 Unspecified right bundle-branch block; K21.9 Gastro-esophageal reflux disease without esophagitis; I10 Essential (primary) hypertension; D53.9 Nutritional anemia, unspecified; M19.90 Unspecified osteoarthritis, unspecified site; E55.9 Vitamin D deficiency, unspecified; Z87.891 Personal history of nicotine dependence; Z79.899 Other long term (current) drug therapy; Z86.16 Personal history of COVID-19; N32.81 Overactive bladder
CPT/HCPCS: 36415; 71045; 80048; 80053; 80061; 82962; 83036; 83735; 84100; 84443; 84484; 85025; 87426; 92920; 93005; 93458; 99152; 99153; 99218; 99285; J7030; Q9967; C1725; C1769; C1887; C1894; G0378; J1327

== ENCOUNTER 2021-07-04 12:58 | Outpatient (CLI) | payer MEDICARE, SELFPAY | END 2021-07-04 23:59 | disposition short-term general hospital (02) | LOC: CR 12:59 | PROVIDERS: PCP Family Medicine; Referring Provider Internal Medicine Cardiovascular Disease; Visit Provider Internal Medicine Cardiovascular Disease | DX: I25.10 Atherosclerotic heart disease of native coronary artery without angina pectoris (principal); I10 Essential (primary) hypertension; Z98.61 Coronary angioplasty status ==

== ENCOUNTER 2021-08-15 06:56 | Outpatient (CLI) | payer MEDICARE, SELFPAY ==
--- NOTE | 2021-08-15 07:01 | ECHOD_ITS ---
Reason For Study: DYSPNEA/SOB Procedure This was a 2D Doppler, Color Flow transthoracic echocardiogram. The exam was of adequate technical quality. Exam performed in department. Left Ventricle Normal LV size. Left ventricular systolic function is normal. The estimated ejection fraction is 65 %. Diastolic function is indeterminate. No regional wall motion abnormalities noted. Right Ventricle Normal RV size. Normal systolic function. Atria Normal left atrium. Normal right atrium. No doppler evidence for ASD. Mitral Valve There is mild mitral annular calcification. Extension the mitral annular calcification onto the base of the posterior mitral valve leaflet. Trivial mitral valve insufficiency. Tricuspid Valve Normal tricuspid valve. Trivial tricuspid valve insufficiency. Right ventricular systolic pressure estimated to be 34 mmHg. Aortic Valve Trisinus/trileaflet aortic valve. Normal aortic valve. Pulmonic Valve The pulmonic valve is not well visualized. Great Vessels Normal sized aortic root. Pericardium/Pleural No pericardial effusion. MMode/2D Measurements & Calculations LVIDd: 4.9 cm IVSd: 0.90 cm Ao root diam: 3.7 cm LVIDs: 3.1 cm LVPWd: 1.0 cm RVDd: 3.6 cm FS: 37.0 % LAV(MOD-bp): 51.8 ml LA A4 area: 16.8 cm2 LA dimension(2D): 3.3 cm LAV(MOD-bp) Indexed: 25.2 ml/m2 LAV(MOD-sp2): 43.3 ml LAV(MOD-sp4): 48.1 ml RA A4 area: 16.9 cm2 Time Measurements MV dec time: 0.21 sec Doppler Measurements & Calculations MV E max mark: 103.9 cm/sec Lat Peak E' Mark: 7.7 cm/sec Med Peak E' Mark: 7.0 cm/sec MV A max mark: 88.3 cm/sec E/E' lat: 13.4 E/E' med: 14.9 MV E/A: 1.2 Ao V2 max: 95.9 cm/sec LV V1 max: 108.1 cm/sec PA V2 max: 103.4 cm/sec Ao max P.7 mmHg LV V1 max P.7 mmHg TR max mark: 277.4 cm/sec TR max P.8 mmHg ECHO/Echo Complete Interpretation Summary Left ventricular systolic function is normal. The estimated ejection fraction is 65 %. There is mild mitral annular calcification. Extension the mitral annular calcification onto the base of the posterior vladimir l valve leaflet. Trivial mitral valve insufficiency. Trivial tricuspid valve insufficiency. Right ventricular systolic pressure estimated to be 34 mmHg. Diastolic function is indeterminate. Ordering Physician: Estrellita Lopes Referring Physician: Lico Cameron Performed By: Ginger De Souza RDCS, RVT
--- NOTE | 2021-08-15 10:18 | STRESSREP ---
Stress Test Report Date: 08-15-2021 Procedure: Pharmacologic stress nuclear imaging study Indications: Chest pain; CAD; PCI Consent: Per the patient Procedure: The patient underwent pharmacologic (Regadenoson 0.4mg ) evaluation with a peak heart rate of 86 beats per minute (64%predicted maximal heart rate) and a peak blood pressure of 158/82 mmHg. The baseline ECG demonstrated sinus bradycardia; right bundle branch block. The peak pharmacologic ECG demonstrated no obvious ECG changes. There were no cardiac dysrhythmias pretest, during pharmacologic infusion, or recovery. There was no complaint of chest discomfort during pharmacologic infusion or recovery. The examination was discontinued secondary to completion of protocol. Impression: 1. Pharmacologic (Regadenoson) evaluation 2. Peak pharmacologic ECG with continued right bundle branch block with no obvious ECG changes. 3. There were no cardiac dysrhythmias pretest, during pharmacologic infusion, or recovery. 4. Nuclear images pending Myocardial perfusion imaging study: Technique: The patient was injected with 11.6 millicuries of technetium 99m Cardiolite and subsequently rest SPECT Cardiolite nuclear imaging was obtained in the horizontal long, vertical long, and short axis views. The patient underwent pharmacologic (Regadenoson) evaluation with a peak heart rate of 86 beats per minute (64% percent predicted maximal heart rate) and a peak blood pressure of 158/82 mmHg. The patient was injected with 36.0 millicuries of technetium 99m Cardiolite and subsequently stress SPECT Cardiolite nuclear imaging was obtained in the horizontal long, vertical long, and short axis views. A gated Cardiolite study at peak stress was obtained. Interpretation: Rest and stress SPECT Cardiolite nuclear imaging status post realignment, normalization, and attenuation correction demonstrate an element of body motion during image acquisition and at rest the appearance of small area of subtle diminished tracer uptake in the mid anterior segments which appears to improve/normalize following stress. There is end systolic thickening and brightening. The gated Cardiolite study demonstrates myocardial thickening and inward wall motion. The reported LVEF is 65%. Impression: 1. Rest and stress SPECT current nuclear imaging demonstrate an element of body motion during image acquisition and a small area of subtle diminished tracer uptake in the mid anterior segment at rest which appears to improve and/or normalize following stress appearing compatible with shifting soft tissue attenuation/artifact with no myocardial perfusion changes considered diagnostic for stress-induced myocardial ischemia. 2. The gated Cardiolite study reports an LVEF of 65%. This note was generated with [employer] software. It may contain incorrect words, spelling, and punctuation that were not noted in checking the note before signing.
== END 2021-08-15 23:59 | disposition home or self-care (01) ==
PROVIDERS: PCP Family Medicine; Referring Provider Nurse Practitioner Gerontology; Visit Provider Nurse Practitioner Gerontology
DX: R07.89 Other chest pain (principal); R06.02 Shortness of breath
CPT/HCPCS: 78452; 93017; 93306; A9500; A4216; J2785

== ENCOUNTER → 2021-11-22 | Outpatient (CLI) | payer MEDICARE, SELFPAY ==
--- NOTE | 2021-11-22 15:16 | RAD_ITS ---
STUDY: X-RAY - THORACIC SPINE REASON FOR EXAM: Male, 86 years old. PAIN TECHNIQUE: XR Spine Thoracic 3 Views COMPARISON: None FINDINGS: Normal kyphosis of the thoracic spine. There is no substantial scoliosis. There is multilevel endplate spondylosis of the thoracic vertebrae. There is multilevel disc space narrowing of the thoracic spine. The soft tissue structures are unremarkable. RAD/Thoracic Spine 3 Views IMPRESSION: There are degenerative changes as noted above. Electronically Signed: Ricardo Martinez MD at 15:45 EDT ,
== END | disposition home or self-care (01) ==
LOC: MTRAD 15:15
PROVIDERS: PCP Family Medicine; Referring Provider Family Medicine; Visit Provider Family Medicine
DX: M47.814 Spondylosis without myelopathy or radiculopathy, thoracic region (principal); M48.04 Spinal stenosis, thoracic region
CPT/HCPCS: 72072

== ENCOUNTER 2021-12-11 13:47 | Emergency (ER) | payer MEDICARE, SELFPAY ==
[2021-12-11 13:49] VITALS: BP 91/37; PULSE 73; RESP 14; TEMP 36.4; O2SAT 97; BMI 23.3
--- NOTE | 2021-12-11 14:13 | RAD_ITS ---
STUDY: X-RAY CHEST REASON FOR EXAM: Male, 86 years old. Weakness TECHNIQUE: Single AP portable view of the chest. COMPARISON: Comparison is made with prior examination dated 06/13/2021. FINDINGS: EKG electrodes are seen. There is hyperinflation of the lungs consistent with chronic obstructive lung disease (COPD). There is no demonstrated pleural abnormality. Normal size heart. Normal mediastinum and ti. There is prominence of the pulmonary hilar arteries without peripheral pulmonary vascular congestion, suggesting pulmonary hypertension. Normal visualized aortic arch and descending thoracic aorta. Normal visualized thoracic spine. Normal visualized ribs, clavicles, and shoulders. There is no demonstrated abnormality of the visualized soft tissue structures of the upper abdomen. RAD/Chest 1 View (Portable) IMPRESSION: Hyperinflation. Decreased bilateral bronchovascular markings suggestive of emphysematous change. Electronically Signed: Jose L Tejeda MD at 15:05 EDT ,
--- NOTE | 2021-12-11 14:13 | EKG12_ITS ---
Test Reason : weakness Blood Pressure : / mmHG Vent. Rate : 066 BPM Atrial Rate : 000 BPM P-R Int : 000 ms QRS Dur : 128 ms QT Int : 428 ms P-R-T Axes : 000 022 047 degrees QTc Int : 448 ms Normal sinus rhythm Right bundle branch block Abnormal ECG Confirmed by JYOTI GILLIS, GUADALUPE ([id number]), film and video editor LORIE BECKWITH ([id number]) on 12/12/2021 11:09:14 AM Referred By: Benji Confirmed By:GUADALUPE MONTES MD
--- NOTE | 2021-12-11 14:14 | EDS_ITS ---
HPI History of Present Illness Chief Complaint: Weakness Informant: patient and spouse/S.O. Onset/Context/Timing Onset: Days Context: Gradual Onset Timing: Intermittent Current Severity: Mild Maximum Severity: Mild Narrative Prior similar symptoms: No Recent Illness/Hospitalization: No PFSH PFSH Medical History Anemia Arthritis Atherosclerotic heart disease of [place] coronary artery without angina pectoris Bronchitis Chronic bronchitis COVID-19 (01/2021) Diabetes Diabetes type 1, uncontrolled Diabetic polyneuropathy associated with type 1 diabetes mellitus CROW (dyspnea on exertion) Essential hypertension GERD (gastroesophageal reflux disease) Hyperglycemia Leg cramps Lightheadedness 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 Long-term insulin use Macrocytic anemia Macular degeneration Prostate cancer Pulmonary nodule Right bundle branch block Shingles ulcers Unstable angina Urinary retention Vision problems Vitamin D deficiency Home Medications pen needle, diabetic 32 gauge x 5/32 (BD Ultra-Fine [place] Pen Needle) #10 ea 08/13/17 [History Last Taken Unknown] pantoprazole 40 mg tablet,delayed release (Protonix) 40 mg PO BID reflux 09/03/17 [History Last Taken 06/13/21] cholecalciferol (vitamin D3) 50 mcg (2,000 unit) capsule 2,000 unit PO DAILY vitamin 03/05/18 [History Last Taken 06/13/21] blood sugar diagnostic (HealthPro Test Strips) #100 ea 03/20/20 [Rx Last Taken Unknown] blood-glucose meter (FreeStyle Lite Meter kit) #1 ea 03/23/20 [Rx Last Taken Unknown] insulin syringe-needle U-100 0.5 mL 31 gauge x 10/15 #100 ea 08/15/20 [Rx Last Taken Unknown] cyanocobalamin (vitamin B-12) 1,000 mcg capsule 1,000 mcg PO DAILY SUPPLEMENT 06/13/21 [History Last Taken 06/13/21] gabapentin 400 mg capsule 400 mg PO QHS NERVE PAIN 06/13/21 [History Last Taken 06/12/21] ibuprofen 200 mg tablet 400 mg PO QHS PAIN 06/13/21 [History Last Taken 06/12/21] insulin aspart U-100 100 unit/mL subcutaneous solution (Novolog U-100 Insulin aspart) 11 unit subcut TIDCM diabetes 06/13/21 [History Last Taken 06/13/21] losartan 50 mg tablet 50 mg PO DAILY BP 06/13/21 [History Last Taken 06/13/21] oxybutynin chloride 5 mg tablet,extended release 24 hr 5 mg PO DAILY BLADDER 06/13/21 [History Last Taken Unknown] aspirin 81 mg tablet,delayed release 81 mg PO BREAKFAST #0 tabs 06/15/21 [Rx Last Taken Unknown] nitroglycerin 0.4 mg sublingual tablet (Nitrostat) 0.4 mg sublingual Q5-15M PRN chest pain #25 tabs 06/20/21 [Rx Last Taken Unknown] lactobacillus combination no.9 4 billion cell capsule (Adult 50 Plus Probiotic) 4,000 mmu cells PO DAILY 06/26/21 [History Last Taken Unknown] sucralfate 1 gram tablet 4 g PO .QID 07/11/21 [History Last Taken Unknown] blood sugar diagnostic (FreeStyle Lite Strips) #150 ea 07/12/21 [Rx Last Taken Unknown] atorvastatin 80 mg tablet 80 mg PO QHS 30 days #90 tabs 07/13/21 [Rx Last Taken Unknown] hydrochlorothiazide 25 mg tablet 25 mg PO DAILY diuretic #30 tabs 08/22/21 [Rx Last Taken Unknown] insulin syringe-needle U-100 0.5 mL 31 gauge x 5/16 (BD Insulin Syringe Ultra- Fine) #360 ea 09/19/21 [Rx Last Taken Unknown] Toujeo SoloStar U-300 Insulin 300 unit/mL (1.5 mL) subcutaneous pen (insulin glargine U-300 conc) 28 unit (0.0933 mL) subcut QHS diabetes #8.4 mL 10/17/21 [Rx Last Taken Unknown] memantine 5 mg tablet ea PO 11/08/21 [History Last Taken Unknown] diltiazem HCl 120 mg capsule,extended release 24 hr (Cardizem CD) 120 mg PO DAILY #30 caps 11/23/21 [Rx Last Taken Unknown] Allergy/AdvReac Type Severity Reaction Status Date / Time No Known Allergies Allergy Verified 11/08/21 13:40 Family History Mother Cancer Father Diabetes Other Heart disease Hypertension Surgical History History of cholecystectomy History of coronary angioplasty (06/14/21) History of pancreatic surgery History of prostate surgery Social History Smoking Status: Former smoker quit date: 06/02/01 pack-years: 48 Tobacco: How many years used: 48 alcohol intake: current alcohol intake frequency: 0-2 drinks per day substance use type: does not use ROS ROS ED ROS Narrative Generalized weakness. Denies nausea, vomiting, diarrhea or fever. Review of Systems ROS Unobtainable: Denies due to encephalopathy Constitutional Constitutional ED: Denies chills Eyes Eyes: Reports blurry vision ENT ENT ED: Denies ear pain Cardiovascular Cardiovascular: Denies chest pain Respiratory/Chest Respiratory/Chest: Denies cough Gastrointestinal Gastrointestinal: Denies abdominal pain, constipation or diarrhea Genitourinary Genitourinary ED: Denies dysuria Musculoskeletal Musculoskeletal: Denies arthralgias Integumentary Denies abscess Neurologic Neurologic: Denies headache(s) Psychiatric Psychiatric: Denies anxiety Endocrine Endocrinology: Denies cold intolerance Hematologic/Lymphatic Hematologic/Lymphatic: Reports none Allergic/Immunologic Allergic/Immunologic ED: Denies mouth swelling or tongue swelling EXAM Physical Exam Narrative Exam Narrative: 86-year-old male presents hypotensive with pressure 91/37. He is tolerating that well. Pulse ox 97% on room air. He does not look septic or toxic. Clinically does not look dehydrated. H EENT exam unremarkable. Moist use membranes. No facial droop. Normal speech. Neck nontender. Lungs are clear. Heart regular rhythm rate about 70 no murmur. Chest nontender. Abdomen soft nontender. Moving all 4 extremities. Calves are nontender without edema or cords. Neurologically is awake alert with no focal motor deficits. Const Vital Signs: 12/11/21 13:49 12/11/21 13:59 12/11/21 15:33 Temperature 97.5 F L Temperature Source Oral Pulse Rate 73 58 L Respiratory Rate 14 20 H Respiratory Effort Normal Non-Labored Respiratory Pattern Normal Blood Pressure 91/37 L 121/46 H Blood Pressure Mean 55 71 Pulse Ox 97 97 Oxygen Delivery Method Room Air Room Air Positive well nourished and well developed; Negative for obese, cachectic, contractures or unkempt General Appearance ED: well developed; Negative for unkempt, cachectic or contractures Nutritional Appearance: Negative for cachectic or obese HEENT Reports moist mucous membranes Negative for trauma or tenderness Eyes PERRL and EOMs intact bilaterally General Eye ED: Negative for pale conjunctiva or scleral icterus Neck no lymphadenopathy, supple and no JVD Resp normal respiratory effort and clear to auscultation bilaterally Effort and Inspection: Negative for retractions Auscultation: Negative for rales, rhonchi or wheezes Cardio regular rate, regular rhythm, S1 normal heart sound, S2 normal heart sound and no murmurs Rate: Negative for bradycardia Rhythm: Negative for abnormal rhythm GI normal to inspection, nondistended, normoactive bowel sounds, non-tender, non- distended and no masses Inspection: Negative for abdominal distention Auscultation: normoactive bowel sounds Palpation: soft; Negative for tender Rectal Exam: normal sphincter tone Back/Spine no CVA tenderness Psych Appearance: Negative for unkempt Skin no rashes or lesions noted and no wounds General Skin Exam: Negative for elasticity normal Lesions: No lesion noted Rashes: No rashes noted Trauma: Negative for abrasion Wounds: Negative for wounds noted MDM MDM MDM Narrative Medical decision making narrative: 86-year-old male hypotensive with generalized weakness and feels unsteady. Exam otherwise benign. Clinically does not look septic nor toxic nor dehydrated. To be treated with a liter of fluid screening labs are being obtained. Repeat exam patient is doing well. At 6:00 his blood pressures 121/46. He has been up ambulating did well. He has no complaints. He and I went over his lab test. He was treated with a liter of IV fluids. He is comfortable being disch arged home. He will follow-up with his primary care physician and have his blood count rechecked. Today his CBC showed hemoglobin 9.8 he normally runs around 12. It may be lower than the 9.8 because he is dehydrated also. He has had no rectal bleeding or black stool. He does not take in more fluids. He knows return if he is feeling worse. Lab Data Attestation: I reviewed the patient's lab results. Lab results narrative: CBC shows a white count 11.1. H&H 9.8 and 29.4 which is his baseline anemia. Platelets 257. Electrolytes show a gap of 5 BUN 32 creatinine 1.26 consistent with dehydration. Glucose of 116. Lactic acid is 1.7. Urinalysis is negative. Chest x-ray and CT of the brain showed no acute process. Chronic changes. Labs: Laboratory Results - last 24 hr 12/11/21 12/11/21 12/11/21 14:25 14:25 14:25 WBC 11.1 H RBC 2.89 L Hgb 9.8 L Hct 29.4 L MCV 101.7 H MCH 33.9 H MCHC 33.3 RDW Std Deviation 50.0 H RDW Coeff of Abdullahi 13.6 Plt Count 257 MPV 10.7 Immature Gran % (Auto) 0.800 Neut % (Auto) 71.5 H Lymph % (Auto) 11.4 L [place] % (Auto) 13.6 H Eos % (Auto) 2.3 Baso % (Auto) 0.4 Absolute Neuts (auto) 7.9 H Absolute Lymphs (auto) 1.26 Nucleated RBC % 0.5 Sodium 139 Potassium 4.0 Chloride 105 Carbon Dioxide 29.0 Anion Gap 5 BUN 32 H Creatinine 1.26 Estim Creat Clear Calc 46.19 Est GFR (MDRD) Af Amer 70 Est GFR (MDRD) Non-Af 58 L BUN/Creatinine Ratio 25.4 H Glucose 116 H Lactic Acid 1.7 Calcium 9.6 Urine Color Urine Clarity Urine pH Ur Specific [place] Urine Protein Urine Glucose (UA) Urine Ketones Urine Occult Blood Urine Nitrite Urine Bilirubin Urine Urobilinogen Ur Leukocyte Esterase Urine RBC Urine WBC Ur Squamous Epith Cells Urine Bacteria Hyaline Casts Urine Mucus 12/11/21 16:00 WBC RBC Hgb Hct MCV MCH MCHC RDW Std Deviation RDW Coeff of Abdullahi Plt Count MPV Immature Gran % (Auto) Neut % (Auto) Lymph % (Auto) [place] % (Auto) Eos % (Auto) Baso % (Auto) Absolute Neuts (auto) Absolute Lymphs (auto) Nucleated RBC % Sodium Potassium Chloride Carbon Dioxide Anion Gap BUN Creatinine Estim Creat Clear Calc Est GFR (MDRD) Af Amer Est GFR (MDRD) Non-Af BUN/Creatinine Ratio Glucose Lactic Acid Calcium Urine Color Yellow Urine Clarity Clear Urine pH 6.0 Ur Specific [place] 1.015 Urine Protein 30 H Urine Glucose (UA) 250 H Urine Ketones Negative Urine Occult Blood Negative Urine Nitrite Negative Urine Bilirubin Negative Urine Urobilinogen Normal Ur Leukocyte Esterase 25 H Urine RBC 0 SEEN Urine WBC 0-5 SEEN Ur Squamous Epith Cells 0 SEEN Urine Bacteria 0 SEEN Hyaline Casts 5-10 SEEN Urine Mucus 0 SEEN Radiography Chest X-Ray - ED: 1 View, Read by ED Physician, Heart, Lungs, Mediastinum, Bony Structures, No Acute Disease and Chronic Changes Diagnostic Testing: Clinical Impression(s) from Imaging Studies Chest X-Ray 12/11/21 14:13 IMPRESSION: Hyperinflation. Decreased bilateral bronchovascular markings suggestive of emphysematous change. Electronically Signed: Jose L Tejeda MD at 15:05 EDT , Brain CT 12/11/21 14:17 IMPRESSION: Chronic involutional changes of the brain. Electronically Signed: Jose L Tejeda MD at 15:02 EDT , Chest x-ray, portable, single view interpreted by myself shows no acute abnormality. Chronic changes. Normal cardiac silhouette mediastinum. No infiltrate. Rhythm Strip Rhythm Strip: Sinus Rhythm Rate: 66 Ectopy: None EKG Initial EKG: Attestation: I personally reviewed and interpreted this EKG as follows: Interpretation: Sinus Rhythm and No Acute Injury Pattern Comments: Normal sinus rhythm. Rate of 66. No acute signs of IN or ischemia. Right bundle branch block. Discharge Plan Triage Chief Complaint: Weakness ED Provider: Jean-Pierre Leblanc Dx/Rx/DC Orders Clinical Impression: Acute hypotension, Dehydration, Acute on chronic anemia Instructions: Dehydration Prescriptions: No Action (DME) pen needle, diabetic [BD Ultra-Fine [place] Pen Needle] 32 gauge x 5/32 needle See Dose Instructions .ROUTE .MEDSUPPLY Qty: 10 Rx Instructions: use with insulin pen 1 x qd pantoprazole [Protonix] 40 mg tablet,delayed release (DR/EC) 40 mg PO BID cholecalciferol (vitamin D3) 2,000 unit capsule 2,000 unit PO DAILY Adult 50 Plus Probiotic 4 billion cell capsule 4,000 mmu cells PO DAILY Rx Instructions: administer with a meal sucralfate 1 gram tablet 4 g PO .QID memantine 5 mg tablet PO Label Comments: TAKE 1 TABLET BY MOUTH ONCE DAILY hydrochlorothiazide 25 mg tablet 25 mg PO DAILY Qty: 30 3RF losartan 50 mg tablet 50 mg PO DAILY Label Comments: TAKE 1 TABLET BY MOUTH ONCE DAILY gabapentin 400 mg capsule 400 mg PO QHS Label Comments: TAKE 1 CAPSULE BY MOUTH ONCE DAILY AT NIGHT NEEDED FOR CRAMPS ibuprofen 200 mg Tablet 400 mg PO QHS oxybutynin chloride 5 mg tablet extended release 24hr 5 mg PO DAILY cyanocobalamin (vitamin B-12) 1,000 mcg Capsule 1,000 mcg PO DAILY insulin aspart U-100 [Novolog U-100 Insulin aspart] 100 unit/mL solution 11 unit SC TIDCM Rx Instructions: Take 11 units at each meal. Sliding scale up to 60 units daily. WITH MEALS aspirin 81 mg Tablet,Delayed Release (Dr/Ec) 81 mg PO BREAKFAST Qty: 0 0RF (DME) HealthPro Test Strips Strip See Rx Instructions .ROUTE .MEDSUPPLY Qty: 100 12RF Rx Instructions: tid (DME) blood-glucose meter [FreeStyle Lite Meter] Kit See Rx Instructions .ROUTE .MEDSUPPLY Qty: 1 0RF Rx Instructions: As directed (DME) insulin syringe-needle U-100 0.5 mL 31 gauge x 5/16 syringe See Dose Instructions .ROUTE .MEDSUPPLY Qty: 100 11RF Dose Instruction: As directed Rx Instructions: use to inject insulin tid nitroglycerin [Nitrostat] 0.4 mg tablet, sublingual 0.4 mg sublingual Q5-15M PRN (Reason: chest pain) Qty: 25 3RF Rx Instructions: do not exceed 3 doses per episode (DME) FreeStyle Lite Strips Strip See Rx Instructions .ROUTE .MEDSUPPLY Qty: 150 12RF Rx Instructions: 4 times daily atorvastatin 80 mg tablet 80 mg PO QHS 30 Days Qty: 90 3RF (DME) insulin syringe-needle U-100 [BD Insulin Syringe Ultra-Fine] 0.5 mL 31 gauge x 5/16 syringe See Rx Instructions .ROUTE .MEDSUPPLY Qty: 360 3RF Rx Instructions: 4x/day Toujeo SoloStar U-300 Insulin 300 unit/mL (1.5 mL) insulin pen 28 unit SC QHS Qty: 8.4 1RF diltiazem HCl [Cardizem CD] 120 mg capsule,extended release 24hr 120 mg PO DAILY Qty: 30 6RF Primary Care Provider: Lico Cameron Referrals: Lico Cameron, [Primary Care Provider] - 1-2 Weeks Activity Restrictions/Additional Instructions: Your blood pressure is low today it seems like it was secondary to dehydration. Make sure you are drinking plenty of fluids. Your blood count was also lower than your normal. Normally run around 12 and today her hemoglobin was 9.8. You need to have your blood count rechecked in 1 to 2 weeks. Follow-up with your doctor return if you are feeling worse. Hold your next dose of hydrochlorothiazide. You can restart it the next dose after that. Disposition Disposition: Home, Self Care
--- NOTE | 2021-12-11 14:17 | CT_ITS ---
STUDY: CT BRAIN WITHOUT CONTRAST REASON FOR EXAM: Male, 86 years old. Unsteady gait. RADIATION DOSAGE (If Supplied By Facility): CTDIvol = ( 44.99 ) mGy, DLP = ( 812.98 ) mGycm TECHNIQUE: Transaxial CT imaging of the brain was performed without administration of intravenous contrast material. Individualized dose optimization techniques were used for this CT. COMPARISON: No relevant priors. FINDINGS: Normal soft tissue structures. Normal calvarium. There is moderate cerebral atrophy with widening of the extra-axial spaces and ventricular dilatation. There are areas of decreased attenuation within the white matter tracts of the supratentorial brain, consistent with microvascular disease changes. Normal basal ganglia and thalami. Normal brainstem. There is mild cerebellar atrophy. There is no intracranial hemorrhage. There are no findings of an acute ischemic infarction. Atherosclerotic plaque formation of the cavernous portions of the internal carotid arteries bilaterally. Normal visualized paranasal sinuses. CT/Brain/Head without Contrast IMPRESSION: Chronic involutional changes of the brain. Electronically Signed: Jose L Tejeda MD at 15:02 EDT ,
[2021-12-11] MEDS: 0.9% Normal Saline 1,000 ML 1000 ML IV (14:29)
[2021-12-11 14:34] LABS: Absolute Lymphocyte Count 1.26 X10^3/uL (0.83-4.51); Absolute Neutrophil Count 7.9 X10^3/uL (2.0-7.7); Basophil# 0.04 X10^3/uL; Basophil% 0.4 % (0-1); Eosinophil# 0.25 X10^3/uL; Eosinophils% 2.3 % (0-5); Hematocrit 29.4 % (40-54); Hemoglobin 9.8 g/dL (13.0-16.5); Lymphocyte # 1.26 X10^3/ul (0.83-4.51); Lymphocyte % 11.4 % (19-41); Mean Corp Hgb Conc 33.3 g/dL (32-36); Mean Corpuscular Hgb 33.9 pg (27.0-32.0); Mean Corpuscular Volume 101.7 fL (80-94); Mean Platelet Vol. 10.7 fl (6.2-12.0); Monocyte% 13.6 % (0-10); NRBC Flagged by Analyzer 0.5 % (0-5); Neutrophil # 7.92 X10^3/uL (2.7-7.7); Neutrophil % 71.5 % (47-70); Platelet Count 257 K/mm3 (150-450); RBC Distribution Width CV 13.6 % (11.6-14.6); Red Blood Count 2.89 M/mm3 (4.6-6.2); White Blood Count 11.1 K/mm3 (4.4-11.0)
[2021-12-11 14:48] LABS: Anion Gap 5 (5-15); BUN 32 mg/dL (7-18); BUN/Creat Ratio 25.4 RATIO (10-20); Calcium,Total 9.6 mg/dL (8.5-10.1); Chloride 105 mmol/L (98-107); Creatinine, Serum 1.26 mg/dL (0.70-1.30); EST Glomerular Filtration Rate 58 mL/min (>60); Est Glom Filt Rate - Afr Amer 70 mL/min (>60); Estimated Creatinine Clearance 46.19 ml/min; Glucose 116 mg/dL (74-106); Sodium Level 139 mmol/L (136-145)
[2021-12-11 15:16] LABS: Lactic Acid 1.7 mmol/L (0.4-1.9)
[2021-12-11 15:33] VITALS: BP 121/46; PULSE 58; RESP 20; O2SAT 97
[2021-12-11 16:20] LABS: Bacteria 0 SEEN /hpf (None Seen); Mucous, Urine 0 SEEN /hpf (<or=2+); Red Blood Cells-Urine 0 SEEN /hpf (0-5); Squamous Epithelial Cells - UA 0 SEEN /hpf (0-5)
[2021-12-11 16:28] LABS: Color, Urine Yellow (Yellow); Glucose, Dipstick 250 mg/dl (Normal); Ketone-Dipstick Negative (Negative); Leukocyte Esterase-Dipstick 25 /ul (Negative); Nitrite-Dipstick Negative (Negative); Occult Blood-Urine Negative /ul (Negative); Protein-Dipstick 30 mg/dl (Negative); Specific Gravity, Urine 1.015 (1.002-1.030); Urine Bilirubin Dipstick Negative (Negative); Urine Clarity Clear (Clear); Urine Urobilinogen Normal (Normal)
[2021-12-11 16:40] LABS: Hyaline Cast 5-10 SEEN /lpf (0-5); White Blood Cells 0-5 SEEN /hpf (0-5)
== END 2021-12-11 18:21 | disposition home or self-care (01) ==
PROVIDERS: Emergency Provider Emergency Medicine; PCP Family Medicine; Visit Provider Emergency Medicine
DX: I95.9 Hypotension, unspecified (principal); E10.42 Type 1 diabetes mellitus with diabetic polyneuropathy; Z79.4 Long term (current) use of insulin; E86.0 Dehydration; D64.9 Anemia, unspecified; I25.10 Atherosclerotic heart disease of native coronary artery without angina pectoris; I10 Essential (primary) hypertension; K21.9 Gastro-esophageal reflux disease without esophagitis; E55.9 Vitamin D deficiency, unspecified; M19.90 Unspecified osteoarthritis, unspecified site; Z98.61 Coronary angioplasty status; Z79.82 Long term (current) use of aspirin; Z79.899 Other long term (current) drug therapy; Z86.16 Personal history of COVID-19; Z87.891 Personal history of nicotine dependence
CPT/HCPCS: 70450; 71045; 80048; 81001; 83605; 85025; 93005; 96360; 99283; J7030; A4216

== ENCOUNTER → 2022-04-05 | Outpatient (CLI) | payer MEDICARE, SELFPAY ==
[2022-04-05 14:57] LABS: Absolute Lymphocyte Count 1.15 X10^3/uL (0.83-4.51); Absolute Neutrophil Count 5.4 X10^3/uL (2.0-7.7); Basophil# 0.08 X10^3/uL; Eosinophil# 0.21 X10^3/uL; Eosinophils% 2.7 % (0-5); Hematocrit 32.1 % (40-54); Hemoglobin 10.4 g/dL (13.0-16.5); Lymphocyte # 1.15 X10^3/ul (0.83-4.51); Lymphocyte % 14.7 % (19-41); Mean Corp Hgb Conc 32.4 g/dL (32-36); Mean Corpuscular Hgb 34.3 pg (27.0-32.0); Mean Corpuscular Volume 105.9 fL (80-94); Mean Platelet Vol. 11.3 fl (6.2-12.0); Monocyte# 0.94 X10^3/uL; NRBC Flagged by Analyzer 0.6 % (0-5); Neutrophil # 5.37 X10^3/uL (2.7-7.7); Neutrophil % 68.6 % (47-70); Platelet Count 291 K/mm3 (150-450); RBC Distribution Width SD 53.4 fl (35.1-43.9); Red Blood Count 3.03 M/mm3 (4.6-6.2); White Blood Count 7.8 K/mm3 (4.4-11.0)
[2022-04-05 15:19] LABS: Vitamin B12 > 2000 pg/mL (211-911)
[2022-04-05 15:20] LABS: Anion Gap 5 (5-15); BUN 31 mg/dL (7-18); BUN/Creat Ratio 28.2 RATIO (10-20); Calcium,Total 8.8 mg/dL (8.5-10.1); Chloride 104 mmol/L (98-107); EST Glomerular Filtration Rate 67 mL/min (>60); Est Glom Filt Rate - Afr Amer 82 mL/min (>60); Glucose 330 mg/dL (74-106); Potassium 4.3 mmol/L (3.5-5.1); Sodium Level 138 mmol/L (136-145)
[2022-04-05 15:21] LABS: Hemoglobin A1c 8.1 % (3.8-5.6)
[2022-04-05 15:49] LABS: Cholesterol 95 mg/dL (200); Ferritin 407 ng/mL (26-388); High Density Lipoprotein 64 mg/dL; Iron 133 ug/dL (65-175); Triglycerides 50 mg/dL; Very Low Density Lipoprotein 10 mg/dL (5-40)
[2022-04-05 15:55] LABS: PSA,Total - Annual Screen 2.86 ng/mL (0.00-4.00)
== END | disposition home or self-care (01) ==
LOC: BFHLAB 11:49
PROVIDERS: Nurse Practitioner Gerontology; PCP Family Medicine; Visit Provider Family Medicine
DX: D64.9 Anemia, unspecified (principal); E11.40 Type 2 diabetes mellitus with diabetic neuropathy, unspecified; I10 Essential (primary) hypertension; I25.10 Atherosclerotic heart disease of native coronary artery without angina pectoris; R42 Dizziness and giddiness; Z12.5 Encounter for screening for malignant neoplasm of prostate
CPT/HCPCS: 36415; 80048; 80061; 82607; 82728; 83036; 83540; 83735; 84153; 85025; G0103

== ENCOUNTER 2022-04-27 13:56 | Emergency (ER) | payer MEDICARE, SELFPAY ==
[2022-04-27 13:57] VITALS: BP 93/69; PULSE 78; RESP 16; TEMP 37; O2SAT 100; BMI 24.5
[2022-04-27 15:04] VITALS: BP 143/54; PULSE 67; RESP 18; O2SAT 96
[2022-04-27 15:08] VITALS: O2SAT 93
--- NOTE | 2022-04-27 15:08 | EKG12_ITS ---
Test Reason : CP Blood Pressure : / mmHG Vent. Rate : 075 BPM Atrial Rate : 075 BPM P-R Int : 192 ms QRS Dur : 132 ms QT Int : 406 ms P-R-T Axes : 059 -14 068 degrees QTc Int : 453 ms Normal sinus rhythm with sinus arrhythmia Right bundle branch block Abnormal ECG Confirmed by JYOTI GILLIS, GUADALUPE ([id number]), slot editor LORIE BECKWITH ([id number]) on 04/29/2022 11:57:27 AM Referred By: ADY Confirmed By:GUADALUPE MONTES MD
--- NOTE | 2022-04-27 15:12 | RAD_ITS ---
HISTORY: chest pain. TECHNIQUE: XR Chest 1 View. COMPARISON: 12/11/2021. FINDINGS: CARDIOMEDIASTINAL BORDERS: Cardiac silhouette within normal limits in size. Mediastinal contour unremarkable with calcification of the aortic knob. LUNGS: Radiographically clear. PLEURA: No pleural effusion or pneumothorax seen. OSSEOUS STRUCTURES: Degenerative change. RAD/Chest 1 View (Portable) IMPRESSION: No acute cardiopulmonary process identified. Electronically Signed: Adriana Mazariegos MD at 15:29 EST ,
[2022-04-27 15:19] LABS: Absolute Lymphocyte Count 1.15 X10^3/uL (0.83-4.51); Absolute Neutrophil Count 5.7 X10^3/uL (2.0-7.7); Basophil# 0.04 X10^3/uL; Basophil% 0.5 % (0-1); Eosinophil# 0.23 X10^3/uL; Eosinophils% 2.9 % (0-5); Hematocrit 31.6 % (40-54); Hemoglobin 10.4 g/dL (13.0-16.5); Lymphocyte # 1.15 X10^3/ul (0.83-4.51); Lymphocyte % 14.5 % (19-41); Mean Corp Hgb Conc 32.9 g/dL (32-36); Mean Corpuscular Hgb 34.4 pg (27.0-32.0); Mean Corpuscular Volume 104.6 fL (80-94); Monocyte# 0.75 X10^3/uL; Monocyte% 9.5 % (0-10); NRBC Flagged by Analyzer 0.4 % (0-5); Neutrophil # 5.68 X10^3/uL (2.7-7.7); Neutrophil % 71.8 % (47-70); Platelet Count 304 K/mm3 (150-450); RBC Distribution Width CV 14.3 % (11.6-14.6); RBC Distribution Width SD 54.3 fl (35.1-43.9); Red Blood Count 3.02 M/mm3 (4.6-6.2); White Blood Count 7.9 K/mm3 (4.4-11.0)
--- NOTE | 2022-04-27 15:26 | ED.VIS.CHEST ---
HPI History of Present Illness Chief Complaint: Chest Pain Informant: patient Onset/Context/Timing Onset: Today Activity at onset: sudden Timing: Continuous and Waxes and wanes Quality: Positive for Stabbing Location: Left Chest Worsened By: Nothing Relieved By: Nothing Associated Symptoms: Positive for Dyspnea and Lightheadedness; Negative for Nausea, Vomiting, Diaphoresis, Cough, Fever, Acid Reflux or Palpitations Narrative Narrative: Patient presents with chest pain that began today. Patient states it began when he woke up today. Patient states it is over the left side of his chest. Patient describes it as sharp and stabbing. Patient states nothing makes it worse. Patient states it has been waxing and waning throughout the day. Patient states he did eat 3 hotdogs with chili and onions but states this was after the pain began. Patient states the pain actually improved after eating this. Patient denies any nausea or vomiting. Patient admits to some lightheadedness. Patient states he is always short of breath but denies any worsening shortness of breath with the pain. Patient denies any cough or fevers. Patient denies any diaphoresis. 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 Long-term insulin use Macrocytic anemia Macular degeneration Prostate cancer Pulmonary nodule Right bundle branch block Shingles ulcers Unstable angina Urinary retention Vision problems Vitamin D deficiency Home Medications pen needle, diabetic 32 gauge x 5/32 (BD Ultra-Fine [place] Pen Needle) #10 ea 08/13/17 [History Last Taken Unknown] pantoprazole 40 mg tablet,delayed release (Protonix) 40 mg PO BID reflux 09/03/17 [History Last Taken 06/13/21] cholecalciferol (vitamin D3) 50 mcg (2,000 unit) capsule 2,000 unit PO DAILY vitamin 03/05/18 [History Last Taken 06/13/21] blood sugar diagnostic (HealthPro Test Strips) #100 ea 03/20/20 [Rx Last Taken Unknown] blood-glucose meter (FreeStyle Lite Meter kit) #1 ea 03/23/20 [Rx Last Taken Unknown] insulin syringe-needle U-100 0.5 mL 31 gauge x 5 #100 ea 08/15/20 [Rx Last Taken Unknown] cyanocobalamin (vitamin B-12) 1,000 mcg capsule 1,000 mcg PO DAILY SUPPLEMENT 06/13/21 [History Last Taken 06/13/21] gabapentin 400 mg capsule 400 mg PO QHS NERVE PAIN 06/13/21 [History Last Taken 06/12/21] ibuprofen 200 mg tablet 400 mg PO QHS PAIN 06/13/21 [History Last Taken 06/12/21] insulin aspart U-100 100 unit/mL subcutaneous solution (Novolog U-100 Insulin aspart) 11 unit subcut TIDCM diabetes 06/13/21 [History Last Taken 06/13/21] losartan 50 mg tablet 50 mg PO DAILY BP 06/13/21 [History Last Taken 06/13/21] aspirin 81 mg tablet,delayed release 81 mg PO BREAKFAST #0 tabs 06/15/21 [Rx Last Taken Unknown] nitroglycerin 0.4 mg sublingual tablet (Nitrostat) 0.4 mg sublingual Q5-15M PRN chest pain #25 tabs 06/20/21 [Rx Last Taken Unknown] lactobacillus combination no.9 4 billion cell capsule (Adult 50 Plus Probiotic) 4,000 mmu cells PO DAILY 06/26/21 [History Last Taken Unknown] sucralfate 1 gram tablet 4 g PO .QID 07/11/21 [History Last Taken Unknown] blood sugar diagnostic (FreeStyle Lite Strips) #150 ea 07/12/21 [Rx Last Taken Unknown] atorvastatin 80 mg tablet 80 mg PO QHS 30 days #90 tabs 07/13/21 [Rx Last Taken Unknown] insulin syringe-needle U-100 0.5 mL 31 gauge x 516 (BD Insulin Syringe Ultra-Fine) #360 ea 09/19/21 [Rx Last Taken Unknown] [place] SoloStar U-300 Insulin 300 unit/mL (1.5 mL) subcutaneous pen (insulin glargine U-300 conc) 28 unit (0.0933 mL) subcut QHS diabetes #8.4 mL 10/17/21 [Rx Last Taken Unknown] memantine 5 mg tablet ea PO 11/08/21 [History Last Taken Unknown] diltiazem HCl 120 mg capsule,extended release 24 hr (Cardizem CD) 120 mg PO DAILY #30 caps 11/23/21 [Rx Last Taken Unknown] hydrochlorothiazide 25 mg tablet 25 mg PO DAILY diuretic 04/01/22 [History Last Taken Unknown] insulin aspart U-100 100 unit/mL subcutaneous solution (Novolog U-100 Insulin aspart) See Rx Instructions subcut QAM #20 mL 04/08/22 [Rx Last Taken Unknown] meloxicam 15 mg tablet 15 mg PO DAILY 04/08/22 [History Last Taken Unknown] Allergy/AdvReac Type Severity Reaction Status Date / Time No Known Allergies Allergy Verified 04/27/22 13:56 Family History Mother Cancer Father Diabetes Other Heart disease Hypertension Surgical History History of cholecystectomy History of coronary angioplasty (06/14/21) History of pancreatic surgery History of prostate surgery Social History Smoking Status: Former smoker quit date: 06/02/01 pack-years: 48 Tobacco: How many years used: 48 alcohol intake: current alcohol intake frequency: 0-2 drinks per day substance use type: does not use ROS ROS ED Constitutional Constitutional ED: Denies chills or fever(s) Eyes Eyes: Denies blurry vision or change in vision ENT ENT ED: Denies rhinorrhea or sore throat Cardiovascular Cardiovascular: Reports chest pain; Denies palpitations Respiratory/Chest Respiratory/Chest: Reports dyspnea; Denies cough Gastrointestinal Gastrointestinal: Denies abdominal pain, nausea or vomiting Genitourinary Genitourinary ED: Denies dysuria or hematuria Musculoskeletal Musculoskeletal: Denies back pain or neck pain Integumentary Denies abscess or rash Neurologic Neurologic: Denies headache(s) or weakness Allergic/Immunologic Allergic/Immunologic ED: Denies mouth swelling or urticaria EXAM Physical Exam Const Vital Signs: 04/27/22 13:57 04/27/22 14:00 04/27/22 15:04 Temperature 98.6 F Temperature Source Temporal Pulse Rate 78 67 Respiratory Rate 16 18 Respiratory Effort Normal Non-Labored Respiratory Pattern Normal Blood Pressure 93/69 143/54 H Blood Pressure Mean 77 83 Pulse Ox 100 96 Oxygen Delivery Method Room Air Room Air 04/27/22 15:08 04/27/22 16:22 04/27/22 17:13 Temperature Temperature Source Pulse Rate 58 L 61 Respiratory Rate 16 20 H Respiratory Effort Respiratory Pattern Blood Pressure 150/67 H 156/80 H Blood Pressure Mean 94 105 Pulse Ox 93 98 95 Oxygen Delivery Method Room Air Room Air Room Air 04/27/22 18:04 Temperature Temperature Source Pulse Rate 58 L Respiratory Rate 20 H Respiratory Effort Respiratory Pattern Blood Pressure 175/72 H Blood Pressure Mean 106 Pulse Ox 96 Oxygen Delivery Method Room Air Positive well nourished and well developed General Appearance ED: well developed and NAD HEENT normocephalic and atraumatic Eyes PERRL and EOMs intact bilaterally Neck supple and no JVD Chest Wall palpation of chest normal Resp normal respiratory effort and clear to auscultation bilaterally Effort and Inspection: Negative for respiratory distress Cardio regular rate, regular rhythm and no murmurs GI normal to inspection, nondistended, normoactive bowel sounds, soft to palpation, non-tender and non-distended Extremity normal to inspection General Extremety ED: Negative for tenderness Neuro oriented x3, CN's II-XII intact bilaterally and no sensory deficits noted Sensorium / Orientation: awake and alert Motor Exam: strength 5/5 throughout Psych mental status grossly normal Heart Score History: Slightly/Non-Suspicious ECG: Normal Age: >/= 65 years Risk Factors: 1 or 2 Risk Factors Troponin: </= Normal Limit Score: 3 MDM MDM MDM Narrative Medical decision making narrative: EKG was obtained. On my interpretation, it showed a normal sinus rhythm with a rate of 75. VT interval and QTc intervals were normal. QRS interval was slightly prolonged at 132 ms. There is a right bundle branch block pattern noted. [place] was normal. There are no acute ST or T wave changes. Portable 1 view chest x-ray was obtained. On my interpretation, lung rosa are clear. There is normal cardiac silhouette. Bony thorax is normal. There is no acute process noted. Radiologist also interpreted the x-ray and agrees. CBC shows a mild anemia with a hemoglobin of 10.4 hematocrit 31.6. Basic metabolic profile was within normal limits. High-sensitivity troponin was normal. 2-hour repeat high-sensitivity troponin was normal. Patient has a HEART score of 3. Patient was advised that this is low risk for acute cardiac event. Patient was instructed to follow-up with his primary care physician in 5 to 7 days. Patient was instructed return if worse in any way. Patient understood and was agreeable with the plan. All questions were answered. Lab Data Attestation: I reviewed the patient's lab results. Labs: Laboratory Results - last 24 hr 04/27/22 04/27/22 04/27/22 14:15 14:15 16:16 WBC 7.9 RBC 3.02 L Hgb 10.4 L Hct 31.6 L MCV 104.6 H MCH 34.4 H MCHC 32.9 RDW Std Deviation 54.3 H RDW Coeff of [place] 14.3 Plt Count 304 MPV 11.0 Immature Gran % (Auto) 0.800 Neut % (Auto) 71.8 H Lymph % (Auto) 14.5 L [place] % (Auto) 9.5 Eos % (Auto) 2.9 Baso % (Auto) 0.5 Absolute Neuts (auto) 5.7 Absolute Lymphs (auto) 1.15 Nucleated RBC % 0.4 Sodium 140 Potassium 3.8 Chloride 107 Carbon Dioxide 26.0 Anion Gap 7 BUN 26 H Creatinine 1.03 Estim Creat Clear Calc 56.50 Est GFR (MDRD) Af Amer 88 Est GFR (MDRD) Non-Af 73 BUN/Creatinine Ratio 25.2 H Glucose 189 H Calcium 8.6 Troponin I High Sens 11 13 Radiography Chest X-Ray - ED: 1 View, Read by ED Physician, Read by Radiologist and No Acute Disease Diagnostic Testing: Clinical Impression(s) from Imaging Studies Chest X-Ray 04/27/22 15:12 IMPRESSION: No acute cardiopulmonary process identified. Electronically Signed: Adriana Mazariegos MD at 15:29 EST , EKG Initial EKG: Interpretation: Sinus Rhythm (75), No Acute Injury Pattern and RBBB Prior EKG tracings: available for review Prior: Unchanged (12/11/2021) Discharge Plan Triage Chief Complaint: Chest Pain ED Provider: Warner Milan Dx/Rx/DC Orders Clinical Impression: Chest pain of uncertain etiology, Diabetes, Right bundle branch block Instructions: ED Chest Pain, Uncertain Cause Prescriptions: No Action (DME) pen needle, diabetic [BD Ultra-Fine [place] Pen Needle] 32 gauge x 5 needle See Dose Instructions .ROUTE .MEDSUPPLY Qty: 10 Rx Instructions: use with insulin pen 1 x qd pantoprazole [Protonix] 40 mg tablet,delayed release (DR/EC) 40 mg PO BID cholecalciferol (vitamin D3) 2,000 unit capsule 2,000 unit PO DAILY Adult 50 Plus Probiotic 4 billion cell capsule 4,000 mmu cells PO DAILY Rx Instructions: administer with a meal sucralfate 1 gram tablet 4 g PO .QID memantine 5 mg tablet PO Label Comments: TAKE 1 TABLET BY MOUTH ONCE DAILY hydrochlorothiazide 25 mg tablet 25 mg PO DAILY losartan 50 mg tablet 50 mg PO DAILY Label Comments: TAKE 1 TABLET BY MOUTH ONCE DAILY gabapentin 400 mg capsule 400 mg PO QHS Label Comments: TAKE 1 CAPSULE BY MOUTH ONCE DAILY AT NIGHT NEEDED FOR CRAMPS ibuprofen 200 mg Tablet 400 mg PO QHS cyanocobalamin (vitamin B-12) 1,000 mcg Capsule 1,000 mcg PO DAILY insulin aspart U-100 [Novolog U-100 Insulin aspart] 100 unit/mL solution 11 unit SC TIDCM Rx Instructions: Take 11 units at each meal. Sliding scale up to 60 units daily. WITH MEALS aspirin 81 mg Tablet,Delayed Release (Dr/Ec) 81 mg PO BREAKFAST Qty: 0 0RF (DME) HealthPro Test Strips Strip See Rx Instructions .ROUTE .MEDSUPPLY Qty: 100 12RF Rx Instructions: tid (DME) blood-glucose meter [FreeStyle Lite Meter] Kit See Rx Instructions .ROUTE .MEDSUPPLY Qty: 1 0RF Rx Instructions: As directed (DME) insulin syringe-needle U-100 0.5 mL 31 gauge x 516 syringe See Dose Instructions .ROUTE .MEDSUPPLY Qty: 100 11RF Dose Instruction: As directed Rx Instructions: use to inject insulin tid nitroglycerin [Nitrostat] 0.4 mg tablet, sublingual 0.4 mg sublingual Q5-15M PRN (Reason: chest pain) Qty: 25 3RF Rx Instructions: do not exceed 3 doses per episode (DME) FreeStyle Lite Strips Strip See Rx Instructions .ROUTE .MEDSUPPLY Qty: 150 12RF Rx Instructions: 4 times daily atorvastatin 80 mg tablet 80 mg PO QHS 30 Days Qty: 90 3RF (DME) insulin syringe-needle U-100 [BD Insulin Syringe Ultra-Fine] 0.5 mL 31 gauge x 5/16 syringe See Rx Instructions .ROUTE .MEDSUPPLY Qty: 360 3RF Rx Instructions: 4x/day [place] SoloStar U-300 Insulin 300 unit/mL (1.5 mL) insulin pen 28 unit SC QHS Qty: 8.4 1RF diltiazem HCl [Cardizem CD] 120 mg capsule,extended release 24hr 120 mg PO DAILY Qty: 30 6RF insulin aspart U-100 [Novolog U-100 Insulin aspart] 100 unit/mL solution See Rx Instructions SC QAM Qty: 20 11RF Dose Instruction: SC QAM; Rx Instructions: Take 11 units at each meal. Sliding scale up to 60 units daily. subcut every morning; meloxicam 15 mg tablet 15 mg PO DAILY Primary Care Provider: Lico Cameron Referrals: Lico Cameron DO [Primary Care Provider] - 3-5 Days Disposition Disposition: Home, Self Care
[2022-04-27 15:37] LABS: Anion Gap 7 (5-15); BUN 26 mg/dL (7-18); BUN/Creat Ratio 25.2 RATIO (10-20); Calcium,Total 8.6 mg/dL (8.5-10.1); Chloride 107 mmol/L (98-107); Creatinine, Serum 1.03 mg/dL (0.70-1.30); EST Glomerular Filtration Rate 73 mL/min (>60); Est Glom Filt Rate - Afr Amer 88 mL/min (>60); Glucose 189 mg/dL (74-106); Potassium 3.8 mmol/L (3.5-5.1); Sodium Level 140 mmol/L (136-145); Troponin-I HS 11 pg/mL (3.0-78.0)
[2022-04-27 16:22] VITALS: BP 150/67; PULSE 58; RESP 16; O2SAT 98
[2022-04-27 16:55] LABS: Troponin-I HS 13 pg/mL (3.0-78.0)
[2022-04-27 17:13] VITALS: BP 156/80; PULSE 61; RESP 20; O2SAT 95
[2022-04-27 18:04] VITALS: BP 175/72; PULSE 58; RESP 20; O2SAT 96
== END 2022-04-27 18:33 | disposition home or self-care (01) ==
PROVIDERS: Emergency Provider Emergency Medicine; PCP Family Medicine; Visit Provider Emergency Medicine
DX: R07.9 Chest pain, unspecified (principal); E10.42 Type 1 diabetes mellitus with diabetic polyneuropathy; I25.10 Atherosclerotic heart disease of native coronary artery without angina pectoris; I45.10 Unspecified right bundle-branch block; I10 Essential (primary) hypertension; Z87.891 Personal history of nicotine dependence; R06.00 Dyspnea, unspecified
CPT/HCPCS: 71045; 80048; 84484; 85025; 93005; 99284; A4216

== ENCOUNTER 2022-05-06 00:57 | Emergency (ER) | payer MEDICARE, SELFPAY ==
[2022-05-06 00:59] VITALS: BP 176/50; PULSE 57; RESP 16; TEMP 36.4; O2SAT 98; BMI 24.7
[2022-05-06] MEDS: Dextrose 50%-Water 25 GM/50 ML DISP.SYRIN IV (01:13)
--- NOTE | 2022-05-06 01:18 | EDS_ITS ---
HPI History of Present Illness Chief Complaint: Hypoglycemia Detail of Chief Complaint: Low blood sugar most of the day on Friday Informant: patient and spouse/S.O. Onset/Context/Timing Onset: Yesterday Context: Gradual Onset Timing: Intermittent Current Severity: Mild Maximum Severity: Mild Narrative Narrative: 86-year-old male 40-year history of diabetes. He uses sliding scale insulin. He also has macular degeneration and coronary artery disease. States on Friday morning he had low blood sugar ate a large breakfast and his sugar went from 58- 1 71. He took 15 units of insulin. At 950 4 in the morning his blood sugar was 54. And it was 56 at 11 AM. He took 16 units of insulin was 227 and it was 59 at 9 PM. He denies any recent illness. He denies any recent hospitalization. 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 Long-term insulin use Macrocytic anemia Macular degeneration Prostate cancer Pulmonary nodule Right bundle branch block Shingles ulcers Unstable angina Urinary retention Vision problems Vitamin D deficiency Home Medications pen needle, diabetic 32 gauge x 5/32 (BD Ultra-Fine [place] Pen Needle) #10 ea 08/13/17 [History Last Taken Unknown] pantoprazole 40 mg tablet,delayed release (Protonix) 40 mg PO BID reflux 09/03/17 [History Last Taken 06/13/21] cholecalciferol (vitamin D3) 50 mcg (2,000 unit) capsule 2,000 unit PO DAILY vitamin 03/05/18 [History Last Taken 06/13/21] blood sugar diagnostic (HealthPro Test Strips) #100 ea 03/20/20 [Rx Last Taken Unknown] blood-glucose meter (FreeStyle Lite Meter kit) #1 ea 03/23/20 [Rx Last Taken Unknown] insulin syringe-needle U-100 0.5 mL 31 gauge x 10/15 #100 ea 08/15/20 [Rx Last Taken Unknown] cyanocobalamin (vitamin B-12) 1,000 mcg capsule 1,000 mcg PO DAILY SUPPLEMENT 06/13/21 [History Last Taken 06/13/21] gabapentin 400 mg capsule 400 mg PO QHS NERVE PAIN 06/13/21 [History Last Taken 06/12/21] ibuprofen 200 mg tablet 400 mg PO QHS PAIN 06/13/21 [History Last Taken 06/12/21] insulin aspart U-100 100 unit/mL subcutaneous solution (Novolog U-100 Insulin aspart) 11 unit subcut TIDCM diabetes 06/13/21 [History Last Taken 06/13/21] losartan 50 mg tablet 50 mg PO DAILY BP 06/13/21 [History Last Taken 06/13/21] aspirin 81 mg tablet,delayed release 81 mg PO BREAKFAST #0 tabs 06/15/21 [Rx Last Taken Unknown] nitroglycerin 0.4 mg sublingual tablet (Nitrostat) 0.4 mg sublingual Q5-15M PRN chest pain #25 tabs 06/20/21 [Rx Last Taken Unknown] lactobacillus combination no.9 4 billion cell capsule (Adult 50 Plus Probiotic) 4,000 mmu cells PO DAILY 06/26/21 [History Last Taken Unknown] sucralfate 1 gram tablet 4 g PO .QID 07/11/21 [History Last Taken Unknown] blood sugar diagnostic (FreeStyle Lite Strips) #150 ea 07/12/21 [Rx Last Taken Unknown] atorvastatin 80 mg tablet 80 mg PO QHS 30 days #90 tabs 07/13/21 [Rx Last Taken Unknown] insulin syringe-needle U-100 0.5 mL 31 gauge x 5/16 (BD Insulin Syringe Ultra- Fine) #360 ea 09/19/21 [Rx Last Taken Unknown] [place] SoloStar U-300 Insulin 300 unit/mL (1.5 mL) subcutaneous pen (insulin glargine U-300 conc) 28 unit (0.0933 mL) subcut QHS diabetes #8.4 mL 10/17/21 [Rx Last Taken Unknown] memantine 5 mg tablet ea PO 11/08/21 [History Last Taken Unknown] diltiazem HCl 120 mg capsule,extended release 24 hr (Cardizem CD) 120 mg PO DAILY #30 caps 11/23/21 [Rx Last Taken Unknown] hydrochlorothiazide 25 mg tablet 25 mg PO DAILY diuretic 04/01/22 [History Last Taken Unknown] insulin aspart U-100 100 unit/mL subcutaneous solution (Novolog U-100 Insulin aspart) See Rx Instructions subcut QAM #20 mL 04/08/22 [Rx Last Taken Unknown] meloxicam 15 mg tablet 15 mg PO DAILY 04/08/22 [History Last Taken Unknown] Allergy/AdvReac Type Severity Reaction Status Date / Time No Known Allergies Allergy Verified 04/27/22 13:56 Family History Mother Cancer Father Diabetes Other Heart disease Hypertension Surgical History History of cholecystectomy History of coronary angioplasty (06/14/21) History of pancreatic surgery History of prostate surgery Social History Smoking Status: Former smoker quit date: 06/02/01 pack-years: 48 Tobacco: How many years used: 48 alcohol intake: current alcohol intake frequency: 0-2 drinks per day substance use type: does not use ROS ROS ED ROS Narrative Denies recent illness. Review of Systems ROS Unobtainable: Denies due to encephalopathy Constitutional Constitutional ED: Denies chills or fever(s) Eyes Eyes: Denies blurry vision ENT ENT ED: Denies ear pain Cardiovascular Cardiovascular: Denies chest pain or palpitations Respiratory/Chest Respiratory/Chest: Denies cough or dyspnea Gastrointestinal Gastrointestinal: Denies abdominal pain Genitourinary Genitourinary ED: Denies dysuria or hematuria Musculoskeletal Musculoskeletal: Denies arthralgias Integumentary Denies abscess Neurologic Neurologic: Denies headache(s) Psychiatric Psychiatric: Denies anxiety Endocrine Endocrinology: Denies cold intolerance Hematologic/Lymphatic Hematologic/Lymphatic: Reports none Allergic/Immunologic Allergic/Immunologic ED: Denies mouth swelling or tongue swelling EXAM Physical Exam Narrative Exam Narrative: 86-year-old male. Vital signs stable afebrile. H EENT exam unremarkable a traumatic. Moist [employer] members. Lungs clear to auscultation. Heart regular rhythm rate about 60 no murmur. Chest were nontender. Abdomen soft nontender. Moving all 4 extremities. Awake and alert. No focal motor deficits. He is awake and alert. Answering questions and following commands. Const Vital Signs: 05/06/22 00:59 05/06/22 01:14 Temperature 97.6 F L Temperature Source Temporal Pulse Rate 57 L Respiratory Rate 16 Respiratory Effort Normal Non-Labored Respiratory Pattern Normal Blood Pressure 176/50 H Blood Pressure Mean 92 Pulse Ox 98 Oxygen Delivery Method Room Air Positive well nourished and well developed; Negative for obese, cachectic, contractures or unkempt General Appearance ED: well developed and NAD; Negative for unkempt, cachectic, contractures, cyanotic, diaphoretic or pallor Nutritional Appearance: Negative for cachectic or obese HEENT Reports moist mucous membranes; Denies dry mucous membranes Negative for trauma or tenderness Mouth ED: No dry mucous membranes Mouth: No dry mucous membranes Eyes PERRL and EOMs intact bilaterally General Eye ED: Negative for pale conjunctiva or scleral icterus Neck no lymphadenopathy, supple and no JVD General: Negative for tenderness Chest Wall inspection of chest normal Chest: Negative for other Resp normal respiratory effort and clear to auscultation bilaterally Effort and Inspection: Negative for retractions Auscultation: Negative for rales, rhonchi or wheezes Cardio regular rate, regular rhythm, S1 normal heart sound, S2 normal heart sound and no murmurs Palpation: Negative for palpable S3 Rate: Negative for bradycardia Rhythm: Negative for abnormal rhythm GI normal to inspection, nondistended, normoactive bowel sounds, non-tender, non- distended and no masses Inspection: Negative for abdominal distention Auscultation: normoactive bowel sounds Palpation: soft; Negative for tender or guarding Bladder / Kidney Exam: No other Back/Spine Negative for no CVA tenderness Extremity Negative for normal to inspection Extremity Narrative: Bilateral ankle edema chronic. Nontender. General Extremety ED: Yes edema; Negative for tenderness or other findings General Extremity: edema; Negative for other findings Neuro oriented x3 Sensorium / Orientation: alert; Negative for orientation impaired, lethargic or stuporous Motor Exam: strength 5/5 throughout; Negative for general weakness Psych mental status grossly normal Appearance: Negative for unkempt Attitude: No agitated Mood & Affect: Negative for depressed, anxious or tearful Skin no rashes or lesions noted and no wounds General Skin Exam: Negative for jaundice or pallor Lesions: No lesion noted Rashes: No rashes noted Trauma: Negative for abrasion Wounds: Negative for wounds noted MDM MDM MDM Narrative Medical decision making narrative: 86-year-old diabetic male with hypoglycemia. Exam benign. He will be given an amp of D50. Something to eat. Check screening labs. Recheck his blood sugar. Repeat exam at 2:26 AM patient doing well. at bedside. We discussed his test results. He will be given a snack. Have his blood sugar rechecked and was doing well be discharged to home. His current exam is normal and unchanged. He is awake and alert. Patient doing well at 3:40 AM. Blood sugars currently 130. He is comfortable being discharged to home. Sees his system administration manager Dr. Maico Boss later today. Lab Data Attestation: I reviewed the patient's lab results. Lab results narrative: CBC shows a white count 7.3. H&H of 10.1 and 31.6. This is his baseline anemia compared to prior labs. Platelets 305. Electrolytes show a gap of 3 BUN 19 creatinine 0.9. Liver enzymes are normal. Glucose is 60. He was given an amp of D50. Labs: Laboratory Results - last 24 hr 05/06/22 05/06/22 05/06/22 01:02 01:20 01:20 WBC 7.3 RBC 3.04 L Hgb 10.1 L Hct 31.6 L MCV 103.9 H MCH 33.2 H MCHC 32.0 RDW Std Deviation 52.4 H RDW Coeff of Abdullahi 14.0 Plt Count 305 MPV 10.5 Immature Gran % (Auto) 1.100 H Neut % (Auto) 65.0 Lymph % (Auto) 14.7 L Gage % (Auto) 13.5 H Eos % (Auto) 4.7 Baso % (Auto) 1.0 Absolute Neuts (auto) 4.7 Absolute Lymphs (auto) 1.07 Nucleated RBC % 0 Sodium 142 Potassium 3.6 Chloride 109 H Carbon Dioxide 30.0 Anion Gap 3 L BUN 19 H Creatinine 0.94 Estim Creat Clear Calc 61.91 Est GFR (MDRD) Af Amer 98 Est GFR (MDRD) Non-Af 81 BUN/Creatinine Ratio 20.3 H Glucose 60 L Calcium 8.7 Total Bilirubin 0.40 AST 24 ALT 30 Alkaline Phosphatase 68 Total Protein 6.8 Albumin 3.7 Globulin 3.1 Albumin/Globulin Ratio 1.2 POC Glucose 58 L 05/06/22 01:40 WBC RBC Hgb Hct MCV MCH MCHC RDW Std Deviation RDW Coeff of Abdullahi Plt Count MPV Immature Gran % (Auto) Neut % (Auto) Lymph % (Auto) Gage % (Auto) Eos % (Auto) Baso % (Auto) Absolute Neuts (auto) Absolute Lymphs (auto) Nucleated RBC % Sodium Potassium Chloride Carbon Dioxide Anion Gap BUN Creatinine Estim Creat Clear Calc Est GFR (MDRD) Af Amer Est GFR (MDRD) Non-Af BUN/Creatinine Ratio Glucose Calcium Total Bilirubin AST ALT Alkaline Phosphatase Total Protein Albumin Globulin Albumin/Globulin Ratio POC Glucose 171 H Discharge Plan Triage Chief Complaint: Hypoglycemia ED Provider: Jean-Pierre Leblanc Dx/Rx/DC Orders Clinical Impression: Diabetic hypoglycemia, History of diabetes mellitus, History of macular degeneration Instructions: Hypoglycemia (Low Blood Sugar) Prescriptions: No Action (DME) pen needle, diabetic [BD Ultra-Fine [place] Pen Needle] 32 gauge x 5/32 needle See Dose Instructions .ROUTE .MEDSUPPLY Qty: 10 Rx Instructions: use with insulin pen 1 x qd pantoprazole [Protonix] 40 mg tablet,delayed release (DR/EC) 40 mg PO BID cholecalciferol (vitamin D3) 2,000 unit capsule 2,000 unit PO DAILY Adult 50 Plus Probiotic 4 billion cell capsule 4,000 mmu cells PO DAILY Rx Instructions: administer with a meal sucralfate 1 gram tablet 4 g PO .QID memantine 5 mg tablet PO Label Comments: TAKE 1 TABLET BY MOUTH ONCE DAILY hydrochlorothiazide 25 mg tablet 25 mg PO DAILY losartan 50 mg tablet 50 mg PO DAILY Label Comments: TAKE 1 TABLET BY MOUTH ONCE DAILY gabapentin 400 mg capsule 400 mg PO QHS Label Comments: TAKE 1 CAPSULE BY MOUTH ONCE DAILY AT NIGHT NEEDED FOR CRAMPS ibuprofen 200 mg Tablet 400 mg PO QHS cyanocobalamin (vitamin B-12) 1,000 mcg Capsule 1,000 mcg PO DAILY insulin aspart U-100 [Novolog U-100 Insulin aspart] 100 unit/mL solution 11 unit SC TIDCM Rx Instructions: Take 11 units at each meal. Sliding scale up to 60 units daily. WITH MEALS aspirin 81 mg Tablet,Delayed Release (Dr/Ec) 81 mg PO BREAKFAST Qty: 0 0RF (DME) HealthPro Test Strips Strip See Rx Instructions .ROUTE .MEDSUPPLY Qty: 100 12RF Rx Instructions: tid (DME) blood-glucose meter [FreeStyle Lite Meter] Kit See Rx Instructions .ROUTE .MEDSUPPLY Qty: 1 0RF Rx Instructions: As directed (DME) insulin syringe-needle U-100 0.5 mL 31 gauge x 5/16 syringe See Dose Instructions .ROUTE .MEDSUPPLY Qty: 100 11RF Dose Instruction: As directed Rx Instructions: use to inject insulin tid nitroglycerin [Nitrostat] 0.4 mg tablet, sublingual 0.4 mg sublingual Q5-15M PRN (Reason: chest pain) Qty: 25 3RF Rx Instructions: do not exceed 3 doses per episode (DME) FreeStyle Lite Strips Strip See Rx Instructions .ROUTE .MEDSUPPLY Qty: 150 12RF Rx Instructions: 4 times daily atorvastatin 80 mg tablet 80 mg PO QHS 30 Days Qty: 90 3RF (DME) insulin syringe-needle U-100 [BD Insulin Syringe Ultra-Fine] 0.5 mL 31 gauge x 5/16 syringe See Rx Instructions .ROUTE .MEDSUPPLY Qty: 360 3RF Rx Instructions: 4x/day [place] SoloStar U-300 Insulin 300 unit/mL (1.5 mL) insulin pen 28 unit SC QHS Qty: 8.4 1RF diltiazem HCl [Cardizem CD] 120 mg capsule,extended release 24hr 120 mg PO DAILY Qty: 30 6RF insulin aspart U-100 [Novolog U-100 Insulin aspart] 100 unit/mL solution See Rx Instructions SC QAM Qty: 20 11RF Dose Instruction: SC QAM; Rx Instructions: Take 11 units at each meal. Sliding scale up to 60 units daily. subcut every morning; meloxicam 15 mg tablet 15 mg PO DAILY Primary Care Provider: Lico Cameron Referrals: Lico Cameron DO [Primary Care Provider] - 3-5 Days Activity Restrictions/Additional Instructions: Watch her blood sugars very closely at home over the next several days. Make sure to check it before you go to sleep at night. It is okay if it runs a little higher than normal. Low blood sugar could actually be more dangerous than high blood sugar which is more of a long-term problem. Follow-up with your doctor if your blood sugars are not improving. Make sure you are taking the right dose of insulin. Disposition Disposition: Home, Self Care
[2022-05-06 01:30] LABS: Absolute Lymphocyte Count 1.07 X10^3/uL (0.83-4.51); Absolute Neutrophil Count 4.7 X10^3/uL (2.0-7.7); Basophil# 0.07 X10^3/uL; Eosinophil# 0.34 X10^3/uL; Eosinophils% 4.7 % (0-5); Hematocrit 31.6 % (40-54); Hemoglobin 10.1 g/dL (13.0-16.5); Lymphocyte # 1.07 X10^3/ul (0.83-4.51); Lymphocyte % 14.7 % (19-41); Mean Corpuscular Hgb 33.2 pg (27.0-32.0); Mean Corpuscular Volume 103.9 fL (80-94); Mean Platelet Vol. 10.5 fl (6.2-12.0); Monocyte# 0.98 X10^3/uL; Monocyte% 13.5 % (0-10); NRBC Flagged by Analyzer 0 % (0-5); Neutrophil # 4.73 X10^3/uL (2.7-7.7); Platelet Count 305 K/mm3 (150-450); RBC Distribution Width SD 52.4 fl (35.1-43.9); Red Blood Count 3.04 M/mm3 (4.6-6.2); White Blood Count 7.3 K/mm3 (4.4-11.0)
[2022-05-06 01:35] LABS: Bedside Glucose 58 mg/dL (74-106)
[2022-05-06 01:41] LABS: ALB/GLOB Ratio 1.2 RATIO (0.9-2.4); AST(SGOT) 24 U/L (15-37); Alanine Aminotransfer ALT/SGPT 30 U/L (16-61); Albumin, Serum 3.7 g/dL (3.2-5.0); Alkaline Phosphatase 68 U/L (45-117); Anion Gap 3 (5-15); BUN 19 mg/dL (7-18); BUN/Creat Ratio 20.3 RATIO (10-20); Calcium,Total 8.7 mg/dL (8.5-10.1); Chloride 109 mmol/L (98-107); Creatinine, Serum 0.94 mg/dL (0.70-1.30); EST Glomerular Filtration Rate 81 mL/min (>60); Est Glom Filt Rate - Afr Amer 98 mL/min (>60); Estimated Creatinine Clearance 61.91 ml/min; Globulin 3.1 g/dL (2.2-4.2); Glucose 60 mg/dL (74-106); Potassium 3.6 mmol/L (3.5-5.1); Protein, Total 6.8 g/dL (6.4-8.2); Sodium Level 142 mmol/L (136-145)
[2022-05-06 02:01] LABS: Bedside Glucose 171 mg/dL (74-106)
[2022-05-06 03:56] LABS: Bedside Glucose 133 mg/dL (74-106)
== END 2022-05-06 04:02 | disposition home or self-care (01) ==
PROVIDERS: Emergency Provider Emergency Medicine; PCP Family Medicine; Visit Provider Emergency Medicine
DX: E10.649 Type 1 diabetes mellitus with hypoglycemia without coma (principal); Z79.4 Long term (current) use of insulin; H35.30 Unspecified macular degeneration; I25.10 Atherosclerotic heart disease of native coronary artery without angina pectoris; Z86.16 Personal history of COVID-19; Z87.891 Personal history of nicotine dependence
CPT/HCPCS: 80053; 82962; 85025; 96374; 99285; A4216

== ENCOUNTER → 2022-11-01 | Outpatient (CLI) | payer MEDICARE, SELFPAY ==
[2022-11-01 17:45] LABS: Absolute Lymphocyte Count 1.18 X10^3/uL (0.83-4.51); Absolute Neutrophil Count 4.5 X10^3/uL (2.0-7.7); Basophil# 0.06 X10^3/uL; Basophil% 0.8 % (0-1); Eosinophil# 0.42 X10^3/uL; Eosinophils% 5.8 % (0-5); Hemoglobin 9.8 g/dL (13.0-16.5); Lymphocyte # 1.18 X10^3/ul (0.83-4.51); Lymphocyte % 16.4 % (19-41); Mean Corp Hgb Conc 32.7 g/dL (32-36); Mean Corpuscular Hgb 34.5 pg (27.0-32.0); Mean Corpuscular Volume 105.6 fL (80-94); Mean Platelet Vol. 11.3 fl (6.2-12.0); Monocyte# 0.99 X10^3/uL; Monocyte% 13.8 % (0-10); NRBC Flagged by Analyzer 0.6 % (0-5); Neutrophil # 4.51 X10^3/uL (2.7-7.7); Neutrophil % 62.8 % (47-70); Platelet Count 272 K/mm3 (150-450); RBC Distribution Width CV 15.1 % (11.6-14.6); RBC Distribution Width SD 57.8 fl (35.1-43.9); Red Blood Count 2.84 M/mm3 (4.6-6.2); White Blood Count 7.2 K/mm3 (4.4-11.0)
[2022-11-01 18:02] LABS: ALB/GLOB Ratio 1.1 RATIO (0.9-2.4); AST(SGOT) 21 U/L (15-37); Alanine Aminotransfer ALT/SGPT 24 U/L (16-61); Albumin, Serum 3.4 g/dL (3.2-5.0); Alkaline Phosphatase 60 U/L (45-117); Anion Gap 4 (5-15); BUN 25 mg/dL (7-18); BUN/Creat Ratio 24.5 RATIO (10-20); Chloride 108 mmol/L (98-107); Creatinine, Serum 1.02 mg/dL (0.70-1.30); EST Glomerular Filtration Rate 73 mL/min (>60); Est Glom Filt Rate - Afr Amer 89 mL/min (>60); Glucose 134 mg/dL (74-106); LDH 262 U/L (87-241); Lipase 17 U/L (13-75); Potassium 4.7 mmol/L (3.5-5.1); Protein, Total 6.4 g/dL (6.4-8.2); Sodium Level 141 mmol/L (136-145)
[2022-11-03 10:56] LABS: Carbohydrate AG 19-9 31 U/mL (0-35)
== END | disposition home or self-care (01) ==
LOC: BFHLAB 11-06 13:00
PROVIDERS: PCP Family Medicine; Visit Provider Family Medicine
DX: R10.9 Unspecified abdominal pain (principal); C61 Malignant neoplasm of prostate; R63.4 Abnormal weight loss; K86.2 Cyst of pancreas; D64.9 Anemia, unspecified; E29.1 Testicular hypofunction
CPT/HCPCS: 80053; 83615; 83690; 84153; 84403; 85025; 86301

== ENCOUNTER → 2022-11-22 | Outpatient (CLI) | payer MEDICARE, SELFPAY ==
--- NOTE | 2022-11-22 08:10 | US_ITS ---
STUDY: ABDOMINAL ULTRASOUND REASON FOR EXAM: Male, 87 years old. ABD PAIN TECHNIQUE: Transabdominal ultrasound was performed with real-time and static sorensen scale imaging. TECHNICAL QUALITY: Adequate. COMPARISON: None. FINDINGS: Liver: The liver measures 18.5 cm. There is diffusely increased echogenicity of the liver. The bile ducts are within normal limits. There is hepatic color flow. The direction of portal flow is hepatopetal. There is no demonstrated mass lesion. Portal vein measurement: Gallbladder: Nonvisualized status post cholecystectomy Common Bile Duct (C.B.D.): The common bile duct measures mm. Pancreas: Normal size of the head, body and tail of the pancreas. There is normal echogenicity of the pancreas. There is no demonstrated pancreatic mass or cyst. Spleen: Normal size of the spleen. The spleen measures 10.3 x 3.3 x 3.3 cm. Right Kidney: Normal size of the right kidney. The right kidney measures 12.9 x 4.7 x 5.6 cm. Normal renal cortex. The right cortex measures 1.9 cm. There is no demonstrated renal mass or cyst. There is no right hydronephrosis. Left Kidney: Normal size of the left kidney. The left kidney measures 11.8 x 5.3 x 6 cm. Normal renal cortex. The left cortex measures 2.1 cm. Tiny cyst measuring 9 x 7 x 7 mm. There is no left hydronephrosis. Aorta: Limited visualization without definitive evidence for aneurysm I.V.C.: The IVC is patent. There is no ascites. US/Abdomen Complete IMPRESSION: Enlarged nonspecific fatty infiltrated liver. Status post cholecystectomy. No significant abnormality however CT recommended for more definitive evaluation if clinically warranted Electronically Signed: Andreas Iverson MD at 19:35 EDT ,
== END | disposition home or self-care (01) ==
LOC: US 08:09
PROVIDERS: PCP Family Medicine; Referring Provider Family Medicine; Visit Provider Family Medicine
DX: R10.9 Unspecified abdominal pain (principal); R63.0 Anorexia; R11.0 Nausea
CPT/HCPCS: 76700

== ENCOUNTER → 2022-12-31 | Outpatient (CLI) | payer MEDICARE, SELFPAY ==
--- NOTE | 2022-12-31 10:00 | PET_ITS ---
EXAMINATION: 18 F Pylarify PET-CT HISTORY: A 87-year-old male with history of prostate carcinoma presenting for restaging examination. COMPARISON EXAMINATION: None available INDEX LESION SIZE PROMISE SCORE SUV INTERPRETATION Right hemithorax pleural interface 3 14.88 Fulfills quantitative criteria for viable neoplasm Right anteromedial hemithorax pericardium 3 21.41 Fulfills quantitative criteria for viable neoplasm Anterior mediastinum 21.9-mm 3 23.34 Fulfills quantitative criteria for viable neoplasm Hepatophrenic border 30.9-mm 3 21.89 Fulfills quantitative criteria for viable neoplasm Multifocal abdominal-pelvic cavity, abdominal-pelvic wall, peritoneal thickening, omental caking 3 217.4 (max) Fulfills quantitative criteria for viable neoplasm TECHNIQUE: Following the intravenous administration of 9.908 mCi of 18 F Pylarify via the left antecubital fossa, image acquisitions of the head, neck, chest, abdomen and pelvis to the level of the mid thigh at 73 minutes post-tracer distribution reveal: The examination was interpreted using the EANM (Chato et al., Journal of Nuclear Medicine Molecular Imaging 44:1622, 2017) and PROMISE (Tereza et al., Journal of Nuclear Medicine 59:469, 2018) interpretive criteria. HEIGHT: 72 inches. WEIGHT: 174 lbs. PSMA expression score PROMISE criteria: High (3): SUV ? parotid-salivary gland, intermediate (2): SUV ? liver, low (1): > blood pool, < liver, (0): < blood pool. SUV reference values: Parotid glands 14.24. Normal liver parenchyma 4.2. Blood pool 1.4. FINDINGS: Head/Neck: Symmetric radiopharmaceutical concentration is defined in the bilateral parotid and submandibular glands. There is physiologic uptake within the nasal cavity. There is no evidence of abnormal increased tracer concentration within the cranial vault. CHEST: Accentuated uptake is noted in the left upper lung field, left upper lobe generating a calculated maximal standard uptake value of 2.940. The PROMISE score is 1. Increased radiopharmaceutical is demonstrated throughout the hemithorax at the pleural interface. The calculated maximal standard uptake value is 14.88. The PROMISE score is 3. Enhanced radiotracer is evidenced in the right anteromedial hemithorax involving the pericardium with a calculated maximal standard uptake value of 21.41. The PROMISE score is 3. Facilitated uptake is noted in the anterior mediastinum generating a calculated maximal standard uptake value of 23.34. The PROMISE score is 3. The maximal axial diameter of the corresponding abnormality is 21.9-mm. Increased uptake is noted in the right hepatophrenic border generating a calculated maximal standard uptake value of 21.89. The PROMISE score is 3. The maximal axial diameter of the metabolic, morphologic abnormality is 30.9-mm. Pertinent chest CT findings are as follows. A right hemithorax pleural effusion demonstrates no evidence of increased tracer uptake. There is atherosclerotic calcification defined in the thoracic aorta without evidence of dilatation-aneurysm formation. Coronary arterial calcification is observed. Abdomen/Pelvis: Facilitated tracer uptake is noted throughout the bilateral abdominal wall and multifocally apparent throughout the abdominal-pelvic mesenteric cavity corresponding in part to omental caking-peritoneal thickening. The calculated maximal standard uptake value is 217.4. The PROMISE score is 3. Physiologic radiopharmaceutical concentration is otherwise noted in the hepatic and splenic parenchyma, visualized intestinal tract, right and left kidneys, urinary bladder. Review of CT of the abdomen and pelvis reveals the following. Multifocal peritoneal thickening, omental caking is defined, hypermetabolic, as defined above. There is atherosclerotic calcification defined in the abdominal aorta without evidence of dilatation-aneurysm formation. Abdominal and pelvic arterial calcification is defined. Abdominal-pelvic ascites formation is non-tracer avid. Bilateral fat containing inguinal hernias are noted. Calcification is noted within the prostate bed. Post-surgical changes are noted in the lower pelvis. SKELETAL: Degenerative changes are noted in the cervical, thoracic and lumbar spine without evidence of increased radiopharmaceutical concentration. PET/PET/CT Tumor Base -Thigh Subs IMPRESSION: 1. ABNORMAL EXAMINATION INDICATIVE OF MALIGNANT VIABLE NEOPLASM. 2. Enhanced radiopharmaceutical concentration noted in the right hemithorax at the pleural interface, the pericardium, the anterior mediastinum and right hepatophrenic border fulfills quantitative criteria for viable neoplasm. 3. Increased tracer distribution multifocally disseminated throughout the abdominal-pelvic cavity include omental caking and peritoneal thickening, soft tissue mass formation in the abdominal wall fulfills quantitative criteria for viable neoplasm. 4. Facilitated uptake noted in the left upper hemithorax pulmonary parenchyma does not fulfill quantitative criteria for viable neoplasm. (Eitova et al., Journal of Nuclear Medicine 59:469, 2018). Electronic Signature Brock Apple, DO Accurate Quantification of SUVs and standardized PROMISE scores for this report are calculated using the exclusive [employer], ([place]. Patent No. [id number] [phone] [id number] [phone] [place] patent [phone] ). Standardization and correction of the FDG SUV metric exclusively available with [employer] intellectual property, allow for vendor non-specific objective quantitative sequential FDG PET-CT comparison and otherwise unobtainable optimization of the sensitivity and specificity of the examination. Electronically Signed: Brock Apple, at 21:50 EDT ,
== END | disposition home or self-care (01) ==
PROVIDERS: PCP Family Medicine
DX: C61 Malignant neoplasm of prostate (principal); R97.21 Rising PSA following treatment for malignant neoplasm of prostate
CPT/HCPCS: 78815; A9595

== ENCOUNTER 2023-01-24 17:55 | Emergency (ER) | payer MEDICARE, SELFPAY ==
[2023-01-24 17:56] VITALS: BP 121/77; PULSE 97; RESP 16; TEMP 36.2; O2SAT 94; BMI 23.6
--- NOTE | 2023-01-24 18:27 | EKG12_ITS ---
Test Reason : Dysrhythmia Blood Pressure : / mmHG Vent. Rate : 090 BPM Atrial Rate : 090 BPM P-R Int : 172 ms QRS Dur : 126 ms QT Int : 398 ms P-R-T Axes : 068 000 063 degrees QTc Int : 486 ms Sinus rhythm with occasional Premature ventricular complexes and Premature atrial complexes Right bundle branch block Abnormal ECG Confirmed by GREG RAMIREZ ([id number]), editor newspaper GLORIA KENNEY ([id number]) on 02/07/2023 2:02:41 PM Referred By: Confirmed By:GREG RAMIREZ
--- NOTE | 2023-01-24 18:28 | CT_ITS ---
STUDY: CT ABDOMEN AND PELVIS WITH CONTRAST REASON FOR EXAM: Male, 87 years old. pain RADIATION DOSAGE (If Supplied By Facility): CTDIvol = ( 15.67 ) mGy, DLP = ( 936.77 ) mGycm TECHNIQUE: Transaxial images were obtained from the dome of the diaphragm to the symphysis pubis without oral contrast. IV 100mL Isovue-[id number] was administered. Sagittal and coronal images were reconstructed. Individualized dose optimization techniques were used for this CT. COMPARISON: None. FINDINGS: Moderate right pleural effusion with some right lower lobe atelectasis. The visualized portions of the heart are within normal limits. Moderate amount of ascites. Normal liver. There are surgical clips in the gallbladder fossa consistent with a prior cholecystectomy. Normal spleen. Normal pancreas. Normal bilateral adrenal glands. Normal right kidney. Normal left kidney. Normal visualized stomach. Normal small intestine. Normal colon. The appendix is visualized and appears normal. Normal abdominal aorta. Normal inferior vena cava. Normal retroperitoneum. Normal urinary bladder. There are prostatic calcifications. Edema of the subcutaneous fat of the abdominal wall consistent with anasarca. Normal osseous structures. CT/Abdomen/Pelvis W IV Cont ONLY IMPRESSION: Volume overload with a moderate right pleural effusion, moderate amount of ascites, and anasarca. Electronically Signed: Brock King MD at 19:55 EDT ,
--- NOTE | 2023-01-24 18:33 | EDS_ITS ---
HPI History of Present Illness Chief Complaint: General Illness Informant: patient and spouse/S.O. Narrative Narrative: Patient presents with primary complaint of generalized weakness. Patient's been having symptoms for weeks months and may be years. He has multi ple medical problems. He complains that it hurts too much for him to put on his compression hose in the morning so he does not use these but then his legs hurt because they swell but they are not swelling more than normal. He states he has pain in both his upper left and right abdomen when he tries to lay on his side. But he is eating and drinking normally. He states his energy is just down. He does have urinary incontinence wears a diaper at night. But he states after getting up in the morning and urinating couple times everything was normal during the day. No dysuria or frequency. No retention. He is not coughing. He is not short of breath. He is not having chest pain. He is not having fevers or chills. No new acute medication changes. He does have diabetes. He has a history of prostate cancer that is spread both to a spot in the abdomen and his lungs. He is getting treatment for this. He has seen his doctor. He states they did a whole-body scan a few weeks ago and could not find anything wrong. I cannot get what specifically happened today to get him in but it sounds like he is just getting frustrated because he just does not have the energy he used to have. He realizes that he is 87 but he states this is a difference and is a change. It sounds like most of this is likely over the last few weeks. 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 Long-term insulin use Macrocytic anemia Macular degeneration Prostate cancer Pulmonary nodule Right bundle branch block Shingles ulcers Uncontrolled type 1 diabetes mellitus with hyperglycemia Unstable angina Urinary retention Vision problems Vitamin D deficiency Home Medications pen needle, diabetic 32 gauge x 32 (BD Ultra-Fine [place] Pen Needle) #10 ea 08/13/17 [History Last Taken Unknown] pantoprazole 40 mg tablet,delayed release (Protonix) 40 mg PO BID reflux 09/03/17 [History Last Taken 06/13/21] cholecalciferol (vitamin D3) 50 mcg (2,000 unit) capsule 2,000 unit PO DAILY vitamin 03/05/18 [History Last Taken 06/13/21] blood-glucose meter (FreeStyle Lite Meter kit) #1 ea 03/23/20 [Rx Last Taken Unknown] insulin syringe-needle U-100 0.5 mL 31 gauge x 10/15 #100 ea 08/15/20 [Rx Last Taken Unknown] cyanocobalamin (vitamin B-12) 1,000 mcg capsule 1,000 mcg PO DAILY SUPPLEMENT 06/13/21 [History Last Taken 06/13/21] gabapentin 400 mg capsule 400 mg PO QHS NERVE PAIN 06/13/21 [History Last Taken 06/12/21] ibuprofen 200 mg tablet 400 mg PO QHS PAIN 06/13/21 [History Last Taken 06/12/21] losartan 50 mg tablet 50 mg PO DAILY BP 06/13/21 [History Last Taken 06/13/21] aspirin 81 mg tablet,delayed release 81 mg PO BREAKFAST #0 tabs 06/15/21 [Rx Last Taken Unknown] nitroglycerin 0.4 mg sublingual tablet (Nitrostat) 0.4 mg sublingual Q5-15M PRN chest pain #25 tabs 06/20/21 [Rx Last Taken Unknown] meloxicam 15 mg tablet 15 mg PO DAILY 04/08/22 [History Last Taken Unknown] [place] SoloStar U-300 Insulin 300 unit/mL (1.5 mL) subcutaneous pen (insulin glargine U-300 conc) 28 unit (0.0933 mL) subcut QHS diabetes #18 mL 06/07/22 [Rx Last Taken Unknown] diltiazem HCl 120 mg capsule,extended release 24 hr (Cardizem CD) 120 mg PO DAILY #90 caps 07/01/22 [Rx Last Taken Unknown] atorvastatin 80 mg tablet 80 mg PO QHS #90 tabs 07/15/22 [Rx Last Taken Unknown] memantine 5 mg tablet 5 mg PO BID 07/15/22 [History Last Taken Unknown] sucralfate 1 gram tablet 4 g PO DAILY 07/15/22 [History Last Taken Unknown] Novolog U-100 Insulin aspart 100 unit/mL subcutaneous solution (insulin aspart U-100) See Rx Instructions subcut QAM #60 mL 08/01/22 [Rx Last Taken Unknown] blood-glucose meter (Accu-Chek Guide Me Glucose Meter) #1 ea 08/01/22 [Rx Last Taken Unknown] insulin syringe-needle U-100 0.5 mL 31 gauge x 5/16 (BD Insulin Syringe Ultra- Fine) #360 ea 10/21/22 [Rx Last Taken Unknown] blood sugar diagnostic (Accu-Chek Guide test strips) #100 ea 10/31/22 [Rx Last Taken Unknown] blood sugar diagnostic (FreeStyle Lite Strips) #180 ea 10/31/22 [Rx Last Taken Unknown] furosemide 20 mg tablet (Lasix) 20 mg PO DAILY #5 tabs 01/24/23 [Rx Last Taken Unknown] ondansetron 4 mg disintegrating tablet 4 mg PO Q8H PRN PRN Nausea #10 tabs 01/24/23 [Rx Last Taken Unknown] Allergy/AdvReac Type Severity Reaction Status Date / Time No Known Allergies Allergy Verified 01/24/23 17:56 Family History Mother Cancer Father Diabetes Other Heart disease Hypertension Surgical History History of cholecystectomy History of coronary angioplasty (06/14/21) History of pancreatic surgery History of prostate surgery Social History Smoking Status: Former smoker quit date: 06/02/01 pack-years: 48 Tobacco: How many years used: 48 alcohol intake: current alcohol intake frequency: 0-2 drinks per day substance use type: does not use ROS ROS ED Constitutional Constitutional ED: Reports other Details: He may have had actually some weight gain. But no notable weight loss. ; Denies chills, fever(s), subjective, sweats or weight loss Eyes Eyes: Denies change in vision ENT ENT ED: Denies rhinorrhea Cardiovascular Cardiovascular: Denies chest pain or palpitations Respiratory/Chest Respiratory/Chest: Denies cough or dyspnea Gastrointestinal Gastrointestinal: Reports abdominal pain; Denies diarrhea, nausea or vomiting Genitourinary Genitourinary ED: Reports urinary frequency; Denies dysuria or hematuria Musculoskeletal Musculoskeletal: Denies myalgias Integumentary Denies rash Neurologic Neurologic: Denies headache(s) Endocrine Endocrinology: Denies polydipsia or polyuria Hematologic/Lymphatic Hematologic/Lymphatic: Denies easy bleeding or easy bruising Allergic/Immunologic Allergic/Immunologic ED: Denies urticaria EXAM Physical Exam Narrative Exam Narrative: Patient awake alert no acute distress. I have seen this patient several times in with his . He looks similar to when I have seen him before. He is not toxic. He is not pale or diaphoretic. HEENT shows no trauma. Mucous membranes may be minimally dry but not markedly so. Neck is nontender is full range of motion Lungs are clear bilaterally. He takes good deep breath without pain. I hear no wheezes or rhonchi. Saturations are normal at 94% on room air showing no hypoxia. Heart is regular. I hear no murmur on him despite his age. Pulses are normal distally. Abdomen is soft it is nontender on exam. He has had prior surgery for pancreatic cyst and cholecystectomy. No masses felt. Bowel sounds sound normal. No CVA tenderness. No obvious bladder distention or tenderness. Extremities do show a good +2 or so peripheral edema in bilateral lower ankles but is not red or irritated or tender. This is his baseline. Neurologically he is awake alert very appropriate. He is a good clear informant. Const Vital Signs: 01/24/23 17:56 01/24/23 19:25 01/24/23 20:20 Temperature 97.1 F L 98.2 F Temperature Source Temporal Oral Pulse Rate 97 92 Respiratory Rate 16 16 Respiratory Effort Normal Non-Labored Respiratory Pattern Normal Blood Pressure 121/77 H 134/62 H Blood Pressure Mean 91 86 Pulse Ox 94 96 Oxygen Delivery Method Room Air Room Air MDM MDM MDM Narrative Medical decision making narrative: Patient CBC shows minimally elevated white count. Hemoglobin slightly low. Platelets are also slightly high. But he has no indication of infection. Electrolytes showed mild elevation in the BUN but preserved creatinine. Potassium is minimally low. Liver function test show no marked abnormalities. New line lipase is normal. I am urinalysis shows no acute process. Patient's CT of the abdomen does show ascites. Final reading is of volume overload with ascites and he does have a slight right pleural effusion. I discussed options with the patient. I find out that his doctor just did just start him on hydrochlorothiazide. But he states when he takes this especially in the morning it seems to cause vomiting. He is not nauseated now but he is concerned about the vomiting. We discussed inpatient versus outpatient management. He has been having symptoms of weakness and this fullness for a long time. He has a long history of edema. We will try him on the Lasix. I explained that they may need to do an outpatient ultrasound or paracentesis but this does not need to be done acutely. Saturations are normal. I think we can get him home and treat this as an outpatient. Lab Data Attestation: I reviewed the patient's lab results. Labs: Laboratory Results - last 24 hr 01/24/23 01/24/23 18:20 20:15 WBC 13.2 H RBC 3.20 L Hgb 10.6 L Hct 33.1 L MCV 103.4 H MCH 33.1 H MCHC 32.0 RDW Std Deviation 57.1 H RDW Coeff of [place] 15.3 H Plt Count 495 H MPV 10.4 Immature Gran % (Auto) 0.400 Neut % (Auto) 76.3 H Lymph % (Auto) 10.9 L Darke % (Auto) 11.4 H Eos % (Auto) 0.5 Baso % (Auto) 0.5 Absolute Neuts (auto) 10.1 H Absolute Lymphs (auto) 1.44 Nucleated RBC % 0.5 Differential Comment SCANNED Diff Path Review May foll Sodium 141 Potassium 3.4 L Chloride 105 Carbon Dioxide 30.0 Anion Gap 6 BUN 38 H Creatinine 1.20 Estim Creat Clear Calc 47.60 Est GFR (MDRD) Af Amer 74 Est GFR (MDRD) Non-Af 61 BUN/Creatinine Ratio 31.7 H Glucose 97 Calcium 8.9 Total Bilirubin 0.60 AST 25 ALT 19 Alkaline Phosphatase 134 H B-Natriuretic Peptide 76.3 Total Protein 6.4 Albumin 3.0 L Globulin 3.4 Albumin/Globulin Ratio 0.9 Lipase < 10 L Urine Color Yellow Urine Clarity Clear Urine pH 5.0 Ur Specific [place] 1.010 Urine Protein 15 H Urine Glucose (UA) Normal Urine Ketones Negative Urine Occult Blood 10 H Urine Nitrite Negative Urine Bilirubin Negative Urine Urobilinogen Normal Ur Leukocyte Esterase 25 H Urine RBC 0-5 SEEN Urine WBC 0-5 SEEN Ur Squamous Epith Cells 0 SEEN Urine Bacteria 0 SEEN Hyaline Casts 0-5 SEEN Urine Mucus 0 SEEN Radiography Diagnostic Testing: Clinical Impression(s) from Imaging Studies Abdomen/Pelvis CT 01/24/23 18:28 IMPRESSION: Volume overload with a moderate right pleural effusion, moderate amount of ascites, and anasarca. Electronically Signed: Brock King MD at 19:55 EDT , Discharge Plan Triage Chief Complaint: General Illness ED Provider: Carlos Allen Dx/Rx/DC Orders Clinical Impression: Ascites, Edema, peripheral Instructions: ED Ascites Prescriptions: New ondansetron [ondansetron] 4 mg tablet,disintegrating 4 mg PO Q8H PRN PRN (Reason: Nausea) Qty: 10 0RF furosemide [Lasix] 20 mg tablet 20 mg PO DAILY Qty: 5 0RF No Action (DME) pen needle, diabetic [BD Ultra-Fine [place] Pen Needle] 32 gauge x 5/32 needle See Dose Instructions .ROUTE .MEDSUPPLY Qty: 10 Rx Instructions: use with insulin pen 1 x qd pantoprazole [Protonix] 40 mg tablet,delayed release (DR/EC) 40 mg PO BID cholecalciferol (vitamin D3) 2,000 unit capsule 2,000 unit PO DAILY sucralfate 1 gram tablet 4 g PO DAILY memantine 5 mg tablet 5 mg PO BID Patient Comments: TAKE 1 TABLET BY MOUTH ONCE DAILY atorvastatin 80 mg tablet 80 mg PO QHS Qty: 90 3RF losartan 50 mg tablet 50 mg PO DAILY Patient Comments: TAKE 1 TABLET BY MOUTH ONCE DAILY gabapentin 400 mg capsule 400 mg PO QHS Patient Comments: TAKE 1 CAPSULE BY MOUTH ONCE DAILY AT NIGHT NEEDED FOR CRAMPS ibuprofen 200 mg Tablet 400 mg PO QHS cyanocobalamin (vitamin B-12) 1,000 mcg Capsule 1,000 mcg PO DAILY aspirin 81 mg Tablet,Delayed Release (Dr/Ec) 81 mg PO BREAKFAST Qty: 0 0RF (DME) blood-glucose meter [FreeStyle Lite Meter] Kit See Rx Instructions .ROUTE .MEDSUPPLY Qty: 1 0RF Rx Instructions: As directed (DME) insulin syringe-needle U-100 0.5 mL 31 gauge x 5/16 syringe See Dose Instructions .ROUTE .MEDSUPPLY Qty: 100 11RF Dose Instruction: As directed Rx Instructions: use to inject insulin tid nitroglycerin [Nitrostat] 0.4 mg tablet, sublingual 0.4 mg sublingual Q5-15M PRN (Reason: chest pain) Qty: 25 3RF Rx Instructions: do not exceed 3 doses per episode meloxicam 15 mg tablet 15 mg PO DAILY [place] SoloStar U-300 Insulin 300 unit/mL (1.5 mL) insulin pen 28 unit SC QHS Qty: 18 1RF diltiazem HCl [Cardizem CD] 120 mg capsule,extended release 24hr 120 mg PO DAILY Qty: 90 3RF (DME) blood-glucose meter [Accu-Chek Guide Me Glucose Mtr] Misc See Rx Instructions .Route Qty: 1 0RF Rx Instructions: As directed insulin aspart U-100 [Novolog U-100 Insulin aspart] 100 unit/mL solution See Rx Instructions SC QAM MDD 60 Qty: 60 3RF Dose Instruction: SC QAM; Rx Instructions: Take 11 units at each meal. Sliding scale up to 60 units daily (DME) insulin syringe-needle U-100 [BD Insulin Syringe Ultra-Fine] 0.5 mL 31 gauge x 5/16 syringe See Rx Instructions .ROUTE .MEDSUPPLY Qty: 360 3RF Rx Instructions: 4x/day (DME) Accu-Chek Guide test strips Strip See Rx Instructions .Route Qty: 100 12RF Rx Instructions: 6x/day (DME) FreeStyle Lite Strips Strip See Rx Instructions .ROUTE .MEDSUPPLY Qty: 180 12RF Rx Instructions: 6 times daily Primary Care Provider: Lico Cameron Referrals: Lico Cameron DO [Primary Care Provider] - As soon as possible Disposition Disposition: Home, Self Care
[2023-01-24 18:44] LABS: Absolute Lymphocyte Count 1.44 X10^3/uL (0.83-4.51); Absolute Neutrophil Count 10.1 X10^3/uL (2.0-7.7); Basophil# 0.07 X10^3/uL; Basophil% 0.5 % (0-1); Eosinophil# 0.07 X10^3/uL; Eosinophils% 0.5 % (0-5); Hematocrit 33.1 % (40-54); Hemoglobin 10.6 g/dL (13.0-16.5); Lymphocyte # 1.44 X10^3/ul (0.83-4.51); Lymphocyte % 10.9 % (19-41); Mean Corpuscular Hgb 33.1 pg (27.0-32.0); Mean Corpuscular Volume 103.4 fL (80-94); Mean Platelet Vol. 10.4 fl (6.2-12.0); Monocyte# 1.51 X10^3/uL; Monocyte% 11.4 % (0-10); NRBC Flagged by Analyzer 0.5 % (0-5); Neutrophil # 10.05 X10^3/uL (2.7-7.7); Neutrophil % 76.3 % (47-70); POSITIVE DIFFERENTIAL YES; Platelet Count 495 K/mm3 (150-450); RBC Distribution Width CV 15.3 % (11.6-14.6); RBC Distribution Width SD 57.1 fl (35.1-43.9); White Blood Count 13.2 K/mm3 (4.4-11.0)
[2023-01-24 18:47] LABS: Differential Indicated SCAN CRITERIA MET
[2023-01-24 18:59] LABS: ALB/GLOB Ratio 0.9 RATIO (0.9-2.4); AST(SGOT) 25 U/L (15-37); Alanine Aminotransfer ALT/SGPT 19 U/L (16-61); Alkaline Phosphatase 134 U/L (45-117); Anion Gap 6 (5-15); BUN 38 mg/dL (7-18); BUN/Creat Ratio 31.7 RATIO (10-20); Calcium,Total 8.9 mg/dL (8.5-10.1); Chloride 105 mmol/L (98-107); EST Glomerular Filtration Rate 61 mL/min (>60); Est Glom Filt Rate - Afr Amer 74 mL/min (>60); Globulin 3.4 g/dL (2.2-4.2); Glucose 97 mg/dL (74-106); Lipase < 10 U/L (13-75); Potassium 3.4 mmol/L (3.5-5.1); Protein, Total 6.4 g/dL (6.4-8.2); Sodium Level 141 mmol/L (136-145)
[2023-01-24 19:11] LABS: BNP,B-Type NATRIURETIC PEPTIDE 76.3 pg/mL (0-100); Differential Comment SCANNED
[2023-01-24 20:20] VITALS: BP 134/62; PULSE 92; RESP 16; TEMP 36.8; O2SAT 96
[2023-01-24 20:22] LABS: Bacteria 0 SEEN /hpf (None Seen); Mucous, Urine 0 SEEN /hpf (<or=2+); Squamous Epithelial Cells - UA 0 SEEN /hpf (0-5)
[2023-01-24 20:28] LABS: Color, Urine Yellow (Yellow); Glucose, Dipstick Normal (Normal); Ketone-Dipstick Negative (Negative); Leukocyte Esterase-Dipstick 25 /ul (Negative); Nitrite-Dipstick Negative (Negative); Occult Blood-Urine 10 /ul (Negative); Protein-Dipstick 15 mg/dl (Negative); Urine Bilirubin Dipstick Negative (Negative); Urine Clarity Clear (Clear); Urine Urobilinogen Normal (Normal)
[2023-01-24 20:34] LABS: Hyaline Cast 0-5 SEEN /lpf (0-5); Red Blood Cells-Urine 0-5 SEEN /hpf (0-5); White Blood Cells 0-5 SEEN /hpf (0-5)
[2023-01-24] MEDS: Ondansetron 4 MG/2 ML Vial IV (21:34)
[2023-01-28 12:22] LABS: Pathologist Review Reviewed
== END 2023-01-24 22:10 | disposition home or self-care (01) ==
PROVIDERS: Emergency Provider Emergency Medicine; PCP Family Medicine; Visit Provider Emergency Medicine
DX: R18.8 Other ascites (principal); R60.9 Edema, unspecified; I25.10 Atherosclerotic heart disease of native coronary artery without angina pectoris; Z86.16 Personal history of COVID-19; Z87.891 Personal history of nicotine dependence
CPT/HCPCS: 74177; 80053; 81001; 83690; 83880; 85025; 87086; 87811; 93005; 96374; 99284; P9612; Q9967; A4216; J2405

== ENCOUNTER 2023-02-05 12:39 | Inpatient (IN) | payer MEDICARE, SELFPAY ==
[2023-02-05 12:41] VITALS: BP 110/43; PULSE 85; RESP 14; TEMP 36.1; O2SAT 95
--- NOTE | 2023-02-05 13:03 | VDLE_ITS ---
Reason For Study: BLE Swelling RIGHT LEFT GSV is normal. GSV is normal. CFV is compressible, spontaneous, phasic, CFV is compressible, spontaneous, phasic, competent and demonstrates normal competent, and demonstrates normal augmentation. augmentation. FV is compressible, spontaneous, phasic, FV is compressible, spontaneous, phasic, competent and demonstrates normal competent and demonstrates normal augmentation. augmentation. POP V is compressible, spontaneous, phasic, POP V is compressible, spontaneous, phasic, competent and demonstrates normal competent and demonstrates normal augmentation. augmentation. T/P Trunk is compressible. T/P Trunk is compressible. PTV is compressible. PTV is compressible. RT PerV is compressible. LT PerV is compressible. Procedure This is a venous duplex using B-mode, color flow and spectral Doppler. Exam performed portable in ED. The exam was diagnostic. A preliminary report was called and/or faxed to Dr. Rubio. VL/Venous Duplex US - Vinny Extrem Interpretation Summary Deep veins of the bilateral lower extremities are patent and compressible segme ntally. There is no evidence of bilateral lower extremity deep vein thrombosis. The bilateral great saphenous veins appear patent and compressible segmentally. Ordering Physician: Lilli Rubio Referring Physician: Lico Cameron Performed By: Myke Gardner RVJohnna
--- NOTE | 2023-02-05 13:03 | EKG12_ITS ---
Test Reason : Blood Pressure : / mmHG Vent. Rate : 083 BPM Atrial Rate : 083 BPM P-R Int : 180 ms QRS Dur : 126 ms QT Int : 408 ms P-R-T Axes : 092 071 079 degrees QTc Int : 479 ms Sinus rhythm with occasional Premature ventricular complexes and Premature atrial complexes Right bundle branch block Abnormal ECG Confirmed by JYOTI GILLIS, GUADALUPE ([id number]), food expeditor GLORIA KENNEY ([id number]) on 02/07/2023 1:12:07 PM Referred By: Confirmed By:GUADALUPE MONTES MD
[2023-02-05 13:10] LABS: Bedside Glucose 53 mg/dL (74-106)
[2023-02-05 13:25] LABS: Absolute Neutrophil Count 9.6 X10^3/uL (2.0-7.7); Basophil# 0.08 X10^3/uL; Basophil% 0.6 % (0-1); Eosinophil# 0.19 X10^3/uL; Eosinophils% 1.4 % (0-5); Hematocrit 31.6 % (40-54); Hemoglobin 9.5 g/dL (13.0-16.5); Lymphocyte % 12.8 % (19-41); Mean Corp Hgb Conc 30.1 g/dL (32-36); Mean Corpuscular Hgb 32.5 pg (27.0-32.0); Mean Corpuscular Volume 108.2 fL (80-94); Mean Platelet Vol. 11.1 fl (6.2-12.0); Monocyte% 12.1 % (0-10); NRBC Flagged by Analyzer 0.7 % (0-5); Neutrophil % 72.6 % (47-70); POSITIVE DIFFERENTIAL YES; Platelet Count 406 K/mm3 (150-450); RBC Distribution Width CV 16.1 % (11.6-14.6); RBC Distribution Width SD 61.2 fl (35.1-43.9); Red Blood Count 2.92 M/mm3 (4.6-6.2); White Blood Count 13.2 K/mm3 (4.4-11.0)
[2023-02-05 13:33] LABS: Differential Indicated SCAN CRITERIA MET
[2023-02-05 13:44] LABS: Differential Comment SCANNED
[2023-02-05 13:46] LABS: Anion Gap 6 (5-15); BUN 27 mg/dL (7-18); BUN/Creat Ratio 22.7 RATIO (10-20); Calcium,Total 8.2 mg/dL (8.5-10.1); Chloride 104 mmol/L (98-107); Creatinine, Serum 1.19 mg/dL (0.70-1.30); EST Glomerular Filtration Rate 61 mL/min (>60); Est Glom Filt Rate - Afr Amer 74 mL/min (>60); Glucose 45 mg/dL (74-106); Potassium 3.9 mmol/L (3.5-5.1); Sodium Level 139 mmol/L (136-145); Troponin-I HS 12 pg/mL (3.0-78.0)
[2023-02-05 13:58] LABS: BNP,B-Type NATRIURETIC PEPTIDE 163.5 pg/mL (0-100)
--- NOTE | 2023-02-05 14:25 | CT_ITS ---
STUDY: CTA CHEST REASON FOR EXAM: Male, 87 years old. Hypoxia RADIATION DOSAGE (If Supplied By Facility): CTDIvol = ( 8.86 ) mGy, DLP = ( 315.61 ) mGycm TECHNIQUE: The examination was performed with the intravenous administration of IV 100mL Isovue-370. Post-processing of the angiographic images was performed, with multiplanar reformation and 3D reconstruction. Individualized dose optimization techniques were used for this CT. COMPARISON: Comparison is made with prior study dated November 24, 2019. FINDINGS: Normal enhancement of the main pulmonary artery and right and left pulmonary arteries. Normal enhancement of the bilateral peripheral pulmonary arteries. There is no demonstrated pulmonary embolism. Normal thoracic aorta and visualized great vessels. There is no demonstrated aortic dissection. There are calcifications of the coronary arteries. Normal mediastinum. Normal hilar regions. Normal visualized trachea and bronchi. The lungs are well expanded. Small right pleural effusion with right basilar atelectasis. Stable focal area of scarring and bronchiectasis in the apical aspect of the left upper lobe suggestive of a postradiation scarring. Stable scarring at the right lung apex as well. There is evidence of a 2.2 cm a 1.3 cm soft tissue density in the medial aspect of the right lower lobe anteriorly abutting the pericardium. The patient has known metastatic disease. Normal chest wall structures. There are degenerative changes of thoracic spine. There is evidence of ascites. The patient is status post cholecystectomy. CT/CTA Chest W/WO Contrast IMPRESSION: No evidence of pulmonary embolism. Small right pleural effusion with right basilar atelectasis. Stable scarring and bronchiectasis in the left lung apex. 2.2 cm x 1.3 cm soft tissue density in the medial aspect of the right lower lobe abutting the pericardium. Ascites. Electronically Signed: Jose L Tejeda MD at 15:02 EDT ,
--- NOTE | 2023-02-05 15:06 | EX.ED.DYSGE1 ---
HPI History of Present Illness Chief Complaint: General Illness Informant: patient Narrative Narrative: Patient presents from PCPs office today with multiple complaints. He went to see his PCP today because of right lower extremity swelling, scabs, and seeping. Patient reportedly became hypoxic with O2 sats in the low 80s when changing close. He reports some lesions on his back as well as his buttock as well. Patient denies chest pain. He denies fever. Patient is currently undergoing treatment for prostate cancer. He has recently been told it metastasized into his abdomen. 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 Long-term insulin use Macrocytic anemia Macular degeneration Prostate cancer Pulmonary nodule Right bundle branch block Shingles ulcers Uncontrolled type 1 diabetes mellitus with hyperglycemia Unstable angina Urinary retention Vision problems Vitamin D deficiency Home Medications pen needle, diabetic 32 gauge x 5/32 (BD Ultra-Fine [place] Pen Needle) #10 ea 08/13/17 [History Last Taken Unknown] pantoprazole 40 mg tablet,delayed release (Protonix) 40 mg PO BID reflux 09/03/17 [History Last Taken 06/13/21] cholecalciferol (vitamin D3) 50 mcg (2,000 unit) capsule 2,000 unit PO DAILY vitamin 03/05/18 [History Last Taken 06/13/21] blood-glucose meter (FreeStyle Lite Meter kit) #1 ea 03/23/20 [Rx Last Taken Unknown] insulin syringe-needle U-100 0.5 mL 31 gauge x 5/16 #100 ea 08/15/20 [Rx Last Taken Unknown] cyanocobalamin (vitamin B-12) 1,000 mcg capsule 1,000 mcg PO DAILY SUPPLEMENT 06/13/21 [History Last Taken 06/13/21] gabapentin 400 mg capsule 400 mg PO QHS NERVE PAIN 06/13/21 [History Last Taken 06/12/21] ibuprofen 200 mg tablet 400 mg PO QHS PAIN 06/13/21 [History Last Taken 06/12/21] losartan 50 mg tablet 50 mg PO DAILY BP 06/13/21 [History Last Taken 06/13/21] aspirin 81 mg tablet,delayed release 81 mg PO BREAKFAST #0 tabs 06/15/21 [Rx Last Taken Unknown] nitroglycerin 0.4 mg sublingual tablet (Nitrostat) 0.4 mg sublingual Q5-15M PRN chest pain #25 tabs 06/20/21 [Rx Last Taken Unknown] meloxicam 15 mg tablet 15 mg PO DAILY 04/08/22 [History Last Taken Unknown] Toudavido SoloStar U-300 Insulin 300 unit/mL (1.5 mL) subcutaneous pen (insulin glargine U-300 conc) 28 unit (0.0933 mL) subcut QHS diabetes #18 mL 06/07/22 [Rx Last Taken Unknown] diltiazem HCl 120 mg capsule,extended release 24 hr (Cardizem CD) 120 mg PO DAILY #90 caps 07/01/22 [Rx Last Taken Unknown] atorvastatin 80 mg tablet 80 mg PO QHS #90 tabs 07/15/22 [Rx Last Taken Unknown] memantine 5 mg tablet 5 mg PO BID 07/15/22 [History Last Taken Unknown] sucralfate 1 gram tablet 4 g PO DAILY 07/15/22 [History Last Taken Unknown] Novolog U-100 Insulin aspart 100 unit/mL subcutaneous solution (insulin aspart U-100) See Rx Instructions subcut QAM #60 mL 08/01/22 [Rx Last Taken Unknown] blood-glucose meter (Accu-Chek Guide Me Glucose Meter) #1 ea 08/01/22 [Rx Last Taken Unknown] insulin syringe-needle U-100 0.5 mL 31 gauge x 5/16 (BD Insulin Syringe Ultra-Fine) #360 ea 10/21/22 [Rx Last Taken Unknown] blood sugar diagnostic (Accu-Chek Guide test strips) #100 ea 10/31/22 [Rx Last Taken Unknown] blood sugar diagnostic (FreeStyle Lite Strips) #180 ea 10/31/22 [Rx Last Taken Unknown] furosemide 20 mg tablet (Lasix) 20 mg PO DAILY #5 tabs 01/24/23 [Rx Last Taken Unknown] ondansetron 4 mg disintegrating tablet 4 mg PO Q8H PRN PRN Nausea #10 tabs 01/24/23 [Rx Last Taken Unknown] Allergy/AdvReac Type Severity Reaction Status Date / Time No Known Allergies Allergy Verified 02/05/23 12:44 Family History Mother Cancer Father Diabetes Other Heart disease Hypertension Surgical History History of cholecystectomy History of coronary angioplasty (06/14/21) History of pancreatic surgery History of prostate surgery Social History Smoking Status: Former smoker quit date: 06/02/01 pack-years: 48 Tobacco: How many years used: 48 alcohol intake: current alcohol intake frequency: 0-2 drinks per day substance use type: does not use ROS ROS ED Constitutional Constitutional ED: Denies chills or fever(s) Eyes Eyes: Denies discharge from eye(s) ENT ENT ED: Denies discharge from eye(s), rhinorrhea or sore throat Cardiovascular Cardiovascular: Denies chest pain or palpitations Respiratory/Chest Respiratory/Chest: Reports dyspnea; Denies cough Gastrointestinal Gastrointestinal: Denies abdominal pain, nausea or vomiting Genitourinary Genitourinary ED: Denies dysuria Musculoskeletal Musculoskeletal: Reports extremity pain; Denies back pain Integumentary Reports Abrasions; Denies rash Neurologic Neurologic: Denies headache(s) Allergic/Immunologic Allergic/Immunologic ED: Denies lip swelling or urticaria EXAM Physical Exam Const Vital Signs: 02/05/23 12:41 02/05/23 13:21 02/05/23 15:24 Temperature 97 F L Temperature Source Temporal Pulse Rate 85 81 Respiratory Rate 14 15 Respiratory Pattern Normal Blood Pressure 110/43 L Blood Pressure Mean 65 Pulse Ox 95 95 Oxygen Delivery Method Room Air Positive well nourished and well developed General Appearance ED: well developed HEENT Reports normocephalic and head/scalp atraumatic Eyes PERRL and EOMs intact bilaterally Neck supple Chest Wall inspection of chest normal and palpation of chest normal Resp normal respiratory effort and clear to auscultation bilaterally Cardio regular rate and regular rhythm GI normal to inspection, nondistended, normoactive bowel sounds Palpation: soft Back/Spine Back/Spine Narrative: Patient has a slight area of erythema to the left scapular area from prior usage of a heating pad. There are few scattered scabs that are bleeding. No sign of secondary infection. Extremity Extremity Narrative: 3+ bilateral lower extremity edema. Multiple scabbed lesions noted on the lower portion of the right leg. He does have clear fluid seeping from his leg. Neuro oriented x3 and no sensory deficits noted Sensorium / Orientation: alert Motor Exam: strength 5/5 throughout Psych mental status grossly normal MDM MDM MDM Narrative Medical decision making narrative: Patient felt as if his blood sugar was dropping here. BGT on arrival is 58. He is given Coca-Cola to drink. Patient placed on compressed yeast supervisor. EKG obtained to evaluate for cardiac arrhythmia/ischemia. Labwork obtained to evaluate for leukocytosis, anemia, and electrolyte derangement. Given the patient's history of cancer and hypoxia with exertion CTA of the chest is obtained to evaluate for pulmonary embolism. History & Record Review Discussion w/independent historian: Patient and Significant other Lab Data Attestation: I reviewed the patient's lab results. Labs: Laboratory Results - last 24 hr 02/05/23 02/05/23 02/05/23 12:52 13:15 15:12 WBC 13.2 H RBC 2.92 L Hgb 9.5 L Hct 31.6 L MCV 108.2 H MCH 32.5 H MCHC 30.1 L RDW Std Deviation 61.2 H RDW Coeff of Abdullahi 16.1 H Plt Count 406 MPV 11.1 Immature Gran % (Auto) 0.500 Neut % (Auto) 72.6 H Lymph % (Auto) 12.8 L [place] % (Auto) 12.1 H Eos % (Auto) 1.4 Baso % (Auto) 0.6 Absolute Neuts (auto) 9.6 H Absolute Lymphs (auto) 1.70 Nucleated RBC % 0.7 Differential Comment SCANNED Diff Path Review May foll Sodium 139 Potassium 3.9 Chloride 104 Carbon Dioxide 29.0 Anion Gap 6 BUN 27 H Creatinine 1.19 Est GFR (MDRD) Af Amer 74 Est GFR (MDRD) Non-Af 61 BUN/Creatinine Ratio 22.7 H Glucose 45 L Calcium 8.2 L Troponin I High Sens 12 B-Natriuretic Peptide 163.5 H POC Glucose 53 L 72 L Radiography Diagnostic Testing: Clinical Impression(s) from Imaging Studies Chest CTA 02/05/23 14:25 IMPRESSION: No evidence of pulmonary embolism. Small right pleural effusion with right basilar atelectasis. Stable scarring and bronchiectasis in the left lung apex. 2.2 cm x 1.3 cm soft tissue density in the medial aspect of the right lower lobe abutting the pericardium. Ascites. Electronically Signed: Jose L Tejeda MD at 15:02 EDT , EKG Initial EKG: Attestation: I personally reviewed and interpreted this EKG as follows: Interpretation: Sinus Rhythm (Sinus at 83 with right bundle branch block. Occasional premature contractions noted. No acute ischemia.) Treatment and Re-Evaluation :: Venous ultrasound of the lower extremities was obtained to evaluate for DVT. This is negative. CBC reveals white count of 13.2 with 72% neutrophils. Hemoglobin is 9.5. Chemistry studies reveal a BUN of 27 and a creatinine 1.19. Glucose was low at 45, however this was drawn prior to the patient being given something to drink. Troponin is normal at 12. BNP is slightly elevated at 163. EKG is sinus with PACs and PVCs with a right bundle branch block. This is unchanged when compared to prior. CTA of the chest reveals evidence of right pleural effusion with some atelectasis. There is no evidence of pulmonary embolism. A soft tissue density is noted in the medial aspect of the right lower lobe abutting the pericardium. Abdominal ascites is noted on the upper abdominal images. I spoke with patient's primary care physician Dr. Cameron who had seen him in the office today. After the patient had been discharged on the 20 mg of Lasix from the ER recently, he continued the patient on 40 mg of Lasix a day. In spite of this he continues to have increasing swelling and was in fact hypoxic in the office today with O2 sats between 80 and 82% on exertion. Dr. Cameron is concerned that patient's cancer recurrence shows mets to the abdomen and right lung/pericardial region. There is no evidence of bony metastasis, which would typically be expected with metastatic prostate cancer. He is concerned that potentially this is a second primary cancer and not in fact metastatic prostate cancer. He is hoping we can admit the patient for diuresis as he has failed outpatient attempts at diuresis and have oncology see him for their opinion in his care. I will speak with the hospitalist. Discharge Plan Dx/Rx/DC Orders Clinical Impression: Metastatic cancer, Anasarca, Hypoxia, Fluid overload Disposition Disposition: Acute Care Hospital [facility]
[2023-02-05 15:17] VITALS: BMI 25.2
[2023-02-05 15:24] VITALS: PULSE 81; RESP 15; O2SAT 95
[2023-02-05 15:43] LABS: Bedside Glucose 72 mg/dL (74-106)
[2023-02-05] MEDS: Furosemide 40 MG/4 ML Vial IV (16:20)
[2023-02-05 16:21] VITALS: BP 128/62; PULSE 82; RESP 18; TEMP 36.7; O2SAT 98
--- NOTE | 2023-02-05 16:39 | HP.PCM_ITS ---
HPI - General General Date of Admission: 02/05/23 Date of Service: 02/05/23 Chief Complaint: bilateral lower extremity swelling HPI Narrative ANNETTE VILLANUEVA, is a 87 M with a PMH as outlined who presents via the ED from his PCP's office on 02/05/2023 with a complaint of bilateral lower extremity swelling. He has a history of prostate cancer which he said to be metastatic. He does not have any mets to the bones. He went to his PCP today and was found to be hypoxic. He had been complaining of lower extremity swelling and was started on p.o. Lasix by his PCP about a month ago. However patient states this has not helped significantly and his lower legs have gradually gotten more edematous with associated seepage from his edematous legs. He admits to some shortness of breath but denies any orthopnea or PND. He denies any chest pain but does admit to some mild distention of his abdomen he thinks there is fluid in his abdomen. He denies any fever or chills, nausea or vomiting or palpitations, dizziness or any other symptoms. Review of systems otherwise negative. He follows up with a urologist in [place] but has never seen an oncologist. He states he was first diagnosed with prostate cancer about 5 years ago and had radiation then and subsequently recurred a few months ago. Review of systems is otherwise negative. VItals in the ED were B of 128/62, MO of 82, RR of 18 and temp of 98.1F and oxygen sats of 98% on room air. CBC showed Hb of 9.5, wbc of 13.2, platelets of 406. Chemistry was largely unremarkable and BNP was 163.5. CTA chest showed no evidence of PE but showed a small right pleural effusion with right basilar atelectasis and 2.2 x 1.3cm soft tissue density in the medial aspect of the right lower lobe abutting the pericardium. He is being admitted to be managed for fluid overload in setting of metastatic prostate cancer. 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 Long-term insulin use Macrocytic anemia Macular degeneration Prostate cancer Pulmonary nodule Right bundle branch block Shingles ulcers Uncontrolled type 1 diabetes mellitus with hyperglycemia Unstable angina Urinary retention Vision problems Vitamin D deficiency Home Medications pen needle, diabetic 32 gauge x 5/32 (BD Ultra-Fine [place] Pen Needle) #10 ea 08/13/17 [History Last Taken Unknown] pantoprazole 40 mg tablet,delayed release (Protonix) 40 mg PO BID reflux 09/03/17 [History Last Taken 06/13/21] cholecalciferol (vitamin D3) 50 mcg (2,000 unit) capsule 2,000 unit PO DAILY vitamin 03/05/18 [History Last Taken 06/13/21] blood-glucose meter (FreeStyle Lite Meter kit) #1 ea 03/23/20 [Rx Last Taken Unknown] insulin syringe-needle U-100 0.5 mL 31 gauge x 5/16 #100 ea 08/15/20 [Rx Last Taken Unknown] cyanocobalamin (vitamin B-12) 1,000 mcg capsule 1,000 mcg PO DAILY SUPPLEMENT 06/13/21 [History Last Taken 06/13/21] gabapentin 400 mg capsule 400 mg PO QHS NERVE PAIN 06/13/21 [History Last Taken 06/12/21] ibuprofen 200 mg tablet 400 mg PO QHS PAIN 06/13/21 [History Last Taken 06/12/21] losartan 50 mg tablet 50 mg PO DAILY BP 06/13/21 [History Last Taken 06/13/21] aspirin 81 mg tablet,delayed release 81 mg PO BREAKFAST heart health #0 tabs 06/15/21 [Rx Last Taken Unknown] nitroglycerin 0.4 mg sublingual tablet (Nitrostat) 0.4 mg sublingual Q5-15M PRN chest pain #25 tabs 06/20/21 [Rx Last Taken Unknown] diltiazem HCl 120 mg capsule,extended release 24 hr (Cardizem CD) 120 mg PO DAILY heart rate #90 caps 07/01/22 [Rx Last Taken Unknown] atorvastatin 80 mg tablet 80 mg PO QHS cholesterol #90 tabs 07/15/22 [Rx Last Taken Unknown] memantine 5 mg tablet 10 mg PO BID alzheimers 07/15/22 [History Last Taken Unknown] Novolog U-100 Insulin aspart 100 unit/mL subcutaneous solution (insulin aspart U-100) See Rx Instructions subcut QAM DM #60 mL 08/01/22 [Rx Last Taken Unknown] blood-glucose meter (Accu-Chek Guide Me Glucose Meter) #1 ea 08/01/22 [Rx Last Taken Unknown] insulin syringe-needle U-100 0.5 mL 31 gauge x 5/16 (BD Insulin Syringe Ultra- Fine) #360 ea 10/21/22 [Rx Last Taken Unknown] blood sugar diagnostic (Accu-Chek Guide test strips) #100 ea 10/31/22 [Rx Last Taken Unknown] blood sugar diagnostic (FreeStyle Lite Strips) #180 ea 10/31/22 [Rx Last Taken Unknown] furosemide 20 mg tablet (Lasix) 20 mg PO DAILY diuretic #5 tabs 01/24/23 [Rx Last Taken Unknown] ondansetron 4 mg disintegrating tablet 4 mg PO Q8H PRN PRN Nausea #10 tabs 01/24/23 [Rx Last Taken Unknown] bicalutamide 50 mg tablet 50 mg PO DAILY Prostate 02/05/23 [History Last Taken Unknown] hydrocodone-acetaminophen 5-325mg 5mg-325mg 1 tab PO Q6H PRN pain 02/05/23 [History Last Taken Unknown] insulin glargine U-300 conc 300 unit/mL (1.5 mL) subcutaneous pen (Toujeo SoloStar U-300 Insulin) 24 unit subcut QHS diabetes 02/05/23 [History Last Taken Unknown] Allergy/AdvReac Type Severity Reaction Status Date / Time No Known Allergies Allergy Verified 02/05/23 12:44 Family History Mother Cancer Father Diabetes Other Heart disease Hypertension Surgical History History of cholecystectomy History of coronary angioplasty (06/14/21) History of pancreatic surgery History of prostate surgery Social History Smoking Status: Former smoker quit date: 06/02/01 pack-years: 48 Tobacco: How many years used: 48 alcohol intake: current alcohol intake frequency: 0-2 drinks per day substance use type: does not use ROS Review of Systems ROS Unobtainable: Denies due to encephalopathy Constitutional Constitutional: Reports fatigue and weakness; Denies anorexia, chills, fever(s) or malaise Eyes Eyes: Denies change in vision ENT HEENT: Denies dysphagia, headache(s) or sore throat Cardiovascular Cardiovascular: Reports edema; Denies chest pain, orthopnea, palpitations, paroxysmal nocturnal dyspnea or syncope Respiratory/Chest Respiratory/Chest: Reports cough, shortness of breath at rest and shortness of breath with exertion; Denies hemoptysis or wheezing Gastrointestinal Gastrointestinal: Denies constipation, diarrhea, nausea or vomiting Genitourinary Genitourinary: Denies dysuria Musculoskeletal Musculoskeletal: Denies back pain Neurologic Neurologic: Denies confusion, dizziness, focal weakness, headache(s), lack of coordination or seizures Vital Signs Vital Signs Vital Signs: 02/05/23 12:41 02/05/23 13:21 02/05/23 15:24 Temperature 97 F L Temperature Source Temporal Pulse Rate 85 81 Respiratory Rate 14 15 Respiratory Pattern Normal Blood Pressure 110/43 L Blood Pressure Mean 65 Pulse Ox 95 95 Oxygen Delivery Method Room Air 02/05/23 16:21 Temperature 98.1 F Temperature Source Oral Pulse Rate 82 Respiratory Rate 18 Respiratory Pattern Blood Pressure 128/62 H Blood Pressure Mean 84 Pulse Ox 98 Oxygen Delivery Method Room Air Weight Weight: 186 lb 1.122 oz Body Mass Index (BMI) 25.2 Physical Exam Const alert, oriented x3 and no apparent distress General Appearance: cooperative HEENT normocephalic, head/scalp atraumatic, moist oral mucous membranes and oropharynx normal Eyes PERRL and EOMs intact bilaterally Neck no lymphadenopathy and supple Lymph Lymphatic: no lymphadenopathy noted and no lymphedema noted Resp Resp Narrative: diminished breath sounds bilaterally, more diminished on the left side than the right. on room air Cardio regular rate, regular rhythm, S1 normal heart sound, S2 normal heart sound and no murmurs GI soft to palpation and non-tender GI Narrative: normal bowel sounds, mild abdominal distension with positive fluid thrill Extremity Extremity Narrative: bilateral lower extremity edema, 2+, pitting pedal edema Skin Wound Narrative: superficial excoriations on both lower extremities Neuro CN's II-XII intact bilaterally, no focal motor deficits and no sensory deficits noted Motor Exam: strength 5/5 throughout and general weakness Psych thought process normal, cooperative and affect normal Appearance: appropriate Results Lab / Micro Data 02/05/23 13:15 02/05/23 13:15 Labs: Laboratory Results - last 24 hr 02/05/23 12:52: POC Glucose 53 L 02/05/23 13:15: WBC 13.2 H, RBC 2.92 L, Hgb 9.5 L, Hct 31.6 L, MCV 108.2 H, MCH 32.5 H, MCHC 30.1 L, RDW Std Deviation 61.2 H, RDW Coeff of Abdullahi 16.1 H, Plt Count 406, MPV 11.1, Immature Gran % (Auto) 0.500, Neut % (Auto) 72.6 H, Lymph % (Auto) 12.8 L, [place] % (Auto) 12.1 H, Eos % (Auto) 1.4, Baso % (Auto) 0.6, Absolute Neuts (auto) 9.6 H, Absolute Lymphs (auto) 1.70, Nucleated RBC % 0.7, Differential Comment SCANNED, Diff Path Review September, Sodium 139, Potassium 3.9, Chloride 104, Carbon Dioxide 29.0, Anion Gap 6, BUN 27 H, Creatinine 1.19, Est GFR (MDRD) Af Amer 74, Est GFR (MDRD) Non-Af 61, BUN/Creatinine Ratio 22.7 H , Glucose 45 L, Calcium 8.2 L, Troponin I High Sens 12, B-Natriuretic Peptide 163.5 H 02/05/23 15:12: POC Glucose 72 L Radiology Impression Chest CTA 02/05/23 14:25 IMPRESSION: No evidence of pulmonary embolism. Small right pleural effusion with right basilar atelectasis. Stable scarring and bronchiectasis in the left lung apex. 2.2 cm x 1.3 cm soft tissue density in the medial aspect of the right lower lobe abutting the pericardium. Ascites. Electronically Signed: Jose L Tejeda MD at 15:02 EDT , Assessment & Plan Assessment/Plan (1) Fluid overload: (2) Hypoxia: (3) Anasarca: (4) Metastatic cancer: PLAN: Plan #FLuid overload in the setting of metastatic prostate cancer * Started having bilateral lower extremity edema about a month ago. Has been on Lasix but it has not helped much. * BNP is 165. Chest CT showed no evidence of PE but showed a small right pleural effusion with right basilar atelectasis and a 2.2 x 1.3 cm soft tissue density in the medial aspect of the right lower lobe abutting the pericardium and presence of ascites. Admit to PCU. Start diuresis with IV Lasix 40 mg twice daily. Monitor intake and output. Fluid restriction to 1500 cc daily. * Get 2D echocardiogram. * #Metastatic prostate cancer * Was diagnosed with prostate cancer 5 years ago and is s/p radiation at that time. Says was diagnosed again with prostate cancer a few weeks ago. He had a PET scan on 12/31/2022 which showed enhanced radiopharmaceutical concentration in the right hemithorax of the pleural interface, the pericardium and the anterior mediastinum and right hepatic nephric border fulfilling quantitative criteria for viable neoplasm and increased risk distribution multifocally disseminated throughout the abdominal pelvic cavity including omental caking and peritoneal thickening with soft tissue mass formation in the abdominal wall also fulfilling criteria for viable neoplasm there was also increased uptake in the left upper hemithorax pulmonary parenchyma * I think it is reasonable to get an oncology consult as it is not clear whether the spread is due to the prostate cancer or there is a secondary primary. * Will benefit from CT-guided biopsy or paracentesis to get fluid to send for pathology. * discussed with Dr Boyce on phone- PSA and diagnostic paracentesis ordered #Type 1 diabetes mellitus with diabetic polyneuropathy: * On gabapentin and Toujeo insulin U 328 units nightly. * ISS. Accu-Cheks ACHS. #CAD s/p stent: on aspirin and high intensity statin. #Benign essential hypertension: On losartan #DVT prophylaxis: lovenox COde status:full code * Patient counseled extensively about different types of CODE STATUS including full code, DNR CCA and DNR CCA. Patient initially said that he would leave it to the discretion of the doctor as he is also a chance to save him he wanted to be saved but his levels little chance he wanted to be let go. I explained to him that this will be dependent on his choice and he needed to let us know if he wanted the medical team to give him a chance to be kept alive. Patient said he wanted a chance to live if his heart stopped or he needed a ventilator and was finally agreeable to being on the ventilator or having CPR if needed. * Patient elects to be full code. * Total [id number] time 17 minutes. * Charges/Coding Visit Charges Inpatient E&M: 55455 Init Hosp L3 Procedures Hospitalists Procedures: 60234 Advncd Care Plan 30 Min
[2023-02-05 16:58] VITALS: BMI 24.8
[2023-02-05 17:08] VITALS: BP 132/72; PULSE 82; RESP 16; TEMP 36.4; O2SAT 92
[2023-02-05] MEDS: oxyCODONE 5 MG Tablet PO (18:04)
[2023-02-05] MEDS: Acetaminophen 325 MG Tablet 650 MG PO (18:04)
[2023-02-05 19:01] LABS: Troponin-I HS 13 pg/mL (3.0-78.0)
[2023-02-05 19:40] VITALS: RESP 16; O2SAT 94
--- NOTE | 2023-02-05 19:48 | EKG12_ITS ---
Test Reason : RHYTHM CHANGE Blood Pressure : / mmHG Vent. Rate : 092 BPM Atrial Rate : 080 BPM P-R Int : 188 ms QRS Dur : 118 ms QT Int : 414 ms P-R-T Axes : 081 023 052 degrees QTc Int : 511 ms Sinus rhythm with occasional and consecutive Premature ventricular complexes and Premature atrial com plexes Right bundle branch block Abnormal ECG When compared with ECG of 05-FEB-2023 13:14, MANUAL COMPARISON REQUIRED, DATA IS UNCONFIRMED Confirmed by JYOTI GILLIS, GUADALUPE ([id number]), story editor GLORIA KENNEY ([id number]) on 03/17/2023 2:14:06 PM Referred By: Confirmed By:GUADALUPE MONTES MD
[2023-02-05 20:10] LABS: Troponin-I HS 15 pg/mL (3.0-78.0)
[2023-02-05 21:27] VITALS: BP 117/66; PULSE 74; RESP 18; TEMP 36.8; O2SAT 94
[2023-02-05] MEDS: 0.9% Saline Lock 10 ML Syringe IV (21:49)
[2023-02-05] MEDS: Gabapentin 400 MG Capsule PO (21:49)
[2023-02-05] MEDS: Pantoprazole Sodium 40 MG Tablet PO (21:49)
[2023-02-05] MEDS: Atorvastatin Calcium 80 MG Tablet PO (21:49)
[2023-02-05] MEDS: Ibuprofen 400 MG Tablet PO (21:49)
[2023-02-05] MEDS: Memantine Hydrochloride 10 MG Tablet PO (21:49)
[2023-02-05] MEDS: Menthol/Lanolin/Calamine/Znox 113 GM Tube 1 APPLIC TOPICAL (21:49)
[2023-02-05 23:53] LABS: Bedside Glucose 148 mg/dL (74-106)
[2023-02-06] VITALS (8 sets, daily range): BP systolic 118–136; BP diastolic 40–51; PULSE 63–80; RESP 16–17; TEMP 36.1–37.1; O2SAT 92–96
--- NOTE | 2023-02-06 | IMM_PTH ---
PATIENT: ANNETTE VILLANUEVA LOC: [facility] U#:[id number] AGE/SX: 87/M ROOM: [facility] RE02/05/[address]: Dr. Warner Guthrie DO : 1935 BED: 1 DIS: 02/12/2023 SPEC #: [id number] RECD: 02/07/23 13:58 STATUS: TOMAS REQ #: [id number] JUSTINA: 02/06/23 00:[address]: Connor Carrion DEPT: IMMUNOHISTOCHEMISTRY RECD BY: Summer Quintanilla ENTERED: 02/07/23 14:00 SP TYPE: IMMUNO OTHR DR: MD Dr. Moises Moyer MD Dr. Mansour Isckarus, MD Dr. Mark Stutzman, DO Dr. Nana Yaa Koram, MD Dr. Robert Field, MD Dr. Ryan Jin, MD Dr. Roger Macklis, MD Dr. Steve Walston, DO Francia Vang, REEL CART OPERATOR-C Tissues: PARACENTESIS FLUID Procedures: RCC (add) NAPSIN A (add) CEA (add) CK20 (add) CK7 (add) CK8 (add) KEVIN (add) HEP PAR (add) KI-67 (add) P53 (add) TTF1 (add) 34BE12 (add) Pankeratin (initial) P40 (add) CDX2 (add) PSAP (add) S-100 (add) PHYSICIAN & INSTITUTION [facility] [address] [place] [address] [place] [address] SPECIMEN INFORMATION: Tissue Source: Paracentesis fluid Clinical Info: Ascites Specimen Number: [id number] CPT code: 72736, 25163 x16 METHODOLOGY: Deparaffinized sections of prefer/formalin-fixed tissue or PAP/DQ stained slides are incubated with monoclonal/polyclonal antibodies/oligonucleotide probes. Localization is made via biotin free immunoperoxidase method. Appropriate controls are performed and reacted as expected. Results on target cell population are indicated in the following table: RESULTS: ANTIBODY / CLONE RESULT AE1-3 (AE1/AE3/PCK26) positive CK7 (OV-TL12/30) positive CK8 (78vsksD70) positive CK20 (KS20.8) negative CDX2 (ONI7720N) negative 34BE12 (34BE12) negative S-100 (4C4.9) negative TTF-1 (8G7G3/1) negative Napsin A (Rabbit Polyclonal) negative HepPar (OCh1E5) * RCC (PN-15) negative PSAP (PASE/4LJ) positive P40 (BC28) negative KEVIN (E29) positive CEA (11-7/TF-3HB-1) negative P53 (DO-7) negative, null pattern Ki-67 (30-9) positive, 50% *?Nonspecific staining These tests were developed and their performance characteristics determined by [facility]. They may not have been cleared or approved by the U.S. Food and Drug Administration. The FDA has determined that such clearance or approval is not necessary. The above immunohistochemical/dualISH markers are ordered and reviewed by the Pathologist. INTERPRETATION: Paracentesis fluid (cell block): Metastatic non-small cell carcinoma. See comment. AM:brayden 02/10/2023 Comment: The IHC profile is consistent with prostate primary.
[2023-02-06] MEDS: Mag Hydrox/Al Hydrox/Simeth 30 ML UDC 15 ML PO (02:22)
[2023-02-06] MEDS: oxyCODONE 5 MG Tablet PO ×2 (06:10→13:34)
--- NOTE | 2023-02-06 06:14 | US_ITS ---
PROCEDURE: Ultrasound guided paracentesis. DATE OF EXAMINATION: February 06, 2023. INDICATION: Male, 87 years old. Ascites. PHYSICIAN: Jose L Tejeda M.D. TECHNIQUE: The risks, benefits, and alternatives to the procedure were explained to the patient. The specific risks of bleeding, infection, and damage to bowel were detailed and accepted. Witnessed informed consent was obtained. The abdomen was ultrasonographically surveyed. An appropriate pocket of fluid was identified at the left lower quadrant. The skin were cleaned and prepped in the usual sterile fashion. Using ultrasound guidance, the peritoneal cavity was accessed with a 5-Setswana paracentesis needle/catheter system. The trocar was removed. A total of 2700 ml of cloudy fluid were removed from the peritoneal cavity. A 100 mL sample was sent to the laboratory for analysis. The catheter was removed and a sterile dressing was applied. The procedure was well tolerated. US/Paracentesis with US IMPRESSION: Ultrasound guided paracentesis. Electronically Signed: Jose L Tejeda MD at 13:31 EDT ,
[2023-02-06 06:15] LABS: Absolute Lymphocyte Count 1.09 X10^3/uL (0.83-4.51); Absolute Neutrophil Count 5.1 X10^3/uL (2.0-7.7); Basophil# 0.04 X10^3/uL; Basophil% 0.5 % (0-1); Eosinophil# 0.53 X10^3/uL; Eosinophils% 6.8 % (0-5); Hematocrit 27.5 % (40-54); Hemoglobin 8.9 g/dL (13.0-16.5); Lymphocyte # 1.09 X10^3/ul (0.83-4.51); Mean Corp Hgb Conc 32.4 g/dL (32-36); Mean Corpuscular Hgb 33.1 pg (27.0-32.0); Mean Corpuscular Volume 102.2 fL (80-94); Mean Platelet Vol. 9.8 fl (6.2-12.0); Monocyte# 1.04 X10^3/uL; Monocyte% 13.3 % (0-10); NRBC Flagged by Analyzer 0.5 % (0-5); Neutrophil # 5.06 X10^3/uL (2.7-7.7); Neutrophil % 64.9 % (47-70); Platelet Count 378 K/mm3 (150-450); RBC Distribution Width SD 57.3 fl (35.1-43.9); Red Blood Count 2.69 M/mm3 (4.6-6.2); White Blood Count 7.8 K/mm3 (4.4-11.0)
[2023-02-06 06:43] LABS: Anion Gap 2 (5-15); BUN 29 mg/dL (7-18); BUN/Creat Ratio 25.2 RATIO (10-20); Calcium,Total 7.7 mg/dL (8.5-10.1); Chloride 108 mmol/L (98-107); Creatinine, Serum 1.15 mg/dL (0.70-1.30); EST Glomerular Filtration Rate 64 mL/min (>60); Est Glom Filt Rate - Afr Amer 77 mL/min (>60); Estimated Creatinine Clearance 49.67 ml/min; Glucose 102 mg/dL (74-106); Potassium 3.9 mmol/L (3.5-5.1); Sodium Level 143 mmol/L (136-145)
[2023-02-06 06:46] LABS: Albumin, Serum 2.2 g/dL (3.2-5.0)
[2023-02-06 06:59] LABS: PSA,Total- Diagnostic 8.23 ng/mL (0.0-4.0)
[2023-02-06 07:53] LABS: Bedside Glucose 100 mg/dL (74-106)
[2023-02-06 08:43] LABS: Prothrombin Time (Protime)PT. 13.1 SECONDS (11.7-14.9)
[2023-02-06 08:44] LABS: Partial Thromboplast Time 31.1 Seconds (24.1-36.2)
[2023-02-06] MEDS: BICALUTAMIDE 50 MG TABLET PO (09:51)
[2023-02-06] MEDS: Aspirin E.C. 81 MG Tablet PO (09:51)
[2023-02-06] MEDS: dilTIAZem CD 120 MG Capsule PO (09:51)
[2023-02-06] MEDS: Losartan Potassium 50 MG Tablet PO (09:52)
[2023-02-06] MEDS: Cholecalciferol (VIT D3) 25 MCG TABLET (1,000 UNITS) 50 MCG PO (09:52)
[2023-02-06] MEDS: Memantine Hydrochloride 10 MG Tablet PO ×2 (09:52→21:52)
[2023-02-06] MEDS: Pantoprazole Sodium 40 MG Tablet PO ×2 (09:52→21:52)
[2023-02-06] MEDS: Cyanocobalamin 500 MCG Tablet 1000 MCG PO (09:52)
[2023-02-06] MEDS: Acetaminophen 325 MG Tablet 650 MG PO (09:54)
--- NOTE | 2023-02-06 12:12 | FLU_PTH ---
PATIENT: ANNETTE VILLANUEVA LOC: [facility] U#:[id number] AGE/SX: 87/M ROOM: [facility] RE02/05/[address]: Dr. Warner Guthrie DO : 1935 BED: 1 DIS: 02/12/2023 SPEC #: [id number] RECD: 02/06/23 12:55 STATUS: TOMAS REQ #: [id number] JUSTINA: 02/06/23 12:[address]: Connor Carrion DEPT: CYTOLOGY RECD BY: Gladis Villareal ENTERED: 02/06/23 13:46 SP TYPE: Fluid OTHR DR: MD Dr. Moises Moyer MD Dr. Mansour Isckarus, MD Dr. Mark Stutzman, DO Dr. Nana Yaa Koram, MD Dr. Robert Field, MD Dr. Ryan Jin, MD Dr. Roger Macklis, MD Dr. Steve Walston, DO Francia Vang, PIPE COVERER-C Tissues: PARACENTESIS FLUID Procedures: Special Stain Group II Surgery Specimen Level IV Cytospin Fluid HEADER OPERATION: Paracentesis PRE-OP DIAGNOSIS: Ascites TISSUE SUBMITTED: Paracentesis fluid for cytology DIAGNOSIS CYTOLOGY Paracentesis fluid for cytology (cytospin and cell block): Positive for malignant cells. See comment. AM:brayden 02/07/2023 COMMENT Immunohistochemistry ([id number]) supports the above diagnosis and is consistent with a prostate primary. Clinical correlation is suggested. Case has been reviewed in consultation with Dr. Nath who concurs with the above diagnosis. IDC:SJ CYTOLOGY STUDY Slides are reviewed. CYTOLOGY GROSS Received is 80 ml of pinkish-orange cloudy fluid labeled with the patient's name and and designated per the requisition as paracentesis. Submitted for cytology preparation including cell block. / brayden 02/06/2023 TC:0 CPT: 69387, 41704, 09857
[2023-02-06 12:13] LABS: Bedside Glucose 169 mg/dL (74-106)
[2023-02-06] MEDS: Lidocaine 2% (20 ml mdv) 20 ML Vial INFILT (12:16)
[2023-02-06 12:54] LABS: Cytology, Body Fluid / CSF SEE PATHOLOGY REPORT
[2023-02-06 13:15] LABS: Body Fluid Mononuclear WBC # 0.391 10^3/uL; Body Fluid Mononuclear WBC % 57.2 %; Body Fluid Polynuclear WBC # 0.292 10^3/uL; Body Fluid Polynuclear WBC % 42.8 %; Body Fluid Total Cells Counted 0.832 10^3/ul; Red Cell Count/Body Fluid 0.008 10^6/ul; White Blood Count/Body Fluid 0.683 10^3/uL
[2023-02-06 13:21] LABS: Pathologist Review Reviewed
--- NOTE | 2023-02-06 13:40 | CASEMGMT ---
Addendum entered by Brie Roger 02/06/23 14:31: Patient's ad daughter informed PIA RINCON that they are considering having an aid come to the home once a week to assist with cleaning and laundry. PIA RINCON provided Private Duty Home Care Agency list to patient. BETTY Nova, RN, CM Original Note: PIA RINCON Face to Face with patient for initial transition planning/care coordination assessment. Patients , daughter, and grandson also at beside per patient's permission. PIA RINCON introduced self and role at [facility]. Patient lying in bed, alert and oriented. Patient willing to participate in assessment and is able to answer all questions appropriately.? Care providers, pharmacy, and demographics verified. Patient wishes to discharge home, denies need for home health at this time.? Patient states he has no further needs or concerns at this time. CM to follow for discharge planning needs that may arise. PCP:Nisha Specialists:Urologist (Brooke Jacobo), Neurologist (Buck), Instructional Services Librarian (patient does not recall name), Oncologist ([facility]) [facility]erred Pharmacy:[facility] Insurance:[employer] [facility] Prescription Benefit:?Yes Living Will/HPOA:Yes/Yes; is HCPOA LNOK: Living Arrangements:Lives in one story home with . 6 steps w/railing to enter. Patient states he did fine with ambulating steps prior to this admission and is independent in ADLs/IADLs. Transportation:Self and DME: Shower chair, cane (states at baseline he only uses this outside to help balance himself), and grab bars. Patient's family requests information on medical alert systems and this information/pamphlet was provided to them. HHC: Denies previous SNF and HHC Disposition Plan:Patient would like to discharge home. Plan is for patient to discharge home with family support and follow-up plans in place. Will monitor progress with therapy. Brie HERNÁNDEZ, RN, CM
[2023-02-06] MEDS: 0.9% Saline Lock 10 ML Syringe IV ×3 (13:41→21:52)
[2023-02-06] MEDS: Furosemide 40 MG/4 ML Vial IV ×2 (13:41→17:53)
[2023-02-06 13:43] LABS: Specific Gravity, Body Fluid 1.021
[2023-02-06 13:49] LABS: Glucose, Body Fluid 172 mg/dL (40-70); LDH,Body Fluid 239 Units/L (Not Establ.)
[2023-02-06 14:57] LABS: Auto B Fluid Analyzer BKGD Ct COUNTS W/IN LIMITS (W/IN LIMITS); Lymphocytes 18 %; Macrophages 15 %; Mesothelial Cells 15 %; Monocytes 7 %; Neutrophil (Segs) 45 %
[2023-02-06 14:58] LABS: Color/Body Fluid YELLOW; Source- Body Fluid PERITONEAL FLUID
[2023-02-06 14:59] LABS: Appearance/Body Fluid CLOUDY; Body Fluid QC Type(s) BF1Q
[2023-02-06] MEDS: Menthol/Lanolin/Calamine/Znox 113 GM Tube 1 APPLIC TOPICAL ×2 (16:14→21:51)
--- NOTE | 2023-02-06 17:41 | PCM.PN.HOSP ---
Subjective Subjective Patient seen at bedside, and daughter present. Patient sitting comfortably in bed, conversing normally, no acute distress. Had extensive conversation with patient and family today regarding patient's medical history up to this point, as well as his current ailments. Patient has had intermittent neuropathy of his legs that has seemed to worsen over the past few days. He has noticed worsening of his abdominal swelling over the last several weeks. He denies any acute abdominal pain or discomfort currently. He denies any shortness of breath and is satting well on room air. He denies any chest pain. No other acute concerns. Objective Data Objective Data Vital Signs: Vital Signs Temp Pulse Resp BP Pulse Ox O2 Del Method 98.0 F 80 16 120/51 L 94 Room Air 02/06/23 13:19 02/06/23 13:19 02/06/23 13:19 02/06/23 13:19 02/06/23 13:19 02/06/23 13:19 Oxygen Delivery Method [3] Room Air Oxygen Delivery Method [2] Room Air Oxygen Delivery Method [1 ( Room Air Initial Baseline)] Oxygen Delivery Method Room Air Weight: 83.2 kg Body Mass Index (BMI) 24.8 Intake & Output: Intake and Output for Last 24 Hours 02/04/23 02/05/23 02/06/23 23:59 23:59 23:59 Intake Total 118 / 118 Output Total 3350 / 3350 Balance -3232 / -3232 Lab / Micro Data 02/06/23 05:49 02/06/23 05:49 Labs: Laboratory Results - last 24 hr 02/05/23 13:15: Diff Path Review Reviewed 02/05/23 17:52: Troponin I High Sens 13 02/05/23 19:30: Troponin I High Sens 15 02/05/23 21:23: POC Glucose 148 H 02/06/23 05:49: WBC 7.8, RBC 2.69 L, Hgb 8.9 L, Hct 27.5 L, MCV 102.2 H D, MCH 33.1 H, MCHC 32.4 D, RDW Std Deviation 57.3 H, RDW Coeff of Abdullahi 16.0 H, Plt Count 378, MPV 9.8, Immature Gran % (Auto) 0.500, Neut % (Auto) 64.9, Lymph % (Auto) 14.0 L, [place] % (Auto) 13.3 H, Eos % (Auto) 6.8 H, Baso % (Auto) 0.5, Absolute Neuts (auto) 5.1, Absolute Lymphs (auto) 1.09, Nucleated RBC % 0.5, Sodium 143, Potassium 3.9, Chloride 108 H, Carbon Dioxide 33.0 H, Anion Gap 2 L, BUN 29 H, Creatinine 1.15, Estim Creat Clear Calc 49.67, Est GFR (MDRD) Af Amer 77, Est GFR (MDRD) Non-Af 64, BUN/Creatinine Ratio 25.2 H, Glucose 102, Calcium 7.7 L, Albumin 2.2 L, Total PSA 8.23 H 02/06/23 06:03: POC Glucose 100 02/06/23 08:10: PT 13.1, INR 1.0, APTT 31.1 02/06/23 11:37: POC Glucose 169 H 02/06/23 12:53: Fluid Source PERITONEAL FLUID, Fluid Color YELLOW, Fluid Appearance CLOUDY, Fluid Specific Grav 1.021, Fluid WBC 0.683, Fluid RBC 0.008, Fluid Tot Cell Count 0.832, Fld Polynuclear WBCs # 0.292, Fld Polynuclear WBCs % 42.8, Fluid Mononuclear WBCs 0.391, Fld Mononuclear WBCs % 57.2, Fluid Neutrophils 45, Fluid Lymphocytes 18, Fluid Monocytes 7, Fluid Macrophages 15, Fld Mesothelial Cells 15, Fl Pathologist Comment May follow, Fluid Glucose 172 H, Fluid LDH 239, Fluid Comment 2 SEE COMMENT Micro: Microbiology 02/06/23 12:53 Fluid - Ascites Gram Stain - Final Radiography Diagnostic Testing: Radiology Impression Venous Doppler Study 02/05/23 13:03 Interpretation Summary Deep veins of the bilateral lower extremities are patent and compressible segmentally. There is no evidence of bilateral lower extremity deep vein thrombosis. The bilateral great saphenous veins appear patent and compressible segmentally. Ordering Physician: Lilli Rubio Referring Physician: Lico Cameron Performed By: Myke Gardner, GONZALES Paracentesis Ultrasound 02/06/23 06:14 IMPRESSION: Ultrasound guided paracentesis. Electronically Signed: Jose L Tejeda MD at 13:31 EDT , Physical Exam Const alert, oriented x3, no apparent distress, average body habitus, healthy appearing and well nourished General Appearance: cooperative, comfortable, well kempt and well developed HEENT normocephalic, head/scalp atraumatic, hearing grossly normal bilaterally, nasal mucous membranes and turbinates normal and moist oral mucous membranes Eyes PERRL, EOMs intact bilaterally and conjunctivae normal Neck full ROM, no lymphadenopathy and supple Lymph Lymphatic: no lymphadenopathy noted Chest inspection of chest normal Resp normal respiratory effort, normal air movement, no use of accessory muscles and clear to auscultation bilaterally Cardio regular rate, regular rhythm, no murmurs and peripheral pulses 2+ throughout GI GI Narrative: Abdomen distended but soft to palpation, fluid wave noted. Nontender to palpation. Back/Spine normal ROM Extremity normal to inspection, full ROM and no pedal edema Skin no rashes or lesions noted Psych mental status grossly normal Assessment & Plan Assessment/Plan (1) Fluid overload: PLAN: Plan Patient is an 87-year-old male with history of prostate cancer, type 2 diabetes with neuropathy, cognitive impairment, hypertension and chronic pain who presented to [facility] on 02/05/2023 with worsening abdominal swelling and lower extremity swelling. 1. Volume overload, concern for worsening metastatic prostate cancer versus undiagnosed secondary cancer Patient volume overloaded on exam on admission including bilateral lower extremity edema, abdominal ascites and small right pleural effusion. Patient notably had a PET/CT scan done outpatient at the beginning of December, showed increased tracer distribution distended throughout the abdominal?pelvic cavity including omental caking and peritoneal thickening concerning for neoplasm; also showed enhanced uptake in the right hemithorax of pyelonephritis, the pericardium, and the anterior mediastinum. Chest CTA on admit showed a small right pleural effusion with right basilar atelectasis, as well as a 2.2 cm x 1.3 cm soft tissue density in the medial aspect of the right lower lobe abutting the pericardium; no evidence of PE. Lower extremity venous Doppler study negative for DVT. S/p ultrasound-guided paracentesis on 02/06 with 2700 ml of cloudy fluid removed. ?Oncology consulted. Follow-up paracentesis fluid studies. Continue IV Lasix 40 mg twice daily. Monitor urine output. Monitor BMP. TTE ordered. Chronic medical conditions: ? Type 1 diabetes with diabetic neuropathy: On home Toujeo 24 units at night, NovoLog sliding scale insulin, gabapentin. Continue long-acting insulin 24 units at night with sliding scale insulin. Monitor sugars, adjust as needed. ? CAD s/p stenting: Continue home aspirin and high intensity statin. ? Hypertension: Continue home losartan. DVT prophylaxis: Lovenox CODE STATUS: Full code, verified Expected disposition: Home, TBD Total clinical time spent by myself addressing the patient's medical issues, reviewing all the data, and collaborating with patient's care team: 35 minutes. Charges/Coding Visit Charges Inpatient E&M: 10815 Subs Hosp L2
[2023-02-06] MEDS: Insulin Lispro 100 UNIT/ML INSULN.PEN SC ×2 (17:51→21:51)
[2023-02-06 18:29] LABS: Bedside Glucose 235 mg/dL (74-106)
--- NOTE | 2023-02-06 18:56 | ONC.CONSULT ---
Assessment & Plan Assessment/Plan (1) Metastatic cancer: Status: Acute Code(s): C79.9 - Secondary malignant neoplasm of unspecified site Qualifiers: Area of secondary neoplastic involvement: peritoneum Qualified Code(s): C78.6 - Secondary malignant neoplasm of retroperitoneum and peritoneum Plan: This may be due to metastatic prostate cancer versus another primary. Patient has had paracentesis done and cytology is pending. Will await results of cytology and then decide on further management. (2) Anasarca: Status: Acute Code(s): R60.1 - Generalized edema Plan: Etiology of anasarca may be multifactorial. Causes include heart failure, protein malnutrition versus metastatic cancer. To await cytology report and then decide on further management. HPI Consult Data Date of Service:: 02/06/23 PCP / Referring Provider: Dr. Lico Cameron DO Attending: Dr. Connor Carrion DO Chief Complaint Chief Complaint: Asked to see Pt with metastatic Prostate cancer. History of Present Illness History of Present Illness: 87-year-old old man was diagnosed with prostate cancer in 2014, he underwent TURP on 11/25/2014. Pathology showed prostate adenocarcinoma, Moclips score 10. He reports that he had radiation therapy by Dr. Christian. He is now on being treated by urologist in [place]. He had PSMA PET CT scan done on 12/31/2022 which showed hypermetabolic activity in the right hemithorax at the pleural interface with the pericardium, anterior mediastinum, right hepatophrenic angle, increased activity noted throughout abdominopelvic cavity with omental caking and peritoneal caking, soft tissue mass formation in the anterior abdominal wall suggestive of metastatic disease. PSA was about 10. He started therapy with LHRH agonist and bicalutamide about a month ago. Recently he has developed swelling of the feet and abdomen and was sent to the ER. CTA on 02/05/2023 shows no evidence of pulmonary embolism, small right pleural effusion with right basilar atelectasis 2.2 cm soft tissue mass in the medial aspect of the right lower lobe abutting the pericardium with ascites. PSA on 11/2022 is 8.23. 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 Long-term insulin use Macrocytic anemia Macular degeneration Prostate cancer Pulmonary nodule Right bundle branch block Shingles ulcers Uncontrolled type 1 diabetes mellitus with hyperglycemia Unstable angina Urinary retention Vision problems Vitamin D deficiency Home Medications pen needle, diabetic 32 gauge x 5/32 (BD Ultra-Fine [place] Pen Needle) #10 ea 08/13/17 [History Last Taken Unknown] pantoprazole 40 mg tablet,delayed release (Protonix) 40 mg PO BID reflux 09/03/17 [History Last Taken 06/13/21] cholecalciferol (vitamin D3) 50 mcg (2,000 unit) capsule 2,000 unit PO DAILY vitamin 03/05/18 [History Last Taken 06/13/21] blood-glucose meter (FreeStyle Lite Meter kit) #1 ea 03/23/20 [Rx Last Taken Unknown] insulin syringe-needle U-100 0.5 mL 31 gauge x 5/16 #100 ea 08/15/20 [Rx Last Taken Unknown] cyanocobalamin (vitamin B-12) 1,000 mcg capsule 1,000 mcg PO DAILY SUPPLEMENT 06/13/21 [History Last Taken 06/13/21] gabapentin 400 mg capsule 400 mg PO QHS NERVE PAIN 06/13/21 [History Last Taken 06/12/21] ibuprofen 200 mg tablet 400 mg PO QHS PAIN 06/13/21 [History Last Taken 06/12/21] losartan 50 mg tablet 50 mg PO DAILY BP 06/13/21 [History Last Taken 06/13/21] aspirin 81 mg tablet,delayed release 81 mg PO BREAKFAST heart health #0 tabs 06/15/21 [Rx Last Taken Unknown] nitroglycerin 0.4 mg sublingual tablet (Nitrostat) 0.4 mg sublingual Q5-15M PRN chest pain #25 tabs 06/20/21 [Rx Last Taken Unknown] diltiazem HCl 120 mg capsule,extended release 24 hr (Cardizem CD) 120 mg PO DAILY heart rate #90 caps 07/01/22 [Rx Last Taken Unknown] atorvastatin 80 mg tablet 80 mg PO QHS cholesterol #90 tabs 07/15/22 [Rx Last Taken Unknown] memantine 5 mg tablet 10 mg PO BID alzheimers 07/15/22 [History Last Taken Unknown] Novolog U-100 Insulin aspart 100 unit/mL subcutaneous solution (insulin aspart U-100) See Rx Instructions subcut QAM DM #60 mL 08/01/22 [Rx Last Taken Unknown] blood-glucose meter (Accu-Chek Guide Me Glucose Meter) #1 ea 08/01/22 [Rx Last Taken Unknown] insulin syringe-needle U-100 0.5 mL 31 gauge x 5/16 (BD Insulin Syringe Ultra-Fine) #360 ea 10/21/22 [Rx Last Taken Unknown] blood sugar diagnostic (Accu-Chek Guide test strips) #100 ea 10/31/22 [Rx Last Taken Unknown] blood sugar diagnostic (FreeStyle Lite Strips) #180 ea 10/31/22 [Rx Last Taken Unknown] furosemide 20 mg tablet (Lasix) 20 mg PO DAILY diuretic #5 tabs 01/24/23 [Rx Last Taken Unknown] ondansetron 4 mg disintegrating tablet 4 mg PO Q8H PRN PRN Nausea #10 tabs 01/24/23 [Rx Last Taken Unknown] bicalutamide 50 mg tablet 50 mg PO DAILY Prostate 02/05/23 [History Last Taken Unknown] hydrocodone-acetaminophen 5-325mg 5mg-325mg 1 tab PO Q6H PRN pain 02/05/23 [History Last Taken Unknown] insulin glargine U-300 conc 300 unit/mL (1.5 mL) subcutaneous pen (Toujeo SoloStar U-300 Insulin) 24 unit subcut QHS diabetes 02/05/23 [History Last Taken Unknown] Allergy/AdvReac Type Severity Reaction Status Date / Time No Known Allergies Allergy Verified 02/05/23 12:44 Family History Mother Cancer Father Diabetes Other Heart disease Hypertension Surgical History History of cholecystectomy History of coronary angioplasty (06/14/21) History of pancreatic surgery History of prostate surgery Social History Smoking Status: Former smoker quit date: 06/02/01 pack-years: 48 Tobacco: How many years used: 48 alcohol intake: current alcohol intake frequency: 0-2 drinks per day substance use type: does not use ROS Constitutional Constitutional: Denies chills or fever(s) ENT HEENT: Denies dysphagia or hoarseness Genitourinary Genitourinary: Denies change in urinary stream or dysuria Musculoskeletal Musculoskeletal: Denies muscle weakness Integumentary Integumentary: Denies alopecia or erythema Neurologic Neurologic: Denies abnormal speech or behavior changes Psychiatric Psychiatric: Denies depression or homicidal ideation Endocrine Endocrinology: Denies cold intolerance or heat intolerance Hematologic/Lymphatic Hematologic/Lymphatic: Denies lymphadenopathy Physical Exam Narrative elderly man Const alert, oriented x3 and no apparent distress HEENT normocephalic Eyes no scleral icterus Neck no lymphadenopathy Lymph Lymphatic: no lymphadenopathy noted Resp clear to auscultation bilaterally Cardio regular rate, regular rhythm, S1 normal heart sound and S2 normal heart sound GI normal to inspection, nondistended, normoactive bowel sounds Extremity Extremity Narrative: +edema Neuro CN's II-XII intact bilaterally and moves all extremities Psych mental status grossly normal Vital Signs Temperature 97.8 F 02/06/23 17:45 Temperature Source Oral 02/06/23 17:45 Pulse Rate 73 02/06/23 17:45 Pulse Strength Weak (1+) 02/05/23 21:30 Respiratory Rate 16 02/06/23 17:45 Respiratory Effort Normal, Non-Labored 02/06/23 17:45 Respiratory Depth Normal 02/06/23 17:45 Respiratory Pattern Normal 02/06/23 17:45 Blood Pressure 133/47 H 02/06/23 17:45 Blood Pressure Mean 75 02/06/23 17:45 Blood Pressure Source Monitor 02/06/23 17:45 Blood Pressure Position Semi-Fowlers 02/06/23 17:45 Blood Pressure Location Left Arm 02/06/23 17:45 Pulse Ox 92 02/06/23 17:45 Oxygen Delivery Method Room Air 02/06/23 17:45 Laboratory Results - last 24 hr 02/05/23 13:15: Diff Path Review Reviewed 02/05/23 17:52: Troponin I High Sens 13 02/05/23 19:30: Troponin I High Sens 15 02/05/23 21:23: POC Glucose 148 H 02/06/23 05:49: WBC 7.8, RBC 2.69 L, Hgb 8.9 L, Hct 27.5 L, MCV 102.2 H D, MCH 33.1 H, MCHC 32.4 D, RDW Std Deviation 57.3 H, RDW Coeff of Abdullahi 16.0 H, Plt Count 378, MPV 9.8, Immature Gran % (Auto) 0.500, Neut % (Auto) 64.9, Lymph % (Auto) 14.0 L, [place] % (Auto) 13.3 H, Eos % (Auto) 6.8 H, Baso % (Auto) 0.5, Absolute Neuts (auto) 5.1, Absolute Lymphs (auto) 1.09, Nucleated RBC % 0.5, Sodium 143, Potassium 3.9, Chloride 108 H, Carbon Dioxide 33.0 H, Anion Gap 2 L, BUN 29 H, Creatinine 1.15, Estim Creat Clear Calc 49.67, Est GFR (MDRD) Af Amer 77, Est GFR (MDRD) Non-Af 64, BUN/Creatinine Ratio 25.2 H, Glucose 102, Calcium 7.7 L, Albumin 2.2 L, Total PSA 8.23 H 02/06/23 06:03: POC Glucose 100 02/06/23 08:10: PT 13.1, INR 1.0, APTT 31.1 02/06/23 11:37: POC Glucose 169 H 02/06/23 12:53: Fluid Source PERITONEAL FLUID, Fluid Color YELLOW, Fluid Appearance CLOUDY, Fluid Specific Grav 1.021, Fluid WBC 0.683, Fluid RBC 0.008, Fluid Tot Cell Count 0.832, Fld Polynuclear WBCs # 0.292, Fld Polynuclear WBCs % 42.8, Fluid Mononuclear WBCs 0.391, Fld Mononuclear WBCs % 57.2, Fluid Neutrophils 45, Fluid Lymphocytes 18, Fluid Monocytes 7, Fluid Macrophages 15, Fld Mesothelial Cells 15, Fl Pathologist Comment May follow, Fluid Glucose 172 H, Fluid LDH 239, Fluid Comment 2 SEE COMMENT 02/06/23 17:39: POC Glucose 235 H Microbiology 02/06/23 12:53 Fluid - Ascites Gram Stain - Final Diagnostic Data Venous Doppler Study 02/05/23 13:03 Interpretation Summary Deep veins of the bilateral lower extremities are patent and compressible segmentally. There is no evidence of bilateral lower extremity deep vein thrombosis. The bilateral great saphenous veins appear patent and compressible segmentally. Ordering Physician: Lilli Rubio Referring Physician: Lico Cameron Performed By: Myke Gardner, T Chest CTA 02/05/23 14:25 IMPRESSION: No evidence of pulmonary embolism. Small right pleural effusion with right basilar atelectasis. Stable scarring and bronchiectasis in the left lung apex. 2.2 cm x 1.3 cm soft tissue density in the medial aspect of the right lower lobe abutting the pericardium. Ascites. Electronically Signed: Jose L Tejeda MD at 15:02 EDT , Paracentesis Ultrasound 02/06/23 06:14 IMPRESSION: Ultrasound guided paracentesis. Electronically Signed: Jose L Tejeda MD at 13:31 EDT , Charges/Coding Visit Charges Office Visits / Consults: [id number] IP Consult L4
[2023-02-06] MEDS: Gabapentin 400 MG Capsule PO (21:52)
[2023-02-06] MEDS: Insulin Glargine-YFGN 100 UNIT/ML Pen 24 UNIT SC (21:52)
[2023-02-06] MEDS: Atorvastatin Calcium 80 MG Tablet PO (21:52)
[2023-02-06] MEDS: Ibuprofen 400 MG Tablet PO (21:52)
[2023-02-06 22:34] LABS: Bedside Glucose 204 mg/dL (74-106)
[2023-02-07 04:10] VITALS: BP 131/51; PULSE 69; RESP 16; TEMP 36.9; O2SAT 94
[2023-02-07 07:01] LABS: Bedside Glucose 99 mg/dL (74-106)
--- NOTE | 2023-02-07 07:34 | ECHOCS_ITS ---
Reason For Study: CHF Procedure This was a 2D Doppler, Color Flow transthoracic echocardiogram. The study was technically difficult. Contrast injection was performed. Exam performed portable in patient room. Left Ventricle Normal left ventricle. The estimated ejection fraction is 65-70 %. Right Ventricle Normal right ventricle. Normal systolic function. Atria Normal left atrium. Normal right atrium. Mitral Valve There is moderate mitral annular calcification. Trivial mitral valve insufficiency. Tricuspid Valve Normal tricuspid valve. Trivial tricuspid valve insufficiency. Aortic Valve Mild diffuse aortic valve calcification. Pulmonic Valve The pulmonic valve is not well visualized. Great Vessels The aortic root is not well visualized. Pericardium/Pleural No pericardial effusion. Medication Diluted definity 1.5ml given slow IV push to enhance endocardial definition. MMode/2D Measurements & Calculations LVIDd: 4.2 cm IVSd: 0.90 cm Ao root diam: 3.8 cm LVIDs: 2.6 cm LVPWd: 0.84 cm LA dimension: 3.2 cm RVDd: 3.7 cm FS: 37.6 % LAV(MOD-sp4): 41.8 ml LVAd ap4: 36.8 cm2 SV(MOD-sp4): 88.3 ml LVLd ap4: 8.8 cm EDV(MOD-sp4): 125.9 ml EDV(sp4-el): 130.8 ml LVAs ap4: 17.1 cm2 LVLs ap4: 6.3 cm ESV(MOD-sp4): 37.6 ml ESV(sp4-el): 39.4 ml EF(MOD-sp4): 70.1 % EF(sp4-el): 69.9 % SV(sp4-el): 91.4 ml LA A4 area: 17.4 cm2 RA A4 area: 14.4 cm2 TAPSE: 1.9 cm Time Measurements MV dec time: 0.32 sec Doppler Measurements & Calculations MV E max mark: 84.8 cm/sec Lat Peak E' Mark: 11.1 cm/sec Med Peak E' Mark: 9.9 cm/sec MV A max mark: 99.0 cm/sec E/E' lat: 7.7 E/E' med: 8.5 MV E/A: 0.86 MV V2 max: 124.5 cm/sec MV P1/2t max mark: 98.7 cm/sec Ao V2 max: 118.2 cm/sec MV max P.2 mmHg MV P1/2t: 85.7 msec Ao max P.6 mmHg MV V2 mean: 66.5 cm/sec MV mean P.1 mmHg MV dec slope: 337.3 cm/sec2 MV V2 VTI: 32.3 cm MVA(P1/2t): 2.6 cm2 LV V1 max: 113.0 cm/sec PA V2 max: 113.2 cm/sec TR max mark: 282.4 cm/sec LV V1 max P.1 mmHg TR max P.1 mmHg ECHO/Echo Complete W/ Contrast Interpretation Summary The estimated ejection fraction is 65-70 %. Normal LV systolic function Grade 1 diastolic dysfunction Moderate mitral annular calcification with trivial MR Trivial TR Diffuse calcific aortic valve with no evidence of aortic stenosis No prior echocardiogram to compare. Ordering Physician: Connor Carrion Referring Physician: Lico Cameron Performed By: Justen Matias RCS
[2023-02-07 08:14] VITALS: O2SAT 94
[2023-02-07 09:33] VITALS: BP 118/79; PULSE 75; RESP 16; TEMP 36.8; O2SAT 97
[2023-02-07] MEDS: Menthol/Lanolin/Calamine/Znox 113 GM Tube 1 APPLIC TOPICAL ×2 (09:35→21:01)
[2023-02-07] MEDS: Aspirin E.C. 81 MG Tablet PO (09:36)
[2023-02-07] MEDS: Cyanocobalamin 500 MCG Tablet 1000 MCG PO (09:36)
[2023-02-07] MEDS: Cholecalciferol (VIT D3) 25 MCG TABLET (1,000 UNITS) 50 MCG PO (09:36)
[2023-02-07] MEDS: Pantoprazole Sodium 40 MG Tablet PO ×2 (09:36→20:59)
[2023-02-07] MEDS: BICALUTAMIDE 50 MG TABLET PO (09:37)
[2023-02-07] MEDS: dilTIAZem CD 120 MG Capsule PO (09:38)
[2023-02-07] MEDS: Losartan Potassium 50 MG Tablet PO (09:38)
[2023-02-07] MEDS: Memantine Hydrochloride 10 MG Tablet PO ×2 (09:38→20:59)
[2023-02-07] MEDS: 0.9% Saline Lock 10 ML Syringe IV ×2 (09:39→17:15)
[2023-02-07] MEDS: Enoxaparin 40 MG/0.4 ML Syringe SC (09:39)
[2023-02-07] MEDS: Furosemide 40 MG/4 ML Vial IV ×2 (09:39→17:15)
[2023-02-07 09:44] LABS: Anion Gap 1 (5-15); BUN 28 mg/dL (7-18); BUN/Creat Ratio 26.9 RATIO (10-20); Calcium,Total 7.6 mg/dL (8.5-10.1); Chloride 109 mmol/L (98-107); Creatinine, Serum 1.04 mg/dL (0.70-1.30); EST Glomerular Filtration Rate 72 mL/min (>60); Est Glom Filt Rate - Afr Amer 87 mL/min (>60); Estimated Creatinine Clearance 54.93 ml/min; Glucose 90 mg/dL (74-106); Sodium Level 143 mmol/L (136-145)
[2023-02-07 11:28] VITALS: O2SAT 96
[2023-02-07 11:50] LABS: Bedside Glucose 189 mg/dL (74-106)
--- NOTE | 2023-02-07 12:12 | CASEMGMT ---
Social Work SW spoke w/pt, and daughter in room. SW let them know that LW/POA forms are not on file, asked them to bring in the forms as able. Daughter states they would like to redo them, pt in agreement. They want to discuss if first however. SW explained will have SW stop back later to assist in completing LW/POA forms. MADYSON Williamson
[2023-02-07] MEDS: Ondansetron ODT 4 MG Tablet PO ×2 (12:23→21:00)
[2023-02-07 12:25] LABS: Bedside Glucose 214 mg/dL (74-106)
--- NOTE | 2023-02-07 12:53 | CASEMGMT ---
Addendum entered by Kelli Erickson 02/07/23 16:15: Patient signed documents. Copies were made and given to patient along with originals. A copy of each was also placed in patient's chart. Kelli QUIGLEY Original Note: SW went to patient's room per family's request. Patient's daughter asked some questions about Healthcare POA, Healthcare Living Will, and DNR. SW answered questions and also provided them with a copies of each document per their request. Patient's daughter wanted to fill out the documents and will request SW when done to have patient sign. Kelli QUIGLEY
--- NOTE | 2023-02-07 13:14 | PCM.PN.HOSP ---
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 Patient seen at bedside this morning. Sitting comfortably in bed, conversing normally, no acute distress. Patient denies any abdominal pain or discomfort after paracentesis yesterday. Has been eating and drinking without issue. Denies any fevers or chills. Denies any chest pain or shortness of breath. No other acute concerns this morning. Objective Data Objective Data Vital Signs: Vital Signs Temp Pulse Resp BP Pulse Ox O2 Del Method 98.2 F 75 16 118/79 96 Room Air 02/07/23 09:33 02/07/23 09:33 02/07/23 09:33 02/07/23 09:33 02/07/23 11:28 02/07/23 09:33 Oxygen Delivery Method [3] Room Air Oxygen Delivery Method [2] Room Air Oxygen Delivery Method [1 ( Room Air Initial Baseline)] Oxygen Delivery Method Room Air Weight: 83.2 kg Body Mass Index (BMI) 24.8 Intake & Output: Intake and Output for Last 24 Hours 02/05/23 02/06/23 02/07/23 23:59 23:59 23:59 Intake Total 682 / 682 Output Total 4000 / 4000 500 / 500 Balance -3318 / -3318 -500 / -500 Lab / Micro Data 02/06/23 05:49 02/07/23 08:43 Labs: Laboratory Results - last 24 hr 02/05/23 13:15: Diff Path Review Reviewed 02/06/23 12:53: Fluid Source PERITONEAL FLUID, Fluid Color YELLOW, Fluid Appearance CLOUDY, Fluid Specific Grav 1.021, Fluid WBC 0.683, Fluid RBC 0.008, Fluid Tot Cell Count 0.832, Fld Polynuclear WBCs # 0.292, Fld Polynuclear WBCs % 42.8, Fluid Mononuclear WBCs 0.391, Fld Mononuclear WBCs % 57.2, Fluid Neutrophils 45, Fluid Lymphocytes 18, Fluid Monocytes 7, Fluid Macrophages 15, Fld Mesothelial Cells 15, Fl Pathologist Comment May follow, Fluid Glucose 172 H, Fluid LDH 239, Fluid Comment 2 SEE COMMENT 02/06/23 17:39: POC Glucose 235 H 02/06/23 21:43: POC Glucose 204 H 02/07/23 06:36: POC Glucose 99 02/07/23 08:43: Sodium 143, Potassium 4.0, Chloride 109 H, Carbon Dioxide 33.0 H, Anion Gap 1 L, BUN 28 H, Creatinine 1.04, Estim Creat Clear Calc 54.93, Est GFR (MDRD) Af Amer 87, Est GFR (MDRD) Non-Af 72, BUN/Creatinine Ratio 26.9 H, Glucose 90, Calcium 7.6 L 02/07/23 11:28: POC Glucose 189 H 02/07/23 12:08: POC Glucose 214 H Micro: Microbiology 02/06/23 12:53 Fluid - Ascites Gram Stain - Final 02/06/23 12:53 Fluid - Ascites Body Fluid Culture - Preliminary No growth-Final to follow Radiography Diagnostic Testing: Radiology Impression Paracentesis Ultrasound 02/06/23 06:14 IMPRESSION: Ultrasound guided paracentesis. Electronically Signed: Jose L Tejeda MD at 13:31 EDT , Echocardiogram 02/07/23 07:34 Interpretation Summary The estimated ejection fraction is 65-70 %. Normal LV systolic function Grade 1 diastolic dysfunction Moderate mitral annular calcification with trivial MR Trivial TR Diffuse calcific aortic valve with no evidence of aortic stenosis No prior echocardiogram to compare. Ordering Physician: Connor Carrion Referring Physician: Lico Cameron Performed By: Justen Matias RCS Physical Exam Const alert, oriented x3, no apparent distress and average body habitus Constitutional Narrative: Elderly male, sitting comfortably in bed, conversing normally, no acute distress. General Appearance: cooperative and comfortable HEENT normocephalic, head/scalp atraumatic, hearing grossly normal bilaterally, nasal mucous membranes and turbinates normal and moist oral mucous membranes Eyes PERRL, EOMs intact bilaterally and conjunctivae normal Neck full ROM, no lymphadenopathy and supple Lymph Lymphatic: no lymphadenopathy noted Chest inspection of chest normal Resp normal respiratory effort, normal air movement, no use of accessory muscles and clear to auscultation bilaterally Cardio regular rate, regular rhythm, no murmurs and peripheral pulses 2+ throughout GI GI Narrative: Abdominal distention improved post paracentesis. Soft, nontender to palpation. Back/Spine normal ROM Extremity normal to inspection, full ROM and no pedal edema Skin no rashes or lesions noted Psych mental status grossly normal Assessment & Plan Assessment/Plan (1) Fluid overload: PLAN: Plan Patient is an 87-year-old male with history of prostate cancer, type 2 diabetes with neuropathy, cognitive impairment, hypertension and chronic pain who presented to [facility] on 02/05/2023 with worsening abdominal swelling and lower extremity swelling. 1. Volume overload, concern for worsening metastatic prostate cancer versus undiagnosed secondary cancer Patient volume overloaded on exam on admission including bilateral lower extremity edema, abdominal ascites and small right pleural effusion. Patient notably had a PET/CT scan done outpatient at the beginning of December, showed increased tracer distribution distended throughout the abdominal?pelvic cavity including omental caking and peritoneal thickening concerning for neoplasm; also showed enhanced uptake in the right hemithorax of pyelonephritis, the pericardium, and the anterior mediastinum. Chest CTA on admit showed a small right pleural effusion with right basilar atelectasis, as well as a 2.2 cm x 1.3 cm soft tissue density in the medial aspect of the right lower lobe abutting the pericardium; no evidence of PE. Lower extremity venous Doppler study negative for DVT. S/p ultrasound-guided paracentesis on 02/06 with 2700 ml of cloudy fluid removed, fluid studies pending. TTE 02/07 shows EF 65 to 70%, grade 1 diastolic dysfunction, trivial MR and TR, no other abnormalities. ?Oncology following. Follow-up paracentesis fluid studies; awaiting results of cytology and then will decide on further management. Continue IV Lasix 40 mg twice daily. Monitor urine output. Monitor BMP. Chronic medical conditions: ? Type 1 diabetes with diabetic neuropathy: On home Toujeo 24 units at night, NovoLog sliding scale insulin, gabapentin. Continue long-acting insulin 24 units at night with sliding scale insulin. Monitor sugars, adjust as needed. ? CAD s/p stenting: Continue home aspirin and high intensity statin. ? Hypertension: Continue home losartan. DVT prophylaxis: Lovenox CODE STATUS: Full code, verified Expected disposition: Home, TBD Total clinical time spent by myself addressing the patient's medical issues, reviewing all the data, and collaborating with patient's care team: 35 minutes. Charges/Coding Visit Charges Inpatient E&M: 84715 Subs Hosp L2
[2023-02-07 15:30] VITALS: BP 120/53; PULSE 80; RESP 16; TEMP 36.9; O2SAT 93
[2023-02-07] MEDS: Insulin Lispro 100 UNIT/ML INSULN.PEN SC ×2 (17:23→21:06)
[2023-02-07 17:44] LABS: Bedside Glucose 307 mg/dL (74-106)
[2023-02-07 20:57] VITALS: BP 120/47; PULSE 75; RESP 18; TEMP 36.1; O2SAT 92
[2023-02-07] MEDS: oxyCODONE 5 MG Tablet PO (20:59)
[2023-02-07] MEDS: Atorvastatin Calcium 80 MG Tablet PO (20:59)
[2023-02-07] MEDS: Ibuprofen 400 MG Tablet PO (21:00)
[2023-02-07] MEDS: Gabapentin 400 MG Capsule PO (21:00)
[2023-02-07 22:21] LABS: Bedside Glucose 222 mg/dL (74-106)
[2023-02-08] MEDS: oxyCODONE 5 MG Tablet PO ×4 (01:57→21:48)
[2023-02-08 02:00] VITALS: BP 119/47; PULSE 73; RESP 18; TEMP 36.4; O2SAT 94
[2023-02-08] MEDS: Arthritis Pain Compound 60 CLICK TUBE TOPICAL ×3 (03:41→21:39)
[2023-02-08] MEDS: Insulin Lispro 100 UNIT/ML INSULN.PEN SC ×3 (06:41→16:58)
[2023-02-08 06:45] VITALS: BP 135/55; PULSE 62; RESP 18; TEMP 36.7; O2SAT 96
[2023-02-08 06:57] LABS: Anion Gap 2 (5-15); BUN 30 mg/dL (7-18); BUN/Creat Ratio 28.6 RATIO (10-20); Calcium,Total 7.5 mg/dL (8.5-10.1); Chloride 107 mmol/L (98-107); Creatinine, Serum 1.05 mg/dL (0.70-1.30); EST Glomerular Filtration Rate 71 mL/min (>60); Est Glom Filt Rate - Afr Amer 86 mL/min (>60); Glucose 151 mg/dL (74-106); Potassium 3.7 mmol/L (3.5-5.1); Sodium Level 141 mmol/L (136-145)
[2023-02-08 07:05] LABS: Bedside Glucose 162 mg/dL (74-106)
[2023-02-08 10:25] VITALS: BP 111/48; PULSE 71; RESP 18; TEMP 36.4; O2SAT 94
[2023-02-08] MEDS: Losartan Potassium 50 MG Tablet PO (10:27)
[2023-02-08] MEDS: Cholecalciferol (VIT D3) 25 MCG TABLET (1,000 UNITS) 50 MCG PO (10:27)
[2023-02-08] MEDS: Aspirin E.C. 81 MG Tablet PO (10:28)
[2023-02-08] MEDS: Enoxaparin 40 MG/0.4 ML Syringe SC (10:28)
[2023-02-08] MEDS: Furosemide 40 MG/4 ML Vial IV (10:28)
[2023-02-08] MEDS: dilTIAZem CD 120 MG Capsule PO (10:28)
[2023-02-08] MEDS: BICALUTAMIDE 50 MG TABLET PO (10:29)
[2023-02-08] MEDS: Memantine Hydrochloride 10 MG Tablet PO ×2 (10:29→21:44)
[2023-02-08] MEDS: Cyanocobalamin 500 MCG Tablet 1000 MCG PO (10:30)
[2023-02-08] MEDS: Pantoprazole Sodium 40 MG Tablet PO ×2 (10:30→21:44)
[2023-02-08 11:23] LABS: Bedside Glucose 206 mg/dL (74-106)
--- NOTE | 2023-02-08 13:48 | PCM.PN.HOSP ---
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 Patient seen at bedside this morning. Patient reports mild low back pain and pain by upper back skin lesions. Has intermittent lower leg pain and pain in his feet. Has been ambulating around the room with assistance well. Denies any fevers or chills. Denies any chest pain or shortness of breath. No other acute concerns. Objective Data Objective Data Vital Signs: Vital Signs Temp Pulse Resp BP Pulse Ox O2 Del Method 97.6 F L 71 18 111/48 L 94 Room Air 02/08/23 10:25 02/08/23 10:25 02/08/23 10:25 02/08/23 10:25 02/08/23 10:25 02/08/23 10:25 Oxygen Delivery Method [3] Room Air Oxygen Delivery Method [2] Room Air Oxygen Delivery Method [1 ( Room Air Initial Baseline)] Oxygen Delivery Method Room Air Weight: 83.2 kg Body Mass Index (BMI) 24.8 Intake & Output: Intake and Output for Last 24 Hours 02/06/23 02/07/23 02/08/23 23:59 23:59 23:59 Intake Total 682 / 682 1220 / 1220 Output Total 4000 / 4000 2100 / 2100 200 / 200 Balance -3318 / -3318 -880 / -880 -200 / -200 Lab / Micro Data 02/06/23 05:49 02/08/23 05:45 Labs: Laboratory Results - last 24 hr 02/07/23 17:22: POC Glucose 307 H 02/07/23 21:04: POC Glucose 222 H 02/08/23 05:45: Sodium 141, Potassium 3.7, Chloride 107, Carbon Dioxide 32.0, Anion Gap 2 L, BUN 30 H, Creatinine 1.05, Estim Creat Clear Calc 54.40, Est GFR (MDRD) Af Amer 86, Est GFR (MDRD) Non-Af 71, BUN/Creatinine Ratio 28.6 H, Glucose 151 H, Calcium 7.5 L 02/08/23 06:37: POC Glucose 162 H 02/08/23 10:48: POC Glucose 206 H Micro: Microbiology 02/06/23 12:53 Fluid - Ascites Gram Stain - Final 02/06/23 12:53 Fluid - Ascites Body Fluid Culture - Preliminary No growth-Final to follow 02/06/23 12:53 Fluid - Ascites Anaerobic Culture - Preliminary No growth in 48 hours. Physical Exam Const alert, oriented x3, no apparent distress and average body habitus Constitutional Narrative: Elderly male, sitting comfortably in bed, conversing normally, no acute distress. General Appearance: cooperative and comfortable HEENT normocephalic, head/scalp atraumatic, hearing grossly normal bilaterally, nasal mucous membranes and turbinates normal and moist oral mucous membranes Eyes PERRL, EOMs intact bilaterally and conjunctivae normal Neck full ROM, no lymphadenopathy and supple Lymph Lymphatic: no lymphadenopathy noted Chest inspection of chest normal Resp normal respiratory effort, normal air movement, no use of accessory muscles and clear to auscultation bilaterally Cardio regular rate, regular rhythm, no murmurs and peripheral pulses 2+ throughout GI GI Narrative: Abdominal distention improved post paracentesis. Soft, nontender to palpation. Back/Spine normal ROM Extremity normal to inspection, full ROM and no pedal edema Skin no rashes or lesions noted Psych mental status grossly normal Assessment & Plan Assessment/Plan (1) Fluid overload: PLAN: Plan Patient is an 87-year-old male with history of prostate cancer, type 2 diabetes with neuropathy, cognitive impairment, hypertension and chronic pain who presented to [facility] on 02/05/2023 with worsening abdominal swelling and lower extremity swelling. 1. Volume overload, concern for worsening metastatic prostate cancer versus undiagnosed secondary cancer Patient volume overloaded on exam on admission including bilateral lower extremity edema, abdominal ascites and small right pleural effusion. Patient notably had a PET/CT scan done outpatient at the beginning of December, showed increased tracer distribution distended throughout the abdominal?pelvic cavity including omental caking and peritoneal thickening concerning for neoplasm; also showed enhanced uptake in the right hemithorax of pyelonephritis, the pericardium, and the anterior mediastinum. Chest CTA on admit showed a small right pleural effusion with right basilar atelectasis, as well as a 2.2 cm x 1.3 cm soft tissue density in the medial aspect of the right lower lobe abutting the pericardium; no evidence of PE. Lower extremity venous Doppler study negative for DVT. S/p ultrasound-guided paracentesis on 02/06 with 2700 ml of cloudy fluid removed, fluid studies pending. TTE 02/07 shows EF 65 to 70%, grade 1 diastolic dysfunction, trivial MR and TR, no other abnormalities. ?Oncology following. Follow-up paracentesis fluid studies; awaiting results of cytology and then will decide on further management. Will decrease to IV Lasix 40 mg daily. Monitor urine output. Monitor BMP. Chronic medical conditions: ? Type 1 diabetes with diabetic neuropathy: On home Toujeo 24 units at night, NovoLog sliding scale insulin, gabapentin. Continue long-acting insulin 24 units at night with sliding scale insulin. Monitor sugars, adjust as needed. ? CAD s/p stenting: Continue home aspirin and high intensity statin. ? Hypertension: Continue home losartan. DVT prophylaxis: Lovenox CODE STATUS: Full code, verified Expected disposition: Home, TBD Total clinical time spent by myself addressing the patient's medical issues, reviewing all the data, and collaborating with patient's care team: 35 minutes. Charges/Coding Visit Charges Inpatient E&M: 99774 Subs Hosp L2
[2023-02-08 14:10] LABS: Amylase Body Fluid 29 U/L (.)
[2023-02-08 15:32] VITALS: BP 99/59; PULSE 85; RESP 18; TEMP 36.5; O2SAT 94
[2023-02-08 16:13] LABS: Bedside Glucose 168 mg/dL (74-106)
[2023-02-08 17:18] LABS: Bedside Glucose 192 mg/dL (74-106)
--- NOTE | 2023-02-08 21:30 | NURSING ---
Per pt's request, he would not like to be woken up in the middle of the night for vitals signs. He prefers to have cluster care. Pt has requested morning vitals to be taken during morning med pass at 0630.
[2023-02-08 21:32] VITALS: BP 113/48; PULSE 68; RESP 16; TEMP 36.8; O2SAT 97
[2023-02-08] MEDS: Menthol/Lanolin/Calamine/Znox 113 GM Tube 1 APPLIC TOPICAL (21:39)
[2023-02-08] MEDS: Insulin Glargine-YFGN 100 UNIT/ML Pen 24 UNIT SC (21:40)
[2023-02-08] MEDS: Atorvastatin Calcium 80 MG Tablet PO (21:42)
[2023-02-08] MEDS: Ibuprofen 400 MG Tablet PO (21:42)
[2023-02-08] MEDS: Gabapentin 400 MG Capsule PO (21:44)
[2023-02-08] MEDS: Ondansetron ODT 4 MG Tablet PO (21:44)
[2023-02-09 00:49] LABS: Bedside Glucose 143 mg/dL (74-106)
[2023-02-09 06:21] VITALS: BP 111/45; PULSE 68; RESP 16; TEMP 36.7; O2SAT 96
[2023-02-09] MEDS: Insulin Lispro 100 UNIT/ML INSULN.PEN SC ×3 (06:28→18:43)
[2023-02-09 06:55] LABS: Bedside Glucose 156 mg/dL (74-106)
[2023-02-09 08:48] VITALS: BP 115/45; PULSE 67; RESP 18; TEMP 36.4; O2SAT 96
[2023-02-09] MEDS: Aspirin E.C. 81 MG Tablet PO (08:51)
[2023-02-09] MEDS: dilTIAZem CD 120 MG Capsule PO (08:51)
[2023-02-09] MEDS: Menthol/Lanolin/Calamine/Znox 113 GM Tube 1 APPLIC TOPICAL ×2 (08:51→21:58)
[2023-02-09] MEDS: Losartan Potassium 50 MG Tablet PO (08:51)
[2023-02-09] MEDS: Cyanocobalamin 500 MCG Tablet 1000 MCG PO (08:51)
[2023-02-09] MEDS: Furosemide 40 MG/4 ML Vial IV (08:52)
[2023-02-09] MEDS: Cholecalciferol (VIT D3) 25 MCG TABLET (1,000 UNITS) 50 MCG PO (08:52)
[2023-02-09] MEDS: Memantine Hydrochloride 10 MG Tablet PO ×2 (08:52→22:04)
[2023-02-09] MEDS: Enoxaparin 40 MG/0.4 ML Syringe SC (08:52)
[2023-02-09] MEDS: Pantoprazole Sodium 40 MG Tablet PO ×2 (08:52→22:04)
[2023-02-09] MEDS: BICALUTAMIDE 50 MG TABLET PO (08:53)
[2023-02-09] MEDS: Arthritis Pain Compound 60 CLICK TUBE TOPICAL ×2 (08:53→21:58)
[2023-02-09] MEDS: oxyCODONE 5 MG Tablet PO ×2 (09:06→22:02)
[2023-02-09 09:31] LABS: Bedside Glucose 136 mg/dL (74-106)
[2023-02-09 10:44] LABS: Hematocrit 29.4 % (40-54); Hemoglobin 9.4 g/dL (13.0-16.5); Mean Corpuscular Hgb 33.2 pg (27.0-32.0); Mean Corpuscular Volume 103.9 fL (80-94); Mean Platelet Vol. 9.9 fl (6.2-12.0); Platelet Count 402 K/mm3 (150-450); RBC Distribution Width CV 16.1 % (11.6-14.6); RBC Distribution Width SD 59.3 fl (35.1-43.9); Red Blood Count 2.83 M/mm3 (4.6-6.2); White Blood Count 11.1 K/mm3 (4.4-11.0)
[2023-02-09 11:01] LABS: Anion Gap 4 (5-15); BUN 31 mg/dL (7-18); BUN/Creat Ratio 25.8 RATIO (10-20); Calcium,Total 7.7 mg/dL (8.5-10.1); Chloride 105 mmol/L (98-107); EST Glomerular Filtration Rate 61 mL/min (>60); Est Glom Filt Rate - Afr Amer 74 mL/min (>60); Glucose 212 mg/dL (74-106); Sodium Level 140 mmol/L (136-145)
[2023-02-09 11:53] LABS: Bedside Glucose 205 mg/dL (74-106)
--- NOTE | 2023-02-09 12:50 | PCM.PN.HOSP ---
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 Patient at bedside this morning. Sitting in bedside chair, conversing normally, no acute distress. Denies any acute pain or discomfort this morning. States he was able to ambulate from bed to the bathroom and into his chair without issue this morning. Reports good urine output. Denies any lightheadedness or dizziness. Denies any fevers or chills. No other acute concerns. Objective Data Objective Data Vital Signs: Vital Signs Temp Pulse Resp BP Pulse Ox O2 Del Method 97.6 F L 67 18 115/45 L 96 Room Air 02/09/23 08:48 02/09/23 08:48 02/09/23 08:48 02/09/23 08:48 02/09/23 08:48 02/09/23 08:48 Oxygen Delivery Method [3] Room Air Oxygen Delivery Method [2] Room Air Oxygen Delivery Method [1 ( Room Air Initial Baseline)] Oxygen Delivery Method Room Air Weight: 83.2 kg Body Mass Index (BMI) 24.8 Intake & Output: Intake and Output for Last 24 Hours 02/07/23 02/08/23 02/09/23 23:59 23:59 23:59 Intake Total 1220 / 1220 800 / 800 Output Total 2100 / 2100 1275 / 1275 250 / 250 Balance -880 / -880 -475 / -475 -250 / -250 Lab / Micro Data 02/09/23 10:35 02/09/23 10:35 Labs: Laboratory Results - last 24 hr 02/06/23 12:53: Fluid Amylase 29 02/08/23 15:51: POC Glucose 168 H 02/08/23 16:56: POC Glucose 192 H 02/08/23 21:37: POC Glucose 143 H 02/09/23 06:26: POC Glucose 156 H 02/09/23 09:11: POC Glucose 136 H 02/09/23 10:35: WBC 11.1 H, RBC 2.83 L, Hgb 9.4 L, Hct 29.4 L, MCV 103.9 H, MCH 33.2 H, MCHC 32.0, RDW Std Deviation 59.3 H, RDW Coeff of Abdullahi 16.1 H, Plt Count 402, MPV 9.9, Sodium 140, Potassium 4.0, Chloride 105, Carbon Dioxide 31.0, Anion Gap 4 L, BUN 31 H, Creatinine 1.20, Estim Creat Clear Calc 47.60, Est GFR (MDRD) Af Amer 74, Est GFR (MDRD) Non-Af 61, BUN/Creatinine Ratio 25.8 H, Glucose 212 H, Calcium 7.7 L 02/09/23 11:34: POC Glucose 205 H Micro: Microbiology 02/06/23 12:53 Fluid - Ascites Gram Stain - Final 02/06/23 12:53 Fluid - Ascites Body Fluid Culture - Final Culture exhibits no growth. 02/06/23 12:53 Fluid - Ascites Anaerobic Culture - Preliminary No growth in 48 hours. Physical Exam Const alert, oriented x3, no apparent distress and average body habitus Constitutional Narrative: Elderly male, sitting comfortably in bedside chair, conversing normally, no acute distress. General Appearance: cooperative and comfortable HEENT normocephalic, head/scalp atraumatic, hearing grossly normal bilaterally, nasal mucous membranes and turbinates normal and moist oral mucous membranes Eyes PERRL, EOMs intact bilaterally and conjunctivae normal Neck full ROM, no lymphadenopathy and supple Lymph Lymphatic: no lymphadenopathy noted Chest inspection of chest normal Resp normal respiratory effort, normal air movement, no use of accessory muscles and clear to auscultation bilaterally Cardio regular rate, regular rhythm, no murmurs and peripheral pulses 2+ throughout GI normal to inspection, nondistended, normoactive bowel sounds, soft to palpation, non-tender and non-distended Back/Spine normal ROM Extremity normal to inspection, full ROM and no pedal edema Skin no rashes or lesions noted Psych mental status grossly normal Assessment & Plan Assessment/Plan (1) Fluid overload: PLAN: Plan Patient is an 87-year-old male with history of prostate cancer, type 2 diabetes with neuropathy, cognitive impairment, hypertension and chronic pain who presented to [facility] on 02/05/2023 with worsening abdominal swelling and lower extremity swelling. 1. Volume overload, concern for worsening metastatic prostate cancer versus undiagnosed secondary cancer Patient volume overloaded on exam on admission including bilateral lower extremity edema, abdominal ascites and small right pleural effusion. Patient notably had a PET/CT scan done outpatient at the beginning of December, showed increased tracer distribution distended throughout the abdominal?pelvic cavity including omental caking and peritoneal thickening concerning for neoplasm; also showed enhanced uptake in the right hemithorax of pyelonephritis, the pericardium, and the anterior mediastinum. Chest CTA on admit showed a small right pleural effusion with right basilar atelectasis, as well as a 2.2 cm x 1.3 cm soft tissue density in the medial aspect of the right lower lobe abutting the pericardium; no evidence of PE. Lower extremity venous Doppler study negative for DVT. S/p ultrasound-guided paracentesis on 02/06 with 2700 ml of cloudy fluid removed, fluid studies pending. TTE 02/07 shows EF 65 to 70%, grade 1 diastolic dysfunction, trivial MR and TR, no other abnormalities. ?Oncology following. Follow-up paracentesis fluid studies; awaiting results of cytology and then will decide on further management. Continue IV Lasix 40 mg daily. Monitor urine output. Monitor BMP. Chronic medical conditions: ? Type 1 diabetes with diabetic neuropathy: On home Toujeo 24 units at night, NovoLog sliding scale insulin, gabapentin. Continue long-acting insulin 24 units at night with sliding scale insulin. Monitor sugars, adjust as needed. ? CAD s/p stenting: Continue home aspirin and high intensity statin. ? Hypertension: Continue home losartan. DVT prophylaxis: Lovenox CODE STATUS: Full code, verified Expected disposition: Home, TBD Total clinical time spent by myself addressing the patient's medical issues, reviewing all the data, and collaborating with patient's care team: 35 minutes. Charges/Coding Visit Charges Inpatient E&M: 25781 Subs Hosp L2
[2023-02-09 14:48] VITALS: BP 113/62; PULSE 65; RESP 18; TEMP 36.4; O2SAT 95
[2023-02-09 18:38] LABS: Bedside Glucose 257 mg/dL (74-106)
[2023-02-09] MEDS: Insulin Lispro 100 UNIT/ML INSULN.PEN 10 UNIT SC (18:41)
[2023-02-09 21:44] VITALS: BP 121/51; PULSE 77; RESP 18; TEMP 37.3; O2SAT 93
[2023-02-09] MEDS: Atorvastatin Calcium 80 MG Tablet PO (22:01)
[2023-02-09] MEDS: Ondansetron ODT 4 MG Tablet PO (22:02)
[2023-02-09] MEDS: Gabapentin 400 MG Capsule PO (22:02)
[2023-02-09] MEDS: Ibuprofen 400 MG Tablet PO (22:04)
[2023-02-09] MEDS: Insulin Glargine-YFGN 100 UNIT/ML Pen 24 UNIT SC (22:08)
[2023-02-10 00:34] LABS: Bedside Glucose 144 mg/dL (74-106)
--- NOTE | 2023-02-10 03:00 | NURSING ---
Checked patients glucose at this time per his request from earlier tonight. glucose was 39. checked second time was 35.Stat serum glucose ordered. Stat serum glucose ordered.
[2023-02-10 03:12] VITALS: BP 135/74; PULSE 71; RESP 16; TEMP 36.6; O2SAT 96
--- NOTE | 2023-02-10 03:15 | NURSING ---
Rechecked glucose result was 46. pt states he will not be able to drink enough juice to get his glucose up. Called lab again to remind of stat serum glucose order. iv d50 given x1.
[2023-02-10] MEDS: Dextrose 50%-Water 25 GM/50 ML DISP.SYRIN IV (03:17)
[2023-02-10] MEDS: 0.9% Saline Lock 10 ML Syringe IV (03:23)
[2023-02-10 03:43] LABS: Hematocrit 27.8 % (40-54); Hemoglobin 8.7 g/dL (13.0-16.5); Mean Corp Hgb Conc 31.3 g/dL (32-36); Mean Corpuscular Hgb 32.6 pg (27.0-32.0); Mean Corpuscular Volume 104.1 fL (80-94); Mean Platelet Vol. 9.9 fl (6.2-12.0); Platelet Count 391 K/mm3 (150-450); RBC Distribution Width SD 58.9 fl (35.1-43.9); Red Blood Count 2.67 M/mm3 (4.6-6.2); White Blood Count 9.3 K/mm3 (4.4-11.0)
[2023-02-10 03:56] LABS: Anion Gap 3 (5-15); BUN 30 mg/dL (7-18); BUN/Creat Ratio 28.3 RATIO (10-20); Calcium,Total 7.3 mg/dL (8.5-10.1); Chloride 107 mmol/L (98-107); Creatinine, Serum 1.06 mg/dL (0.70-1.30); EST Glomerular Filtration Rate 70 mL/min (>60); Est Glom Filt Rate - Afr Amer 85 mL/min (>60); Estimated Creatinine Clearance 53.89 ml/min; Glucose 165 mg/dL (74-106); Potassium 3.7 mmol/L (3.5-5.1); Sodium Level 143 mmol/L (136-145)
--- NOTE | 2023-02-10 04:10 | PCM.HOSP.N ---
Hospitalist Note BS 30s, patient had declined his short-acting scheduled but took the long-acting of note. Will d/c short-acting as per discussion with staff patient not eating well. Will continue to trend and likely will need to alter or hold long-acting.
--- NOTE | 2023-02-10 04:14 | NURSING ---
Dr Lewis was notified of low glucose level and steps to improve it. Also informed serum glucose was drawn after treatment. Orders received.
[2023-02-10 05:00] LABS: Bedside Glucose 104 mg/dL (74-106)
[2023-02-10 06:58] LABS: Bedside Glucose 142 mg/dL (74-106)
--- NOTE | 2023-02-10 08:54 | PN.HOSP_ITS ---
Reason for Visit Reason for Visit: Diagnoses Secondary malignant neoplasm of retroperitoneum and peritoneum (02/05/23) Secondary malignant neoplasm of unspecified site (02/05/23) Fluid overload, unspecified (02/05/23) Hypoxemia (02/05/23) Generalized edema (02/05/23) Subjective Subjective Anxious for pathology results from paracentesis. Minimal appetite. Has not liked much of his food. Objective Data Objective Data Vital Signs: Vital Signs Temp Pulse Resp BP Pulse Ox O2 Del Method O2 Flow Rate 36.6 C 71 16 135/74 H 96 Room Air 96 02/10/23 03:12 02/10/23 03:12 02/10/23 03:12 02/10/23 03:12 02/10/23 03:12 02/10/23 03:58 02/09/23 14:48 Oxygen Flow Rate (L/min) 96 Oxygen Delivery Method [3] Room Air Oxygen Delivery Method [2] Room Air Oxygen Delivery Method [1 ( Room Air Initial Baseline)] Oxygen Delivery Method Room Air Weight: 83.2 kg Body Mass Index (BMI) 24.8 Intake & Output: Intake and Output for Last 24 Hours 02/08/23 02/09/23 02/10/23 23:59 23:59 23:59 Intake Total 800 / 800 460 / 460 Output Total 1275 / 1275 675 / 675 300 / 300 Balance -475 / -475 -215 / -215 -300 / -300 Lab / Micro Data 02/10/23 03:30 02/10/23 03:30 Labs: Laboratory Results - last 24 hr 02/09/23 09:11: POC Glucose 136 H 02/09/23 10:35: WBC 11.1 H, RBC 2.83 L, Hgb 9.4 L, Hct 29.4 L, MCV 103.9 H, MCH 33.2 H, MCHC 32.0, RDW Std Deviation 59.3 H, RDW Coeff of Abdullahi 16.1 H, Plt Count 402, MPV 9.9, Sodium 140, Potassium 4.0, Chloride 105, Carbon Dioxide 31.0, Anion Gap 4 L, BUN 31 H, Creatinine 1.20, Estim Creat Clear Calc 47.60, Est GFR (MDRD) Af Amer 74, Est GFR (MDRD) Non-Af 61, BUN/Creatinine Ratio 25.8 H, Glucose 212 H, Calcium 7.7 L 02/09/23 11:34: POC Glucose 205 H 02/09/23 17:13: POC Glucose 257 H 02/09/23 21:47: POC Glucose 144 H 02/10/23 03:30: WBC 9.3, RBC 2.67 L, Hgb 8.7 L, Hct 27.8 L, MCV 104.1 H, MCH 32.6 H, MCHC 31.3 L, RDW Std Deviation 58.9 H, RDW Coeff of Abdullahi 16.0 H, Plt Count 391, MPV 9.9, Sodium 143, Potassium 3.7, Chloride 107, Carbon Dioxide 33.0 H, Anion Gap 3 L, BUN 30 H, Creatinine 1.06, Estim Creat Clear Calc 53.89, Est GFR (MDRD) Af Amer 85, Est GFR (MDRD) Non-Af 70, BUN/Creatinine Ratio 28.3 H, Glucose 165 H, Calcium 7.3 L 02/10/23 04:39: POC Glucose 104 02/10/23 06:26: POC Glucose 142 H Micro: Microbiology 02/06/23 12:53 Fluid - Ascites Gram Stain - Final 02/06/23 12:53 Fluid - Ascites Body Fluid Culture - Final Culture exhibits no growth. 02/06/23 12:53 Fluid - Ascites Anaerobic Culture - Preliminary No growth in 48 hours. Physical Exam Const alert and no apparent distress HEENT head/scalp atraumatic and moist oral mucous membranes Resp normal respiratory effort, no retractions, no use of accessory muscles and clear to auscultation bilaterally Cardio regular rate, regular rhythm, S1 normal heart sound and S2 normal heart sound GI normal to inspection, nondistended, normoactive bowel sounds, soft to palpation, non-tender and non-distended Extremity Extremity Narrative: edema in bilateral LE. Skin Skin Narrative: dermatitis on back. Psych affect normal Assessment & Plan Assessment/Plan (1) Fluid overload: PLAN: Volume overload, concern for worsening metastatic prostate cancer versus undiagnosed secondary cancer Patient volume overloaded on exam on admission including bilateral lower extremity edema, abdominal ascites and small right pleural effusion. Also complicated by protein calorie malnutrition. Data: * Patient notably had a PET/CT scan done outpatient at the beginning of December, showed increased tracer distribution distended throughout the abdominal?pelvic cavity including omental caking and peritoneal thickening concerning for neoplasm; also showed enhanced uptake in the right hemithorax of pyelonephritis, the pericardium, and the anterior mediastinum. * Chest CTA on admit showed a small right pleural effusion with right basilar atelectasis, as well as a 2.2 cm x 1.3 cm soft tissue density in the medial aspect of the right lower lobe abutting the pericardium; no evidence of PE. * Lower extremity venous Doppler study negative for DVT. * S/p ultrasound-guided paracentesis on 02/06 with 2700 ml of cloudy fluid removed, fluid studies pending. * TTE 02/07 shows EF 65 to 70%, grade 1 diastolic dysfunction, trivial MR and TR, no other abnormalities. Oncology following. Follow-up paracentesis fluid studies; awaiting results of cytology and then will decide on further management. Change furosemide to PO. Monitor urine output. Monitor BMP. 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 They will speak with the patient later. (3) Dermatitis: PLAN: It is on both sides, therefore, not consistent with VZV Pt admits to using heating pad that may have cause it. Supportive mgmt. (4) Uncontrolled type 1 diabetes mellitus with hyperglycemia: PLAN: Hypoglycemic today. Ok for pt to use his own Toujeo instead of our glargine monitor. (5) Protein calorie malnutrition: QUALIFIERS: Protein-calorie malnutrition severity: severe Qualified Code(s): E43 - Unspecified severe protein-calorie malnutrition PLAN: complicates care and recovery. complicating 3rd spacing. consult nutrition for further recommendations. PLAN: Plan Chronic medical conditions: ? Type 1 diabetes with diabetic neuropathy: On home Toujeo 24 units at night, NovoLog sliding scale insulin, gabapentin. Continue long-acting insulin 24 units at night with sliding scale insulin. Monitor sugars, adjust as needed. ? CAD s/p stenting: Continue home aspirin and high intensity statin. ? Hypertension: Continue home losartan. DVT prophylaxis: Lovenox CODE STATUS: Full code, verified Expected disposition: Home, TBD Greater than 60 greater than 50% of the time discussing with the patient, his and daughter at bedside. Charges/Coding Visit Charges Inpatient E&M: 33990 Subs Hosp L3
[2023-02-10 09:12] VITALS: BP 109/45; PULSE 73; RESP 18; TEMP 36.4; O2SAT 96
[2023-02-10] MEDS: Enoxaparin 40 MG/0.4 ML Syringe SC (09:58)
[2023-02-10] MEDS: Menthol/Lanolin/Calamine/Znox 113 GM Tube 1 APPLIC TOPICAL ×2 (09:58→22:03)
[2023-02-10] MEDS: dilTIAZem CD 120 MG Capsule PO (09:59)
[2023-02-10] MEDS: Losartan Potassium 50 MG Tablet PO (09:59)
[2023-02-10] MEDS: Cyanocobalamin 500 MCG Tablet 1000 MCG PO (09:59)
[2023-02-10] MEDS: Pantoprazole Sodium 40 MG Tablet PO ×2 (09:59→22:06)
[2023-02-10] MEDS: Furosemide 40 MG/4 ML Vial IV (09:59)
[2023-02-10] MEDS: Cholecalciferol (VIT D3) 25 MCG TABLET (1,000 UNITS) 50 MCG PO (09:59)
[2023-02-10] MEDS: Arthritis Pain Compound 60 CLICK TUBE TOPICAL ×2 (10:00→22:03)
[2023-02-10] MEDS: Aspirin E.C. 81 MG Tablet PO (10:00)
[2023-02-10] MEDS: Memantine Hydrochloride 10 MG Tablet PO ×2 (10:01→22:05)
[2023-02-10] MEDS: BICALUTAMIDE 50 MG TABLET PO (10:01)
[2023-02-10 10:46] LABS: Bedside Glucose 139 mg/dL (74-106)
[2023-02-10] MEDS: Ondansetron ODT 4 MG Tablet PO (11:20)
[2023-02-10] MEDS: oxyCODONE 5 MG Tablet PO ×2 (11:20→20:22)
[2023-02-10 12:51] LABS: Pathologist Comment/Body Fluid Reviewed
[2023-02-10 15:15] VITALS: BP 130/52; PULSE 76; RESP 18; TEMP 36.6; O2SAT 98
--- NOTE | 2023-02-10 17:38 | PN.ONC_ITS ---
Subjective Subjective Upon entering the room patient is sitting upright in bed conversing with adult daughter at the bedside. Only concern is my external catheter is not working. Describes nutritional intake is poor, he is unsure if abdominal bloating and extension has been alleviated much by paracentesis. Specifically denies any p ain aside from chronic lower back pain not related to disseminated malignancy. Physical Exam Const alert and no apparent distress General Appearance: ill appearing Positive for chronically and frail HEENT head/scalp atraumatic and moist oral mucous membranes Resp normal respiratory effort and clear to auscultation bilaterally Cardio regular rate, regular rhythm, S1 normal heart sound and S2 normal heart sound GI normal to inspection, nondistended, normoactive bowel sounds, soft to palpation, non-tender and non-distended Extremity Extremity Narrative: edema in bilateral LE. Psych affect normal Vital Signs Temperature 97.6 F L 02/10/23 09:12 Temperature Source Temporal 02/10/23 09:12 Pulse Rate 73 02/10/23 09:12 Pulse Strength Weak (1+) 02/10/23 10:00 Respiratory Rate 18 02/10/23 09:12 Respiratory Effort Normal, Non-Labored 02/10/23 03:58 Respiratory Depth Normal 02/10/23 03:58 Respiratory Pattern Normal 02/10/23 03:58 Blood Pressure 109/45 L 02/10/23 09:12 Blood Pressure Mean 66 02/10/23 09:12 Blood Pressure Source Monitor 02/10/23 09:12 Blood Pressure Position Semi-Fowlers 02/10/23 09:12 Blood Pressure Location Left Arm 02/10/23 09:12 Pulse Ox 96 02/10/23 09:12 Oxygen Delivery Method Room Air 02/10/23 09:12 Oxygen Flow Rate (L/min) 96 02/09/23 14:48 Laboratory Results - last 24 hr 02/06/23 12:53: Fl Pathologist Comment Reviewed 02/09/23 17:13: POC Glucose 257 H 02/09/23 21:47: POC Glucose 144 H 02/10/23 03:30: WBC 9.3, RBC 2.67 L, Hgb 8.7 L, Hct 27.8 L, MCV 104.1 H, MCH 32.6 H, MCHC 31.3 L, RDW Std Deviation 58.9 H, RDW Coeff of Abdullahi 16.0 H, Plt Count 391, MPV 9.9, Sodium 143, Potassium 3.7, Chloride 107, Carbon Dioxide 33.0 H, Anion Gap 3 L, BUN 30 H, Creatinine 1.06, Estim Creat Clear Calc 53.89, Est GFR (MDRD) Af Amer 85, Est GFR (MDRD) Non-Af 70, BUN/Creatinine Ratio 28.3 H, Glucose 165 H, Calcium 7.3 L 02/10/23 04:39: POC Glucose 104 02/10/23 06:26: POC Glucose 142 H 02/10/23 09:54: POC Glucose 139 H Diagnostic Data Venous Doppler Study 02/05/23 13:03 Interpretation Summary Deep veins of the bilateral lower extremities are patent and compressible segmentally. There is no evidence of bilateral lower extremity deep vein thrombosis. The bilateral great saphenous veins appear patent and compressible segmentally. Ordering Physician: Lilli Rubio Referring Physician: Lico Cameron Performed By: Myke Gardner, T Chest CTA 02/05/23 14:25 IMPRESSION: No evidence of pulmonary embolism. Small right pleural effusion with right basilar atelectasis. Stable scarring and bronchiectasis in the left lung apex. 2.2 cm x 1.3 cm soft tissue density in the medial aspect of the right lower lobe abutting the pericardium. Ascites. Electronically Signed: Jose L Tejeda MD at 15:02 EDT , Paracentesis Ultrasound 02/06/23 06:14 IMPRESSION: Ultrasound guided paracentesis. Electronically Signed: Jose L Tejeda MD at 13:31 EDT , Echocardiogram 02/07/23 07:34 Interpretation Summary The estimated ejection fraction is 65-70 %. Normal LV systolic function Grade 1 diastolic dysfunction Moderate mitral annular calcification with trivial MR Trivial TR Diffuse calcific aortic valve with no evidence of aortic stenosis No prior echocardiogram to compare. Ordering Physician: Connor Carrion Referring Physician: Lico Cameron Performed By: Justen Matias RCS February 06, 2023 specimen #[id number] Paracentesis fluid for cytology (cytospin and cell block): Positive for malignant cells COMMENT Immunohistochemistry ([id number]) supports the above diagnosis and is consistent with a prostate primary. Clinical correlation is suggested Assessment & Plan Assessment/Plan (1) Metastatic cancer: QUALIFIERS: Area of secondary neoplastic involvement: peritoneum Qualified Code(s): C78.6 - Secondary malignant neoplasm of retroperitoneum and peritoneum PLAN: Cytology from paracentesis on 02/06/2023 was reviewed with patient. 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 At present, patient is on ADT per his urologist. Patient is a poor candidate for systemic chemotherapy due to performance status, age and comorbidities. I reviewed options for management with patient and adult daughter at the bedside that include supportive care versus genetic testing that can be done in the ambulatory setting, specifically looking for gene alterations that would allow for treatment with a PARP inhibitor. Patient and daughter would like an opportunity to discuss amongst themselves and with additional siblings and elect to provide a decision about management tomorrow. [facility] will continue to follow. (2) Protein calorie malnutrition: QUALIFIERS: Protein-calorie malnutrition severity: severe Qualified Code(s): E43 - Unspecified severe protein-calorie malnutrition PLAN: Albumin 2.2. Stressed the importance of adequate protein intake. Offered suggestions of protein supplements that can be used at home.
[2023-02-10] MEDS: Lidocaine Jelly 2% 20 ML Syringe (URO-JET) 1 APPLIC TOPICAL (17:58)
[2023-02-10 19:25] LABS: Bedside Glucose 158 mg/dL (74-106)
[2023-02-10 20:24] VITALS: BP 106/57; PULSE 81; RESP 18; TEMP 37.1; O2SAT 95
[2023-02-10 21:59] VITALS: BP 130/56; PULSE 80; RESP 18; TEMP 37; O2SAT 95
[2023-02-10] MEDS: Ibuprofen 400 MG Tablet PO (22:05)
[2023-02-10] MEDS: Atorvastatin Calcium 80 MG Tablet PO (22:05)
[2023-02-10] MEDS: Gabapentin 400 MG Capsule PO (22:08)
[2023-02-10] MEDS: Insulin Lispro 100 UNIT/ML INSULN.PEN SC (22:18)
[2023-02-10 22:48] LABS: Bedside Glucose 236 mg/dL (74-106)
[2023-02-11 01:55] LABS: Bedside Glucose 148 mg/dL (74-106)
[2023-02-11 05:08] LABS: Hematocrit 28.4 % (40-54); Hemoglobin 9.2 g/dL (13.0-16.5); Mean Corp Hgb Conc 32.4 g/dL (32-36); Mean Corpuscular Hgb 33.8 pg (27.0-32.0); Mean Corpuscular Volume 104.4 fL (80-94); Mean Platelet Vol. 9.8 fl (6.2-12.0); Platelet Count 347 K/mm3 (150-450); RBC Distribution Width SD 59.1 fl (35.1-43.9); Red Blood Count 2.72 M/mm3 (4.6-6.2); White Blood Count 9.2 K/mm3 (4.4-11.0)
[2023-02-11 05:26] VITALS: BP 117/48; PULSE 74; RESP 16; TEMP 36.9; O2SAT 93
[2023-02-11 05:41] LABS: Anion Gap 1 (5-15); BUN 23 mg/dL (7-18); BUN/Creat Ratio 25.5 RATIO (10-20); Calcium,Total 7.4 mg/dL (8.5-10.1); Chloride 108 mmol/L (98-107); EST Glomerular Filtration Rate 85 mL/min (>60); Est Glom Filt Rate - Afr Amer 102 mL/min (>60); Estimated Creatinine Clearance 63.47 ml/min; Glucose 135 mg/dL (74-106); Potassium 4.1 mmol/L (3.5-5.1); Sodium Level 143 mmol/L (136-145)
[2023-02-11 06:28] LABS: Bedside Glucose 133 mg/dL (74-106)
--- NOTE | 2023-02-11 08:20 | PN.HOSP_ITS ---
Reason for Visit Reason for Visit: Diagnoses Secondary malignant neoplasm of retroperitoneum and peritoneum (02/05/23) Secondary malignant neoplasm of unspecified site (02/05/23) Type 1 diabetes mellitus with hyperglycemia (02/05/23) Unspecified severe protein-calorie malnutrition (02/05/23) Fluid overload, unspecified (02/05/23) Dermatitis, unspecified (02/05/23) Hypoxemia (02/05/23) Generalized edema (02/05/23) Subjective Subjective Had issues with abdominal pain until he had a BM. To meet with oncology today. Expresses not wanting to be a burden on his . Swelling in BLE and RUE. Objective Data Objective Data Vital Signs: Vital Signs Temp Pulse Resp BP Pulse Ox O2 Del Method O2 Flow Rate 36.9 C 74 16 117/48 L 93 Room Air 96 02/11/23 05:26 02/11/23 05:26 02/11/23 05:02/11/23 05:02/11/23 05:02/11/23 05:02/09/23 14:48 Oxygen Flow Rate (L/min) 96 Oxygen Delivery Method [3] Room Air Oxygen Delivery Method [2] Room Air Oxygen Delivery Method [1 ( Room Air Initial Baseline)] Oxygen Delivery Method Room Air Weight: 83.2 kg Body Mass Index (BMI) 24.8 Intake & Output: Intake and Output for Last 24 Hours 02/09/23 02/10/23 02/11/23 23:59 23:59 23:59 Intake Total 460 / 460 750 / 870 360 / 360 Output Total 675 / 675 1000 / 1725 1200 / 1200 Balance -215 / -215 -250 / -855 -840 / -840 Lab / Micro Data 02/11/23 05:00 02/11/23 05:00 Labs: Laboratory Results - last 24 hr 02/06/23 12:53: Fl Pathologist Comment Reviewed 02/10/23 09:54: POC Glucose 139 H 02/10/23 18:17: POC Glucose 158 H 02/10/23 22:13: POC Glucose 236 H 02/11/23 01:34: POC Glucose 148 H 02/11/23 05:00: WBC 9.2, RBC 2.72 L, Hgb 9.2 L, Hct 28.4 L, MCV 104.4 H, MCH 33.8 H, MCHC 32.4, RDW Std Deviation 59.1 H, RDW Coeff of Abdullahi 16.0 H, Plt Count 347, MPV 9.8, Sodium 143, Potassium 4.1, Chloride 108 H, Carbon Dioxide 34.0 H, Anion Gap 1 L, BUN 23 H, Creatinine 0.90, Estim Creat Clear Calc 63.47, Est GFR (MDRD) Af Amer 102, Est GFR (MDRD) Non-Af 85, BUN/Creatinine Ratio 25.5 H, Glucose 135 H, Calcium 7.4 L 02/11/23 05:44: POC Glucose 133 H Micro: Microbiology 02/06/23 12:53 Fluid - Ascites Gram Stain - Final 02/06/23 12:53 Fluid - Ascites Body Fluid Culture - Final Culture exhibits no growth. 02/06/23 12:53 Fluid - Ascites Anaerobic Culture - Final No growth in 5 days. Physical Exam Const alert and no apparent distress HEENT head/scalp atraumatic and moist oral mucous membranes Extremity General Extremity: edema right upper extremity moderate and bilateral lower extremity Details: severe Assessment & Plan Assessment/Plan (1) Fluid overload: PLAN: Volume overload, concern for worsening metastatic prostate cancer versus undiagnosed secondary cancer Patient volume overloaded on exam on admission including bilateral lower extremity edema, abdominal ascites and small right pleural effusion. Also complicated by protein calorie malnutrition. Data: * Patient notably had a PET/CT scan done outpatient at the beginning of December, showed increased tracer distribution distended throughout the abdominal?pelvic cavity including omental caking and peritoneal thickening concerning for neoplasm; also showed enhanced uptake in the right hemithorax of pyelonephritis, the pericardium, and the anterior mediastinum. * Chest CTA on admit showed a small right pleural effusion with right basilar atelectasis, as well as a 2.2 cm x 1.3 cm soft tissue density in the medial aspect of the right lower lobe abutting the pericardium; no evidence of PE. * Lower extremity venous Doppler study negative for DVT. * S/p ultrasound-guided paracentesis on 02/06 with 2700 ml of cloudy fluid removed, fluid studies pending. * TTE 02/07 shows EF 65 to 70%, grade 1 diastolic dysfunction, trivial MR and TR, no other abnormalities. Oncology following. Follow-up paracentesis fluid studies; awaiting results of cytology and then will decide on further management. Change furosemide to PO. Monitor urine output. Monitor BMP. 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 Not felt to be a systemic chemotherapy candidate given poor performance status, advanced age and medical comorbidities. They did offer genetic testing that could allow for treatment with PARP inhibitor. (3) Dermatitis: PLAN: It is on both sides of his back, therefore, not consistent with VZV Pt admits to using heating pad that may have cause it. Supportive mgmt. (4) Uncontrolled type 1 diabetes mellitus with hyperglycemia: PLAN: Hypoglycemic 02/10 Ok for pt to use his own Toujeo instead of our glargine monitor. (5) Protein calorie malnutrition: QUALIFIERS: Protein-calorie malnutrition severity: severe Qualified Code(s): E43 - Unspecified severe protein-calorie malnutrition PLAN: complicates care and recovery. complicating 3rd spacing. consult nutrition for further recommendations. PLAN: Plan Chronic medical conditions: ? Type 1 diabetes with diabetic neuropathy: On home Toujeo 24 units at night, NovoLog sliding scale insulin, gabapentin. Continue long-acting insulin 24 units at night with sliding scale insulin. Monitor sugars, adjust as needed. ? CAD s/p stenting: Continue home aspirin and high intensity statin. ? Hypertension: Continue home losartan. DVT prophylaxis: Lovenox CODE STATUS: Full code, verified Expected disposition: Home, TBD Greater than 55 minutes of which greater than 50% of time was counseling patient at bedside about his bowels, the cancer, limitations of treatment options for the cancer. Advance care planning: Spent an additional 20 minutes discussing with the patient about goals of care. Patient mentioned in passing about doing himself in with taking too much insulin. When I questioned him further about that he denies any suicidal ideation. He does state that it has crossed his mind but he has no plans to do so. I talked him about hospice and having hospice services even at his house. He expressed that he was not interested at this time. I did encourage him to consider speaking with them as it would not obligate him to hospice services just by speaking with them. He was not ready to commit to that but will think it over. Charges/Coding Visit Charges Inpatient E&M: 19806 Subs Hosp L3 Procedures Hospitalists Procedures: 95476 Advncd Care Plan 30 Min
[2023-02-11] MEDS: Enoxaparin 40 MG/0.4 ML Syringe SC (09:10)
[2023-02-11] MEDS: Menthol/Lanolin/Calamine/Znox 113 GM Tube 1 APPLIC TOPICAL ×2 (09:10→20:07)
[2023-02-11] MEDS: Arthritis Pain Compound 60 CLICK TUBE TOPICAL ×2 (09:11→20:14)
[2023-02-11] MEDS: BICALUTAMIDE 50 MG TABLET PO (09:11)
[2023-02-11] MEDS: Aspirin E.C. 81 MG Tablet PO (09:11)
[2023-02-11] MEDS: Memantine Hydrochloride 10 MG Tablet PO ×2 (09:12→20:15)
[2023-02-11] MEDS: dilTIAZem CD 120 MG Capsule PO (09:12)
[2023-02-11] MEDS: Pantoprazole Sodium 40 MG Tablet PO ×2 (09:12→20:15)
[2023-02-11] MEDS: Losartan Potassium 50 MG Tablet PO (09:12)
[2023-02-11] MEDS: Cholecalciferol (VIT D3) 25 MCG TABLET (1,000 UNITS) 50 MCG PO (09:12)
[2023-02-11] MEDS: Furosemide 40 MG Tablet PO (09:12)
[2023-02-11] MEDS: Cyanocobalamin 500 MCG Tablet 1000 MCG PO (09:12)
[2023-02-11] MEDS: Acetaminophen 325 MG Tablet 650 MG PO (10:09)
[2023-02-11] MEDS: oxyCODONE 5 MG Tablet PO ×2 (10:10→20:16)
[2023-02-11 10:24] LABS: Bedside Glucose 206 mg/dL (74-106)
[2023-02-11] MEDS: Ondansetron 4 MG/2 ML Vial IV (10:44)
[2023-02-11] MEDS: 0.9% Saline Lock 10 ML Syringe IV (10:44)
[2023-02-11 11:30] VITALS: BP 104/42; PULSE 80; RESP 18; TEMP 36.9; O2SAT 95
[2023-02-11] MEDS: Insulin Lispro 100 UNIT/ML INSULN.PEN SC ×2 (14:29→20:07)
[2023-02-11 14:44] LABS: Bedside Glucose 245 mg/dL (74-106)
--- NOTE | 2023-02-11 16:51 | PN.ONC_ITS ---
Subjective Subjective Upon entering the room patient is sitting upright in bed surrounded by spouse and 2 adult daughter at the bedside. He denies any outstanding/new concerns since our conversation yesterday. Events of the last 24 hours were reviewed. Physical Exam Const alert and no apparent distress General Appearance: ill appearing Positive for chronically and frail HEENT head/scalp atraumatic and moist oral mucous membranes Extremity Extremity Narrative: edema in bilateral LE. Psych affect normal Attention / Concentration: attention grossly intact Vital Signs Temperature 98.5 F 02/11/23 11:30 Temperature Source Oral 02/11/23 11:30 Pulse Rate 80 02/11/23 11:30 Pulse Strength Weak (1+) 02/10/23 22:00 Respiratory Rate 18 02/11/23 11:30 Respiratory Effort Normal, Non-Labored 02/11/23 01:49 Respiratory Depth Normal 02/11/23 01:49 Respiratory Pattern Normal 02/11/23 01:49 Blood Pressure 104/42 L 02/11/23 11:30 Blood Pressure Mean 62 02/11/23 11:30 Blood Pressure Source Monitor 02/11/23 11:30 Blood Pressure Position Semi-Fowlers 02/11/23 11:30 Blood Pressure Location Left Arm 02/11/23 11:30 Pulse Ox 95 02/11/23 11:30 Oxygen Delivery Method Room Air 02/11/23 11:30 Oxygen Flow Rate (L/min) 96 02/09/23 14:48 Laboratory Results - last 24 hr 02/10/23 18:17: POC Glucose 158 H 02/10/23 22:13: POC Glucose 236 H 02/11/23 01:34: POC Glucose 148 H 02/11/23 05:00: WBC 9.2, RBC 2.72 L, Hgb 9.2 L, Hct 28.4 L, MCV 104.4 H, MCH 33.8 H, MCHC 32.4, RDW Std Deviation 59.1 H, RDW Coeff of Abdullahi 16.0 H, Plt Count 347, MPV 9.8, Sodium 143, Potassium 4.1, Chloride 108 H, Carbon Dioxide 34.0 H, Anion Gap 1 L, BUN 23 H, Creatinine 0.90, Estim Creat Clear Calc 63.47, Est GFR (MDRD) Af Amer 102, Est GFR (MDRD) Non-Af 85, BUN/Creatinine Ratio 25.5 H, Glucose 135 H, Calcium 7.4 L 02/11/23 05:44: POC Glucose 133 H 02/11/23 10:03: POC Glucose 206 H 02/11/23 14:27: POC Glucose 245 H Microbiology 02/06/23 12:53 Fluid - Ascites Gram Stain - Final 02/06/23 12:53 Fluid - Ascites Body Fluid Culture - Final Culture exhibits no growth. 02/06/23 12:53 Fluid - Ascites Anaerobic Culture - Final No growth in 5 days. Diagnostic Data Venous Doppler Study 02/05/23 13:03 Interpretation Summary Deep veins of the bilateral lower extremities are patent and compressible segmentally. There is no evidence of bilateral lower extremity deep vein thrombosis. The bilateral great saphenous veins appear patent and compressible segmentally. Ordering Physician: Lilli Rubio Referring Physician: Lico Cameron Performed By: Myke Gardner, T Chest CTA 02/05/23 14:25 IMPRESSION: No evidence of pulmonary embolism. Small right pleural effusion with right basilar atelectasis. Stable scarring and bronchiectasis in the left lung apex. 2.2 cm x 1.3 cm soft tissue density in the medial aspect of the right lower lobe abutting the pericardium. Ascites. Electronically Signed: Jose L Tejeda MD at 15:02 EDT , Paracentesis Ultrasound 02/06/23 06:14 IMPRESSION: Ultrasound guided paracentesis. Electronically Signed: Jose L Tejeda MD at 13:31 EDT , Echocardiogram 02/07/23 07:34 Interpretation Summary The estimated ejection fraction is 65-70 %. Normal LV systolic function Grade 1 diastolic dysfunction Moderate mitral annular calcification with trivial MR Trivial TR Diffuse calcific aortic valve with no evidence of aortic stenosis No prior echocardiogram to compare. Ordering Physician: Connor Carrion Referring Physician: Lico Cameron Performed By: Justen Matias RCS Assessment & Plan Assessment/Plan (1) Metastatic cancer: QUALIFIERS: Area of secondary neoplastic involvement: peritoneum Qualified Code(s): C78.6 - Secondary malignant neoplasm of retroperitoneum and peritoneum PLAN: I re reviewed: Cytology results from paracentesis on 02/06/2023 confirming malignant ascites, the PSMA PET scan completed 12/31/22 outlining all areas in which PSMA was strongly upregulated, and options for management with patient and family members who were not present yesterday. Options include supportive care versus genetic testing that can be done in the ambulatory setting, specifically looking for gene alterations that would allow for possible treatme nt with a PARP inhibitor. It was again communicated that the patient is a poor candidate for systemic chemotherapy due to performance status, age and comorbidities. We engaged in a lengthy conversation (approx 40 minutes) about his prognosis related to widely disseminated metastatic CRPC -which is poor, and objective findings such as anasarca, that are often consistent with the end of the disease trajectory. The patient and collectively as a family have elected in home hospice care. (2) Protein calorie malnutrition: QUALIFIERS: Protein-calorie malnutrition severity: severe Qualified Code(s): E43 - Unspecified severe protein-calorie malnutrition PLAN: Albumin 2.2. Stressed the importance of adequate protein intake. Offered suggestions of protein supplements that can be used at home.
[2023-02-11 17:30] VITALS: BP 110/48; PULSE 79; RESP 18; TEMP 36.9; O2SAT 95
[2023-02-11] MEDS: Atorvastatin Calcium 80 MG Tablet PO (20:15)
[2023-02-11] MEDS: Ibuprofen 400 MG Tablet PO (20:15)
[2023-02-11] MEDS: Gabapentin 400 MG Capsule PO (20:16)
[2023-02-11 20:45] VITALS: BP 112/44; PULSE 86; RESP 18; TEMP 36.9; O2SAT 95
[2023-02-11 23:23] LABS: Bedside Glucose 268 mg/dL (74-106)
[2023-02-12 00:27] VITALS: BP 130/47; PULSE 73; RESP 16; TEMP 36.7; O2SAT 94
[2023-02-12 05:15] VITALS: BP 123/46; PULSE 72; RESP 18; TEMP 36.7; O2SAT 95
[2023-02-12 05:41] LABS: Bedside Glucose 163 mg/dL (74-106)
[2023-02-12 05:41] LABS: Bedside Glucose 178 mg/dL (74-106)
[2023-02-12 06:22] LABS: Bedside Glucose 173 mg/dL (74-106)
[2023-02-12 06:28] LABS: Hematocrit 27.5 % (40-54); Hemoglobin 8.6 g/dL (13.0-16.5); Mean Corp Hgb Conc 31.3 g/dL (32-36); Mean Corpuscular Hgb 32.3 pg (27.0-32.0); Mean Corpuscular Volume 103.4 fL (80-94); Mean Platelet Vol. 10.5 fl (6.2-12.0); Platelet Count 377 K/mm3 (150-450); RBC Distribution Width CV 16.1 % (11.6-14.6); RBC Distribution Width SD 58.8 fl (35.1-43.9); Red Blood Count 2.66 M/mm3 (4.6-6.2); White Blood Count 12.8 K/mm3 (4.4-11.0)
[2023-02-12 07:03] LABS: Anion Gap 4 (5-15); BUN 26 mg/dL (7-18); BUN/Creat Ratio 28.3 RATIO (10-20); Calcium,Total 7.8 mg/dL (8.5-10.1); Chloride 106 mmol/L (98-107); Creatinine, Serum 0.92 mg/dL (0.70-1.30); EST Glomerular Filtration Rate 83 mL/min (>60); Est Glom Filt Rate - Afr Amer 100 mL/min (>60); Estimated Creatinine Clearance 62.09 ml/min; Glucose 176 mg/dL (74-106); Potassium 3.9 mmol/L (3.5-5.1); Sodium Level 141 mmol/L (136-145)
[2023-02-12 08:42] VITALS: BP 118/49; PULSE 76; RESP 18; TEMP 36.4; O2SAT 94
[2023-02-12] MEDS: Menthol/Lanolin/Calamine/Znox 113 GM Tube 1 APPLIC TOPICAL (08:49)
[2023-02-12] MEDS: Furosemide 40 MG Tablet PO (08:51)
[2023-02-12] MEDS: Memantine Hydrochloride 10 MG Tablet PO (08:52)
[2023-02-12] MEDS: Pantoprazole Sodium 40 MG Tablet PO (08:52)
[2023-02-12] MEDS: Cyanocobalamin 500 MCG Tablet 1000 MCG PO (08:52)
[2023-02-12] MEDS: Cholecalciferol (VIT D3) 25 MCG TABLET (1,000 UNITS) 50 MCG PO (08:52)
[2023-02-12] MEDS: dilTIAZem CD 120 MG Capsule PO (08:53)
[2023-02-12] MEDS: Losartan Potassium 50 MG Tablet PO (08:53)
[2023-02-12] MEDS: BICALUTAMIDE 50 MG TABLET PO (08:53)
--- NOTE | 2023-02-12 08:53 | PCM.PN.HOSP ---
Reason for Visit Reason for Visit: Diagnoses Secondary malignant neoplasm of retroperitoneum and peritoneum (02/05/23) Secondary malignant neoplasm of unspecified site (02/05/23) Type 1 diabetes mellitus with hyperglycemia (02/05/23) Unspecified severe protein-calorie malnutrition (02/05/23) Fluid overload, unspecified (02/05/23) Dermatitis, unspecified (02/05/23) Hypoxemia (02/05/23) Generalized edema (02/05/23) Subjective Subjective Having some abdominal and back pain. Would like to manage his insulin as he does at home. Objective Data Objective Data Vital Signs: Vital Signs Temp Pulse Resp BP Pulse Ox O2 Del Method O2 Flow Rate 36.4 C L 76 18 118/49 L 94 Room Air 96 02/12/23 08:42 02/12/23 08:42 02/12/23 08:42 02/12/23 08:42 02/12/23 08:42 02/12/23 08:42 02/09/23 14:48 Oxygen Flow Rate (L/min) 96 Oxygen Delivery Method [3] Room Air Oxygen Delivery Method [2] Room Air Oxygen Delivery Method [1 ( Room Air Initial Baseline)] Oxygen Delivery Method Room Air Weight: 83.2 kg Body Mass Index (BMI) 24.8 Intake & Output: Intake and Output for Last 24 Hours 02/10/23 02/11/23 02/12/23 23:59 23:59 23:59 Intake Total 750 / 870 360 / 480 240 / 240 Output Total 1000 / 1725 1200 / 1700 975 / 975 Balance -250 / -855 -840 / -1220 -735 / -735 Medical Nutrition Assessment Dietitian: Malnutrition Criteria Met Start: 02/11/23 11:42 Freq: Status: Active Protocol: Document 02/11/23 11:42 RMA (Rec: 02/11/23 11:42 RMA [id number]) Nutrition Malnutrition Evidence of Malnutrition Exists Yes Malnutrition (severe): Acute Illness/Injury,Chronic Evidenced By Suboptimal Energy Intake ( Severe),Physical Changes ( Severe) Clinical Problem Chronic Disease or Condition Related Malnutrition Etiology Severe pro-calorie malnutrition in the context of acute on chronic disease related to increased energy expenditure/metastatic disease and inadequate oral intake Signs/Symptoms as evidenced by PO currently less than 25% meals and meeting less than 50% estimated nutrition needs x past month, fluid overload masking weight loss, BLLE 1+ pitting edema, recent paracentesis removed 2700mL fluid, and moderate to severe muscle wasting in the clavicle , face, arms and legs Status Active Problem Recommendation Dietitian Recommendations/Changes Given pro-tala malnutrition, will liberalize diet to regular/no added salt for now and encourage improved PO at meals. Monitor need to restrict carbohydrates and fluid. Will add 120mL ensure plus high protein 4 times per day w / medpass. Will add ensure pudding BID w/ lunch and dinner as tolerated . If PO remains poor and inadequate to meet estimated nutrition needs may need to consider nutrition support. Lab / Micro Data 02/12/23 05:50 02/12/23 05:50 Labs: Laboratory Results - last 24 hr 02/10/23 03:28: POC Glucose 173 H 02/11/23 10:03: POC Glucose 206 H 02/11/23 14:27: POC Glucose 245 H 02/11/23 19:55: POC Glucose 268 H 02/12/23 00:34: POC Glucose 163 H 02/12/23 05:18: POC Glucose 178 H 02/12/23 05:50: WBC 12.8 H, RBC 2.66 L, Hgb 8.6 L, Hct 27.5 L, MCV 103.4 H, MCH 32.3 H, MCHC 31.3 L, RDW Std Deviation 58.8 H, RDW Coeff of Abdullahi 16.1 H, Plt Count 377, MPV 10.5, Sodium 141, Potassium 3.9, Chloride 106, Carbon Dioxide 31.0, Anion Gap 4 L, BUN 26 H, Creatinine 0.92, Estim Creat Clear Calc 62.09, Est GFR (MDRD) Af Amer 100, Est GFR (MDRD) Non-Af 83, BUN/Creatinine Ratio 28.3 H, Glucose 176 H, Calcium 7.8 L Micro: Microbiology 02/06/23 12:53 Fluid - Ascites Gram Stain - Final 02/06/23 12:53 Fluid - Ascites Body Fluid Culture - Final Culture exhibits no growth. 02/06/23 12:53 Fluid - Ascites Anaerobic Culture - Final No growth in 5 days. Physical Exam Const alert and no apparent distress HEENT head/scalp atraumatic Extremity General Extremity: edema bilateral lower extremity Details: severe Neuro Sensorium / Orientation: awake and alert Psych affect normal Assessment & Plan Assessment/Plan (1) Fluid overload: PLAN: Volume overload, concern for worsening metastatic prostate cancer versus undiagnosed secondary cancer Patient volume overloaded on exam on admission including bilateral lower extremity edema, abdominal ascites and small right pleural effusion. Also complicated by protein calorie malnutrition. Data: Patient notably had a PET/CT scan done outpatient at the beginning of December, showed increased tracer distribution distended throughout the abdominal?pelvic cavity including omental caking and peritoneal thickening concerning for neoplasm; also showed enhanced uptake in the right hemithorax of pyelonephritis, the pericardium, and the anterior mediastinum. Chest CTA on admit showed a small right pleural effusion with right basilar atelectasis, as well as a 2.2 cm x 1.3 cm soft tissue density in the medial aspect of the right lower lobe abutting the pericardium; no evidence of PE. Lower extremity venous Doppler study negative for DVT. S/p ultrasound-guided paracentesis on 02/06 with 2700 ml of cloudy fluid removed, fluid studies pending. TTE 02/07 shows EF 65 to 70%, grade 1 diastolic dysfunction, trivial MR and TR, no other abnormalities. 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 Not felt to be a systemic chemotherapy candidate given poor performance status, advanced age and medical comorbidities. They did offer genetic testing that could allow for treatment with PARP inhibitor. Patient now electing on hospice at home. Awaiting on hospice evaluation. (3) Dermatitis: PLAN: It is on both sides of his back, therefore, not consistent with VZV Pt admits to using heating pad that may have cause it. Supportive mgmt. (4) Uncontrolled type 1 diabetes mellitus with hyperglycemia: PLAN: Hypoglycemic 02/10 Ok for pt to use his own Toujeo instead of our glargine monitor. (5) Protein calorie malnutrition: QUALIFIERS: Protein-calorie malnutrition severity: severe Qualified Code(s): E43 - Unspecified severe protein-calorie malnutrition PLAN: complicates care and recovery. complicating 3rd spacing. consult nutrition for further recommendations. PLAN: Plan Chronic medical conditions: ? Type 1 diabetes with diabetic neuropathy: On home Toujeo 24 units at night, NovoLog sliding scale insulin, gabapentin. Continue long-acting insulin 24 units at night with sliding scale insulin. Monitor sugars, adjust as needed. ? CAD s/p stenting: Continue home aspirin and high intensity statin. ? Hypertension: Continue home losartan. DVT prophylaxis: Lovenox CODE STATUS: Full code, verified Expected disposition: Home with hospice DW patient's and daughters at bedside. Charges/Coding Visit Charges Inpatient E&M: 92225 Subs Hosp L2
[2023-02-12 09:18] LABS: Bedside Glucose 187 mg/dL (74-106)
[2023-02-12] MEDS: Insulin Lispro 100 UNIT/ML INSULN.PEN 10 UNIT SC (09:27)
[2023-02-12] MEDS: oxyCODONE 5 MG Tablet PO (09:36)
--- NOTE | 2023-02-12 10:08 | CASEMGMT ---
SW was made aware of Hospice referral. SW met with patient's family. Family said Hospice already called them and they will be here around 11. Family asked about transportation home. SW said Hospice may be an option, but SW cannot promise. Otherwise SW could arrange for cot to take patient home, however that would likely not be covered by insurance. Kelli Erickson [employer]
[2023-02-12] MEDS: Bisacodyl 10 MG Suppository RC (11:03)
[2023-02-12] MEDS: Insulin Lispro 100 UNIT/ML INSULN.PEN SC (11:57)
[2023-02-12 12:15] LABS: Bedside Glucose 292 mg/dL (74-106)
[2023-02-12] MEDS: Ondansetron ODT 4 MG Tablet PO (13:18)
--- NOTE | 2023-02-12 13:40 | DS.PCM_ITS ---
Providers Date of Admission: 02/05/23 Primary Care Physician: Dr. Lico Cameron, DO Consultations 02/05/23 17:16 Consult: Oncology/Hematology Routine Consulting Provider: [facility] ([facility]) Reason for Consult: metastatic cancer, unclear primary EMERGENT Consult: No Notified: Yes Date Notified: 02/05/23 Time Notified: 17:17 Method of Notification: Text 02/11/23 17:09 Consult: Hospice / Palliative Care Routine Consulting Provider: [facility] Reason for Consult: Stage IV prostate cancer with poor perfomance status. EMERGENT Consult: No Notified: Yes Date Notified: 02/11/23 Time Notified: 17:09 Method of Notification: Answering Service Reason For Visit: FLUID OVERLOAD / HYPOXIA Diagnosis Discharge Diagnosis (1) Fluid overload: Status: Acute Code(s): E87.70 - Fluid overload, unspecified Plan: Volume overload, concern for worsening metastatic prostate cancer versus undiagnosed secondary cancer Patient volume overloaded on exam on admission including bilateral lower extremity edema, abdominal ascites and small right pleural effusion. Also complicated by protein calorie malnutrition. Data: * Patient notably had a PET/CT scan done outpatient at the beginning of December, showed increased tracer distribution distended throughout the abdominal?pelvic cavity including omental caking and peritoneal thickening concerning for neoplasm; also showed enhanced uptake in the right hemithorax of pyelonephritis, the pericardium, and the anterior mediastinum. * Chest CTA on admit showed a small right pleural effusion with right basilar atelectasis, as well as a 2.2 cm x 1.3 cm soft tissue density in the medial aspect of the right lower lobe abutting the pericardium; no evidence of PE. * Lower extremity venous Doppler study negative for DVT. * S/p ultrasound-guided paracentesis on 02/06 with 2700 ml of cloudy fluid removed , fluid studies pending. * TTE 02/07 shows EF 65 to 70%, grade 1 diastolic dysfunction, trivial MR and TR, no other abnormalities. 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 Not felt to be a systemic chemotherapy candidate given poor performance status, advanced age and medical comorbidities. They did offer genetic testing that could allow for treatment with PARP inhibitor. Patient now electing on hospice at home. Awaiting on hospice evaluation. (3) Dermatitis: Status: Acute Code(s): L30.9 - Dermatitis, unspecified Plan: It is on both sides of his back, therefore, not consistent with VZV Pt admits to using heating pad that may have cause it. Supportive mgmt. (4) Uncontrolled type 1 diabetes mellitus with hyperglycemia: Status: Acute Code(s): E10.65 - Type 1 diabetes mellitus with hyperglycemia Plan: Hypoglycemic 02/10 Ok for pt to use his own Toujeo instead of our glargine monitor. (5) Protein calorie malnutrition: Status: Acute Code(s): E46 - Unspecified protein-calorie malnutrition Qualifiers: Protein-calorie malnutrition severity: severe Qualified Code(s): E43 - Unspecified severe protein-calorie malnutrition Plan: complicates care and recovery. complicating 3rd spacing. consult nutrition for further recommendations. Plan Chronic medical conditions: ? Type 1 diabetes with diabetic neuropathy: On home Toujeo 24 units at night, NovoLog sliding scale insulin, gabapentin. Continue long-acting insulin 24 units at night with sliding scale insulin. Monitor sugars, adjust as needed. ? CAD s/p stenting: Continue home aspirin and high intensity statin. ? Hypertension: Continue home losartan. DVT prophylaxis: Lovenox CODE STATUS: Full code, verified Expected disposition: Home with hospice DW patient's and daughters at bedside. Medications at Discharge Home Medications pen needle, diabetic 32 gauge x (BD Ultra-Fine [place] Pen Needle) #10 ea 08/13/17 pantoprazole 40 mg tablet,delayed release (Protonix) 40 mg PO BID reflux 09/03/17 blood-glucose meter (FreeStyle Lite Meter kit) #1 ea 03/23/20 insulin syringe-needle U-100 0.5 mL 31 gauge x 10/15 #100 ea 08/15/20 gabapentin 400 mg capsule 400 mg PO QHS NERVE PAIN 06/13/21 ibuprofen 200 mg tablet 400 mg PO QHS PAIN 06/13/21 nitroglycerin 0.4 mg sublingual tablet (Nitrostat) 0.4 mg sublingual Q5-15M PRN chest pain #25 tabs 06/20/21 diltiazem HCl 120 mg capsule,extended release 24 hr (Cardizem CD) 120 mg PO D AILY heart rate #90 caps 07/01/22 memantine 5 mg tablet 10 mg PO BID alzheimers 07/15/22 Novolog U-100 Insulin aspart 100 unit/mL subcutaneous solution (insulin aspart U-100) See Rx Instructions subcut QAM DM #60 mL 08/01/22 blood-glucose meter (Accu-Chek Guide Me Glucose Meter) #1 ea 08/01/22 insulin syringe-needle U-100 0.5 mL 31 gauge x 5/16 (BD Insulin Syringe Ultra- Fine) #360 ea 10/21/22 blood sugar diagnostic (Accu-Chek Guide test strips) #100 ea 10/31/22 blood sugar diagnostic (FreeStyle Lite Strips) #180 ea 10/31/22 ondansetron 4 mg disintegrating tablet 4 mg PO Q8H PRN PRN Nausea #10 tabs 01/24/23 bicalutamide 50 mg tablet 50 mg PO DAILY Prostate 02/05/23 insulin glargine U-300 conc 300 unit/mL (1.5 mL) subcutaneous pen (Toujeo SoloStar U-300 Insulin) 24 unit (0.08 mL) subcut QHS diabetes #4.5 mL 02/10/23 bisacodyl 10 mg rectal suppository 10 mg DE BID PRN Constipation #12 ea 02/12/23 furosemide 40 mg tablet 40 mg PO DAILY #30 tabs 02/12/23 ondansetron 4 mg disintegrating tablet 4 mg PO Q8H PRN nausea and vomiting #20 tabs 02/12/23 oxycodone 5 mg tablet 5 mg PO Q4H PRN PRN Pain Score 4-10 3 days #18 tabs 02/12/23 Hospital Course Operations None Procedures Paracentesis Summary of Care Provided Minutes Spent on Discharge: 50 Hospital Course: Patient presents with abdominal distention and diffuse anasarca. Patient is previously been found to have cancer in his abdomen with unknown primary. Patient underwent a paracentesis on the that eventually showed prostate cancer. After lengthy conversations by myself as well as oncology, patient has elected to proceed with hospice. The reason for that is patient has poor performance status as well as his advanced age would preclude him from undergoing systemic chemotherapy. It was offered for him to have the possibility of immunotherapy with further genetic testing, however the patient declined. Patient would prefer home with hospice. Patient and his family met with hospice today and the plan is to discharge him home with hospice. Patient also has chronic urinary incontinence due to urinary retention. Catheter was placed that has alleviated that. Patient will continue with a catheter upon discharge. Patient also having sensation of needing to have a bowel movement. Unclear if this may be referred from the abdominal caking from the prostate cancer. Patient will have a bowel regimen at home. Medical Records Data Medical Nutrition Assessment Dietitian: Malnutrition Criteria Met Start: 02/11/23 11:42 Freq: Status: Active Protocol: Document 02/11/23 11:42 RMA (Rec: 02/11/23 11:42 RMA [id number]) Nutrition Malnutrition Evidence of Malnutrition Exists Yes Malnutrition (severe): Acute Illness/Injury,Chronic Evidenced By Suboptimal Energy Intake ( Severe),Physical Changes ( Severe) Clinical Problem Chronic Disease or Condition Related Malnutrition Etiology Severe pro-calorie malnutrition in the context of acute on chronic disease related to increased energy expenditure/metastatic disease and inadequate oral intake Signs/Symptoms as evidenced by PO currently less than 25% meals and meeting less than 50% estimated nutrition needs x past month, fluid overload masking weight loss, BLLE 1+ pitting edema, recent paracentesis removed 2700mL fluid, and moderate to severe muscle wasting in the clavicle , face, arms and legs Status Active Problem Recommendation Dietitian Recommendations/Changes Given pro-tala malnutrition, will liberalize diet to regular/no added salt for now and encourage improved PO at meals. Monitor need to restrict carbohydrates and fluid. Will add 120mL ensure plus high protein 4 times per day w / medpass. Will add ensure pudding BID w/ lunch and dinner as tolerated . If PO remains poor and inadequate to meet estimated nutrition needs may need to consider nutrition support. Weight / BMI Weight Weight: 83.2 kg Body Mass Index (BMI) 24.8 ABG / Lab / Microbiology Data 02/12/23 05:50 02/12/23 05:50 Laboratory: Laboratory Results - last 24 hr 02/06/23 12:53: Miscellaneous Cytology SEE PATHOLOGY REPORT 02/10/23 03:28: POC Glucose 173 H 02/11/23 14:27: POC Glucose 245 H 02/11/23 19:55: POC Glucose 268 H 02/12/23 00:34: POC Glucose 163 H 02/12/23 05:18: POC Glucose 178 H 02/12/23 05:50: WBC 12.8 H, RBC 2.66 L, Hgb 8.6 L, Hct 27.5 L, MCV 103.4 H, MCH 32.3 H, MCHC 31.3 L, RDW Std Deviation 58.8 H, RDW Coeff of Abdullahi 16.1 H, Plt Count 377, MPV 10.5, Sodium 141, Potassium 3.9, Chloride 106, Carbon Dioxide 31.0, Anion Gap 4 L, BUN 26 H, Creatinine 0.92, Estim Creat Clear Calc 62.09, Est GFR (MDRD) Af Amer 100, Est GFR (MDRD) Non-Af 83, BUN/Creatinine Ratio 28.3 H, Glucose 176 H, Calcium 7.8 L 02/12/23 08:48: POC Glucose 187 H 02/12/23 11:55: POC Glucose 292 H Microbiology: Microbiology 02/06/23 12:53 Fluid - Ascites Gram Stain - Final 02/06/23 12:53 Fluid - Ascites Body Fluid Culture - Final Culture exhibits no growth. 02/06/23 12:53 Fluid - Ascites Anaerobic Culture - Final No growth in 5 days. D/C Instructions Discharge Diet: No restrictions Meaningful Use Info Meaningful Use Diagnoses (Choose all that apply): None applicable Discharge Plan Admission Admit Date/Time: 02/05/23 16:09 Primary Reason for Your Visit: ascites. prostate cancer. Attending Provider: Warner Guthrie Primary Care Provider: Lico Cameron Consulting Providers: Guevara Leigh; Moises Boyce; Dick Arreguin; Jonathon Smith; Bennie Lees; Serg Fallon; Leonardo Davis; Francia Vang ASSEMBLER MOVEMENT; Julieta Wu; Connor Carrion; Guevara Raines; Barbara Barba; Padma Ordaz; Marva Cameron ASSEMBLER MOVEMENT Instructions Patient Instructions: STEHPANIE RN Paracentesis Dc Discharge Orders/Prescriptions Prescriptions: New bisacodyl 10 mg Suppository 10 mg DE BID PRN (Reason: Constipation) Qty: 12 0RF furosemide 40 mg Tablet 40 mg PO DAILY Qty: 30 0RF oxycodone 5 mg Tablet 5 mg PO Q4H PRN PRN (Reason: Pain Score 4-10) 3 Days Qty: 18 0RF ondansetron 4 mg tablet,disintegrating 4 mg PO Q8H PRN (Reason: nausea and vomiting) Qty: 20 0RF Continued (DME) pen needle, diabetic [BD Ultra-Fine [place] Pen Needle] 32 gauge x 5/32 needle See Dose Instructions .ROUTE .MEDSUPPLY Qty: 10 Rx Instructions: use with insulin pen 1 x qd pantoprazole [Protonix] 40 mg tablet,delayed release (DR/EC) 40 mg PO BID memantine 5 mg tablet 10 mg PO BID Patient Comments: TAKE 1 TABLET BY MOUTH ONCE DAILY gabapentin 400 mg capsule 400 mg PO QHS Patient Comments: TAKE 1 CAPSULE BY MOUTH ONCE DAILY AT NIGHT NEEDED FOR CRAMPS ibuprofen 200 mg Tablet 400 mg PO QHS ondansetron 4 mg tablet,disintegrating 4 mg PO Q8H PRN PRN (Reason: Nausea) Qty: 10 0RF bicalutamide 50 mg tablet 50 mg PO DAILY (DME) blood-glucose meter [FreeStyle Lite Meter] Kit See Rx Instructions .ROUTE .MEDSUPPLY Qty: 1 0RF Rx Instructions: As directed (DME) insulin syringe-needle U-100 0.5 mL 31 gauge x 5/16 syringe See Dose Instructions .ROUTE .MEDSUPPLY Qty: 100 11RF Dose Instruction: As directed Rx Instructions: use to inject insulin tid nitroglycerin [Nitrostat] 0.4 mg tablet, sublingual 0.4 mg sublingual Q5-15M PRN (Reason: chest pain) Qty: 25 3RF Rx Instructions: do not exceed 3 doses per episode diltiazem HCl [Cardizem CD] 120 mg capsule,extended release 24hr 120 mg PO DAILY Qty: 90 3RF (DME) blood-glucose meter [Accu-Chek Guide Me Glucose Mtr] Misc See Rx Instructions .Route Qty: 1 0RF Rx Instructions: As directed insulin aspart U-100 [Novolog U-100 Insulin aspart] 100 unit/mL solution See Rx Instructions SC QAM MDD 60 Qty: 60 3RF Dose Instruction: SC QAM; Rx Instructions: Take 11 units at each meal. Sliding scale up to 60 units daily (DME) insulin syringe-needle U-100 [BD Insulin Syringe Ultra-Fine] 0.5 mL 31 gauge x 5/16 syringe See Rx Instructions .ROUTE .MEDSUPPLY Qty: 360 3RF Rx Instructions: 4x/day (DME) Accu-Chek Guide test strips Strip See Rx Instructions .Route Qty: 100 12RF Rx Instructions: 6x/day (DME) FreeStyle Lite Strips Strip See Rx Instructions .ROUTE .MEDSUPPLY Qty: 180 12RF Rx Instructions: 6 times daily [place] SoloStar U-300 Insulin 300 unit/mL (1.5 mL) insulin pen 24 unit SC QHS Qty: 4.5 1RF Discontinued cholecalciferol (vitamin D3) 2,000 unit capsule 2,000 unit PO DAILY atorvastatin 80 mg tablet 80 mg PO QHS Qty: 90 3RF losartan 50 mg tablet 50 mg PO DAILY Patient Comments: TAKE 1 TABLET BY MOUTH ONCE DAILY cyanocobalamin (vitamin B-12) 1,000 mcg Capsule 1,000 mcg PO DAILY aspirin 81 mg Tablet,Delayed Release (Dr/Ec) 81 mg PO BREAKFAST Qty: 0 0RF furosemide [Lasix] 20 mg tablet 20 mg PO DAILY Qty: 5 0RF hydrocodone-acetaminophen 5-325 mg tablet 1 tab PO Q6H PRN (Reason: pain) Referrals / Follow Up: Lico Cameron DO [Primary Care Provider] - Disposition Disposition (needs filled in before D/C Order can be placed): Hospice in Home Charges/Coding Visit Charges Inpatient E&M: 21077 Disch Hosp >30min
--- NOTE | 2023-02-12 14:13 | CASEMGMT ---
Discharge [facility] will transport patient home by cot at 4p. Nursing, SW, and patients daughter updated. Brittany Lares, Discharge Planning Asst.
--- NOTE | 2023-02-12 15:09 | CASEMGMT ---
Patient signed with Hospice. Family will need transportation arranged for patient. Patient's daughter Dania is aware insurance may not pay for ambulance trip home. MATTHIAS sent d/c summary and DNR to Hospice. Brittany d/c enterprise resource planning consultant arranged for patient to get picked up at 4p via cot. MATTHIAS notified RN, project control officer, and Renee at Hospice. Plan: d/c home on [facility] Kelli Erickson FRONT DESK MANAGER SORAIDA
[2023-02-12 15:13] VITALS: BP 107/46; PULSE 90; RESP 18; TEMP 36.8; O2SAT 94
--- NOTE | 2023-02-12 15:35 | CASEMGMT ---
MATTHIAS received a call from Analy with Hospice. Analy said patient's daughter called and said patient is not going home today. MATTHIAS told Analy RIZZO will check and get back with her. MATTHIAS spoke with patient's daughter Dania. Dania explained patient had an anxious moment and said he cannot go home today. This was worked out and he is fine with going home today. 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 Around 4p MATTHIAS was notified there is another issue with patient being discharged. MATTHIAS spoke with patient's daughter Dania and she said the equipment company is not going to deliver the equipment today because patient's other daughter canceled everything and asked that it be delivered tomorrow. MATTHIAS called Analy with Hospice and she will try and see if the delivery truck can turn around and deliver the equipment to the home. Physicians then arrived to transport patient. They patiently waited while MATTHIAS worked out the situation. Analy said the equipment will be delivered today, the latest would be 7p. MATTHIAS let Analy know patient will be discharged today. MATTHIAS spoke with Dania and let her know this information. Dania apologized stating there is tension between she and her sister. MATTHIAS also spoke with patient's who was in the foyer letting her know patient will go home today and equipment will be delivered tonight latest being 7p. Plan: d/c home with [facility]. Physicians transported patient via cot. Kelli QUIGLEY
== END 2023-02-12 16:39 | disposition hospice, home (50) | DRG 374 ==
LOC: ED 15:40 → PCU 15:56
PROVIDERS: Hospitalist; Nurse Practitioner Acute Care; Admitting Provider Student in an Organized Health Care Education/Training Program; Emergency Provider Emergency Medicine; PCP Family Medicine
DX: C78.6 Secondary malignant neoplasm of retroperitoneum and peritoneum (principal); E43 Unspecified severe protein-calorie malnutrition; R18.0 Malignant ascites; C61 Malignant neoplasm of prostate; E10.42 Type 1 diabetes mellitus with diabetic polyneuropathy; E10.620 Type 1 diabetes mellitus with diabetic dermatitis; Z79.4 Long term (current) use of insulin; E10.649 Type 1 diabetes mellitus with hypoglycemia without coma; E10.65 Type 1 diabetes mellitus with hyperglycemia; I10 Essential (primary) hypertension; I25.10 Atherosclerotic heart disease of native coronary artery without angina pectoris; L30.9 Dermatitis, unspecified; R09.02 Hypoxemia; Z95.5 Presence of coronary angioplasty implant and graft; Z90.49 Acquired absence of other specified parts of digestive tract; Z68.24 Body mass index [BMI] 24.0-24.9, adult; Z79.82 Long term (current) use of aspirin; Z79.899 Other long term (current) drug therapy; Z86.16 Personal history of COVID-19; Z87.891 Personal history of nicotine dependence
CPT/HCPCS: 36415; 49083; 71275; 80048; 81002; 82040; 82150; 82945; 82962; 83615; 83880; 84153; 84484; 85025; 85027; 85610; 85730; 87070; 87075; 87205; 88108; 88305; 88313; 88341; 88342; 89050; 93005; 93306; 93970; 97110; 97162; 97166; 97530; 97535; 97802; 99252; 99284; Q9957; Q9967; A4216; C8929; G0463; J1940; J2405